=== PATIENT | female | born 1975 | race Caucasian/White ===

== ENCOUNTER → 2017-01-19 | Outpatient (CLI) | payer OTHER ==
--- NOTE | 2017-01-19 21:01 | MR ---
EXAMINATION TYPE: MR lumbar spine wo con DATE OF EXAM: 01/19/2017 COMPARISON: Prior lumbar MRI HISTORY: Low Back Pain x7 years TECHNIQUE: Multiplanar, multisequence images of the lumbar spine were acquired. L1-L2: Normal disc appearance without desiccation. No herniation, protrusion or disc bulging. No ca nal stenosis is present. Foramina are patent bilaterally. L2-L3: Normal disc appearance without desiccation. No herniation, protrusion or disc bulging. No ca nal stenosis is present. Foramina are patent bilaterally. L3-L4: Normal disc appearance without desiccation. No herniation, protrusion or disc bulging. No ca nal stenosis is present. Foramina are patent bilaterally. L4-L5: Broad-based posterior disc bulge causes mild anterior mass effect on the thecal sac as on prio r, there is facet arthropathy with hypertrophy ligamentum flavum encroaching on the lateral recesses. No significant central stenosis or foraminal encroachment. L5-S1: Normal disc appearance without desiccation. No herniation, protrusion or disc bulging. No ca nal stenosis is present. Foramina are patent bilaterally. Lumbar segments are intact. No paraspinal masses are identified. Conus medullaris has a normal appe arance. Lumbar vertebral bodies show preserved height and alignment. Endplate discogenic marrow signa l change again noted L4-5 with associated loss of disc height is normal. Mild spinal curvature again seen. IMPRESSION: Findings are essentially stable. Degenerative disc disease as on prior exam. There is spinal curvatur e
== END | disposition home or self-care (01) ==
LOC: RADMRIMAIN 19:34
PROVIDERS: ATTEND Physical Medicine & Rehabilitation
DX: M51.16 Intervertebral disc disorders with radiculopathy, lumbar region (principal); M43.8X6 Other specified deforming dorsopathies, lumbar region
CPT/HCPCS: 72148

== ENCOUNTER → 2018-03-29 | Outpatient (CLI) | payer OTHER ==
--- NOTE | 2018-03-29 12:45 | US ---
EXAMINATION TYPE: US liver DATE OF EXAM: 03/29/2018 COMPARISON: Prior ultrasound kidney dated 04/01/2011 CLINICAL HISTORY: R74.8 Elevated liver enzymes; gallbladder removed EXAM MEASUREMENTS: Liver Length: 17.4 cm Gallbladder Wall: surgically removed CBD: 0.5 cm Right Kidney: 10.8 x 5.6 x 4.2 cm Pancreas: hyperechoic Liver: hyperechoic to right renal cortex suggests fatty liver; focal fatty sparing ( hypoechoic area )noted at gallbladder fossa = 1.9 x 2.8 x 0.9cm Gallbladder: surgically absent Evidence for sonographic Mariee's sign: no CBD: wnl Right Kidney: wnl in the right kidney shows normal cortical medullary differentiation There is no ascites. IMPRESSION: Postop changes. Correlate for possible hepatic steatosis, liver MRI may be of benefit, ad ditional findings above.
== END | disposition home or self-care (01) ==
LOC: RADUSWWP 09:28
PROVIDERS: ATTEND Family Medicine
DX: R74.8 Abnormal levels of other serum enzymes (principal); Z90.49 Acquired absence of other specified parts of digestive tract
CPT/HCPCS: 76705

== ENCOUNTER 2018-04-16 00:03 | Observation (INO) | payer OTHER ==
--- NOTE | 2018-04-16 00:37 | ED ---
General Adult HPI - General Chief complaint: ENT Stated complaint: facial swelling Source: patient Mode of arrival: EMS Limitations: no limitations - History of Present Illness Initial comments: Dictation was produced using [employer] dictation software. please excuse any grammatical, word or spelling errors. Chief Complaint: 42-year-old female was transferred from outside facility for facial swelling History of Present Illness: Is a 42-year-old female with past medical history of depression, diabetes, hypertension pancreatitis presents with worsening facial swelling. She was transferred from an outside facility for further care. She was recently started on Zithromax. She's had sinusitis for several days now. She went to the emergency department because the swelling was getting worse. Patient denied any constitutional symptoms. Denies any visual changes. Patient does report having increased pain and discomfort to the left face. Patient denies any headache. She localizes all the pain to her anterior left face. Patient does have history of left-sided maxillary A sinus surgery. Patient was sent for further care and possible ENT evaluation. The ROS documented in this emergency department record has been reviewed and confirmed by me. Those systems with pertinent positive or negative responses have been documented in the HPI. All other systems are other negative and/or noncontributory. - Related Data Home Medications Medication Instructions Recorded Confirmed valACYclovir [Valtrex] 500 mg PO TID 02/08/15 04/16/18 ARIPiprazole [Abilify] 10 mg PO DAILY 04/16/18 04/16/18 Canagliflozin/Metformin HCl 1 each PO 04/16/18 [Invokamet 150-1,000 mg Tablet] FLUoxetine HCL [PROzac] 10 mg PO DAILY 04/16/18 04/16/18 Venlafaxine HCl [Effexor XR] 300 mg PO DAILY 04/16/18 04/16/18 Previous Rx's Medication Instructions Recorded Prochlorperazine Suppository 25 mg RECTAL TID #20 supp 02/08/15 [Compazine] Allergies Allergy/AdvReac Type Severity Reaction Status Date / Time carisoprodol [From Soma] Allergy Unknown Verified 02/08/15 12:18 latex Allergy Unknown Verified 02/08/15 12:18 Review of Systems ROS Statement: Those systems with pertinent positive or pertinent negative responses have been documented in the HPI. ROS Other: All systems not noted in ROS Statement are negative. Past Medical History Past Medical History: Diabetes Mellitus, Hypertension Additional Past Medical History / Comment(s): GENITAL HERPES History of Any Multi-Drug Resistant Organisms: None Reported Past Surgical History: Cholecystectomy Additional Past Surgical History / Comment(s): SINUS Past Psychological History: Anxiety, Depression Smoking Status: Current every day smoker Past Alcohol Use History: Rare Past Drug Use History: Prescription Drug Abuse General Exam - General Exam Comments Initial Comments: PHYSICAL EXAM: General Impression: Alert and oriented x3, not in acute distress HEENT: extra-ocular movements intact, pupils equal and reactive to light bilaterally, mucous membranes moist, poor dentition, left facial swelling to the periorbital and left maxillary region Cardiovascular: Heart regular rate and rhythm, S1&S2 audible, no murmurs, rubs or gallops Chest: Lungs clear to auscultation bilaterally, no rhonchi, no wheeze, no rales Abdomen: Bowel sounds present, abdomen soft, non-tender, non-distended, no organomegaly Musculoskeletal: Pulses present and equal in all extremities, no peripheral edema Motor: Power 5/5 bilaterally, no focal deficits noted Neurological: CN II-XII grossly intact, no focal motor or sensory deficits noted Skin: Intact with no visualized rashes Psych: Normal affect and mood Limitations: no limitations Course Vital Signs 04/16/18 00:10 Temperature 99.0 F Pulse Rate 104 H Respiratory 20 Rate Blood Pressure 205/117 O2 Sat by Pulse 95 Oximetry Medical Decision Making - Medical Decision Making ED course: 42-year-old female transferred from outside facility for worsening facial swelling possible phlegmon to the left maxillary soft tissues. Chart was reviewed from outside facility. Patient denies any leukocytosis P she is hemodynamically stable without any leukocytosis. Vital signs her facility is unremarkable. Patient was given a dose of Zosyn. Patient does have history of diabetes and is at risk for worsening infections. No clinical presentation to suggest mucormycosis. No clinical findings to suggest cavernous sinus thrombosis. Patient is given a dose of Zosyn. Will start patient on Unasyn and have patient admitted to the hospital for ENT consultation. Disposition Clinical Impression: Facial infection Disposition: ADMITTED IP TO THIS HOSP Referrals: Lee Enriquez MD [Primary Care Provider] - 1-2 days Decision Time: 00:46
[2018-04-16] MEDS ORDERED: NALOXONE 0.4 MG/ML 1 ML VIAL IV PRN (00:40)
[2018-04-16] MEDS: KETOROLAC 30 MG/ML 1 ML VIAL IVP SCH ×5 (00:56→23:22)
[2018-04-16] MEDS: AMPICILLIN-SULBACTAM 3 GM in SODIUM CHLORIDE 0.9% 100 ML IVPB SCH ×5 (00:57→23:22)
[2018-04-16] MEDS ORDERED: LISINOPRIL 10 MG TAB PO SCH ×2 (03:29→21:00)
[2018-04-16 05:32] VITALS: BMI 31.9
[2018-04-16 06:15] LABS: Glucose,Whole Blood 189 mg/dL (75-99)
[2018-04-16] MEDS: INSULIN ASPART 100 UNIT/ML 1 ML 10 ML VIAL SQ SCH ×4 (08:00→21:17)
[2018-04-16] MEDS: NICOTINE 21MG/24HR PATCH TRANSDERM SCH (08:01)
[2018-04-16 09:29] LABS: HCT 38.8 % (34.0-46.0); HGB 12.7 gm/dL (11.4-16.0); Hypochromasia Slight; MCH 27.1 pg (25.0-35.0); MCHC 32.8 g/dL (31.0-37.0); MCV 82.6 fL (80.0-100.0); Mean Platelet Volume 6.5; Microcytosis Slight; Platelet Count 261 k/uL (150-450); RDW 20.4 % (11.5-15.5); WBC 7.1 k/uL (3.8-10.6)
[2018-04-16 09:30] LABS: Anisocytosis Moderate; Basophils % (A) 0 %; Eosinophils # (A) 0.2 k/uL (0-0.7); Eosinophils % (A) 3 %; Lymphocytes # (A) 1.6 k/uL (1.0-4.8); Lymphocytes % (A) 22 %; Monocytes # (A) 0.4 k/uL (0-1.0); Monocytes % (A) 6 %; Neutrophils # (A) 4.8 k/uL (1.3-7.7); Neutrophils % (A) 68 %
[2018-04-16] MEDS: VENLAFAXINE HCL ER 150 MG CAP PO SCH (09:39)
[2018-04-16] MEDS: FLUTICASONE 50MCG/SPRAY NASAL 16GM INTRANASAL SCH (09:39)
[2018-04-16] MEDS: FLUoxetine HCL 10 MG CAP PO SCH (09:40)
[2018-04-16] MEDS: ARIPiprazole 10 MG TAB PO SCH (09:40)
[2018-04-16 09:44] LABS: Anion Gap 10 mmol/L; Blood Urea Nitrogen 10 mg/dL (7-17); Calcium 8.5 mg/dL (8.4-10.2); Carbon Dioxide 25 mmol/L (22-30); Chloride 105 mmol/L (98-107); Glucose 140 mg/dL (74-99); Potassium 3.8 mmol/L (3.5-5.1); Sodium 140 mmol/L (137-145)
[2018-04-16] MEDS: CANAGLIFLOZIN PO SCH (10:45)
[2018-04-16] MEDS: METFORMIN HCL PO SCH (10:45)
[2018-04-16] MEDS ORDERED: LISINOPRIL 5 MG TAB PO SCH ×2 (12:15→21:00)
[2018-04-16 12:31] LABS: Glucose,Whole Blood 208 mg/dL (75-99)
--- NOTE | 2018-04-16 13:33 | XR ---
EXAMINATION TYPE: XR panorex , DATE OF EXAM ORDERED: 04/16/2018 HISTORY: facial swelling left side, broken tooth. COMPARISON: None. FINDINGS: The patient is missing multiple teeth. There are several amalgams present. There have been multiple root canals. There is carious erosion of the left upper second molar. No definite root absc ess is seen. IMPRESSION: EVIDENCE OF POOR DENTITION.
[2018-04-16] MEDS ORDERED: MAGNESIUM HYDROXIDE 2,400 MG/10 ML CUP PO PRN (15:09)
[2018-04-16] MEDS ORDERED: LACTULOSE 20 GM/30 ML CUP PO PRN (15:09)
[2018-04-16] MEDS ORDERED: ONDANSETRON 4 MG/2 ML VIAL IVP PRN (15:09)
[2018-04-16] MEDS ORDERED: MELATONIN 3 MG TABLET PO PRN (15:09)
[2018-04-16] MEDS: ENOXAPARIN 40 MG/0.4 ML SYRINGE SQ SCH (16:32)
[2018-04-16] MEDS: methylPREDNISolone SOD SUCCI 40 MG/ML 1 ML VIAL IV SCH ×2 (16:33→23:22)
[2018-04-16] MEDS: ALPRAZolam 0.25 MG TAB PO PRN ×2 (16:45→23:22)
[2018-04-16 17:02] LABS: Glucose,Whole Blood 226 mg/dL (75-99)
--- NOTE | 2018-04-16 17:24 | P.CON ---
Consult Note - . Consult date: 04/16/18 Assessment/Plan:: Chief complaint facial pain and cellulitis History of present illness 42-year-old female presented [facility] after failing outpatient therapy on Zithromax. She reported having sinus trouble and was transferred in order to receive an ENT evaluation.. Also throat physician felt the problem was dental and asked oral surgery to evaluate. The patient reports improvements upon admission and the swelling is gone down even in the last 6 hours. Patient can see out of her eye without having to hold it open. Her numbness has improved on the cheek. Past medical history on chart Medications on chart. Limited physical exam the patient is afebrile vital signs stable with facial swelling of the left canine space. There is a half centimeter by half centimeter firm tender area in adjacent to the left nostril with some mobility of her #11 canine tooth. Upon tapping there is some tenderness in this area. The patient reports full feeling of the left cheek. There is some evidence of recent dental work on tooth numbers 12 and 14 with a grossly decayed tooth #15. Panoramic x-ray and some sinusitis on the left side is evident with no obvious abscess formation seen. Assessment plan the patient has a canine space infection of tooth #11 most likely related to periodontal disease or recurrent decay. Current antibiotic therapy is working well recommend continue. Discussed with the patient the options of extraction or root canal to save the tooth patient would prefer to save the tooth. The patient was instructed to follow up with me and outpatient setting calling on Wednesday for an appointment. Phone number given.
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
[2018-04-16 17:49] LABS: Hemoglobin A1C 7.2 % (4.0-6.0)
--- NOTE | 2018-04-16 18:09 | CONS ---
CONSULTATION REASON FOR CONSULTATION: Left facial swelling, sinusitis. HISTORY: This is a 42-year-old white female who states that about a week ago she developed some nasal congestion. She started having some clear mucus drainage from the nose 3 days ago and saw her primary care physician and was placed on Zithromax. She still had some nasal congestion and drainage, which was still clear mucus, but yesterday developed acute onset of left facial swelling in the maxillary and infraorbital area on the left. She went to the hospital, had a CT scan of the sinuses and facial bones, which was read as left-sided maxillary sinusitis. I reviewed these x-rays myself today. She has mild mucosal thickening in the floor of the left maxillary sinus. However, the previously left maxillary antrostomy is widely patent. This is actually more open than the right. There is no air-fluid level or coalescent opacification of the left maxillary sinus. The patient has had some intermittent left maxillary tooth pain over the last 2 weeks and has known dental disease. She has had no fever or chills. She is having no headache, fever, or chills. PAST MEDICAL HISTORY: Positive for diabetes and hypertension. PAST SURGICAL: Cholecystectomy, septoplasty and left maxillary antrostomy with endoscopic sinus surgery in 2010. Past medical history also includes anxiety and depression. SOCIAL HISTORY: The patient does smoke. Does not drink alcohol. MEDICATIONS: At home, Valtrex, Abilify, metformin, Prozac and Effexor. ALLERGIES: TO SOMA AND LATEX. REVIEW OF SYSTEMS: As above. The patient has not had difficulty with her sinuses otherwise since her surgery in 2009. FAMILY HISTORY: Noncontributory. PHYSICAL EXAM: Vital signs: The patient is afebrile. Vital signs overall otherwise stable. HEENT/HEAD: Normocephalic and atraumatic. Facial exam shows left maxillary and infraorbital edema. There is no erythema. The facial soft tissues are soft and mildly tender diffusely over the left cheek. EYES: Extraocular movements are intact. Pupils are equal, round, reactive to light and accommodation. The nose shows mild clear mucus bilaterally. There is no purulence. Septum is in the midline. Nasal endoscopy also performed and the left maxillary ostium is widely patent. There is no synechiae or purulence. Oral cavity shows dental caries with gingivitis left maxillary. There is a posterior-most left maxillary molar is severely decayed with only the tooth roots remaining. There is some tenderness in this area on palpation. No trismus. Oropharynx unremarkable. NECK: Supple without adenopathy or tenderness. ASSESSMENT: 1. Left facial cellulitis. 2. Odontogenic infection, left maxilla with secondary left facial cellulitis. 3. Mild left maxillary sinusitis, more likely chronic. PLAN: The patient is on Unasyn already, which is reasonable as there is anaerobic coverage with this. Would proceed with oral surgery consultation as it appears that she will need dental extraction in order to further improve this infection. It does not appear that she needs any sinus surgery at this point. Would consider steroids for the inflammation. However, this would adversely affect her diabetes and therefore would hold off on this as far as risks versus benefit. If there are questions or concerns, please free to contact me. Of note, I did review her CT scan with the patient's in detail. 45 minutes spent on consultation. Most of this in counseling. Thank you for the consultation. MMODL / IJN: [id number] /
--- NOTE | 2018-04-16 18:15 | PCN ---
PROCEDURE NOTE PREOP DIAGNOSIS: Left facial cellulitis with history of sinusitis. POSTOP DIAGNOSIS: Left facial cellulitis with history of sinusitis. PROCEDURE: Nasal endoscopy. ANESTHESIA: None. COMPLICATIONS: None. BLOOD LOSS: None. DESCRIPTION OF PROCEDURE: The patient was in her hospital bed. Informed consent was obtained. Nasal endoscopy was performed bilaterally. Beginning on the right, the inferior turbinates were mildly congested. There is minimal clear mucus drainage. Septum is in midline bilaterally. No abnormalities noted on the right, otherwise in the middle meatus. On the left, the maxillary antrostomy is widely patent with minimal clear mucus drainage in the left nasal cavity as it was on the right. There is no synechiae or purulence. No polyps. The patient tolerated the procedure well with no complications. MMODL / IJN: [id number] /
[2018-04-16 21:04] LABS: Glucose,Whole Blood 247 mg/dL (75-99)
[2018-04-16 23:32] VITALS: RESP 16
[2018-04-17] MEDS: KETOROLAC 30 MG/ML 1 ML VIAL IVP SCH ×2 (06:02→12:22)
[2018-04-17] MEDS: AMPICILLIN-SULBACTAM 3 GM in SODIUM CHLORIDE 0.9% 100 ML IVPB SCH ×2 (06:03→12:21)
[2018-04-17 07:33] LABS: Glucose,Whole Blood 208 mg/dL (75-99)
[2018-04-17] MEDS: INSULIN ASPART 100 UNIT/ML 1 ML 10 ML VIAL SQ SCH ×2 (08:00→13:14)
[2018-04-17] MEDS: METFORMIN HCL PO SCH (08:01)
[2018-04-17] MEDS: CANAGLIFLOZIN PO SCH (08:01)
[2018-04-17] MEDS: ENOXAPARIN 40 MG/0.4 ML SYRINGE SQ SCH (08:01)
[2018-04-17] MEDS: methylPREDNISolone SOD SUCCI 40 MG/ML 1 ML VIAL IV SCH ×2 (08:01→16:24)
[2018-04-17] MEDS: ARIPiprazole 10 MG TAB PO SCH (08:02)
[2018-04-17] MEDS: VENLAFAXINE HCL ER 150 MG CAP PO SCH (08:02)
[2018-04-17] MEDS: NICOTINE 21MG/24HR PATCH TRANSDERM SCH (08:02)
[2018-04-17] MEDS: FLUoxetine HCL 10 MG CAP PO SCH (08:02)
[2018-04-17] MEDS: FLUTICASONE 50MCG/SPRAY NASAL 16GM INTRANASAL SCH (08:03)
[2018-04-17] MEDS ORDERED: BISACODYL 10 MG SUPP RECTAL PRN (08:40)
[2018-04-17] MEDS ORDERED: FERROUS SULFATE 325 MG TAB PO SCH (09:00)
[2018-04-17 12:48] LABS: Glucose,Whole Blood 290 mg/dL (75-99)
[2018-04-17] MEDS: ALPRAZolam 0.25 MG TAB PO PRN (13:54)
[2018-04-17 15:48] VITALS: BP 133/72; PULSE 105; TEMP 97.9
--- NOTE | 2018-04-18 06:32 | DS ---
DISCHARGE SUMMARY DATE OF ADMISSION: 04/16/2018 DATE OF DISCHARGE: 04/17/2018 FINAL DIAGNOSES: 1. Acute upper facial cellulitis secondary to root canal infection/abscess on the left side of the face. 2. Diabetes mellitus Type 2. 3. Essential hypertension. 4. Anxiety/depression not otherwise specified. 5. Chronic nicotine dependence, patient is a cigarette smoker. 6. Mild persistent asthma with acute exacerbation. HOSPITAL COURSE: This patient has got infected tooth, presented with pain and swelling on the left side of the face. Since there was a concern about a sinus infection, nasal endoscopy was done by Dr. Ramos. The sinuses were found to be clear, especially the maxillary sinus. The patient did have a panoramic x-ray. Seen by Dr. Bennett. The patient was clinically also found to have infected tooth on the upper jaw on the left side. The patient is treated with IV Unasyn, steroid, burst of steroids, antibiotics to which she responded well. Pain and swelling greatly improved by the day of discharge, patient is very keen to go home. On examination, afebrile. Blood pressure 130/72. LUNGS improved air entry. CONSULTATION: Dr. Bennett from Oral maxillofacial surgery, Dr. Ramos from ENT. DISCHARGE MEDICATIONS: 1. Abilify 10 mg a day. 2. Invokana 150/1000 1 tablet p.o. daily. 3. Trulicity 1.5 mg subcu Wednesday. 4. Prozac 10 mg p.o. daily. 5. Iron 325 p.o. daily. 6. Flonase 50 mcg intranasal daily p.r.n. 7. Zestril 5 mg p.o. daily. 8. Effexor XR 300 mg p.o. daily. 9. Ventolin HFA 1-2 puffs q.6h p.r.n. 10.Augmentin 875 1 tablet p.o. q.12, 14 tablets. 11.Naproxen 250 mg p.o. t.i.d. 21 tablets. 12.Nicotine patch 21. 13.Prednisone taper. FOLLOWUP: Follow up with Dr. Bennett next week. Follow up with Dr. Enriquez in [address] Enriquez. MMODL / IJN: [id number] /
== END 2018-04-17 17:12 | disposition home or self-care (01) ==
LOC: EC 00:03 → 4MS4W 00:40
PROVIDERS: ADMIT Hospitalist; ATTEND Hospitalist
DX: L03.211 Cellulitis of face (principal); K04.7 Periapical abscess without sinus; M27.2 Inflammatory conditions of jaws; K02.9 Dental caries, unspecified; J32.0 Chronic maxillary sinusitis; E11.9 Type 2 diabetes mellitus without complications; I10 Essential (primary) hypertension; J45.31 Mild persistent asthma with (acute) exacerbation; F32.9 Major depressive disorder, single episode, unspecified; F41.9 Anxiety disorder, unspecified; A60.00 Herpesviral infection of urogenital system, unspecified; F17.210 Nicotine dependence, cigarettes, uncomplicated; Z79.899 Other long term (current) drug therapy; Z79.84 Long term (current) use of oral hypoglycemic drugs; Z88.8 Allergy status to other drugs, medicaments and biological substances; Z91.040 Latex allergy status; Z90.49 Acquired absence of other specified parts of digestive tract
CPT/HCPCS: 99284; 31231; 96365 ×2; 96375 ×3; 96376 ×2; 96366 ×2; 96372 ×2; 80048; 85025; 83036; 70355; G0378 ×2; S4990 ×2; J2920 ×2; J1650 ×2; J1885 ×2; J0295 ×2

== ENCOUNTER → 2018-05-25 | Outpatient (CLI) | payer OTHER ==
[2018-05-25 10:27] VITALS: BP 165/96; PULSE 106; TEMP 97.1; BMI 31.8
--- NOTE | 2018-05-25 11:12 | P.HPOB ---
History of Present Illness H&P Date: 05/25/18 Chief Complaint: The patient is here for her routine gynecologic exam and mammogram. This is a 42-year-old with an LMP of 05/06/2018. The patient is here to establish with this office. It is been about 2 years since her last pelvic exam. Menses are generally regular every month, but she had no menstrual period in March and had to in April. She believes this was related to increased stress. She has been using condoms for control. She states her is planning on getting a vasectomy. Review of Systems Weight has been stable. She denies respiratory or cardiac problems. G.I.: she states she occasionally wakes up with some nausea, but knows she is not . She believes it is related to her diabetes medication. Past Medical History Past Medical History: Asthma, Diabetes Mellitus (Type II diabetes), Hypertension Additional Past Medical History / Comment(s): pancreatitis in the past. 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 History of Any Multi-Drug Resistant Organisms: None Reported Past Surgical History: Breast Surgery (Left breast biopsy), Cholecystectomy Additional Past Surgical History / Comment(s): Left facial sinus surgery. Colonoscopy 2014. Past Psychological History: Anxiety, Depression Smoking Status: Current every day smoker (Half pack per day down from one pack per day.) Past Alcohol Use History: Occasional (1 to 2 per week) Past Drug Use History: None Reported, Prescription Drug Abuse Additional Drug Use History / Comment(s): Pt. reports on history of prescription drug abuse. Additional History: She has been since 1998. 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 - Past Family History Father Family Medical History: Cancer (Colon cancer), Seizure Disorder Additional Family Medical History / Comment(s): 2 paternal aunts and paternal grandmother had breast cancer. Mother Family Medical History: Hypertension, Liver Disease Additional Family Medical History / Comment(s): EtOH abuse. Maternal grandmother had leukemia. Medications and Allergies Home Medications Medication Instructions Recorded Confirmed Type ARIPiprazole [Abilify] 10 mg PO DAILY 04/16/18 05/25/18 History Canagliflozin/Metformin HCl 1 tab PO DAILY 04/16/18 05/25/18 History [Invokamet 150-1,000 mg Tablet] Dulaglutide [Trulicity] 1.5 mg SQ TU 04/16/18 05/25/18 History FLUoxetine HCL [PROzac] 10 mg PO DAILY 04/16/18 05/25/18 History Ferrous Sulfate [Iron] 325 mg PO DAILY 04/16/18 05/25/18 History Lisinopril [Zestril] 5 mg PO DAILY 04/16/18 04/16/18 History Venlafaxine HCl [Effexor XR] 300 mg PO DAILY 04/16/18 05/25/18 History Albuterol Inhaler [Ventolin Hfa 1 - 2 puff INHALATION RT-Q6H PRN 04/17/18 Rx Inhaler] #1 inhaler Nicotine 21Mg/24Hr Patch [Habitrol] 1 patch TRANSDERM DAILY #30 patch 04/17/18 Rx Allergies Allergy/AdvReac Type Severity Reaction Status Date / Time carisoprodol [From Achievers] Allergy Unknown Verified 05/25/18 10:19 latex Allergy Unknown Verified 05/25/18 10:19 Exam Vital Signs Temp Pulse BP 05/25/18 10:22 97.1 F L 106 H 165/96 Intake and Output 05/24/18 05/25/18 05/25/18 22:59 06:59 14:59 Other: Weight 78.925 kg Repeat blood pressure 156/96, height 5'2", weight 174 pounds, BMI 31.8. This is a well-developed well-nourished white female who is alert and oriented times 3 in no acute distress. HEENT: Within normal limits. NECK: Supple without mass or thyromegaly. CHEST AND LUNGS: Clear to auscultation. HEART: Regular rate and rhythm. BREASTS: Are without mass or discharge. AXILLARY EXAM: Negative for adenopathy. BACK: Negative for CVA tenderness. ABDOMEN: Soft, nontender, without palpable masses. PELVIC EXAM: Normal external genitalia. Cervix and vagina appear normal. There is no unusual discharge. There is no evidence of prolapse. The uterus is midposition, nongravid size and nontender. There are no palpable adnexal masses or tenderness. RECTAL EXAM: negative for mass or tenderness and is negative for occult blood. EXTREMITIES: Nontender. IMPRESSION: 1. 42-year-old female with normal gynecologic exam who uses condoms for control. Her is planning on getting a vasectomy. 2. Family history of breast cancer in 3- 2nd degree paternal relatives. PLAN: 1. Pap smear was performed. 2. Self breast awareness was discussed with the patient. 3. Screening mammogram will be done today. She will have this done yearly. 4. Osteoporosis prevention was discussed. 5. I have recommended that these condoms until her 's vasectomy has been done and found to be effective. 6. She will keep a menstrual calendar and call she's having greater menstrual irregularity or problems. 7. She will return in one year.
--- NOTE | 2018-05-26 11:57 | MM ---
Reason for exam: screening (asymptomatic). Last mammogram was performed 2 years and 1 month ago. History: Family history of breast cancer in paternal grandmother and breast cancer in maternal aunt. Benign US biopsy breast VAD LT of the left breast, April 26, 2014. Benign US biopsy breast add'l VAD LT of the left breast, April 26, 2014. Physical Findings: A clinical breast exam by your physician is recommended on an annual basis and results should be correlated with mammographic findings. MG Screening Mammo w CAD Bilateral CC and MLO view(s) were taken. Prior study comparison: May 06, 2016, bilateral MG diagnostic mammo w CAD SAM. April 26, 2014, left breast MG diagnostic mammo LT wo CAD. The breast tissue is heterogeneously dense. This may lower the sensitivity of mammography. No suspicious abnormality. Left biopsy marker noted. ASSESSMENT: Negative, BI-RAD 1 RECOMMENDATION: Routine screening mammogram of both breasts in 1 year.
== END ==
LOC: WWCWWP 10:11
PROVIDERS: ATTEND Obstetrics & Gynecology
DX: Z12.31 Encounter for screening mammogram for malignant neoplasm of breast (principal)
CPT/HCPCS: 77067

== ENCOUNTER 2018-06-27 15:22 | Observation (INO) | payer OTHER ==
[2018-06-27] MEDS ORDERED: SODIUM CHLORIDE 0.9% 1,000 ML IV STA (16:20)
[2018-06-27] MEDS ORDERED: ALBUTEROL NEBULIZED 2.5 MG/3 ML INHALATION STA (16:20)
[2018-06-27] MEDS ORDERED: methylPREDNISolone SOD SUCCI 125 MG/2 ML VIAL IV STA (16:20)
[2018-06-27] MEDS ORDERED: IPRATROPIUM 0.5 MG/2.5 ML NEBU INHALATION STA (16:20)
--- NOTE | 2018-06-27 16:23 | ED ---
General Adult HPI - General Chief complaint: Upper Respiratory Infection Stated complaint: Cough,DAMIR, asthma Time Seen by Provider: 06/27/18 16:17 Source: patient, RN notes reviewed, old records reviewed Mode of arrival: ambulatory Limitations: no limitations - History of Present Illness Initial comments: 42-year-old female history of asthma presenting with 24-hour history of productive cough and dyspnea. Patient is also had subjective fever and chills as well as myalgias. Denies vomiting or diarrhea. Denies abdominal pain. She does report some chest pain which is worse with cough. Patient has been taking Aleve over the past 24 hours. No central radiating chest pain. No lower extremity swelling or calf pain. - Related Data Home Medications Medication Instructions Recorded Confirmed ARIPiprazole [Abilify] 10 mg PO DAILY 04/16/18 06/27/18 Canagliflozin/Metformin HCl 1 tab PO DAILY 04/16/18 06/27/18 [Invokamet 150-1,000 mg Tablet] Dulaglutide [Trulicity] 1.5 mg SQ TU 04/16/18 06/27/18 FLUoxetine HCL [PROzac] 10 mg PO DAILY 04/16/18 06/27/18 Ferrous Sulfate [Iron] 325 mg PO DAILY 04/16/18 06/27/18 Lisinopril [Zestril] 5 mg PO DAILY 04/16/18 06/27/18 Venlafaxine HCl [Effexor XR] 300 mg PO DAILY 04/16/18 06/27/18 Prochlorperazine [Compazine] 10 mg PO Q8H PRN 06/27/18 06/27/18 traMADol HCL [Ultram] 50 mg PO Q6HR PRN 06/27/18 06/27/18 Previous Rx's Medication Instructions Recorded Albuterol Inhaler [Ventolin Hfa 1 - 2 puff INHALATION RT-Q6H PRN 04/17/18 Inhaler] #1 inhaler Allergies Allergy/AdvReac Type Severity Reaction Status Date / Time latex Allergy Rash/Hives Verified 06/27/18 16:10 carisoprodol [From Soma] AdvReac PASSES OUT Verified 06/27/18 16:10 Review of Systems ROS Statement: Those systems with pertinent positive or pertinent negative responses have been documented in the HPI. ROS Other: All systems not noted in ROS Statement are negative. Past Medical History Past Medical History: Asthma, Diabetes Mellitus, Hypertension Additional Past Medical History / Comment(s): pancreatitis in the past. 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 History of Any Multi-Drug Resistant Organisms: None Reported Past Surgical History: Breast Surgery, Cholecystectomy Additional Past Surgical History / Comment(s): Left facial sinus surgery. Colonoscopy 2014. Past Psychological History: Anxiety, Depression Smoking Status: Current every day smoker Past Alcohol Use History: Occasional Past Drug Use History: None Reported, Prescription Drug Abuse - Past Family History Father Family Medical History: Cancer (Colon cancer), Seizure Disorder Additional Family Medical History / Comment(s): 2 paternal aunts and paternal grandmother had breast cancer. Mother Family Medical History: Hypertension, Liver Disease Additional Family Medical History / Comment(s): EtOH abuse. Maternal grandmother had leukemia. General Exam Limitations: no limitations General appearance: alert, in no apparent distress Head exam: Present: atraumatic, normocephalic Eye exam: Present: normal appearance, PERRL ENT exam: Present: normal exam Neck exam: Present: normal inspection. Absent: tenderness, meningismus Respiratory exam: Present: respiratory distress, wheezes, rhonchi Cardiovascular Exam: Present: normal rhythm, tachycardia GI/Abdominal exam: Present: soft. Absent: distended, tenderness Extremities exam: Present: normal inspection, normal capillary refill. Absent: pedal edema, calf tenderness Neurological exam: Present: alert, oriented X3, CN II-XII intact. Absent: motor sensory deficit Psychiatric exam: Present: normal affect, normal mood Skin exam: Present: warm, dry, intact. Absent: cyanosis, diaphoretic Course Vital Signs 06/27/18 06/27/18 06/27/18 15:29 16:49 17:06 Temperature 98.8 F Pulse Rate 123 H 122 H 116 H Respiratory 18 24 18 Rate Blood Pressure 187/97 O2 Sat by Pulse 97 Oximetry EKG Findings - EKG Comments: EKG Findings:: EKG: Sinus tachycardia, possible left atrial enlargement, rate of 108, LA interval 132, QRS duration 78, QTC 493, no ST segment changes. Medical Decision Making - Medical Decision Making 42-year-old female with history of asthma presenting with productive cough, and subjective fever and chills, myalgias. Workup in the emergency department reveals normal CBC, normal CMP, d-dimer and troponin are negative. Chest x-ray shows some atelectasis, no focal consolidation. After initial treatment with the below, Atrovent, steroids, patient continues to have diffuse wheezing and decreased air entry. She will be placed in observation for continued treatment of asthma exacerbation. Case discussed with admitting physician. - Lab Data Result diagrams: 06/27/18 16:48 06/27/18 16:48 Lab Results 06/27/18 06/27/18 06/27/18 Range/Units 16:48 16:48 16:48 WBC 7.7 (3.8-10.6) k/uL RBC 5.16 (3.80-5.40) m/uL Hgb 15.0 (11.4-16.0) gm/dL Hct 46.1 H (34.0-46.0) % MCV 89.4 (80.0-100.0) fL MCH 29.0 (25.0-35.0) pg MCHC 32.5 (31.0-37.0) g/dL RDW 16.5 H (11.5-15.5) % Plt Count 322 (150-450) k/uL Neutrophils % 79 % Lymphocytes % 13 % Monocytes % 4 % Eosinophils % 2 % Basophils % 0 % Neutrophils # 6.1 (1.3-7.7) k/uL Lymphocytes # 1.0 (1.0-4.8) k/uL Monocytes # 0.3 (0-1.0) k/uL Eosinophils # 0.2 (0-0.7) k/uL Basophils # 0.0 (0-0.2) k/uL Anisocytosis Slight PT 9.4 (9.0-12.0) sec INR 0.8 (<1.2) APTT 22.4 (22.0-30.0) sec D-Dimer (<0.60) mg/L FEU Sodium 138 (137-145) mmol/L Potassium 3.9 (3.5-5.1) mmol/L Chloride 105 (98-107) mmol/L Carbon Dioxide 21 L (22-30) mmol/L Anion Gap 12 mmol/L BUN 12 (7-17) mg/dL Creatinine 0.54 (0.52-1.04) mg/dL Est GFR (CKD-EPI)AfAm >90 (>60 ml/min/1.73 sqM) Est GFR (CKD-EPI)NonAf >90 (>60 ml/min/1.73 sqM) Glucose 172 H (74-99) mg/dL Calcium 9.6 (8.4-10.2) mg/dL Magnesium 1.8 (1.6-2.3) mg/dL Total Bilirubin 0.4 (0.2-1.3) mg/dL AST 24 (14-36) U/L ALT 42 (9-52) U/L Alkaline Phosphatase 77 (38-126) U/L Troponin I (0.000-0.034) ng/mL Total Protein 7.5 (6.3-8.2) g/dL Albumin 4.5 (3.5-5.0) g/dL 06/27/18 06/27/18 Range/Units 16:48 16:48 WBC (3.8-10.6) k/uL RBC (3.80-5.40) m/uL Hgb (11.4-16.0) gm/dL Hct (34.0-46.0) % MCV (80.0-100.0) fL MCH (25.0-35.0) pg MCHC (31.0-37.0) g/dL RDW (11.5-15.5) % Plt Count (150-450) k/uL Neutrophils % % Lymphocytes % % Monocytes % % Eosinophils % % Basophils % % Neutrophils # (1.3-7.7) k/uL Lymphocytes # (1.0-4.8) k/uL Monocytes # (0-1.0) k/uL Eosinophils # (0-0.7) k/uL Basophils # (0-0.2) k/uL Anisocytosis PT (9.0-12.0) sec INR (<1.2) APTT (22.0-30.0) sec D-Dimer 0.49 (<0.60) mg/L FEU Sodium (137-145) mmol/L Potassium (3.5-5.1) mmol/L Chloride (98-107) mmol/L Carbon Dioxide (22-30) mmol/L Anion Gap mmol/L BUN (7-17) mg/dL Creatinine (0.52-1.04) mg/dL Est GFR (CKD-EPI)AfAm (>60 ml/min/1.73 sqM) Est GFR (CKD-EPI)NonAf (>60 ml/min/1.73 sqM) Glucose (74-99) mg/dL Calcium (8.4-10.2) mg/dL Magnesium (1.6-2.3) mg/dL Total Bilirubin (0.2-1.3) mg/dL AST (14-36) U/L ALT (9-52) U/L Alkaline Phosphatase (38-126) U/L Troponin I <0.012 (0.000-0.034) ng/mL Total Protein (6.3-8.2) g/dL Albumin (3.5-5.0) g/dL Disposition Clinical Impression: Asthma exacerbation Disposition: ADMITTED IP TO THIS HOSP Condition: Stable Is patient prescribed a controlled substance at d/c from ED?: No Referrals: Lee Enriquez MD [Primary Care Provider] - 1-2 days Decision to Admit Reason: Admit from EC Decision Date: 06/27/18 Decision Time: 19:28
[2018-06-27 17:01] LABS: Anisocytosis Slight; Basophils % (A) 0 %; Eosinophils # (A) 0.2 k/uL (0-0.7); Eosinophils % (A) 2 %; HCT 46.1 % (34.0-46.0); Lymphocytes % (A) 13 %; MCHC 32.5 g/dL (31.0-37.0); MCV 89.4 fL (80.0-100.0); Mean Platelet Volume 6.8; Monocytes # (A) 0.3 k/uL (0-1.0); Monocytes % (A) 4 %; Neutrophils # (A) 6.1 k/uL (1.3-7.7); Neutrophils % (A) 79 %; Platelet Count 322 k/uL (150-450); RBC 5.16 m/uL (3.80-5.40); RDW 16.5 % (11.5-15.5); WBC 7.7 k/uL (3.8-10.6)
[2018-06-27 17:14] LABS: ALT 42 U/L (9-52); AST 24 U/L (14-36); Albumin 4.5 g/dL (3.5-5.0); Alkaline Phosphatase 77 U/L (38-126); Anion Gap 12 mmol/L; Blood Urea Nitrogen 12 mg/dL (7-17); Calcium 9.6 mg/dL (8.4-10.2); Carbon Dioxide 21 mmol/L (22-30); Chloride 105 mmol/L (98-107); Glucose 172 mg/dL (74-99); Magnesium 1.8 mg/dL (1.6-2.3); Potassium 3.9 mmol/L (3.5-5.1); Sodium 138 mmol/L (137-145); Total Bilirubin 0.4 mg/dL (0.2-1.3); Total Protein 7.5 g/dL (6.3-8.2)
[2018-06-27 17:15] LABS: INR 0.8 (<1.2); Partial Thromboplastin Time 22.4 sec (22.0-30.0); Prothrombin Time 9.4 sec (9.0-12.0)
--- NOTE | 2018-06-27 18:00 | XR ---
EXAMINATION TYPE: XR chest 2V DATE OF EXAM: 06/27/2018 COMPARISON: 10/16/2013 HISTORY: Cough TECHNIQUE: Frontal and lateral views of the chest are obtained. FINDINGS: Heart and mediastinum are normal. There is a small area of linear density at the left lung base. The other lung brar are clear. IMPRESSION: Small area of scarring or atelectasis at the left lung base unchanged. Normal heart.
[2018-06-27] MEDS ORDERED: IPRATROPIUM-ALBUTEROL 3 ML NEB INHALATION PRN (19:22)
[2018-06-27] MEDS ORDERED: ALBUTEROL NEBULIZED 2.5 MG/3 ML INHALATION PRN ×2 (19:24→21:26)
[2018-06-27] MEDS: IPRATROPIUM-ALBUTEROL 3 ML NEB INHALATION SCH (19:53)
[2018-06-27] MEDS ORDERED: PROCHLORPERAZINE 10 MG TAB PO PRN (21:26)
[2018-06-28] MEDS: methylPREDNISolone SOD SUCCI 125 MG/2 ML VIAL IV SCH ×3 (00:24→12:20)
[2018-06-28 07:05] LABS: Glucose,Whole Blood 184 mg/dL (75-99)
[2018-06-28] MEDS: IPRATROPIUM-ALBUTEROL 3 ML NEB INHALATION SCH ×6 (08:17→23:44)
[2018-06-28] MEDS ORDERED: Dulaglutide [Trulicity] 1.5 MG SQ SCH (09:00)
[2018-06-28] MEDS: INSULIN ASPART 100 UNIT/ML 1 ML 10 ML VIAL SQ SCH ×5 (09:06→21:32)
[2018-06-28] MEDS: CANAGLIFLOZIN PO SCH (09:09)
[2018-06-28] MEDS: VENLAFAXINE HCL ER 150 MG CAP PO SCH (09:09)
[2018-06-28] MEDS: LEVOFLOXACIN 500 MG TAB PO SCH (09:09)
[2018-06-28] MEDS: ARIPiprazole 10 MG TAB PO SCH (09:09)
[2018-06-28] MEDS: LISINOPRIL 5 MG TAB PO SCH (09:09)
[2018-06-28] MEDS: FLUoxetine HCL 10 MG CAP PO SCH (09:09)
[2018-06-28] MEDS: METFORMIN HCL PO SCH (09:09)
[2018-06-28] MEDS: FERROUS SULFATE 325 MG TAB PO SCH (09:09)
[2018-06-28] MEDS: traMADol 50 MG TAB PO PRN ×2 (09:19→21:33)
[2018-06-28 11:32] LABS: Glucose,Whole Blood 222 mg/dL (75-99)
[2018-06-28 16:39] LABS: Glucose,Whole Blood 403 mg/dL (75-99)
[2018-06-28] MEDS ORDERED: NICOTINE POLACRILEX 2 MG GUM BUCCAL PRN (16:46)
[2018-06-28] MEDS ORDERED: INSULIN ASPART 100 UNIT/ML 1 ML 10 ML VIAL SQ SCH (17:30)
[2018-06-28] MEDS: NICOTINE 21MG/24HR PATCH TRANSDERM SCH (18:13)
[2018-06-28] MEDS: LACTATED RINGERS 1,000 ML IV SCH (18:15)
[2018-06-28 19:42] LABS: Glucose,Whole Blood 374 mg/dL (75-99)
[2018-06-28 19:59] LABS: Hemoglobin A1C 8.6 % (4.0-6.0)
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
[2018-06-28] MEDS: BUDESONIDE 1 MG/2 ML NEBU INHALATION SCH ×2 (20:16→20:17)
[2018-06-28] MEDS ORDERED: INSULIN DETEMIR 100 UNIT/ML 10 ML VIAL SQ SCH (21:00)
[2018-06-28] MEDS: MELATONIN 3 MG TABLET PO SCH (21:32)
[2018-06-28] MEDS: INSULIN DETEMIR 100 UNIT/ML 10 ML VIAL SQ SCH (21:32)
[2018-06-29 00:18] LABS: Glucose,Whole Blood 328 mg/dL (75-99)
[2018-06-29] MEDS: methylPREDNISolone SOD SUCCI 40 MG/ML 1 ML VIAL IV SCH ×3 (00:36→16:51)
[2018-06-29] MEDS: IPRATROPIUM-ALBUTEROL 3 ML NEB INHALATION SCH ×5 (03:27→20:45)
[2018-06-29] MEDS: LACTATED RINGERS 1,000 ML IV SCH ×3 (03:31→22:36)
[2018-06-29 07:13] LABS: Glucose,Whole Blood 260 mg/dL (75-99)
[2018-06-29] MEDS ORDERED: BENZOCAINE/MENTHOL LOZENG 1 EACH LOZENGE MUCOUS MEM PRN (07:17)
[2018-06-29] MEDS: INSULIN ASPART 100 UNIT/ML 1 ML 10 ML VIAL SQ SCH ×7 (08:24→22:30)
[2018-06-29] MEDS: LISINOPRIL 5 MG TAB PO SCH (08:25)
[2018-06-29] MEDS: NICOTINE 21MG/24HR PATCH TRANSDERM SCH (08:25)
[2018-06-29] MEDS: VENLAFAXINE HCL ER 150 MG CAP PO SCH (08:26)
[2018-06-29] MEDS: FERROUS SULFATE 325 MG TAB PO SCH (08:26)
[2018-06-29] MEDS: ARIPiprazole 10 MG TAB PO SCH (08:26)
[2018-06-29] MEDS: FLUoxetine HCL 10 MG CAP PO SCH (08:26)
[2018-06-29] MEDS: traMADol 50 MG TAB PO PRN ×2 (08:27→16:32)
[2018-06-29] MEDS: LEVOFLOXACIN 500 MG TAB PO SCH (08:27)
[2018-06-29] MEDS: BUDESONIDE 1 MG/2 ML NEBU INHALATION SCH ×2 (08:35→20:45)
[2018-06-29 12:14] LABS: Glucose,Whole Blood 355 mg/dL (75-99)
[2018-06-29] MEDS: METFORMIN HCL PO SCH (12:53)
[2018-06-29] MEDS: CANAGLIFLOZIN PO SCH (12:53)
[2018-06-29] MEDS: guaiFENesin 600 MG TABLET.ER PO SCH (16:36)
[2018-06-29 17:27] LABS: Glucose,Whole Blood 315 mg/dL (75-99)
[2018-06-29] MEDS ORDERED: guaiFENesin 600 MG TABLET.ER PO SCH (21:00)
[2018-06-29 21:01] LABS: Glucose,Whole Blood 433 mg/dL (75-99)
[2018-06-29] MEDS ORDERED: INSULIN ASPART 100 UNIT/ML 1 ML 10 ML VIAL SQ ONE (21:14)
[2018-06-29] MEDS ORDERED: INSULIN DETEMIR 100 UNIT/ML 10 ML VIAL SQ SCH (21:30)
[2018-06-29] MEDS: MELATONIN 3 MG TABLET PO SCH (22:29)
[2018-06-29] MEDS: ZOLPIDEM 5 MG TAB PO PRN (22:29)
[2018-06-29] MEDS: INSULIN DETEMIR 100 UNIT/ML 10 ML VIAL SQ SCH (22:30)
--- NOTE | 2018-06-29 23:57 | PN ---
PROGRESS NOTE DATE OF SERVICE: 06/29/2018. PRESENTING COMPLAINT: Short of breath. INTERVAL HISTORY: Patient admitted with COPD exacerbation, still got some wheezing, cough. Sugars have been running high. Did tolerate some diet. Rather anxious. Has been out of bed. REVIEW OF SYSTEMS: Done for constitutional, cardiovascular, GI, pulmonary; relevant findings as above. CURRENT MEDICATIONS: Reviewed that include DuoNeb. IV Solu-Medrol. PHYSICAL EXAMINATION: VITAL SIGNS: Temperature 98.1, pulse 99, blood pressure 140/71. GENERAL APPEARANCE: Sitting up, anxious-appearing. EYES: Pupils equal. Conjunctivae normal. NECK: JVD not raised. Mass not palpable. RESPIRATORY: Effort increased. LUNGS: Decreased breath sounds. Prolonged expiration. Some wheezing. CARDIOVASCULAR: First and second sounds. No edema. ABDOMEN: Soft, nontender. Liver and spleen not palpable. PSYCHIATRY: Alert and oriented x3. Mood and affect anxious-appearing. INVESTIGATIONS: Accu-Cheks are noted running high. ASSESSMENT: 1. Acute chronic obstructive pulmonary disease exacerbation in a current smoker with acute tracheobronchitis. 2. Obesity BMI 31.1. 3. Diabetes mellitus type 2 uncontrolled with hyperglycemia secondary to steroids. 4. Essential hypertension. 5. Chronic nicotine dependence. Patient is a cigarette smoker. 6. Anxiety, not otherwise specified. PLAN: Continue current medication and treatment plan. Again smoke cessation was reinforced. Continue with bronchodilators and steroids. Follow. MMODL / IJN: [id number] /
[2018-06-30] MEDS: guaiFENesin 600 MG TABLET.ER PO SCH ×3 (00:15→20:31)
[2018-06-30] MEDS: methylPREDNISolone SOD SUCCI 40 MG/ML 1 ML VIAL IV SCH ×4 (00:17→23:33)
[2018-06-30] MEDS: IPRATROPIUM-ALBUTEROL 3 ML NEB INHALATION SCH ×7 (00:25→23:48)
[2018-06-30 01:12] LABS: Glucose,Whole Blood 463 mg/dL (75-99)
[2018-06-30 07:51] LABS: Glucose,Whole Blood 244 mg/dL (75-99)
[2018-06-30] MEDS: NICOTINE 21MG/24HR PATCH TRANSDERM SCH (08:27)
[2018-06-30] MEDS: INSULIN ASPART 100 UNIT/ML 1 ML 10 ML VIAL SQ SCH ×7 (08:27→20:31)
[2018-06-30] MEDS: VENLAFAXINE HCL ER 150 MG CAP PO SCH (08:28)
[2018-06-30] MEDS: LISINOPRIL 5 MG TAB PO SCH (08:28)
[2018-06-30] MEDS: ARIPiprazole 10 MG TAB PO SCH (08:29)
[2018-06-30] MEDS: FERROUS SULFATE 325 MG TAB PO SCH (08:29)
[2018-06-30] MEDS: FLUoxetine HCL 10 MG CAP PO SCH (08:29)
[2018-06-30] MEDS: LEVOFLOXACIN 500 MG TAB PO SCH (08:29)
[2018-06-30] MEDS: METFORMIN HCL PO SCH (08:30)
[2018-06-30] MEDS: CANAGLIFLOZIN PO SCH (08:30)
[2018-06-30 08:45] LABS: Anisocytosis Slight; Basophils % (A) 0 %; Eosinophils % (A) 0 %; HCT 38.6 % (34.0-46.0); HGB 12.6 gm/dL (11.4-16.0); Lymphocytes # (A) 0.6 k/uL (1.0-4.8); Lymphocytes % (A) 8 %; MCH 29.7 pg (25.0-35.0); MCHC 32.6 g/dL (31.0-37.0); MCV 91.2 fL (80.0-100.0); Mean Platelet Volume 6.8; Monocytes # (A) 0.5 k/uL (0-1.0); Monocytes % (A) 6 %; Neutrophils # (A) 6.6 k/uL (1.3-7.7); Neutrophils % (A) 83 %; Platelet Count 312 k/uL (150-450); RBC 4.24 m/uL (3.80-5.40); RDW 16.4 % (11.5-15.5)
[2018-06-30 08:54] LABS: Anion Gap 6 mmol/L; Blood Urea Nitrogen 14 mg/dL (7-17); Calcium 8.9 mg/dL (8.4-10.2); Carbon Dioxide 27 mmol/L (22-30); Chloride 107 mmol/L (98-107); Glucose 256 mg/dL (74-99); Potassium 4.5 mmol/L (3.5-5.1); Sodium 140 mmol/L (137-145)
[2018-06-30] MEDS: BUDESONIDE 1 MG/2 ML NEBU INHALATION SCH ×2 (09:03→19:53)
[2018-06-30] MEDS ORDERED: CODEINE 30 MG TAB PO PRN (10:37)
[2018-06-30 11:56] LABS: Glucose,Whole Blood 280 mg/dL (75-99)
[2018-06-30] MEDS: traMADol 50 MG TAB PO PRN (16:10)
[2018-06-30 16:47] LABS: Glucose,Whole Blood 176 mg/dL (75-99)
[2018-06-30] MEDS: CODEINE 30 MG TAB PO PRN (17:55)
[2018-06-30] MEDS: LORATADINE-PSEUDOEPH 5-120 MG 1 EACH TAB.ER.12H PO SCH ×2 (17:56→20:37)
[2018-06-30] MEDS: LACTATED RINGERS 1,000 ML IV SCH (19:25)
[2018-06-30] MEDS: MELATONIN 3 MG TABLET PO SCH (20:31)
[2018-06-30] MEDS: ZOLPIDEM 5 MG TAB PO PRN (20:35)
[2018-06-30 20:36] LABS: Glucose,Whole Blood 312 mg/dL (75-99)
[2018-06-30] MEDS ORDERED: INSULIN DETEMIR 100 UNIT/ML 10 ML VIAL SQ SCH (21:00)
--- NOTE | 2018-07-01 00:31 | PN ---
PROGRESS NOTE DATE OF SERVICE: 06/30/2018. PRESENTING COMPLAINT: Short of breath. INTERVAL HISTORY: Patient admitted with COPD exacerbation. Has nasal congestion, postnasal drip and that is precipitating coughing. Otherwise, tolerating a diet. Patient does currently feel a bit anxious. Sugars are being followed. REVIEW OF SYSTEMS: Done for constitutional, cardiovascular, GI, pulmonary; relevant findings as above. CURRENT MEDICATIONS: Reviewed, that include bronchodilators, IV Solu-Medrol, Levaquin. EXAMINATION: Temperature 98.3, pulse 99, respirations 16, blood pressure 170/98, pulse ox 93% on room air. GENERAL: Sitting up, occasional coughing. EYES: Pupils equal. Conjunctivae normal. NECK: JVD not raised. Mass not palpable. Respiratory effort increased. LUNGS: Decreased breath sounds, prolonged expiration. CARDIOVASCULAR: 1st and 2nd sounds. No edema. ABDOMEN: Soft, nontender. Liver and spleen not palpable. PSYCHIATRY: Alert and oriented x3. Mood and affect anxious-appearing. INVESTIGATIONS: White count 8, hemoglobin 12.6, platelets 312,000. Potassium 4.5. Accu-Cheks noted, 244, 218, 176. ASSESSMENT: 1. Acute COPD exacerbation in a current smoker with acute tracheobronchitis, being also precipitated with acute sinusitis with postnasal drip. 2. Obesity BMI 31.1. 3. Diabetes mellitus type 2 uncontrolled with hyperglycemia secondary to steroids. 4. Essential hypertension. 5. Chronic nicotine dependence, patient is a cigarette smoker. 6. Anxiety, not otherwise specified. PLAN: We will add Claritin-D. We will cut back on Solu-Medrol, hoping the patient will respond in the next 24 hours. Will follow. MMODL / IJN: [id number] /
[2018-07-01] MEDS: methylPREDNISolone SOD SUCCI 40 MG/ML 1 ML VIAL IV SCH ×2 (00:45→08:36)
[2018-07-01] MEDS: IPRATROPIUM-ALBUTEROL 3 ML NEB INHALATION SCH ×4 (03:49→15:51)
[2018-07-01] MEDS: CODEINE 30 MG TAB PO PRN ×2 (06:51→11:07)
[2018-07-01 06:57] VITALS: RESP 18
[2018-07-01 07:22] LABS: Glucose,Whole Blood 260 mg/dL (75-99)
[2018-07-01 07:32] LABS: Anion Gap 9 mmol/L; Blood Urea Nitrogen 16 mg/dL (7-17); Calcium 9.4 mg/dL (8.4-10.2); Carbon Dioxide 25 mmol/L (22-30); Chloride 106 mmol/L (98-107); Glucose 277 mg/dL (74-99); Potassium 4.3 mmol/L (3.5-5.1); Sodium 140 mmol/L (137-145)
[2018-07-01] MEDS: INSULIN ASPART 100 UNIT/ML 1 ML 10 ML VIAL SQ SCH ×4 (08:32→13:17)
[2018-07-01] MEDS: NICOTINE 21MG/24HR PATCH TRANSDERM SCH (08:32)
[2018-07-01] MEDS: LEVOFLOXACIN 500 MG TAB PO SCH (08:34)
[2018-07-01] MEDS: VENLAFAXINE HCL ER 150 MG CAP PO SCH (08:34)
[2018-07-01] MEDS: guaiFENesin 600 MG TABLET.ER PO SCH (08:35)
[2018-07-01] MEDS: FERROUS SULFATE 325 MG TAB PO SCH (08:35)
[2018-07-01] MEDS: LISINOPRIL 5 MG TAB PO SCH (08:35)
[2018-07-01] MEDS: ARIPiprazole 10 MG TAB PO SCH (08:35)
[2018-07-01] MEDS: FLUoxetine HCL 10 MG CAP PO SCH (08:35)
[2018-07-01] MEDS: LORATADINE-PSEUDOEPH 5-120 MG 1 EACH TAB.ER.12H PO SCH (08:35)
[2018-07-01] MEDS: traMADol 50 MG TAB PO PRN (08:39)
[2018-07-01] MEDS: BUDESONIDE 1 MG/2 ML NEBU INHALATION SCH (09:00)
[2018-07-01] MEDS: CANAGLIFLOZIN PO SCH (09:12)
[2018-07-01] MEDS: METFORMIN HCL PO SCH (09:12)
[2018-07-01 12:24] LABS: Glucose,Whole Blood 358 mg/dL (75-99)
[2018-07-01] MEDS ORDERED: predniSONE 20 MG TAB PO STA (14:50)
[2018-07-01 16:09] VITALS: BP 126/75; PULSE 98; TEMP 98.8
--- NOTE | 2018-07-06 09:51 | DS ---
DISCHARGE SUMMARY DATE OF ADMISSION: 06/27/2018 DATE OF DISCHARGE: 07/01/2018 FINAL DIAGNOSES: 1. Acute chronic obstructive pulmonary disease exacerbation in a current smoker from acute tracheobronchitis. 2. Obesity; body mass index 31.1. 3. Diabetes mellitus type 2, uncontrolled with hyperglycemia secondary to steroids. 4. Essential hypertension. 5. Chronic nicotine dependence. Patient is a cigarette smoker. 6. Anxiety, not otherwise specified. 7. Acute sinusitis, probably viral with postnasal drip. HOSPITAL COURSE: This pleasant 42-year-old patient of Dr. Enriquez from [place] who is a long- standing smoker presents with one day of coughing, wheezing, shortness of breath, sputum production, also had fever and chills. Treated with antibiotic, steroids, bronchodilators. Responded well. Claritin D was added because of postnasal drip and congestion. Doing better at the time of discharge. Patient is counseled against smoking. Doing much better overall. PHYSICAL EXAMINATION: On examination, temperature 98.8, pulse 98, respiration 16, blood pressure 126/75. LUNGS: Improved air entry, minimal wheezing. LABS: BUN and creatinine normal. Accu-Cheks elevated. DISCHARGE MEDICATIONS: 1. Abilify 10 mg p.o. daily. 2. Invokamet 150/1000 one tablet p.o. daily. 3. Trulicity 1.5 mg subcutaneous Wednesday. 4. Prozac 10 mg p.o. daily. 5. Iron 325 mg p.o. daily. 6. Zestril 5 mg p.o. daily. 7. Effexor XR 300 mg p.o. daily. 8. Ventolin HFA 1 or 2 puffs q.6 p.r.n. 9. Compazine 10 mg q.8 p.r.n. 10.Ultram 50 mg q.6 p.r.n. 11.DuoNeb t.i.d. 12.Levaquin 500 mg a day for 3 days. 13.Claritin D 1 tab q.12, fourteen tablets. 14.Melatonin 3 mg q.h.s. 15.Nicotine 21 mg patch. 16.Nicotine 2 mg gum q.8 p.r.n. 17.Mucinex 1200 mg p.o. q.12. 18.Prednisone taper. Follow up with Dr. Enriquez in [place] on 07/22/2018. MMODL / IJN: [id number] /
== END 2018-07-01 16:12 | disposition home or self-care (01) ==
LOC: EC 15:22 → 4SSUR 19:28
PROVIDERS: ADMIT Hospitalist; ATTEND Hospitalist
DX: J44.1 Chronic obstructive pulmonary disease with (acute) exacerbation (principal); J20.9 Acute bronchitis, unspecified; J44.0 Chronic obstructive pulmonary disease with (acute) lower respiratory infection; F17.210 Nicotine dependence, cigarettes, uncomplicated; E66.9 Obesity, unspecified; Z68.31 Body mass index [BMI] 31.0-31.9, adult; E11.65 Type 2 diabetes mellitus with hyperglycemia; T38.0X5A Adverse effect of glucocorticoids and synthetic analogues, initial encounter; I10 Essential (primary) hypertension; F41.9 Anxiety disorder, unspecified; F32.9 Major depressive disorder, single episode, unspecified; Z90.49 Acquired absence of other specified parts of digestive tract; Z79.899 Other long term (current) drug therapy; Z79.84 Long term (current) use of oral hypoglycemic drugs; Z88.8 Allergy status to other drugs, medicaments and biological substances; Z91.040 Latex allergy status; Z86.19 Personal history of other infectious and parasitic diseases; Z80.0 Family history of malignant neoplasm of digestive organs; Z82.0 Family history of epilepsy and other diseases of the nervous system; Z82.49 Family history of ischemic heart disease and other diseases of the circulatory system; Z80.3 Family history of malignant neoplasm of breast; Z83.49 Family history of other endocrine, nutritional and metabolic diseases; Z80.6 Family history of leukemia; Z81.1 Family history of alcohol abuse and dependence
CPT/HCPCS: 96376 ×4; 96361; 96374; 99285; 36415; 94640 ×9; 94760 ×3; 93005; 85379; 80053; 80048 ×2; 83735; 84484; 85025 ×2; 85610; 85730; 87040; 87502; 83036; 71046; G0378 ×5; S4990 ×4; S0183; J2920 ×3; J2930 ×2; J7512

== ENCOUNTER 2018-08-04 07:59 | Inpatient (IN) | payer OTHER ==
[2018-08-04 08:11] LABS: Glucose,Whole Blood 422 mg/dL (75-99)
[2018-08-04] MEDS ORDERED: SODIUM CHLORIDE 0.9% 2,000 ML IV STA (08:16)
[2018-08-04] MEDS ORDERED: ONDANSETRON 4 MG/2 ML VIAL IVP STA (08:16)
[2018-08-04] MEDS ORDERED: INSULIN REGULAR 100 UNIT/ML VIAL IV ONE (08:16)
--- NOTE | 2018-08-04 08:21 | ED ---
General Adult HPI - General Source: patient, RN notes reviewed Mode of arrival: ambulatory Limitations: no limitations <Lisandro Green - Last Filed: 08/04/18 09:25> <Rod Triplett - Last Filed: 08/04/18 10:12> - General Chief complaint: Recheck/Abnormal Lab/Rx Stated complaint: HYPERGLYCEMIA Time Seen by Provider: 08/04/18 08:12 - History of Present Illness Initial comments: 42-year-old female presents emergency Department chief complaint hyperglycemia. Patient states that she has been on prednisone secondary to her asthma. Patient states that she did see her primary care physician last night and hadn' t glucose monitor system placed on her. Patient states her blood sugar was 400s morning. Patient states she's also been vomiting. Patient states she normally is not on insulin though she is unsure was in the currently. Patient denies abdominal pain, fever, chills, headache, dizziness, chest pain or shortness of breath. She has mild polydipsia polyuria (Lisandro Green) - Related Data Home Medications Medication Instructions Recorded Confirmed ARIPiprazole [Abilify] 10 mg PO DAILY 04/16/18 08/04/18 Dulaglutide [Trulicity] 1.5 mg SQ CAMPBELL 04/16/18 08/04/18 FLUoxetine HCL [PROzac] 10 mg PO DAILY 04/16/18 08/04/18 Ferrous Sulfate [Iron] 325 mg PO DAILY 04/16/18 08/04/18 Venlafaxine HCl [Effexor XR] 300 mg PO DAILY 04/16/18 08/04/18 Prochlorperazine [Compazine] 10 mg PO QAM PRN 06/27/18 08/04/18 Canagliflozin [Invokana] 300 mg PO DAILY 08/04/18 08/04/18 Lisinopril [Zestril] 10 mg PO DAILY 08/04/18 08/04/18 Melatonin 3 mg PO HS PRN 08/04/18 08/04/18 Mometasone/Formoterol [Dulera 200 2 puff INHALATION RT-BID 08/04/18 08/04/18 Mcg/5 Mcg Inhaler] metFORMIN HCL 1,000 mg PO DAILY 08/04/18 08/04/18 Previous Rx's Medication Instructions Recorded Albuterol Inhaler [Ventolin Hfa 1 - 2 puff INHALATION RT-Q6H PRN 04/17/18 Inhaler] #1 inhaler Ipratropium-Albuterol Nebulize 3 ml INHALATION TID #90 ampul.neb 07/01/18 [Duoneb 0.5 mg-3 mg/3 ml Soln] Allergies Allergy/AdvReac Type Severity Reaction Status Date / Time latex Allergy Rash/Hives Verified 08/04/18 08:41 carisoprodol [From Soma] AdvReac PASSES OUT Verified 08/04/18 08:41 Review of Systems ROS Other: All systems not noted in ROS Statement are negative. <Lisandro Green - Last Filed: 08/04/18 09:25> ROS Other: All systems not noted in ROS Statement are negative. <Rod Triplett - Last Filed: 08/04/18 10:12> ROS Statement: Those systems with pertinent positive or pertinent negative responses have been documented in the HPI. Past Medical History Past Medical History: Asthma, Diabetes Mellitus, Hypertension Additional Past Medical History / Comment(s): pancreatitis in the past. 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 facial cellulits 04-16-18. ptstateed has had a pne vaccine few years ago,not sure date. 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 History of Any Multi-Drug Resistant Organisms: None Reported Past Surgical History: Breast Surgery, Cholecystectomy Additional Past Surgical History / Comment(s): Left facial sinus surgery. Colonoscopy 2014.lt breast bx-neg Past Anesthesia/Blood Transfusion Reactions: Motion Sickness Additional Past Anesthesia/Blood Transfusion Reaction / Comment(s): motion sickness when on air planes Past Psychological History: Anxiety, Depression Smoking Status: Current every day smoker Past Alcohol Use History: None Reported Past Drug Use History: None Reported - Past Family History Father Family Medical History: Cancer, Seizure Disorder Additional Family Medical History / Comment(s): 2 paternal aunts and paternal grandmother had breast cancer. Mother Family Medical History: Asthma, Hypertension, Liver Disease Additional Family Medical History / Comment(s): EtOH abuse. Maternal grandmother had leukemia. <Lisandro Green - Last Filed: 08/04/18 09:25> General Exam Limitations: no limitations General appearance: alert, in no apparent distress Head exam: Present: atraumatic, normocephalic, normal inspection Eye exam: Present: normal appearance, PERRL, EOMI. Absent: scleral icterus, conjunctival injection, periorbital swelling ENT exam: Present: normal exam, normal oropharynx, mucous membranes moist Neck exam: Present: normal inspection, full ROM. Absent: tenderness, meningismus, lymphadenopathy Respiratory exam: Present: normal lung sounds bilaterally. Absent: respiratory distress, wheezes, rales, rhonchi, stridor Cardiovascular Exam: Present: normal rhythm, tachycardia, normal heart sounds. Absent: systolic murmur, diastolic murmur, rubs, gallop, clicks GI/Abdominal exam: Present: soft, normal bowel sounds. Absent: distended, tenderness, guarding, rebound, rigid Neurological exam: Present: alert, oriented X3, CN II-XII intact Skin exam: Present: warm, dry, intact, normal color. Absent: rash <Lisandro Green - Last Filed: 08/04/18 09:25> Course <Lisandro Green - Last Filed: 08/04/18 09:25> <Rod Triplett - Last Filed: 08/04/18 10:12> Vital Signs 08/04/18 08/04/18 08:04 09:51 Temperature 98.2 F Pulse Rate 125 H 101 H Respiratory 20 22 Rate Blood Pressure 178/132 126/82 O2 Sat by Pulse 99 95 Oximetry - Reevaluation(s) Reevaluation #1: 08/04/18 10:12 PA supervision: I proceeded [id number] evaluation patient did discuss the findings with her. She did present with elevated blood sugar and does have evidence of DKA. I did discuss the case with Dr. Savage as well as with Dr. Stark. I do agree with the assessment and plan. (Rod Triplett) Medical Decision Making - Lab Data Result diagrams: 08/04/18 08:26 08/04/18 08:26 <Lisandro Green - Last Filed: 08/04/18 09:25> - Lab Data Result diagrams: 08/04/18 08:26 08/04/18 08:26 <Rod Triplett - Last Filed: 08/04/18 10:12> - Medical Decision Making 42-year-old female presents emergency department for hyperglycemia. Patient's found to be in DKA and will be admitted IV insulin drip and fluids. (Lisandro Green) - Lab Data Lab Results 08/04/18 08/04/18 08/04/18 Range/Units 08:09 08:26 08:26 WBC (3.8-10.6) k/uL RBC (3.80-5.40) m/uL Hgb (11.4-16.0) gm/dL Hct (34.0-46.0) % MCV (80.0-100.0) fL MCH (25.0-35.0) pg MCHC (31.0-37.0) g/dL RDW (11.5-15.5) % Plt Count (150-450) k/uL Neutrophils % % Lymphocytes % % Monocytes % % Eosinophils % % Basophils % % Neutrophils # (1.3-7.7) k/uL Lymphocytes # (1.0-4.8) k/uL Monocytes # (0-1.0) k/uL Eosinophils # (0-0.7) k/uL Basophils # (0-0.2) k/uL Sodium 136 L (137-145) mmol/L Potassium 4.9 (3.5-5.1) mmol/L Chloride 103 (98-107) mmol/L Carbon Dioxide 17 L (22-30) mmol/L Anion Gap 16 mmol/L BUN 15 (7-17) mg/dL Creatinine 0.56 (0.52-1.04) mg/dL Est GFR (CKD-EPI)AfAm >90 (>60 ml/min/1.73 sqM) Est GFR (CKD-EPI)NonAf >90 (>60 ml/min/1.73 sqM) Glucose 480 H (74-99) mg/dL POC Glucose (mg/dL) 422 H (75-99) mg/dL POC Glu Puppet Maker ID Conrad Henrry Plasma Lactic Acid Romeo 1.1 (0.7-2.0) mmol/L Calcium 10.2 (8.4-10.2) mg/dL Total Bilirubin 0.7 (0.2-1.3) mg/dL AST 21 (14-36) U/L ALT 33 (9-52) U/L Alkaline Phosphatase 83 (38-126) U/L Total Protein 8.0 (6.3-8.2) g/dL Albumin 4.9 (3.5-5.0) g/dL Lipase 192 (23-300) U/L Acetone, Qual Positive (Negative) 08/04/18 08/04/18 Range/Units 08:26 09:20 WBC 11.2 H (3.8-10.6) k/uL RBC 4.72 (3.80-5.40) m/uL Hgb 14.5 (11.4-16.0) gm/dL Hct 44.1 (34.0-46.0) % MCV 93.6 (80.0-100.0) fL MCH 30.7 (25.0-35.0) pg MCHC 32.8 (31.0-37.0) g/dL RDW 14.2 (11.5-15.5) % Plt Count 437 (150-450) k/uL Neutrophils % 85 % Lymphocytes % 8 % Monocytes % 4 % Eosinophils % 1 % Basophils % 0 % Neutrophils # 9.5 H (1.3-7.7) k/uL Lymphocytes # 0.9 L (1.0-4.8) k/uL Monocytes # 0.5 (0-1.0) k/uL Eosinophils # 0.1 (0-0.7) k/uL Basophils # 0.0 (0-0.2) k/uL Sodium (137-145) mmol/L Potassium (3.5-5.1) mmol/L Chloride (98-107) mmol/L Carbon Dioxide (22-30) mmol/L Anion Gap mmol/L BUN (7-17) mg/dL Creatinine (0.52-1.04) mg/dL Est GFR (CKD-EPI)AfAm (>60 ml/min/1.73 sqM) Est GFR (CKD-EPI)NonAf (>60 ml/min/1.73 sqM) Glucose (74-99) mg/dL POC Glucose (mg/dL) 353 H (75-99) mg/dL POC Glu Puppet Maker ID Ileana Ryan Plasma Lactic Acid Romeo (0.7-2.0) mmol/L Calcium (8.4-10.2) mg/dL Total Bilirubin (0.2-1.3) mg/dL AST (14-36) U/L ALT (9-52) U/L Alkaline Phosphatase (38-126) U/L Total Protein (6.3-8.2) g/dL Albumin (3.5-5.0) g/dL Lipase (23-300) U/L Acetone, Qual (Negative) Critical Care Time Critical Care Time: Yes Total Critical Care Time: 35 <Lisandro Green - Last Filed: 08/04/18 09:25> <Rod Triplett - Last Filed: 08/04/18 10:12> Critical Care Time: Total 35 minutes of critical care time were use including evaluating the patient , ordering labs, interpreting labs, updating and reevaluating patient and discussing with the admitting provider. Patient is found to be hyperglycemic with blood sugar 480 initial insulin bolus of 5 units of Humulin were ordered. Initial 2 L bolus of IV fluids of normal saline. Patient's found to have bicarb 17, anion gap of 16, acetone positive. At this time insulin drip at 0.1 mg/kg were ordered along with IV fluids at 200 mL/h. Remained EKG order set was ordered. Patient nausea and vomiting has improved after IV Zofran. Patient will be kept nothing by mouth. Admitting orders were placed, consult to health educator and dietitian. (Lisandro Green) Disposition Time of Disposition: 09:27 <Lisandro Green - Last Filed: 08/04/18 09:25> <Rod Triplett - Last Filed: 08/04/18 10:12> Clinical Impression: DKA (diabetic ketoacidoses) Disposition: ADMITTED IP TO THIS HOSP Condition: Fair
[2018-08-04 08:38] LABS: Basophils % (A) 0 %; Eosinophils # (A) 0.1 k/uL (0-0.7); Eosinophils % (A) 1 %; HCT 44.1 % (34.0-46.0); HGB 14.5 gm/dL (11.4-16.0); Lymphocytes # (A) 0.9 k/uL (1.0-4.8); Lymphocytes % (A) 8 %; MCH 30.7 pg (25.0-35.0); MCHC 32.8 g/dL (31.0-37.0); MCV 93.6 fL (80.0-100.0); Mean Platelet Volume 6.7; Monocytes # (A) 0.5 k/uL (0-1.0); Monocytes % (A) 4 %; Neutrophils # (A) 9.5 k/uL (1.3-7.7); Neutrophils % (A) 85 %; Platelet Count 437 k/uL (150-450); RBC 4.72 m/uL (3.80-5.40); RDW 14.2 % (11.5-15.5); WBC 11.2 k/uL (3.8-10.6)
[2018-08-04 08:49] LABS: ALT 33 U/L (9-52); AST 21 U/L (14-36); Albumin 4.9 g/dL (3.5-5.0); Alkaline Phosphatase 83 U/L (38-126); Anion Gap 16 mmol/L; Blood Urea Nitrogen 15 mg/dL (7-17); Calcium 10.2 mg/dL (8.4-10.2); Carbon Dioxide 17 mmol/L (22-30); Chloride 103 mmol/L (98-107); Glucose 480 mg/dL (74-99); Lipase 192 U/L (23-300); Potassium 4.9 mmol/L (3.5-5.1); Sodium 136 mmol/L (137-145); Total Bilirubin 0.7 mg/dL (0.2-1.3)
[2018-08-04] MEDS ORDERED: INSULIN REGULAR 100 UNIT in SODIUM CHLORIDE 0.9% 100 ML IV SCH (09:15)
[2018-08-04 09:22] LABS: Glucose,Whole Blood 353 mg/dL (75-99)
[2018-08-04] MEDS: SODIUM CHLORIDE 0.9% 1,000 ML IV SCH ×3 (09:49→20:52)
[2018-08-04] MEDS ORDERED: IPRATROPIUM-ALBUTEROL 3 ML NEB INHALATION PRN (10:46)
--- NOTE | 2018-08-04 10:57 | P.HPIM ---
History of Present Illness H&P Date: 08/04/18 Chief Complaint: Elevated blood sugars The patient is a 42-year-old morbidly obese female with a past medical history of type 2 diabetes, asthma, essential hypertension, anxiety who presents to the ER with chief complaint of elevated blood sugars Over the last several days. The patient reports 3-4 episodes of nausea and vomiting this morning, she denies any abdominal pain or diarrhea she denies any subjective fevers chills or night sweats. She does report increasing thirst, polyuria, and nocturia. She denies any chest pain or shortness of breath. Apparently the patient was recently hospitalized in June of last year and has been having ongoing problems with her asthma, she reports being on 4 rounds of steroids and most recently started a prednisone taper yesterday. She reports ongoing chest congestion, productive cough and wheezes since Wednesday. She reports fatigue, but denies any lightheadedness or dizziness. In the ER she had a comprehensive workup CMP is remarkable for significantly elevated blood sugars, she reports her last a1c at 8.6 and reports compliance to her diabetic regimen which includes Invokomet and Trulicity. In the ER the patient was given IV fluids and started on insulin drip , urine was positive for acetone , serum bicarb was 17. Review of Systems Pertinent positives per HPI all other review of systems are otherwise negative Past Medical History Past Medical History: Asthma, Diabetes Mellitus, Hypertension Additional Past Medical History / Comment(s): NIDDM type II-uncontrolled with steroid use, past pancreatitis, bronchitis, facial cellulitis History of Any Multi-Drug Resistant Organisms: None Reported Past Surgical History: Breast Surgery, Cholecystectomy Additional Past Surgical History / Comment(s): Left facial/ sinus surgery, colonoscopy 2014, lt breast bx-neg Past Anesthesia/Blood Transfusion Reactions: Motion Sickness Additional Past Anesthesia/Blood Transfusion Reaction / Comment(s): motion 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 Mother Family Medical History: Asthma, Hypertension, Liver Disease Additional Family Medical History / Comment(s): EtOH abuse. Maternal grandmother had leukemia. Medications and Allergies Home Medications Medication Instructions Recorded Confirmed Type ARIPiprazole [Abilify] 10 mg PO DAILY 04/16/18 08/04/18 History Dulaglutide [Trulicity] 1.5 mg SQ CAMPBELL 04/16/18 08/04/18 History FLUoxetine HCL [PROzac] 10 mg PO DAILY 04/16/18 08/04/18 History Ferrous Sulfate [Iron] 325 mg PO DAILY 04/16/18 08/04/18 History Venlafaxine HCl [Effexor XR] 300 mg PO DAILY 04/16/18 08/04/18 History Albuterol Inhaler [Ventolin Hfa 1 - 2 puff INHALATION RT-Q6H PRN 04/17/18 Rx Inhaler] #1 inhaler Prochlorperazine [Compazine] 10 mg PO QAM PRN 06/27/18 08/04/18 History Ipratropium-Albuterol Nebulize 3 ml INHALATION TID #90 ampul.neb 07/01/18 Rx [Duoneb 0.5 mg-3 mg/3 ml Soln] Canagliflozin [Invokana] 300 mg PO DAILY 08/04/18 08/04/18 History Lisinopril [Zestril] 10 mg PO DAILY 08/04/18 08/04/18 History Melatonin 3 mg PO HS PRN 08/04/18 08/04/18 History Mometasone/Formoterol [Dulera 200 2 puff INHALATION RT-BID 08/04/18 08/04/18 History Mcg/5 Mcg Inhaler] metFORMIN HCL 1,000 mg PO DAILY 08/04/18 08/04/18 History Allergies Allergy/AdvReac Type Severity Reaction Status Date / Time latex Allergy Rash/Hives Verified 08/04/18 08:41 carisoprodol [From Soma] AdvReac PASSES OUT Verified 08/04/18 08:41 Physical Exam Vitals: Vital Signs Temp Pulse Resp BP Pulse Ox 08/04/18 09:51 101 H 22 126/82 95 08/04/18 08:04 98.2 F 125 H 20 178/132 99 Intake and Output 08/03/18 08/04/18 08/04/18 22:59 06:59 14:59 Other: Weight 72.121 kg Constitutional: No acute distress, conversant, pleasant Eyes: Anicteric sclerae, moist conjunctiva, no lid-lag, PERRLA ENMT: NC/AT,Oropharynx clear, no erythema, exudates Neck:Supple, FROM, no masses, or JVD, No carotid bruits; No thyromegaly Lungs: Coarse sounding congested with faint wheezes, Normal respiratory effort, no accessory muscle use Cardiovascular: Heart regular in rate and rhythm, No murmurs, gallops, or rubs no peripheral edema Abdominal: Soft Nontender, nom distended, no guarding, no rebound or rigidity, Normoactive bowel sounds No hepatomegaly, No splenomegaly, No palpable mass No abdominal wall hernia noted Skin: Normal temperature, tone, texture, turgor, No induration No subcutaneous nodules, No rash, lesions, No ulcers Extremities:No digital cyanosis No clubbing, Pedal pulses intact and symmetrical Radial pulses intact and symmetrical Normal gait and station, No calf tenderness Psychiatric: Alert and oriented to person, place and time, Appropriate affect Intact judgement Neuro: Muscles Strength 5/5 in all 4 extremities, Sensation to light touch grossly present throughout, Cranial nerves II-XII grossly intact. No focal sensory deficits Results CBC & Chem 7: 08/04/18 08:26 08/04/18 12:16 Labs: Abnormal Lab Results - Last 24 Hours (Table) 08/04/18 08/04/18 08/04/18 Range/Units 08:09 08:26 08:26 WBC 11.2 H (3.8-10.6) k/uL Neutrophils # 9.5 H (1.3-7.7) k/uL Lymphocytes # 0.9 L (1.0-4.8) k/uL Sodium 136 L (137-145) mmol/L Carbon Dioxide 17 L (22-30) mmol/L Glucose 480 H (74-99) mg/dL POC Glucose (mg/dL) 422 H (75-99) mg/dL 08/04/18 Range/Units 09:20 WBC (3.8-10.6) k/uL Neutrophils # (1.3-7.7) k/uL Lymphocytes # (1.0-4.8) k/uL Sodium (137-145) mmol/L Carbon Dioxide (22-30) mmol/L Glucose (74-99) mg/dL POC Glucose (mg/dL) 353 H (75-99) mg/dL Thrombosis Risk Factor Assmnt - Choose All That Apply Any of the Below Risk Factors Present?: Yes Each Factor Represents 1 point: Age 41-60 years, Obesity (BMI >25) Other Risk Factors: No Other congenital or acquired thrombophilia - If yes, enter type in comment: No Thrombosis Risk Factor Assessment Total Risk Factor Score: 2 Thrombosis Risk Factor Assessment Level: Low Risk Assessment and Plan (1) DKA (diabetic ketoacidoses) Current Visit: Yes Status: Acute Code(s): E13.10 - OTH DIABETES MELLITUS WITH KETOACIDOSIS WITHOUT COMA SNOMED Code(s): 157794385 (2) Asthma exacerbation Current Visit: No Status: Acute Code(s): J45.901 - UNSPECIFIED ASTHMA WITH ( ACUTE) EXACERBATION SNOMED Code(s): 643115256 (3) Tracheobronchitis Current Visit: Yes Status: Acute Code(s): J40 - BRONCHITIS, NOT SPECIFIED ACUTE OR CHRONIC SNOMED Code(s): 77616800 (4) Essential hypertension Current Visit: Yes Status: Acute Code(s): I10 - ESSENTIAL (PRIMARY) HYPERTENSION SNOMED Code(s): 99812847 Plan: 48 Patient is admitted to the ICU anticipated greater than 2 midnight stay with DKA possibly triggered by acute asthma exacerbation with ongoing steroid use after presenting with significantly elevated blood sugars at 480, positive urine acetone and serum bicarb of 17. She started on DKA protocol with insulin drip and IV fluids, continue sequential electrolyte checks to monitor resolution of anion gap. We'll consult pulmonary/icu for exacerbation of the patient's severe persistent asthma, she started on scheduled and when necessary bronchodilator DuoNeb breathing treatments along with prednisone, and Mucinex. We will obtain urinalysis chest x-ray, KUB and sputum culture. Patient's blood pressure was initially uncontrolled but then normalized .We'll continue to monitor patient's clinical course CODE STATUS: Full code Discussed plan of care with: Patient Anticipated discharge 2 to 3 days Prophylaxis DVT/GI : Heparin and SCDs/Protonix
[2018-08-04 10:59] LABS: Glucose,Whole Blood 214 mg/dL (75-99)
[2018-08-04] MEDS: D5-0.45% NACL WITH KCL 20MEQ/L 1,000 ML IV SCH ×2 (11:11→18:22)
[2018-08-04 11:35] LABS: Appearance,Urine Clear (Clear); Bilirubin,Urine Negative (Negative); Blood,Urine Negative (Negative); Color,Urine Light Yellow; Glucose,Urine (UA) 4+ (Negative); Leukocyte Esterase,Urine Negative (Negative); Nitrite,Urine Negative (Negative); Protein,Urine Negative (Negative); Specific Gravity,Urine 1.034 (1.001-1.035); Urobilinogen,Urine <2.0 mg/dL (<2.0)
[2018-08-04 12:15] LABS: Glucose,Whole Blood 202 mg/dL (75-99)
--- NOTE | 2018-08-04 12:24 | XR ---
EXAMINATION TYPE: XR KUB DATE OF EXAM: 08/04/2018 11:37 AM CLINICAL HISTORY: Hyperglycemia, nausea and vomiting TECHNIQUE: Single upright image of the abdomen is obtained. COMPARISON: 03/19/2014. FINDINGS: Scattered gas is seen in nondilated small bowel loops with a mildly prominent right lower q uadrant loop of small bowel. Gas and fecal material is seen in nondilated colon. There is no abnormal calcification appreciated. Cholecystectomy clips are present. No pneumoperitoneum. Surgical clip is also seen in the right lower quadrant. The lung bases are clear and the osseous structures are intact . IMPRESSION: Mildly prominent right lower quadrant small bowel loop favors ileus although short-term follow-up is recommended.
[2018-08-04 12:45] LABS: Ketones,Urine 3+ (Negative)
[2018-08-04 12:52] LABS: Anion Gap 7 mmol/L; Blood Urea Nitrogen 14 mg/dL (7-17); Carbon Dioxide 22 mmol/L (22-30); Chloride 110 mmol/L (98-107); Glucose 200 mg/dL (74-99); Phosphorus 3.2 mg/dL (2.5-4.5); Sodium 139 mmol/L (137-145)
[2018-08-04 13:34] LABS: Glucose,Whole Blood 414 mg/dL (75-99)
[2018-08-04 14:33] LABS: Glucose,Whole Blood 433 mg/dL (75-99)
[2018-08-04 15:28] LABS: Glucose,Whole Blood 344 mg/dL (75-99)
[2018-08-04] MEDS: IPRATROPIUM-ALBUTEROL 3 ML NEB INHALATION SCH ×2 (16:23→19:35)
[2018-08-04] MEDS: HEPARIN SODIUM,PORCINE 5,000 UNIT/ML 1 ML VIAL SQ SCH ×2 (16:43→23:04)
[2018-08-04 16:55] LABS: Glucose,Whole Blood 194 mg/dL (75-99)
[2018-08-04 18:19] LABS: Glucose,Whole Blood 160 mg/dL (75-99)
[2018-08-04] MEDS: traMADol 50 MG TAB PO PRN (18:22)
[2018-08-04 19:03] LABS: Glucose,Whole Blood 119 mg/dL (75-99)
[2018-08-04 19:12] LABS: Anion Gap 8 mmol/L; Blood Urea Nitrogen 14 mg/dL (7-17); Carbon Dioxide 23 mmol/L (22-30); Chloride 107 mmol/L (98-107); Glucose 111 mg/dL (74-99); Phosphorus 3.3 mg/dL (2.5-4.5); Potassium 4.2 mmol/L (3.5-5.1); Sodium 138 mmol/L (137-145)
[2018-08-04 20:09] LABS: Glucose,Whole Blood 131 mg/dL (75-99)
[2018-08-04] MEDS: guaiFENesin 600 MG TABLET.ER PO SCH (20:52)
[2018-08-04] MEDS ORDERED: HYDROcodone/APAP 5-325MG 1 EACH TAB PO PRN (21:08)
[2018-08-04] MEDS: SODIUM CHLORIDE 0.9% 500 ML 500 ML IV SCH (21:21)
[2018-08-04] MEDS: INSULIN ASPART 100 UNIT/ML 1 ML 10 ML VIAL SQ SCH (21:24)
[2018-08-04 21:31] LABS: Glucose,Whole Blood 271 mg/dL (75-99)
--- NOTE | 2018-08-04 22:16 | XR ---
EXAMINATION: XR chest 2V DATE AND TIME: 08/04/2018 5:21 PM CLINICAL INDICATION: PHH; cough/asthma TECHNIQUE: Departmental protocol COMPARISON: 06/27/2018 FINDINGS: The lungs are clear. The pleural spaces are negative. The cardiac silhouette is not enlarged. The remainder of the mediastinal silhouette is unremarkable. The skeletal structures and soft tissues are negative for acute findings. IMPRESSION: NO ACUTE PROCESS.
[2018-08-05] MEDS ORDERED: LORazepam 0.5 MG TAB PO STA (02:20)
[2018-08-05] MEDS: IPRATROPIUM-ALBUTEROL 3 ML NEB INHALATION SCH ×7 (03:51→23:32)
[2018-08-05 06:06] LABS: Glucose,Whole Blood 252 mg/dL (75-99)
[2018-08-05 06:19] LABS: Basophils % (A) 0 %; Eosinophils # (A) 0.1 k/uL (0-0.7); Eosinophils % (A) 1 %; HCT 40.3 % (34.0-46.0); HGB 12.9 gm/dL (11.4-16.0); Lymphocytes # (A) 2.2 k/uL (1.0-4.8); Lymphocytes % (A) 24 %; MCH 30.4 pg (25.0-35.0); Mean Platelet Volume 6.7; Monocytes # (A) 0.5 k/uL (0-1.0); Monocytes % (A) 6 %; Neutrophils # (A) 6.3 k/uL (1.3-7.7); Neutrophils % (A) 67 %; Platelet Count 299 k/uL (150-450); RBC 4.25 m/uL (3.80-5.40); RDW 14.2 % (11.5-15.5); WBC 9.3 k/uL (3.8-10.6)
[2018-08-05] MEDS ORDERED: ONDANSETRON 4 MG/2 ML VIAL IVP PRN (06:46)
[2018-08-05] MEDS: metFORMIN 500 MG TAB PO SCH (06:54)
[2018-08-05] MEDS: INSULIN ASPART 100 UNIT/ML 1 ML 10 ML VIAL SQ SCH ×6 (06:54→20:58)
--- NOTE | 2018-08-05 07:12 | XR ---
EXAMINATION TYPE: XR chest 2V DATE OF EXAM: 08/05/2018 COMPARISON: 08/04/2018 INDICATION: Asthma, cough TECHNIQUE: Frontal and lateral views of the chest are obtained. FINDINGS: The heart size is normal. The pulmonary vasculature is normal. The lungs are clear. IMPRESSION: 1. No acute pulmonary process.
[2018-08-05] MEDS: guaiFENesin 600 MG TABLET.ER PO SCH ×2 (09:23→20:58)
[2018-08-05] MEDS: predniSONE 20 MG TAB PO SCH (09:23)
[2018-08-05] MEDS: ARIPiprazole 10 MG TAB PO SCH (09:24)
[2018-08-05] MEDS: FLUoxetine HCL 10 MG CAP PO SCH (09:24)
[2018-08-05] MEDS: VENLAFAXINE HCL ER 150 MG CAP PO SCH (09:24)
[2018-08-05] MEDS: FERROUS SULFATE 325 MG TAB PO SCH (09:24)
[2018-08-05] MEDS: PANTOPRAZOLE 40 MG/10 ML VIAL IVP SCH (09:27)
[2018-08-05] MEDS: HEPARIN SODIUM,PORCINE 5,000 UNIT/ML 1 ML VIAL SQ SCH ×3 (09:27→23:15)
[2018-08-05 11:14] VITALS: BMI 30.2
--- NOTE | 2018-08-05 11:30 | P.PN ---
Subjective Progress Note Date: 08/05/18 Patient denies any abdominal pain still having episodes of nausea denies any vomiting Zoreynold is helping. In any gap had closed yesterday repeat acetone level negative. Patient apparently restarted on metformin and Invokana yesterday. No acute events overnight Objective - Vital Signs Vital signs: Vital Signs Temp 98.5 F 08/05/18 08:00 Pulse 80 08/05/18 11:07 Resp 16 08/05/18 08:00 BP 135/78 08/05/18 08:00 Pulse Ox 94 L 08/05/18 08:00 Intake & Output 08/04/18 08/05/18 08/05/18 18:59 06:59 18:59 Intake Total 53.425 1089.820 Output Total 800 Balance -015.800 8789.820 Weight 72.121 kg 75 kg 75 kg Intake: Intake, IV Titration 53.425 189.820 Amount Insulin Regular 100 unit 53.425 29.820 In Sodium Chloride 0.9% 100 ml @ 0.1 UNITS/KG/HR 7.28 mls/hr IV .[id number] [facility] Rx#:[id number] Sodium Chloride 0.9% 500 160 ml 500 ml @ 20 mls/hr IV .Q24H [facility] Rx#:[id number] Oral 900 Output: Urine 800 Other: Voiding Method Toilet # Voids 1 - Exam Constitutional: No acute distress, conversant, pleasant Eyes: Anicteric sclerae, moist conjunctiva, no lid-lag, PERRLA ENMT: NC/AT,Oropharynx clear, no erythema, exudates Neck:Supple, FROM, no masses, or JVD, No carotid bruits; No thyromegaly Lungs: Diminished in the bases and faint wheezes, Clear to percussion, Normal respiratory effort, no accessory muscle use Cardiovascular: Heart regular in rate and rhythm, No murmurs, gallops, or rubs no peripheral edema Abdominal: Soft Nontender, nom distended, no guarding, no rebound or rigidity, Normoactive bowel sounds No hepatomegaly, No splenomegaly, No palpable mass No abdominal wall hernia noted Skin: Normal temperature, tone, texture, turgor, No induration No subcutaneous nodules, No rash, lesions, No ulcers Extremities:No digital cyanosis No clubbing, Pedal pulses intact and symmetrical Radial pulses intact and symmetrical Normal gait and station, No calf tenderness Psychiatric: Alert and oriented to person, place and time, Appropriate affect Intact judgement Neuro: Muscles Strength 5/5 in all 4 extremities, Sensation to light touch grossly present throughout, Cranial nerves II-XII grossly intact. No focal sensory deficits - Labs CBC & Chem 7: 08/05/18 05:57 08/04/18 18:31 Labs: Abnormal Lab Results - Last 24 Hours (Table) 08/04/18 08/04/18 08/04/18 Range/Units 08:26 11:15 12:14 Chloride (98-107) mmol/L Creatinine (0.52-1.04) mg/dL Glucose (74-99) mg/dL POC Glucose (mg/dL) 202 H (75-99) mg/dL Hemoglobin A1c 12.0 H (4.0-6.0) % Urine Glucose (UA) 4+ H (Negative) Urine Ketones 3+ H (Negative) 08/04/18 08/04/18 08/04/18 Range/Units 12:16 13:32 14:31 Chloride 110 H (98-107) mmol/L Creatinine 0.50 L (0.52-1.04) mg/dL Glucose 200 H (74-99) mg/dL POC Glucose (mg/dL) 414 H 433 H (75-99) mg/dL Hemoglobin A1c (4.0-6.0) % Urine Glucose (UA) (Negative) Urine Ketones (Negative) 08/04/18 08/04/18 08/04/18 Range/Units 15:27 16:35 18:06 Chloride (98-107) mmol/L Creatinine (0.52-1.04) mg/dL Glucose (74-99) mg/dL POC Glucose (mg/dL) 344 H 194 H 160 H (75-99) mg/dL Hemoglobin A1c (4.0-6.0) % Urine Glucose (UA) (Negative) Urine Ketones (Negative) 08/04/18 08/04/18 08/04/18 Range/Units 18:31 19:01 20:07 Chloride (98-107) mmol/L Creatinine (0.52-1.04) mg/dL Glucose 111 H (74-99) mg/dL POC Glucose (mg/dL) 119 H 131 H (75-99) mg/dL Hemoglobin A1c (4.0-6.0) % Urine Glucose (UA) (Negative) Urine Ketones (Negative) 08/04/18 08/05/18 Range/Units 21:20 06:04 Chloride (98-107) mmol/L Creatinine (0.52-1.04) mg/dL Glucose (74-99) mg/dL POC Glucose (mg/dL) 271 H 252 H (75-99) mg/dL Hemoglobin A1c (4.0-6.0) % Urine Glucose (UA) (Negative) Urine Ketones (Negative) Assessment and Plan (1) DKA (diabetic ketoacidoses) Narrative/Plan: * Likely triggered by acute asthma exacerbation * Now resolved anion gap closed acidosis resolved, serum acetone negative * We'll initiate transition to subcu insulin Current Visit: Yes Status: Acute Code(s): E13.10 - OTH DIABETES MELLITUS WITH KETOACIDOSIS WITHOUT COMA SNOMED Code(s): 430077753 (2) Uncontrolled type 2 diabetes mellitus Narrative/Plan: * A1c 12 * hematology nurse educator consulted with plans for insulin teaching education * We'll continue metformin along with subcu insulin Levemir 10 units subcu daily at bedtime and NovoLog. 3 Units subcu before meals Current Visit: Yes Status: Acute Code(s): E11.65 - TYPE 2 DIABETES MELLITUS WITH HYPERGLYCEMIA SNOMED Code(s): 19560480 (3) Asthma exacerbation Narrative/Plan: * Continue with breathing treatments systemic steroids with prednisone and Mucinex * Pulmonary consultation requested Current Visit: No Status: Acute Code(s): J45.901 - UNSPECIFIED ASTHMA WITH ( ACUTE) EXACERBATION SNOMED Code(s): 375849355 (4) Tracheobronchitis Current Visit: Yes Status: Acute Code(s): J40 - BRONCHITIS, NOT SPECIFIED ACUTE OR CHRONIC SNOMED Code(s): 82096908 (5) Essential hypertension Narrative/Plan: * Blood pressure currently stable and at goal continue current management Current Visit: Yes Status: Acute Code(s): I10 - ESSENTIAL (PRIMARY) HYPERTENSION SNOMED Code(s): 19773542 Plan: Anticipated discharge * 1 day
[2018-08-05 12:28] LABS: Glucose,Whole Blood 255 mg/dL (75-99)
[2018-08-05] MEDS: LISINOPRIL 10 MG TAB PO SCH (12:47)
[2018-08-05] MEDS: METOCLOPRAMIDE 5 MG TAB PO SCH ×3 (12:47→20:57)
[2018-08-05] MEDS: traMADol 50 MG TAB PO PRN ×2 (12:52→21:11)
[2018-08-05] MEDS ORDERED: INSULIN DETEMIR 100 UNIT/ML 10 ML VIAL SQ ONE (14:00)
--- NOTE | 2018-08-05 16:17 | P.CNPUL ---
History of Present Illness Consult date: 08/05/18 Requesting physician: Frederick Amaro Reason for consult: cough, asthma, other Chief complaint: Severe persistent bronchial asthma, DKA History of present illness: This is a 41-year inhaler, DuoNeb nebulized treatments, and Ventolin-old white female patient of Dr. Enriquez, with history of chronic bronchial asthma, diabetes mellitus type 2, hypertension, chronic nicotine dependence, anxiety, presented to the hospital on 08/04/2018 for evaluation of hyperglycemia, patient 's blood sugar has been over 500 for 3 days prior to admission. She was feeling weak, she had been throwing up. In addition patient is having persistent cough, chest congestion, shortness of breath. She denied any chest pain, denied any fever or chills. She was hospitalized in June for 7 days for acute exacerbation of chronic bronchial asthma, complicated by purulent tracheobronchitis, was treated with steroids, antibiotics she was discharged home on the taper starting at 60 mg. She completed her medications, however her symptoms fail to significantly improved. Patient was treated again on an outpatient basis by her PCP and she was on her third day of prednisone 60 mg of the new taper ordered by Dr. Enriquez. She was started on Dulera 200/5mcg DuoNeb nebulized treatments, and albuterol rescue inhaler by her PCP after her last hospitalization. Prior to that she was never hospitalized for asthma or intubated. She would rarely uses her rescue inhaler, she is not sure of her exact triggers, she stated she was first diagnosed after she had her first child 18 years ago. She was diagnosed with diabetes 3 years ago, he was maintained on a combination of lucidity injections, info, and metformin, and prior to her hospitalization in June her baseline hemoglobin A1c was 7.8. In the emergency department on 08/04/2018 chest x-ray was completed which showed no acute process, asked x-ray of the abdomen showed mildly prominent right lower quadrant small bowel loops favoring ileus. Follow-up chest x-ray on 08/05/2018 showed no acute pulmonary process. Initial blood work showed a white count of 11.2, hemoglobin of 14.5,hemoglobin A1c was 12, serum acetone was positive, urinalysis showed 4+ glucose and 3+ ketones, plasma lactic acid was 1.1, sodium was 136, potassium is 4.9, chloride is 103, CO2 was 17, BUN is 15 and creatinine was 0.56, anion gap was 16. She was started on insulin infusion, received IV hydration, and subsequently her anion gap had closed, hyperglycemia improved, and metabolic acidosis resolved. Repeat serum acetone was negative. No fever or chills. Patient still has some mild nausea, but no vomiting, she is tolerating oral intake, she has been transitioned to subcutaneous insulin with a combination of Humalog, and Levemir. She is on oral steroids, 40 mg daily, nebulized bronchodilators. Review of Systems All systems: negative Constitutional: Denies chills, Denies fever Eyes: denies blurred vision, denies pain Ears, nose, mouth and throat: Denies headache, Denies sore throat Cardiovascular: Denies chest pain, Denies shortness of breath Respiratory: Reports congestion, Reports cough with sputum, Reports dyspnea, Reports wheezing, Denies cough Gastrointestinal: Denies abdominal pain, Denies diarrhea, Denies nausea, Denies vomiting Genitourinary: Denies dysuria, Denies hematuria Musculoskeletal: Denies myalgias Integumentary: Denies pruritus, Denies rash Neurological: Denies numbness, Denies weakness Psychiatric: Denies anxiety, Denies depression Endocrine: Reports excessive thirst, Reports high blood sugars, Reports polydipsia, Reports polyuria, Reports recent glucocorticoid use, Denies fatigue , Denies weight change Past Medical History Past Medical History: Asthma, Diabetes Mellitus, Hypertension Additional Past Medical History / Comment(s): NIDDM type II-uncontrolled with steroid use, past pancreatitis, bronchitis, facial cellulitis History of Any Multi-Drug Resistant Organisms: None Reported Past Surgical History: Breast Surgery, Cholecystectomy Additional Past Surgical History / Comment(s): Left facial/ sinus surgery, colonoscopy 2014, lt breast bx-neg Past Anesthesia/Blood Transfusion Reactions: Motion Sickness Additional Past Anesthesia/Blood Transfusion Reaction / Comment(s): motion 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 Mother Family Medical History: Asthma, Hypertension, Liver Disease Additional Family Medical History / Comment(s): EtOH abuse. Maternal grandmother had leukemia. Medications and Allergies Home Medications Medication Instructions Recorded Confirmed Type ARIPiprazole [Abilify] 10 mg PO DAILY 04/16/18 08/04/18 History Dulaglutide [Trulicity] 1.5 mg SQ CAMPBELL 04/16/18 08/04/18 History FLUoxetine HCL [PROzac] 10 mg PO DAILY 04/16/18 08/04/18 History Ferrous Sulfate [Iron] 325 mg PO DAILY 04/16/18 08/04/18 History Venlafaxine HCl [Effexor XR] 300 mg PO DAILY 04/16/18 08/04/18 History Albuterol Inhaler [Ventolin Hfa 1 - 2 puff INHALATION RT-Q6H PRN 04/17/18 Rx Inhaler] #1 inhaler Prochlorperazine [Compazine] 10 mg PO QAM PRN 06/27/18 08/04/18 History Ipratropium-Albuterol Nebulize 3 ml INHALATION TID #90 ampul.neb 07/01/18 Rx [Duoneb 0.5 mg-3 mg/3 ml Soln] Canagliflozin [Invokana] 300 mg PO DAILY 08/04/18 08/04/18 History Lisinopril [Zestril] 10 mg PO DAILY 08/04/18 08/04/18 History Melatonin 3 mg PO HS PRN 08/04/18 08/04/18 History Mometasone/Formoterol [Dulera 200 2 puff INHALATION RT-BID 08/04/18 08/04/18 History Mcg/5 Mcg Inhaler] metFORMIN HCL 1,000 mg PO DAILY 08/04/18 08/04/18 History Allergies Allergy/AdvReac Type Severity Reaction Status Date / Time latex Allergy Rash/Hives Verified 08/04/18 08:41 carisoprodol [From Soma] AdvReac PASSES OUT Verified 08/04/18 08:41 Physical Exam Vitals: Vital Signs Temp Pulse Pulse Resp BP BP Pulse Ox 08/05/18 12:00 98.4 F 86 20 131/83 97 08/05/18 11:16 74 08/05/18 11:07 80 08/05/18 08:00 98.5 F 105 H 20 135/78 94 L 08/05/18 07:46 78 08/05/18 07:36 76 08/05/18 04:00 98.4 F 99 18 149/84 96 08/05/18 02:30 98.0 F 99 18 180/95 96 08/05/18 00:07 80 08/05/18 00:00 98.2 F 92 91 16 142/84 97 08/04/18 20:00 98.5 F 95 18 126/77 96 08/04/18 19:47 78 08/04/18 19:37 78 08/04/18 16:36 77 08/04/18 16:25 76 08/04/18 16:10 90 18 108/78 97 08/04/18 16:00 97.7 F 88 16 139/81 97 08/04/18 14:21 99 16 111/69 96 Intake and Output 08/04/18 08/05/18 08/05/18 22:59 06:59 14:59 Intake Total 653.033 460 160 Balance 653.033 460 160 Intake: IV 160 Sodium Chloride 0.9% 500 160 ml 500 ml @ 20 mls/hr IV .Q24H [facility] Rx#:[id number] Intake, IV Titration 53.033 160 Amount Insulin Regular 100 unit 53.033 In Sodium Chloride 0.9% 100 ml @ 0.1 UNITS/KG/HR 7.28 mls/hr IV .[id number] [facility] Rx#:[id number] Sodium Chloride 0.9% 500 160 ml 500 ml @ 20 mls/hr IV .Q24H [facility] Rx#:[id number] Oral 600 300 Other: Voiding Method Toilet Toilet Toilet # Voids 1 Weight 75 kg 75 kg GENERAL EXAM: Alert, pleasant, 42-year-old white female comfortable in no apparent distress. HEAD: Normocephalic/atraumatic. EYES: Normal reaction of pupils, equal size. Conjunctiva pink, sclera white. NOSE: Clear with pink turbinates. THROAT: No erythema or exudates. NECK: No masses, no JVD, no thyroid enlargement, no adenopathy. CHEST: No chest wall deformity. Symmetrical expansion. LUNGS: Equal air entry with coarse breath sounds, diminished at the bases, patient is able to take deep breaths, starts coughing CVS: Regular rate and rhythm, normal S1 and S2, no gallops, no murmurs, no rubs ABDOMEN: Soft, nontender. No hepatosplenomegaly, normal bowel sounds, no guarding or rigidity. EXTREMITIES: No clubbing, no edema, no cyanosis, 2+ pulses and upper and lower extremities. MUSCULOSKELETAL: Muscle strength and tone normal. SPINE: No scoliosis or deformity SKIN: No rashes CENTRAL NERVOUS SYSTEM: Alert and oriented -3. No focal deficits, tone is normal in all 4 extremities. PSYCHIATRIC: Alert and oriented -3. Appropriate affect. Intact judgment and insight. Results - Laboratory Findings CBC and BMP: 08/05/18 05:57 08/04/18 18:31 Abnormal lab findings: Abnormal Labs 08/04/18 08/04/18 08/04/18 08:09 08:26 08:26 WBC 11.2 H Neutrophils # 9.5 H Lymphocytes # 0.9 L Sodium 136 L Chloride Carbon Dioxide 17 L Creatinine Glucose 480 H POC Glucose (mg/dL) 422 H Hemoglobin A1c Urine Glucose (UA) Urine Ketones 08/04/18 08/04/18 08/04/18 08:26 09:20 10:58 WBC Neutrophils # Lymphocytes # Sodium Chloride Carbon Dioxide Creatinine Glucose POC Glucose (mg/dL) 353 H 214 H Hemoglobin A1c 12.0 H Urine Glucose (UA) Urine Ketones 08/04/18 08/04/18 08/04/18 11:15 12:14 12:16 WBC Neutrophils # Lymphocytes # Sodium Chloride 110 H Carbon Dioxide Creatinine 0.50 L Glucose 200 H POC Glucose (mg/dL) 202 H Hemoglobin A1c Urine Glucose (UA) 4+ H Urine Ketones 3+ H 08/04/18 08/04/18 08/04/18 13:32 14:31 15:27 WBC Neutrophils # Lymphocytes # Sodium Chloride Carbon Dioxide Creatinine Glucose POC Glucose (mg/dL) 414 H 433 H 344 H Hemoglobin A1c Urine Glucose (UA) Urine Ketones 08/04/18 08/04/18 08/04/18 16:35 18:06 18:31 WBC Neutrophils # Lymphocytes # Sodium Chloride Carbon Dioxide Creatinine Glucose 111 H POC Glucose (mg/dL) 194 H 160 H Hemoglobin A1c Urine Glucose (UA) Urine Ketones 08/04/18 08/04/18 08/04/18 19:01 20:07 21:20 WBC Neutrophils # Lymphocytes # Sodium Chloride Carbon Dioxide Creatinine Glucose POC Glucose (mg/dL) 119 H 131 H 271 H Hemoglobin A1c Urine Glucose (UA) Urine Ketones 08/05/18 08/05/18 06:04 12:08 WBC Neutrophils # Lymphocytes # Sodium Chloride Carbon Dioxide Creatinine Glucose POC Glucose (mg/dL) 252 H 255 H Hemoglobin A1c Urine Glucose (UA) Urine Ketones - Diagnostic Findings Chest x-ray: report reviewed, image reviewed Additional studies: Flat plate of the abdomen Assessment and Plan Plan: Assessment: #1. Acute diabetic ketoacidosis, likely precipitated by extended steroid use #2. Anion gap metabolic acidosis related to acute DKA, resolved #3. Acute exacerbation of severe persistent bronchial asthma complicated by tracheobronchitis #4. Recent hospitalization in June for exacerbation of chronic bronchial asthma, and patient has never fully recovered from it requiring additional outpatient treatment #5. Chronic nicotine dependence, currently in remission #6. History of childhood eczema #7. Diabetes mellitus type 2 #8. Hypertention #9. History of pancreatitis #10. Anxiety/depression Plan: Continue oral steroids, nebulized bronchodilators, we will add Symbicort, Singulair. DKA has resolved, patient has been transitioned to the subcutaneous insulin, still has frequent coughing episodes, not bringing up any sputum. Chest x-ray has been reviewed, and showed no clear evidence of pneumonia, fever or chills. Patient had recently completed oral course of Levaquin, no need for antibiotics at this time. Continue current dose of oral steroids. Smoking cessation was strongly advised. From pulmonary perspective patient may be discharged home tomorrow. Follow-up with Dr. Zhang in the office next week I performed a history & physical examination of the patient and discussed their management with my nurse practitioner, Christal Lopez. I reviewed the nurse practitioner's note and agree with the documented findings and plan of care. Lung sounds are positive for coarse breath sounds. The findings and the impression was discussed with the patient. I attest to the documentation by the nurse practitioner. Time with Patient: Greater than 30
[2018-08-05 17:04] LABS: Glucose,Whole Blood 253 mg/dL (75-99)
[2018-08-05] MEDS: SYMBICORT 160-4.5 MCG INHALER INHALATION SCH (19:58)
[2018-08-05 20:48] LABS: Glucose,Whole Blood 419 mg/dL (75-99)
[2018-08-05] MEDS ORDERED: INSULIN DETEMIR 100 UNIT/ML 10 ML VIAL SQ SCH (21:00)
[2018-08-05] MEDS ORDERED: MONTELUKAST 10 MG TAB PO SCH (21:00)
[2018-08-05] MEDS: SODIUM CHLORIDE 0.9% 500 ML 500 ML IV SCH (21:08)
[2018-08-05 21:38] LABS: Glucose,Whole Blood 444 mg/dL (75-99)
[2018-08-06 00:15] LABS: Glucose,Whole Blood 391 mg/dL (75-99)
[2018-08-06] MEDS: INSULIN ASPART 100 UNIT/ML 1 ML 10 ML VIAL SQ SCH ×4 (01:43→07:10)
[2018-08-06 01:48] LABS: Glucose,Whole Blood 318 mg/dL (75-99)
[2018-08-06] MEDS: IPRATROPIUM-ALBUTEROL 3 ML NEB INHALATION SCH ×3 (03:43→11:31)
[2018-08-06 06:04] VITALS: TEMP 98.2
[2018-08-06 06:10] LABS: Glucose,Whole Blood 123 mg/dL (75-99)
[2018-08-06] MEDS: METOCLOPRAMIDE 5 MG TAB PO SCH (06:26)
[2018-08-06] MEDS: metFORMIN 500 MG TAB PO SCH (06:26)
[2018-08-06] MEDS: SYMBICORT 160-4.5 MCG INHALER INHALATION SCH (07:42)
[2018-08-06 08:38] VITALS: BP 124/76; RESP 16
[2018-08-06] MEDS: HEPARIN SODIUM,PORCINE 5,000 UNIT/ML 1 ML VIAL SQ SCH (08:39)
[2018-08-06] MEDS: ARIPiprazole 10 MG TAB PO SCH (08:39)
[2018-08-06] MEDS: PANTOPRAZOLE 40 MG/10 ML VIAL IVP SCH (08:39)
[2018-08-06] MEDS: FLUoxetine HCL 10 MG CAP PO SCH (08:39)
[2018-08-06] MEDS: LISINOPRIL 10 MG TAB PO SCH (08:39)
[2018-08-06] MEDS: guaiFENesin 600 MG TABLET.ER PO SCH (08:39)
[2018-08-06] MEDS: predniSONE 20 MG TAB PO SCH (08:39)
[2018-08-06] MEDS: FERROUS SULFATE 325 MG TAB PO SCH (08:39)
[2018-08-06] MEDS: VENLAFAXINE HCL ER 150 MG CAP PO SCH (08:39)
[2018-08-06 11:24] LABS: Glucose,Whole Blood 211 mg/dL (75-99)
[2018-08-06 11:42] VITALS: PULSE 88
--- NOTE | 2018-08-06 11:54 | P.DS ---
Providers Date of admission: 08/04/18 09:32 Expected date of discharge: 08/06/18 Attending physician: Desiree Navarro DO Consults: 08/04/18 10:08 Consult Physician Stat Consulting Provider: Herbert Stark Reason/Comments: ICU/severe persistent asthma Do you want consulting provider notified?: Yes Primary care physician: Lee Enriquez - Discharge Diagnosis(es) (1) DKA (diabetic ketoacidoses) Current Visit: Yes Status: Acute (2) Uncontrolled type 2 diabetes mellitus Current Visit: Yes Status: Acute (3) Asthma exacerbation Current Visit: No Status: Acute (4) Tracheobronchitis Current Visit: Yes Status: Acute (5) Essential hypertension Current Visit: Yes Status: Acute Hospital Course: The patient is a 43-year-old female that was admitted with DKA likely triggered by acute asthma exacerbation and was initiated on IV fluids insulin drip per in-house DKA protocol after presenting with elevated blood sugars positive urine acetone and serum bicarb of 17. She was transitioned to subcutaneous insulin after resolution of her anion gap and DKA and negative serum acetone. Hemoglobin A1c was 12. She was initiated on Levemir 12 units subcu at bedtime and NovoLog 4 units subcu before meals along with continuing her metformin. The patient was noted to be in acute asthma exacerbation of her severe persistent asthma with tracheobronchitis she was started on scheduled and when necessary bronchodilator DuoNeb breathing treatments, systemic steroids with oral prednisone, Mucinex, and was seen by pulmonary Dr. Stark and Symbicort and Singulair was added to her regimen. Patient's condition stabilized and she was subsequently discharged home and instructed to follow-up with her PCP Dr. Enriquez and Dr. Stark. This discharge process took approximately 35 minutes Discharge physical Constitutional: No acute distress, conversant, pleasant Eyes: Anicteric sclerae, moist conjunctiva, no lid-lag, PERRLA ENMT: NC/AT,Oropharynx clear, no erythema, exudates Neck:Supple, FROM, no masses, or JVD, No carotid bruits; No thyromegaly Lungs: Clear to auscultation, Clear to percussion, Normal respiratory effort, no accessory muscle use Cardiovascular: Heart regular in rate and rhythm, No murmurs, gallops, or rubs no peripheral edema Abdominal: Soft Nontender, nom distended, no guarding, no rebound or rigidity, Normoactive bowel sounds No hepatomegaly, No splenomegaly, No palpable mass No abdominal wall hernia noted Skin: Normal temperature, tone, texture, turgor, No induration No subcutaneous nodules, No rash, lesions, No ulcers Extremities:No digital cyanosis No clubbing, Pedal pulses intact and symmetrical Radial pulses intact and symmetrical Normal gait and station, No calf tenderness Psychiatric: Alert and oriented to person, place and time, Appropriate affect Intact judgement Neuro: Muscles Strength 5/5 in all 4 extremities, Sensation to light touch grossly present throughout, Cranial nerves II-XII grossly intact. No focal sensory deficits Patient Condition at Discharge: Good Plan - Discharge Summary Discharge Rx Participant: No New Discharge Prescriptions: New guaiFENesin [Mucinex] 1,200 mg PO Q12HR #60 tablet.er Metoclopramide [Reglan] 5 mg PO ACHS #30 tab Montelukast [Singulair] 10 mg PO HS #30 tab predniSONE 40 mg PO DAILY tab Insulin Glargine,Hum.rec.anlog [Lantus Solostar] 12 unit SQ HS 30 Days #1 ml Insulin Lispro [humaLOG Kwikpen] 4 unit SQ AC-TID 30 Days #1 insuln.pen Continue metFORMIN HCL 1,000 mg PO DAILY Mometasone/Formoterol [Dulera 200 Mcg/5 Mcg Inhaler] 2 puff INHALATION RT-BID Lisinopril [Zestril] 10 mg PO DAILY Melatonin 3 mg PO HS PRN PRN Reason: Insomnia Discontinued Dulaglutide [Trulicity] 1.5 mg SQ CAMPBELL Canagliflozin [Invokana] 300 mg PO DAILY No Action FLUoxetine HCL [PROzac] 10 mg PO DAILY ARIPiprazole [Abilify] 10 mg PO DAILY Venlafaxine HCl [Effexor XR] 300 mg PO DAILY Ferrous Sulfate [Iron] 325 mg PO DAILY Albuterol Inhaler [Ventolin Hfa Inhaler] 1 - 2 puff INHALATION RT-Q6H PRN #1 inhaler PRN Reason: Wheezing Prochlorperazine [Compazine] 10 mg PO QAM PRN PRN Reason: Nausea Ipratropium-Albuterol Nebulize [Duoneb 0.5 mg-3 mg/3 ml Soln] 3 ml INHALATION TID #90 ampul.neb Discharge Medication List ARIPiprazole [Abilify] 10 mg PO DAILY 04/16/18 [History] FLUoxetine HCL [PROzac] 10 mg PO DAILY 04/16/18 [History] Ferrous Sulfate [Iron] 325 mg PO DAILY 04/16/18 [History] Venlafaxine HCl [Effexor XR] 300 mg PO DAILY 04/16/18 [History] Albuterol Inhaler [Ventolin Hfa Inhaler] 1 - 2 puff INHALATION RT-Q6H PRN #1 inhaler 04/17/18 [Rx] Prochlorperazine [Compazine] 10 mg PO QAM PRN 06/27/18 [History] Ipratropium-Albuterol Nebulize [Duoneb 0.5 mg-3 mg/3 ml Soln] 3 ml INHALATION TID #90 ampul.neb 07/01/18 [Rx] Lisinopril [Zestril] 10 mg PO DAILY 08/04/18 [History] Melatonin 3 mg PO HS PRN 08/04/18 [History] Mometasone/Formoterol [Dulera 200 Mcg/5 Mcg Inhaler] 2 puff INHALATION RT-BID [History] metFORMIN HCL 1,000 mg PO DAILY 08/04/18 [History] Insulin Glargine,Hum.rec.anlog [Lantus Solostar] 12 unit SQ HS 30 Days #1 ml [Rx] Insulin Lispro [humaLOG Kwikpen] 4 unit SQ AC-TID 30 Days #1 insuln.pen [Rx] Metoclopramide [Reglan] 5 mg PO ACHS #30 tab 08/06/18 [Rx] Montelukast [Singulair] 10 mg PO HS #30 tab 08/06/18 [Rx] guaiFENesin [Mucinex] 1,200 mg PO Q12HR #60 tablet.er 08/06/18 [Rx] predniSONE 40 mg PO DAILY tab 08/06/18 [Rx] Follow up Appointment(s)/Referral(s): Herbert Stark MD [STAFF PHYSICIAN] - 1 Week Lee Enriquez MD [Primary Care Provider] - 02/01/19 11:45 am (Wednesday) Patient Instructions/Handouts: Diabetic Ketoacidosis (DC) Discharge Disposition: HOME SELF-CARE
--- NOTE | 2018-08-06 13:14 | PN ---
PROGRESS NOTE DATE OF SERVICE: August 06, 2018 This is a very pleasant 43-year-old female patient who was admitted for diabetic ketoacidosis and acute exacerbation of moderate persistent chronic bronchial asthma. She is seen today in followup on the selective care unit. She is awake and alert, in no acute distress. She is maintaining good O2 saturations in the 90s on room air. Her blood glucose is better controlled. She is anxious to go home. PHYSICAL EXAMINATION: On physical exam, she is alert and oriented, in no acute distress. Vital signs are stable. Head is normocephalic. Sclerae anicteric. Her neck is supple. Trachea midline. Her lungs are clear anterior and posteriorly. Her Heart is regular S1, S2. Her abdomen is soft, nontender. Bowel sounds are present. There is no significant peripheral edema. No clubbing. No cyanosis. Peripheral pulses are intact. Medications are reviewed. IMPRESSION: 1. Acute exacerbation of chronic moderate persistent bronchial asthma, recovered. 2. Diabetic ketoacidosis, recovered. PLAN: The patient was seen and evaluated by Dr. Stark. She is cleared for discharge from a pulmonary standpoint. She will continue a prednisone taper. Continue her home pulmonary medications. Follow up in our office in 1 week or call sooner with any recurrence of symptoms or other questions or concerns. She is educated regarding the importance of complete smoking cessation. She is educated regarding the importance of close follow up with her PCP in regards to her diabetes. I, the cosigning physician, performed a history and physical examination on the patient. Lungs are clear. Maintaining O2 saturations in the 90s on room air. I reviewed the assessment and plan of care with my nurse practitioner, Angelica Forrester. I attest to the above note as dictated by her. MMODL / IJN: [id number] /
== END 2018-08-06 13:30 | disposition home or self-care (01) | DRG 638 ==
LOC: EC 07:59 → 3SCARD 09:32 → 2SICU 09:44 → 3SCARD 13:13
PROVIDERS: ADMIT Internal Medicine; ATTEND Internal Medicine
DX: E11.10 Type 2 diabetes mellitus with ketoacidosis without coma (principal); J45.51 Severe persistent asthma with (acute) exacerbation; E66.01 Morbid (severe) obesity due to excess calories; F17.200 Nicotine dependence, unspecified, uncomplicated; F32.9 Major depressive disorder, single episode, unspecified; F41.9 Anxiety disorder, unspecified; I10 Essential (primary) hypertension; J20.9 Acute bronchitis, unspecified; T38.0X5A Adverse effect of glucocorticoids and synthetic analogues, initial encounter; Z79.51 Long term (current) use of inhaled steroids; Z79.899 Other long term (current) drug therapy; Z79.84 Long term (current) use of oral hypoglycemic drugs; Z88.8 Allergy status to other drugs, medicaments and biological substances; Z91.040 Latex allergy status; Z90.49 Acquired absence of other specified parts of digestive tract; Z80.3 Family history of malignant neoplasm of breast; Z80.6 Family history of leukemia; Z81.1 Family history of alcohol abuse and dependence; Z82.0 Family history of epilepsy and other diseases of the nervous system; Z82.5 Family history of asthma and other chronic lower respiratory diseases; Z82.49 Family history of ischemic heart disease and other diseases of the circulatory system; Y92.009 Unspecified place in unspecified non-institutional (private) residence as the place of occurrence of the external cause
CPT/HCPCS: 36415; 71046; 74018; 80051; 80053; 81003; 82009; 82565; 82947; 83036; 83605; 83690; 84100; 84520; 85025; 87070; 87205; 93005; 94640; 96361; 96374; 99291

== ENCOUNTER 2018-11-22 03:30 | Emergency (ER) | payer OTHER ==
[2018-11-22 03:39] VITALS: BP 152/92; PULSE 106; RESP 20; TEMP 97.8
--- NOTE | 2018-11-22 03:42 | ED ---
General Adult HPI - General Chief complaint: Dental/Oral Stated complaint: Facial swelling Time Seen by Provider: 11/22/18 03:41 Source: patient Mode of arrival: ambulatory Limitations: no limitations - History of Present Illness Initial comments: Has a 43-year-old female past medical history of diabetes who presents to the emergency department today for evaluation of right-sided facial swelling. Patient reports that she had an episode similar to this with previous dental infections. Patient reports that she saw her primary care physician for this yesterday who was concerned she may have a sinus infection and prescribed her Keflex. Patient poor she's been taking the Keflex which she is also concerned she may have a dental infection she is scheduled to see a dentist next week for evaluation of multiple broken teeth and a plan for dental extraction prior to getting dental implants. Patient reports that she just wanted to come in early before the swelling got really bad because in April 2018 swelling got so bad she had to be admitted for IV antibiotics - Related Data Home Medications Medication Instructions Recorded Confirmed ARIPiprazole [Abilify] 10 mg PO DAILY 04/16/18 08/04/18 FLUoxetine HCL [PROzac] 10 mg PO DAILY 04/16/18 08/04/18 Ferrous Sulfate [Iron] 325 mg PO DAILY 04/16/18 08/04/18 Venlafaxine HCl [Effexor XR] 300 mg PO DAILY 04/16/18 08/04/18 Prochlorperazine [Compazine] 10 mg PO QAM PRN 06/27/18 08/04/18 Lisinopril [Zestril] 10 mg PO DAILY 08/04/18 08/04/18 Melatonin 3 mg PO HS PRN 08/04/18 08/04/18 Mometasone/Formoterol [Dulera 200 2 puff INHALATION RT-BID 08/04/18 08/04/18 Mcg/5 Mcg Inhaler] metFORMIN HCL 1,000 mg PO DAILY 08/04/18 08/04/18 Previous Rx's Medication Instructions Recorded Albuterol Inhaler [Ventolin Hfa 1 - 2 puff INHALATION RT-Q6H PRN 04/17/18 Inhaler] #1 inhaler Ipratropium-Albuterol Nebulize 3 ml INHALATION TID #90 ampul.neb 07/01/18 [Duoneb 0.5 mg-3 mg/3 ml Soln] Insulin Glargine,Hum.rec.anlog 12 unit SQ HS 30 Days #1 ml 08/06/18 [Lantus Solostar] Insulin Lispro [humaLOG Kwikpen] 4 unit SQ AC-TID 30 Days #1 08/06/18 insuln.pen Metoclopramide [Reglan] 5 mg PO ACHS #30 tab 08/06/18 Montelukast [Singulair] 10 mg PO HS #30 tab 08/06/18 guaiFENesin [Mucinex] 1,200 mg PO Q12HR #60 tablet.er 08/06/18 predniSONE 40 mg PO DAILY tab 08/06/18 Clindamycin [Cleocin] 450 mg PO Q6H #28 capsule 11/22/18 Allergies Allergy/AdvReac Type Severity Reaction Status Date / Time latex Allergy Rash/Hives Verified 11/22/18 03:40 carisoprodol [From Soma] AdvReac PASSES OUT Verified 11/22/18 03:40 Review of Systems ROS Statement: Those systems with pertinent positive or pertinent negative responses have been documented in the HPI. ROS Other: All systems not noted in ROS Statement are negative. Past Medical History Past Medical History: Asthma, Diabetes Mellitus, Hypertension Additional Past Medical History / Comment(s): NIDDM type II-uncontrolled with steroid use, past pancreatitis, bronchitis, facial cellulitis History of Any Multi-Drug Resistant Organisms: None Reported Past Surgical History: Breast Surgery, Cholecystectomy Additional Past Surgical History / Comment(s): Left facial/ sinus surgery, colonoscopy 2014, lt breast bx-neg Past Anesthesia/Blood Transfusion Reactions: Motion Sickness Additional Past Anesthesia/Blood Transfusion Reaction / Comment(s): motion s ickness when on air planes Past Psychological History: Anxiety, Depression Smoking Status: Current every day smoker Past Alcohol Use History: None Reported Past Drug Use History: None Reported - Past Family History Father Family Medical History: Cancer, Seizure Disorder Additional Family Medical History / Comment(s): 2 paternal aunts and paternal grandmother had breast cancer. Mother Family Medical History: Asthma, Hypertension, Liver Disease Additional Family Medical History / Comment(s): EtOH abuse. Maternal grandmother had leukemia. General Exam - General Exam Comments Initial Comments: Physical Exam GENERAL: Patient is well-developed and well-nourished. Patient is nontoxic and well-hydrated and is in no distress. HENT: Normocephalic, Atraumatic Soft tissue swelling of the right cheek Poor dentition, multiple dental caries and missing teeth Erythema of the gums with no palpable abscess Nasal mucosa is edematous with no purulent drainage or signs of infection EYES: PERRL, EOMI PULMONARY: Unlabored respirations. No audible rales rhonchi or wheezing was noted. CARDIOVASCULAR: There is a regular rate and rhythm without any murmurs gallops or rubs. ABDOMEN: Soft and nontender with normal bowel sounds. SKIN: Skin is clear with no lesions or rashes and otherwise unremarkable. : Deferred NEUROLOGIC: Patient is alert and oriented x3. Moving all extremities spontaneously MUSCULOSKELETAL: Normal extremities with adequate strength and full range of motion. No lower extremity swelling or edema. No calf tenderness. PSYCHIATRIC: Normal psychiatric evaluation. Limitations: no limitations Course Vital Signs 11/22/18 03:34 Temperature 97.8 F Pulse Rate 106 H Respiratory 20 Rate Blood Pressure 152/92 O2 Sat by Pulse 98 Oximetry Medical Decision Making - Medical Decision Making The patient was seen and evaluated, history is obtained from the patient Physical 43-year-old female currently being treated for sinus infection who noticed swelling of her face, there is no signs of cellulitis or abscess There is erythema of the gums concerning for dental infection patient does have very poor dentition with multiple caries and missing teeth. I will add Keflex to her antibiotic regimen. Patient was advised to continue taking the Keflex follow-up with her primary care physician and return to the ER for any acute worsening in her condition Disposition Clinical Impression: Dental caries, Facial infection, Dental abscess Disposition: HOME SELF-CARE Condition: Stable Instructions (If sedation given, give patient instructions): Dental Abscess (ED), Dental Caries (ED) Prescriptions: Clindamycin [Cleocin] 450 mg PO Q6H #28 capsule Is patient prescribed a controlled substance at d/c from ED?: No Referrals: Lee Enriquez MD [Primary Care Provider] - 1-2 days
[2018-11-22] MEDS ORDERED: CLINDAMYCIN 150 MG CAP PO STA (03:55)
== END 2018-11-22 04:12 | disposition home or self-care (01) ==
LOC: EC 03:30
DX: K02.9 Dental caries, unspecified (principal); K04.7 Periapical abscess without sinus; L08.9 Local infection of the skin and subcutaneous tissue, unspecified; J45.909 Unspecified asthma, uncomplicated; E11.9 Type 2 diabetes mellitus without complications; I10 Essential (primary) hypertension; F32.9 Major depressive disorder, single episode, unspecified; F41.9 Anxiety disorder, unspecified; F17.200 Nicotine dependence, unspecified, uncomplicated; Z79.51 Long term (current) use of inhaled steroids; Z79.899 Other long term (current) drug therapy; Z79.84 Long term (current) use of oral hypoglycemic drugs; Z91.040 Latex allergy status; Z88.8 Allergy status to other drugs, medicaments and biological substances
CPT/HCPCS: 99282

== ENCOUNTER 2018-11-24 14:47 | Emergency (ER) | payer OTHER ==
[2018-11-24] MEDS ORDERED: SODIUM CHLORIDE 0.9% 1,000 ML IV STA ×2 (15:02→16:11)
[2018-11-24] MEDS ORDERED: FAMOTIDINE 20 MG/2 ML VIAL IV STA (15:25)
[2018-11-24] MEDS ORDERED: MAG HYDROX/AL HYDROX/SIMETH 30 ML, HYOSCYAMINE ELIXIR 10 ML, CIMETIDINE HCL 300 MG, LID... PO STA ×4 (15:26)
[2018-11-24] MEDS ORDERED: ONDANSETRON 4 MG/2 ML VIAL IVP STA (15:26)
--- NOTE | 2018-11-24 15:29 | ED ---
General Adult HPI - General Chief complaint: Abdominal Pain Stated complaint: fever Time Seen by Provider: 11/24/18 15:01 Source: patient, RN notes reviewed Mode of arrival: ambulatory Limitations: no limitations - History of Present Illness Initial comments: 43-year-old female with a PMH of Asthma, insulin-dependent diabetes mellitus type 2, hypertension presents to the emergency department for a chief complaint of upper abdominal discomfort times several days. Patient states it is a sharp pain that radiates from her epigastric area straight through to her back. Denies any chest pain or shortness of breath. Patient states that she has had pancreatitis before and this feels similar. States this was from taking Victoza. Patient states pain did worsen after eating today. States she felt nauseous earlier this morning but did not vomit. Patient has a history of cholecystectomy. States she saw her doctor today and he was concerned so had her come to the emergency department. Patient has no other complaints at this time including shortness of breath, chest pain, vomiting, headache, or visual changes. - Related Data Home Medications Medication Instructions Recorded Confirmed FLUoxetine HCL [PROzac] 10 mg PO DAILY 04/16/18 11/24/18 Ferrous Sulfate [Iron] 325 mg PO DAILY 04/16/18 11/24/18 Venlafaxine HCl [Effexor XR] 300 mg PO DAILY 04/16/18 11/24/18 Prochlorperazine [Compazine] 10 mg PO QAM PRN 06/27/18 11/24/18 Lisinopril [Zestril] 10 mg PO DAILY 08/04/18 11/24/18 metFORMIN HCL 1,000 mg PO DAILY 08/04/18 11/24/18 ARIPiprazole [Abilify] 15 mg PO DAILY 11/24/18 11/24/18 Cephalexin [Keflex] 500 mg PO QID 11/24/18 11/24/18 Famotidine [Pepcid] 20 mg PO DAILY 11/24/18 11/24/18 Insulin Glargine [Lantus] 20 units SQ HS 11/24/18 11/24/18 Loratadine [Alavert] 10 mg PO DAILY 11/24/18 11/24/18 Previous Rx's Medication Instructions Recorded Albuterol Inhaler [Ventolin Hfa 1 - 2 puff INHALATION RT-Q6H PRN 04/17/18 Inhaler] #1 inhaler Insulin Lispro [humaLOG Kwikpen] 4 unit SQ AC-TID 30 Days #1 08/06/18 insuln.pen Metoclopramide [Reglan] 5 mg PO ACHS #30 tab 08/06/18 Famotidine [Pepcid] 20 mg PO BID #30 tablet 11/24/18 Allergies Allergy/AdvReac Type Severity Reaction Status Date / Time latex Allergy Rash/Hives Verified 11/24/18 15:28 carisoprodol [From Soma] AdvReac PASSES OUT Verified 11/24/18 15:28 Review of Systems ROS Statement: Those systems with pertinent positive or pertinent negative responses have been documented in the HPI. ROS Other: All systems not noted in ROS Statement are negative. Past Medical History Past Medical History: Asthma, Diabetes Mellitus, Hypertension Additional Past Medical History / Comment(s): NIDDM type II-uncontrolled with steroid use, past pancreatitis, bronchitis, facial cellulitis History of Any Multi-Drug Resistant Organisms: None Reported Past Surgical History: Breast Surgery, Cholecystectomy Additional Past Surgical History / Comment(s): Left facial/ sinus surgery, colonoscopy 2014, lt breast bx-neg Past Anesthesia/Blood Transfusion Reactions: Motion Sickness Additional Past Anesthesia/Blood Transfusion Reaction / Comment(s): motion sickness when on air planes Past Psychological History: Anxiety, Depression Smoking Status: Current every day smoker Past Alcohol Use History: None Reported Past Drug Use History: None Reported - Past Family History Father Family Medical History: Cancer, Seizure Disorder Additional Family Medical History / Comment(s): 2 paternal aunts and paternal grandmother had breast cancer. Mother Family Medical History: Asthma, Hypertension, Liver Disease Additional Family Medical History / Comment(s): EtOH abuse. Maternal grandmother had leukemia. General Exam Limitations: no limitations General appearance: alert, in no apparent distress Head exam: Present: atraumatic, normocephalic, normal inspection Eye exam: Present: normal appearance, PERRL, EOMI. Absent: scleral icterus, conjunctival injection, periorbital swelling ENT exam: Present: normal exam, mucous membranes moist Neck exam: Present: normal inspection, full ROM. Absent: tenderness, meningismus, lymphadenopathy Respiratory exam: Present: normal lung sounds bilaterally. Absent: respiratory distress, wheezes, rales, rhonchi, stridor Cardiovascular Exam: Present: regular rate, normal rhythm, normal heart sounds. Absent: systolic murmur, diastolic murmur, rubs, gallop, clicks GI/Abdominal exam: Present: soft, tenderness (tenderness epigastric area), normal bowel sounds. Absent: distended, guarding, rebound, rigid Neurological exam: Present: alert, oriented X3, CN II-XII intact Psychiatric exam: Present: normal affect, normal mood Course Vital Signs 11/24/18 14:53 Temperature 98.6 F Pulse Rate 100 Respiratory 18 Rate Blood Pressure 161/78 O2 Sat by Pulse 98 Oximetry EKG Findings - EKG Comments: EKG Findings:: Normal sinus rhythm, ventricular rate 100, PT int 136, QTc 477, no evidence of ST elevation or depression Medical Decision Making - Medical Decision Making 43-year-old female presents for a chief: Of epigastric pain. Patient states this feels like pancreatitis. Denies any chest pain or shortness of breath. CBC and CMP are unremarkable the patient's glucose is 362, given 2 L of fluids which did decrease to 243. Patient also took her short and long-acting insulin prior to arrival. Urine does show 4+ glucose without any ketones. Anion gap is 9. Acetone is negative. X-ray KUB shows a moderate stool burning, no evidence of bowel obstruction or free intraperitoneal air. Patient was given Pepcid and GI cocktail, feeling much better at this time. States pain is almost completely gone. Patient does admit to taking Motrin daily for the past few months due to back pain. Patient likely has gastritis. Will be treated with Pepcid and given a GI primary care follow-up. Will return here if she has any worsening symptoms. - Lab Data Result diagrams: 11/24/18 15:25 11/24/18 15:25 Lab Results 11/24/18 11/24/18 11/24/18 Range/Units 15:25 15:25 15:25 WBC 7.7 (3.8-10.6) k/uL RBC 4.66 (3.80-5.40) m/uL Hgb 13.7 (11.4-16.0) gm/dL Hct 42.5 (34.0-46.0) % MCV 91.3 (80.0-100.0) fL MCH 29.3 (25.0-35.0) pg MCHC 32.1 (31.0-37.0) g/dL RDW 14.8 (11.5-15.5) % Plt Count 343 (150-450) k/uL Neutrophils % 68 % Lymphocytes % 22 % Monocytes % 6 % Eosinophils % 2 % Basophils % 1 % Neutrophils # 5.2 (1.3-7.7) k/uL Lymphocytes # 1.7 (1.0-4.8) k/uL Monocytes # 0.4 (0-1.0) k/uL Eosinophils # 0.2 (0-0.7) k/uL Basophils # 0.0 (0-0.2) k/uL Sodium 135 L (137-145) mmol/L Potassium 4.6 (3.5-5.1) mmol/L Chloride 101 (98-107) mmol/L Carbon Dioxide 25 (22-30) mmol/L Anion Gap 9 mmol/L BUN 12 (7-17) mg/dL Creatinine 0.55 (0.52-1.04) mg/dL Est GFR (CKD-EPI)AfAm >90 (>60 ml/min/1.73 sqM) Est GFR (CKD-EPI)NonAf >90 (>60 ml/min/1.73 sqM) Glucose 362 H (74-99) mg/dL POC Glucose (mg/dL) (75-99) mg/dL POC Glu Chief Nurse ID Calcium 9.9 (8.4-10.2) mg/dL Total Bilirubin 0.3 (0.2-1.3) mg/dL AST 21 (14-36) U/L ALT 35 (9-52) U/L Alkaline Phosphatase 78 (38-126) U/L Troponin I (0.000-0.034) ng/mL Total Protein 7.0 (6.3-8.2) g/dL Albumin 4.2 (3.5-5.0) g/dL Amylase 45 (30-110) U/L Lipase 213 (23-300) U/L Urine Color Urine Appearance (Clear) Urine pH (5.0-8.0) Ur Specific [place] (1.001-1.035) Urine Protein (Negative) Urine Glucose (UA) (Negative) Urine Ketones (Negative) Urine Blood (Negative) Urine Nitrite (Negative) Urine Bilirubin (Negative) Urine Urobilinogen (<2.0) mg/dL Ur Leukocyte Esterase (Negative) Urine RBC (0-5) /hpf Urine WBC (0-5) /hpf Ur Squamous Epith Cells (0-4) /hpf Urine Bacteria (None) /hpf Urine Mucus (None) /hpf Urine HCG, Qual Not Detected (Not Detectd) Acetone, Qual Negative (Negative) 11/24/18 11/24/18 11/24/18 Range/Units 15:25 15:25 17:06 WBC (3.8-10.6) k/uL RBC (3.80-5.40) m/uL Hgb (11.4-16.0) gm/dL Hct (34.0-46.0) % MCV (80.0-100.0) fL MCH (25.0-35.0) pg MCHC (31.0-37.0) g/dL RDW (11.5-15.5) % Plt Count (150-450) k/uL Neutrophils % % Lymphocytes % % Monocytes % % Eosinophils % % Basophils % % Neutrophils # (1.3-7.7) k/uL Lymphocytes # (1.0-4.8) k/uL Monocytes # (0-1.0) k/uL Eosinophils # (0-0.7) k/uL Basophils # (0-0.2) k/uL Sodium (137-145) mmol/L Potassium (3.5-5.1) mmol/L Chloride (98-107) mmol/L Carbon Dioxide (22-30) mmol/L Anion Gap mmol/L BUN (7-17) mg/dL Creatinine (0.52-1.04) mg/dL Est GFR (CKD-EPI)AfAm (>60 ml/min/1.73 sqM) Est GFR (CKD-EPI)NonAf (>60 ml/min/1.73 sqM) Glucose (74-99) mg/dL POC Glucose (mg/dL) 243 H (75-99) mg/dL POC Glu Chief Nurse RICKEY Nguyenministerio Janet Calcium (8.4-10.2) mg/dL Total Bilirubin (0.2-1.3) mg/dL AST (14-36) U/L ALT (9-52) U/L Alkaline Phosphatase (38-126) U/L Troponin I <0.012 (0.000-0.034) ng/mL Total Protein (6.3-8.2) g/dL Albumin (3.5-5.0) g/dL Amylase (30-110) U/L Lipase (23-300) U/L Urine Color Light Yellow Urine Appearance Cloudy H (Clear) Urine pH 6.0 (5.0-8.0) Ur Specific [place] 1.038 H (1.001-1.035) Urine Protein Negative (Negative) Urine Glucose (UA) 4+ H (Negative) Urine Ketones Negative (Negative) Urine Blood Negative (Negative) Urine Nitrite Negative (Negative) Urine Bilirubin Negative (Negative) Urine Urobilinogen <2.0 (<2.0) mg/dL Ur Leukocyte Esterase Negative (Negative) Urine RBC 1 (0-5) /hpf Urine WBC 2 (0-5) /hpf Ur Squamous Epith Cells 23 H (0-4) /hpf Urine Bacteria Occasional H (None) /hpf Urine Mucus Rare H (None) /hpf Urine HCG, Qual (Not Detectd) Acetone, Qual (Negative) Disposition Clinical Impression: Abdominal pain Disposition: HOME SELF-CARE Condition: Good Instructions (If sedation given, give patient instructions): Abdominal Pain (ED) Additional Instructions: Please take Pepcid as directed. Please follow-up with primary care in 1-2 days. Please return here to the emergency department if you develop any worsening symptoms. Prescriptions: Famotidine [Pepcid] 20 mg PO BID #30 tablet Is patient prescribed a controlled substance at d/c from ED?: No Referrals: Lee Enriquez MD [Primary Care Provider] - 1-2 days Yrn Schwab MD [STAFF PHYSICIAN] - 1-2 days Time of Disposition: 17:47
[2018-11-24 15:42] LABS: Basophils % (A) 1 %; Eosinophils # (A) 0.2 k/uL (0-0.7); Eosinophils % (A) 2 %; HCT 42.5 % (34.0-46.0); HGB 13.7 gm/dL (11.4-16.0); Lymphocytes # (A) 1.7 k/uL (1.0-4.8); Lymphocytes % (A) 22 %; MCH 29.3 pg (25.0-35.0); MCHC 32.1 g/dL (31.0-37.0); MCV 91.3 fL (80.0-100.0); Monocytes # (A) 0.4 k/uL (0-1.0); Monocytes % (A) 6 %; Neutrophils # (A) 5.2 k/uL (1.3-7.7); Neutrophils % (A) 68 %; Platelet Count 343 k/uL (150-450); RBC 4.66 m/uL (3.80-5.40); RDW 14.8 % (11.5-15.5); WBC 7.7 k/uL (3.8-10.6)
[2018-11-24 15:48] LABS: Appearance,Urine Cloudy (Clear); Bacteria,Urine Occasional /hpf; Bilirubin,Urine Negative (Negative); Blood,Urine Negative (Negative); Color,Urine Light Yellow; Glucose,Urine (UA) 4+ (Negative); Ketones,Urine Negative (Negative); Leukocyte Esterase,Urine Negative (Negative); Mucus,Urine Rare /hpf; Nitrite,Urine Negative (Negative); Protein,Urine Negative (Negative); RBC,Urine 1 /hpf (0-5); Specific Gravity,Urine 1.038 (1.001-1.035); Squamous Epithelial Cell,Urine 23 /hpf (0-4); Urobilinogen,Urine <2.0 mg/dL (<2.0); WBC,Urine 2 /hpf (0-5)
[2018-11-24 15:59] LABS: ALT 35 U/L (9-52); AST 21 U/L (14-36); Albumin 4.2 g/dL (3.5-5.0); Alkaline Phosphatase 78 U/L (38-126); Amylase 45 U/L (30-110); Anion Gap 9 mmol/L; Blood Urea Nitrogen 12 mg/dL (7-17); Calcium 9.9 mg/dL (8.4-10.2); Carbon Dioxide 25 mmol/L (22-30); Chloride 101 mmol/L (98-107); Glucose 362 mg/dL (74-99); Lipase 213 U/L (23-300); Potassium 4.6 mmol/L (3.5-5.1); Sodium 135 mmol/L (137-145); Total Bilirubin 0.3 mg/dL (0.2-1.3)
--- NOTE | 2018-11-24 16:36 | XR ---
EXAMINATION TYPE: XR KUB DATE OF EXAM: 11/24/2018 CLINICAL DATA: 43-year-old female complaining of abdominal pain, [facility] COMPARISON: 08/04/2018 FINDINGS: Lung bases are clear. No evidence for free intraperitoneal air. No dilated small bowel or air-fluid levels. Scattered air and stool seen throughout the colon. Mod[place] te overall stool burden. Small phlebolith in left side of the pelvis. Stable small fluid within the left side of the pelvis. IMPRESSION: Moderate stool burden. No evidence of bowel obstruction or free intraperitoneal air.
[2018-11-24 17:30] LABS: Glucose,Whole Blood 243 mg/dL (75-99)
[2018-11-24 18:03] VITALS: BP 122/71; PULSE 72; RESP 19; TEMP 97.8
== END 2018-11-24 18:03 | disposition home or self-care (01) ==
LOC: EC 14:47
DX: E11.65 Type 2 diabetes mellitus with hyperglycemia (principal); I10 Essential (primary) hypertension; F41.9 Anxiety disorder, unspecified; F32.9 Major depressive disorder, single episode, unspecified; F17.200 Nicotine dependence, unspecified, uncomplicated; Z87.19 Personal history of other diseases of the digestive system; Z90.49 Acquired absence of other specified parts of digestive tract; Z79.4 Long term (current) use of insulin; Z79.899 Other long term (current) drug therapy; Z91.040 Latex allergy status; Z88.8 Allergy status to other drugs, medicaments and biological substances
CPT/HCPCS: 99284; 96374; 96375; 96361 ×2; 36415; 93005; 80053; 82150; 82009; 83690; 84484; 85025; 81001; 81025; 74018; J2405

== ENCOUNTER 2019-03-30 07:36 | Emergency (ER) | payer OTHER ==
[2019-03-30 07:43] VITALS: RESP 16; TEMP 98
[2019-03-30] MEDS ORDERED: ORPHENADRINE 30 MG/ML 2 ML VIAL IM STA (08:20)
[2019-03-30] MEDS ORDERED: KETOROLAC 60 MG/2 ML VIAL IM STA (08:20)
[2019-03-30] MEDS ORDERED: LORazepam 1 MG TAB PO STA (08:42)
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
[2019-03-30 09:56] VITALS: BP 187/98; PULSE 89
== END 2019-03-30 09:28 | disposition home or self-care (01) ==
LOC: EC 07:36
DX: S13.4XXA Sprain of ligaments of cervical spine, initial encounter (principal); R51 Headache; I10 Essential (primary) hypertension; J45.909 Unspecified asthma, uncomplicated; E11.9 Type 2 diabetes mellitus without complications; F32.9 Major depressive disorder, single episode, unspecified; F41.9 Anxiety disorder, unspecified; F17.200 Nicotine dependence, unspecified, uncomplicated; Z79.899 Other long term (current) drug therapy; Z79.4 Long term (current) use of insulin; Z91.040 Latex allergy status; Z88.8 Allergy status to other drugs, medicaments and biological substances; V58.5XXA Driver of pick-up truck or van injured in noncollision transport accident in traffic accident, initial encounter; Y92.410 Unspecified street and highway as the place of occurrence of the external cause
CPT/HCPCS: 72125; 70450; 99284; 96372 ×2; J2360; J1885

== ENCOUNTER → 2019-04-28 | Outpatient (CLI) | payer OTHER ==
--- NOTE | 2019-04-28 16:31 | CT ---
EXAMINATION TYPE: CT sinus wo con DATE OF EXAM: 04/28/2019 COMPARISON: CT brain March 30, 2019 HISTORY: Polyp maxillary sinus. Hx sinus sx. Pt c/o discomfort and the feeling of water in her nose. CT DLP: 648 mGycm. Automated Exposure Control for Dose Reduction was Utilized. TECHNIQUE: CT scan of the sinuses is performed without contrast, axial images are obtained, coronal r eformatted images are also reviewed. FINDINGS: The paranasal sinuses including the frontal, ethmoid, sphenoid, and maxillary sinuses bila terally are well-aerated without abnormal opacification or suspicious air-fluid levels. The ostiomea carl complex is patent bilaterally on the coronal images. Surgical changes on the left is present. Visualized portion of mastoid air cells show no abnormal opacification. The globes are intact bilate rally. Visualized brain parenchyma is unremarkable. IMPRESSION: The sinuses are clear and the ostiomeatal complex is patent bilaterally.
== END | disposition home or self-care (01) ==
LOC: RADCTMAIN 16:02
PROVIDERS: ATTEND Family Medicine
DX: J33.8 Other polyp of sinus (principal)
CPT/HCPCS: 70486

== ENCOUNTER → 2019-08-08 | Outpatient (CLI) | payer BC, OTHER ==
[2019-08-08 11:27] VITALS: BP 147/95; PULSE 111; RESP 18; TEMP 98.1
--- NOTE | 2019-08-08 12:10 | P.HPOB ---
History of Present Illness H&P Date: 08/08/19 Chief Complaint: The patient is here for her routine gynecologic exam and ma mmogram. This is a 44-year-old with an LMP of 07/06/2019. Her is status post vasectomy in March 2019. They have been also using condoms since he has not gone back for his follow-up after his vasectomy. She is 2 days late for her menstrual period, but she does not feel and is declining a test at this time. She is without gynecologic complaints. Review of Systems The patient has gained 5 pounds over the last year. She denies respiratory, cardiac, or G.I. problems. Past Medical History Past Medical History: Asthma, Diabetes Mellitus, Hypertension Additional Past Medical History / Comment(s): NIDDM type II-uncontrolled with steroid use, past pancreatitis, bronchitis, facial cellulitis. 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 History of Any Multi-Drug Resistant Organisms: None Reported Past Surgical History: Breast Surgery, Cholecystectomy Additional Past Surgical History / Comment(s): Left facial/ sinus surgery, colonoscopy 2014, Lt breast bx-neg Past Anesthesia/Blood Transfusion Reactions: Motion Sickness Additional Past Anesthesia/Blood Transfusion Reaction / Comment(s): motion sickness when on air planes Past Psychological History: Anxiety, Depression Additional Psychological History / Comment(s): Pt lives with spouse and 2 daughters, drives. She has a glucometer and a nebulizer. She works for [employer] Smoking Status: Current every day smoker (Half to one pack per day.) Past Alcohol Use History: Occasional Additional Past Alcohol Use History / Comment(s): Pt started smoking in 2011 (age 36yrs) and was a ppd smoker but is in the process of quiting and is down to 1 cigarette a day. Past Drug Use History: None Reported Additional Drug Use History / Comment(s): Pt. 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 Additional History: She has been since 1998. - Past Family History Father Family Medical History: Cancer, Seizure Disorder Additional Family Medical History / Comment(s): Colon cancer. 2 paternal aunts and paternal grandmother had breast cancer. Mother Family Medical History: Asthma, Hypertension, Liver Disease Additional Family Medical History / Comment(s): EtOH abuse. Maternal grandm other had leukemia. Medications and Allergies Home Medications Medication Instructions Recorded Confirmed Type ARIPiprazole [Abilify] 10 mg PO HS 03/30/19 08/08/19 History Albuterol Inhaler [Ventolin Hfa 2 puff INHALATION RT-Q6H PRN 03/30/19 08/08/19 History Inhaler] Ibuprofen [Motrin] 600 mg PO Q8HR PRN #20 tab 03/30/19 08/08/19 Rx Metoclopramide [Reglan] 5 mg PO TID 03/30/19 08/08/19 History Pedi Multivit No.25/Folic Acid 300 mcg PO DAILY 03/30/19 08/08/19 History [Flintstones Multivit Chew Tab] Venlafaxine HCl [Effexor XR] 75 mg PO HS 03/30/19 08/08/19 History Vgo Insulin Pump 0.1 unit SQ CONTINUOUS 03/30/19 08/08/19 History Vortioxetine Hydrobromide 10 mg PO HS 03/30/19 08/08/19 History [Trintellix] Chlorthalidone 25 mg PO DAILY 08/08/19 08/08/19 History Allergies Allergy/AdvReac Type Severity Reaction Status Date / Time latex Allergy Rash/Hives Verified 08/08/19 11:22 carisoprodol [From Soma] AdvReac PASSES OUT Verified 08/08/19 11:22 Exam Vital Signs Temp Pulse Resp BP Pulse Ox 08/08/19 11:25 98.1 F 111 H 18 147/95 98 Intake and Output 08/07/19 08/08/19 08/08/19 22:59 06:59 14:59 Other: Weight 81.193 kg Height 5 feet 2 inches, weight 179 pounds, BMI 32.7. This is a well-developed well-nourished white female who is alert and oriented times 3 in no acute distress. HEENT: Within normal limits. NECK: Supple without mass or thyromegaly. CHEST AND LUNGS: Clear to auscultation. HEART: Mild tachycardia with otherwise normal rhythm. BREASTS: Are without mass or discharge. AXILLARY EXAM: Negative for adenopathy. BACK: Negative for CVA tenderness. ABDOMEN: Soft, nontender, without palpable masses. PELVIC EXAM: Normal external genitalia. Cervix and vagina appear william. There is no unusual discharge. There is no evidence of prolapse. The uterus is mi dposition, nongravid size and nontender. There are no palpable adnexal masses or tenderness. RECTAL EXAM: negative for mass or tenderness and is negative for occult blood. EXTREMITIES: Nontender. IMPRESSION: 1. 44-year-old female whose is status post recent vasectomy who has also been using condoms with normal gynecologic exam. 2. The patient is 2 days late for her menstrual period. or slight menstrual irregularity are both possible. A stye on her 's vasectomy and her use of condoms, I feel is not very likely. PLAN: 1. Pap smear was deferred since she had a normal one on 05/25/2018. 2. Self breast awareness was discussed with the patient. 3. Screening mammogram will be done today. 4. The patient will keep a menstrual calendar. She will call if she is having menstrual problems. She will also check a test on her own if she is having symptoms or if she continues to go without a menstrual period over the next few weeks. She will continue to use condoms until her 's vasectomy has been found to be effective. Urine test was offered today but when she heard she would not get results today, she has declined this. 5. She was advised to return in one year for her annual well woman exam.
--- NOTE | 2019-08-10 09:59 | MM ---
Reason for exam: screening (asymptomatic). Last mammogram was performed 1 year and 2 months ago. History: Family history of breast cancer in paternal grandmother and breast cancer in maternal aunt. Benign US biopsy breast VAD LT of the left breast, April 26, 2014. Benign US biopsy breast add'l VAD LT of the left breast, April 26, 2014. Physical Findings: A clinical breast exam by your physician is recommended on an annual basis and results should be correlated with mammographic findings. MG Screening Mammo w CAD Bilateral CC and MLO view(s) were taken. Prior study comparison: May 25, 2018, bilateral MG screening mammo w CAD. May 06, 2016, bilateral MG diagnostic mammo w CAD SAM. The breast tissue is heterogeneously dense. This may lower the sensitivity of mammography. Previous mammotome biopsy in the left breast x 2. There is chronic nodularity in the left breast. No significant changes when compared with prior studies. ASSESSMENT: Benign, BI-RAD 2 RECOMMENDATION: Routine screening mammogram of both breasts in 1 year.
== END | disposition home or self-care (01) ==
LOC: WWCWWP 11:02
PROVIDERS: ATTEND Obstetrics & Gynecology
DX: Z12.31 Encounter for screening mammogram for malignant neoplasm of breast (principal)
CPT/HCPCS: 77067

== ENCOUNTER 2019-08-28 16:00 | Emergency (ER) | payer BC, OTHER ==
[2019-08-28] MEDS ORDERED: SODIUM CHLORIDE 0.9% 1,000 ML IV STA (16:44)
[2019-08-28] MEDS ORDERED: SODIUM CHLORIDE 0.9% 1,000 ML IV ONE (16:44)
[2019-08-28 17:16] LABS: Basophils % (A) 0 %; Eosinophils # (A) 0.1 k/uL (0-0.7); Eosinophils % (A) 1 %; HCT 48.3 % (34.0-46.0); HGB 16.7 gm/dL (11.4-16.0); Lymphocytes # (A) 2.1 k/uL (1.0-4.8); Lymphocytes % (A) 23 %; MCHC 34.5 g/dL (31.0-37.0); MCV 89.9 fL (80.0-100.0); Mean Platelet Volume 7.8; Monocytes # (A) 0.5 k/uL (0-1.0); Monocytes % (A) 5 %; Neutrophils # (A) 6.2 k/uL (1.3-7.7); Neutrophils % (A) 68 %; Platelet Count 375 k/uL (150-450); RBC 5.38 m/uL (3.80-5.40); RDW 12.2 % (11.5-15.5); WBC 9.2 k/uL (3.8-10.6)
--- NOTE | 2019-08-28 17:19 | CT ---
EXAMINATION TYPE: CT brain wo con DATE OF EXAM: 08/28/2019 COMPARISON: 03/30/2019 HISTORY: dizziness CT DLP: 1099.4 mGycm Automated exposure control for dose reduction was used. Exam performed with no contrast. The ventricles and sulci appear normal. There is no mass effect nor midline shift. There is no sign o f intracranial hemorrhage. The calvarium is intact. IMPRESSION: Normal unenhanced head CT scan. No change.
[2019-08-28 17:26] LABS: ALT 131 U/L (4-34); AST 179 U/L (14-36); African American GFR (CKD) >90 (>60 ml/min/1.73 sqM); Alkaline Phosphatase 131 U/L (38-126); Anion Gap 14 mmol/L; Blood Urea Nitrogen 19 mg/dL (7-17); Calcium 9.8 mg/dL (8.4-10.2); Carbon Dioxide 29 mmol/L (22-30); Chloride 90 mmol/L (98-107); Glucose 326 mg/dL (74-99); Non-African American GFR(CKD) >90 (>60 ml/min/1.73 sqM); Sodium 133 mmol/L (137-145); Total Bilirubin 0.6 mg/dL (0.2-1.3); Total Protein 8.2 g/dL (6.3-8.2)
[2019-08-28] MEDS ORDERED: POTASSIUM CHLORIDE ER 20 MEQ TAB.ER PO STA (17:28)
[2019-08-28] MEDS ORDERED: MECLIZINE 12.5 MG TAB PO STA (17:28)
[2019-08-28] MEDS ORDERED: INSULIN ASPART (NovoLOG) 100 UNIT/ML VIAL SQ ONE (17:28)
[2019-08-28 17:38] LABS: Appearance,Urine Slightly Cloudy (Clear); Bilirubin,Urine Negative (Negative); Blood,Urine Negative (Negative); Color,Urine Amber; Glucose,Urine (UA) 3+ (Negative); Ketones,Urine Negative (Negative); Nitrite,Urine Negative (Negative); Protein,Urine 1+ (Negative); Specific Gravity,Urine 1.015 (1.001-1.035); Urobilinogen,Urine <2.0 mg/dL (<2.0)
[2019-08-28 17:39] LABS: Leukocyte Esterase,Urine Moderate (Negative)
[2019-08-28 17:48] LABS: RBC,Urine 2 /hpf (0-5); Squamous Epithelial Cell,Urine 20 /hpf (0-4); WBC,Urine 50 /hpf (0-5)
[2019-08-28 17:49] LABS: Bacteria,Urine Rare /hpf; Mucus,Urine Few /hpf
[2019-08-28 18:36] VITALS: RESP 18
[2019-08-28] MEDS ORDERED: LORazepam 1 MG TAB PO STA (18:54)
[2019-08-28 18:59] LABS: Glucose,Whole Blood 77 mg/dL (75-99)
[2019-08-28 19:16] VITALS: TEMP 97.1
--- NOTE | 2019-08-28 19:41 | ED ---
General Adult HPI - General Chief complaint: Dizziness Stated complaint: High blood sugar/Dizzy Time Seen by Provider: 08/28/19 16:26 Source: patient, RN notes reviewed, old records reviewed Mode of arrival: ambulatory Limitations: no limitations - History of Present Illness Initial comments: 44-year-old female patient presents to ED for chief complaint of lightheadedness. Patient reports that she woke up today with the sensation has felt that since. Patient reports that she is a type II diabetic and checked her blood sugar noted to be elevated at 400. Denies any pain. Denies any other complaints at this time. Systemic: Pt denies fatigue, fever/chills, rash. Pt denies weakness, night sweats, weight loss. Neuro: Pt denies headache, visual disturbances, syncope or pre-syncope. HEENT: Pt denies ocular discharge or irritation, otalgia, rhinorrhea, pharyngitis or notable lymphadenopathy. Cardiopulmonary: Pt denies chest pain, SOB, heart palpitations, dyspnea on exertion. Abdominal/GI: Pt denies abdominal pain, n/v/d. : Pt denies dysuria, burning w/ urination, frequency/urgency. Denies new onset urinary or bowel incontinence. MSK: Pt denies myalgia, loss of strength or function in extremities. Neuro: Pt denies new onset weakness, paresthesias. - Related Data Home Medications Medication Instructions Recorded Confirmed ARIPiprazole [Abilify] 10 mg PO HS 03/30/19 08/08/19 Albuterol Inhaler [Ventolin Hfa 2 puff INHALATION RT-Q6H PRN 03/30/19 08/08/19 Inhaler] Metoclopramide [Reglan] 5 mg PO TID 03/30/19 08/08/19 Pedi Multivit No.25/Folic Acid 300 mcg PO DAILY 03/30/19 08/08/19 [Flintstones Multivit Chew Tab] Venlafaxine HCl [Effexor XR] 75 mg PO HS 03/30/19 08/08/19 Vgo Insulin Pump 0.1 unit SQ CONTINUOUS 03/30/19 08/08/19 Vortioxetine Hydrobromide 10 mg PO HS 03/30/19 08/08/19 [Trintellix] Chlorthalidone 25 mg PO DAILY 08/08/19 08/08/19 Previous Rx's Medication Instructions Recorded Ibuprofen [Motrin] 600 mg PO Q8HR PRN #20 tab 03/30/19 Cephalexin [Keflex] 500 mg PO Q12HR 7 Days #14 cap 08/28/19 Magnesium Oxide [Mag-Ox] 400 mg PO DAILY 4 Days #4 tablet 08/28/19 Meclizine [Antivert] 25 mg PO Q8HR PRN #20 tab 08/28/19 Potassium Chloride ER [K-Dur 20] 20 meq PO BID 4 Days #8 tab 08/28/19 Allergies Allergy/AdvReac Type Severity Reaction Status Date / Time latex Allergy Rash/Hives Verified 08/28/19 16:02 carisoprodol [From Soma] AdvReac PASSES OUT Verified 08/28/19 16:02 Review of Systems ROS Statement: Those systems with pertinent positive or pertinent negative responses have been documented in the HPI. ROS Other: All systems not noted in ROS Statement are negative. Past Medical History Past Medical History: Asthma, Diabetes Mellitus, Hypertension Additional Past Medical History / Comment(s): NIDDM type II-uncontrolled with steroid use, past pancreatitis, bronchitis, facial cellulitis. 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 History of Any Multi-Drug Resistant Organisms: None Reported Past Surgical History: Breast Surgery, Cholecystectomy Additional Past Surgical History / Comment(s): Left facial/ sinus surgery, colonoscopy 2014, Lt breast bx-neg Past Anesthesia/Blood Transfusion Reactions: Motion Sickness Additional Past Anesthesia/Blood Transfusion Reaction / Comment(s): motion sickness when on air planes Past Psychological History: Anxiety, Depression Smoking Status: Current every day smoker Past Alcohol Use History: Rare Past Drug Use History: None Reported - Past Family History Father Family Medical History: Cancer, Seizure Disorder Additional Family Medical History / Comment(s): Colon cancer. 2 paternal aunts and paternal grandmother had breast cancer. Mother Family Medical History: Asthma, Hypertension, Liver Disease Additional Family Medical History / Comment(s): EtOH abuse. Maternal grandmother had leukemia. General Exam - General Exam Comments Initial Comments: Constitutional: NAD, AOX3, Pt has pleasant affect. HEENT: NC/AT, trachea midline, neck supple, no lymphadenopathy. Posterior pharynx non erythematous, without exudates. External ears appear normal, without discharge. Mucous membranes moist. Eyes PERRLA, EOM intact. There is no scleral icterus. No pallor noted. Cardiopulmonary: RRR, no murmurs, rubs or gallops, no JVD noted. Lungs CTAB in anterior and posterior brar. No peripheral edema. Abdominal exam: Abdomen soft and non-distended. Abdomen non-tender to palpation in all 4 quadrants. Bowel sounds active in LLQ. No hepatosplenomegaly. No ecchymosis Neuro: CN II-XII intact. No nuchal rigidity. No raccon eyes, no dickinson sign, no hemotympanum. No cervical spinal tenderness. NIH 0. MSK: No posterior calf tenderness bilaterally, homans sign negative bilaterally. Posterior tibialis and radial pulse +2 bilaterally. Sensation intact in upper and lower extremities. Full active ROM in upper and lower extremities, 5/5 stregnth. Limitations: no limitations Course Vital Signs 08/28/19 08/28/19 08/28/19 16:01 18:35 19:14 Temperature 98.1 F 97.1 F L Pulse Rate 126 H 106 H 103 H Respiratory 20 18 18 Rate Blood Pressure 172/90 182/109 141/83 O2 Sat by Pulse 100 97 98 Oximetry 08/28/19 20:15 Temperature Pulse Rate 99 Respiratory 18 Rate Blood Pressure 131/80 O2 Sat by Pulse 99 Oximetry Medical Decision Making - Medical Decision Making 44-year-old female patient presents to ED for chief complaint of lightheadedness. Patient reports that she woke up today with the sensation has felt that since. Patient reports that she is a type II diabetic and checked her blood sugar noted to be elevated at 400. Denies any pain. Denies any other complaints at this time. Patient also displayed mild hypertension, tachycardia. Distal exam demonstrates acute pathology. Neurologic exam is within normal limits. Laboratory investigations were obtained, these did display a potassium at 3.0, glucose of 326, transaminitis, elevated alk phos, +1 protein +3 glucose. 50 white blood cells, moderate leukocyte esterase, [address] brain without emesis for acute process. EKG is nonischemic. Troponin is negative. Patient lightheadedness sensation resolved with Antivert. Fluids. Potassium supplemented. During reevaluation patient began complaining of some mild suprapubic discomfort. Patient will be treated for urinary tract infection. Patient will be additionally prescribed Antivert to use as needed, supplementation for potassium magnesium. Patient close patient follow-up with primary care provider and will return to ER physician worsens in any way. Case discussed and patient seen by Dr. Triplett who reviewed laboratory investigations, and is in agreement with all medications and dosing. - Lab Data Result diagrams: 08/28/19 16:50 08/28/19 16:50 Lab Results 08/28/19 08/28/19 08/28/19 Range/Units 16:50 16:50 16:50 WBC 9.2 (3.8-10.6) k/uL RBC 5.38 (3.80-5.40) m/uL Hgb 16.7 H (11.4-16.0) gm/dL Hct 48.3 H (34.0-46.0) % MCV 89.9 (80.0-100.0) fL MCH 31.0 (25.0-35.0) pg MCHC 34.5 (31.0-37.0) g/dL RDW 12.2 (11.5-15.5) % Plt Count 375 (150-450) k/uL Neutrophils % 68 % Lymphocytes % 23 % Monocytes % 5 % Eosinophils % 1 % Basophils % 0 % Neutrophils # 6.2 (1.3-7.7) k/uL Lymphocytes # 2.1 (1.0-4.8) k/uL Monocytes # 0.5 (0-1.0) k/uL Eosinophils # 0.1 (0-0.7) k/uL Basophils # 0.0 (0-0.2) k/uL Sodium 133 L (137-145) mmol/L Potassium 3.0 L (3.5-5.1) mmol/L Chloride 90 L (98-107) mmol/L Carbon Dioxide 29 (22-30) mmol/L Anion Gap 14 mmol/L BUN 19 H (7-17) mg/dL Creatinine 0.58 (0.52-1.04) mg/dL Est GFR (CKD-EPI)AfAm >90 (>60 ml/min/1.73 sqM) Est GFR (CKD-EPI)NonAf >90 (>60 ml/min/1.73 sqM) Glucose 326 H (74-99) mg/dL POC Glucose (mg/dL) (75-99) mg/dL POC Glu Pharmacy Salesperson ID Plasma Lactic Acid Romeo 1.6 (0.7-2.0) mmol/L Calcium 9.8 (8.4-10.2) mg/dL Magnesium (1.6-2.3) mg/dL Total Bilirubin 0.6 (0.2-1.3) mg/dL AST 179 H (14-36) U/L ALT 131 H (4-34) U/L Alkaline Phosphatase 131 H (38-126) U/L Troponin I (0.000-0.034) ng/mL Total Protein 8.2 (6.3-8.2) g/dL Albumin 5.0 (3.5-5.0) g/dL Urine Color Urine Appearance (Clear) Urine pH (5.0-8.0) Ur Specific Ethel (1.001-1.035) Urine Protein (Negative) Urine Glucose (UA) (Negative) Urine Ketones (Negative) Urine Blood (Negative) Urine Nitrite (Negative) Urine Bilirubin (Negative) Urine Urobilinogen (<2.0) mg/dL Ur Leukocyte Esterase (Negative) Urine RBC (0-5) /hpf Urine WBC (0-5) /hpf Ur Squamous Epith Cells (0-4) /hpf Urine Bacteria (None) /hpf Urine Mucus (None) /hpf Heterophile Antibody (Negative) 08/28/19 08/28/19 08/28/19 Range/Units 16:50 16:50 16:50 WBC (3.8-10.6) k/uL RBC (3.80-5.40) m/uL Hgb (11.4-16.0) gm/dL Hct (34.0-46.0) % MCV (80.0-100.0) fL MCH (25.0-35.0) pg MCHC (31.0-37.0) g/dL RDW (11.5-15.5) % Plt Count (150-450) k/uL Neutrophils % % Lymphocytes % % Monocytes % % Eosinophils % % Basophils % % Neutrophils # (1.3-7.7) k/uL Lymphocytes # (1.0-4.8) k/uL Monocytes # (0-1.0) k/uL Eosinophils # (0-0.7) k/uL Basophils # (0-0.2) k/uL Sodium (137-145) mmol/L Potassium (3.5-5.1) mmol/L Chloride (98-107) mmol/L Carbon Dioxide (22-30) mmol/L Anion Gap mmol/L BUN (7-17) mg/dL Creatinine (0.52-1.04) mg/dL Est GFR (CKD-EPI)AfAm (>60 ml/min/1.73 sqM) Est GFR (CKD-EPI)NonAf (>60 ml/min/1.73 sqM) Glucose (74-99) mg/dL POC Glucose (mg/dL) (75-99) mg/dL POC Glu Pharmacy Salesperson ID Plasma Lactic Acid Romeo (0.7-2.0) mmol/L Calcium (8.4-10.2) mg/dL Magnesium 1.7 (1.6-2.3) mg/dL Total Bilirubin (0.2-1.3) mg/dL AST (14-36) U/L ALT (4-34) U/L Alkaline Phosphatase (38-126) U/L Troponin I <0.012 (0.000-0.034) ng/mL Total Protein (6.3-8.2) g/dL Albumin (3.5-5.0) g/dL Urine Color Grisel Urine Appearance Slightly Cloudy H (Clear) Urine pH 6.0 (5.0-8.0) Ur Specific Ethel 1.015 (1.001-1.035) Urine Protein 1+ H (Negative) Urine Glucose (UA) 3+ H (Negative) Urine Ketones Negative (Negative) Urine Blood Negative (Negative) Urine Nitrite Negative (Negative) Urine Bilirubin Negative (Negative) Urine Urobilinogen <2.0 (<2.0) mg/dL Ur Leukocyte Esterase Moderate (Negative) Urine RBC 2 (0-5) /hpf Urine WBC 50 H (0-5) /hpf Ur Squamous Epith Cells 20 H (0-4) /hpf Urine Bacteria Rare H (None) /hpf Urine Mucus Few H (None) /hpf Heterophile Antibody (Negative) 08/28/19 08/28/19 08/28/19 Range/Units 16:50 18:57 19:41 WBC (3.8-10.6) k/uL RBC (3.80-5.40) m/uL Hgb (11.4-16.0) gm/dL Hct (34.0-46.0) % MCV (80.0-100.0) fL MCH (25.0-35.0) pg MCHC (31.0-37.0) g/dL RDW (11.5-15.5) % Plt Count (150-450) k/uL Neutrophils % % Lymphocytes % % Monocytes % % Eosinophils % % Basophils % % Neutrophils # (1.3-7.7) k/uL Lymphocytes # (1.0-4.8) k/uL Monocytes # (0-1.0) k/uL Eosinophils # (0-0.7) k/uL Basophils # (0-0.2) k/uL Sodium (137-145) mmol/L Potassium (3.5-5.1) mmol/L Chloride (98-107) mmol/L Carbon Dioxide (22-30) mmol/L Anion Gap mmol/L BUN (7-17) mg/dL Creatinine (0.52-1.04) mg/dL Est GFR (CKD-EPI)AfAm (>60 ml/min/1.73 sqM) Est GFR (CKD-EPI)NonAf (>60 ml/min/1.73 sqM) Glucose (74-99) mg/dL POC Glucose (mg/dL) 77 65 L (75-99) mg/dL POC Glu Pharmacy Salesperson ID Apolinar Wright Jessica Plasma Lactic Acid Romeo (0.7-2.0) mmol/L Calcium (8.4-10.2) mg/dL Magnesium (1.6-2.3) mg/dL Total Bilirubin (0.2-1.3) mg/dL AST (14-36) U/L ALT (4-34) U/L Alkaline Phosphatase (38-126) U/L Troponin I (0.000-0.034) ng/mL Total Protein (6.3-8.2) g/dL Albumin (3.5-5.0) g/dL Urine Color Urine Appearance (Clear) Urine pH (5.0-8.0) Ur Specific Ethel (1.001-1.035) Urine Protein (Negative) Urine Glucose (UA) (Negative) Urine Ketones (Negative) Urine Blood (Negative) Urine Nitrite (Negative) Urine Bilirubin (Negative) Urine Urobilinogen (<2.0) mg/dL Ur Leukocyte Esterase (Negative) Urine RBC (0-5) /hpf Urine WBC (0-5) /hpf Ur Squamous Epith Cells (0-4) /hpf Urine Bacteria (None) /hpf Urine Mucus (None) /hpf Heterophile Antibody Negative (Negative) 08/28/19 Range/Units 20:12 WBC (3.8-10.6) k/uL RBC (3.80-5.40) m/uL Hgb (11.4-16.0) gm/dL Hct (34.0-46.0) % MCV (80.0-100.0) fL MCH (25.0-35.0) pg MCHC (31.0-37.0) g/dL RDW (11.5-15.5) % Plt Count (150-450) k/uL Neutrophils % % Lymphocytes % % Monocytes % % Eosinophils % % Basophils % % Neutrophils # (1.3-7.7) k/uL Lymphocytes # (1.0-4.8) k/uL Monocytes # (0-1.0) k/uL Eosinophils # (0-0.7) k/uL Basophils # (0-0.2) k/uL Sodium (137-145) mmol/L Potassium (3.5-5.1) mmol/L Chloride (98-107) mmol/L Carbon Dioxide (22-30) mmol/L Anion Gap mmol/L BUN (7-17) mg/dL Creatinine (0.52-1.04) mg/dL Est GFR (CKD-EPI)AfAm (>60 ml/min/1.73 sqM) Est GFR (CKD-EPI)NonAf (>60 ml/min/1.73 sqM) Glucose (74-99) mg/dL POC Glucose (mg/dL) 105 H (75-99) mg/dL POC Glu Pharmacy Salesperson ID Jyoti Garcia Plasma Lactic Acid Romeo (0.7-2.0) mmol/L Calcium (8.4-10.2) mg/dL Magnesium (1.6-2.3) mg/dL Total Bilirubin (0.2-1.3) mg/dL AST (14-36) U/L ALT (4-34) U/L Alkaline Phosphatase (38-126) U/L Troponin I (0.000-0.034) ng/mL Total Protein (6.3-8.2) g/dL Albumin (3.5-5.0) g/dL Urine Color Urine Appearance (Clear) Urine pH (5.0-8.0) Ur Specific Ethel (1.001-1.035) Urine Protein (Negative) Urine Glucose (UA) (Negative) Urine Ketones (Negative) Urine Blood (Negative) Urine Nitrite (Negative) Urine Bilirubin (Negative) Urine Urobilinogen (<2.0) mg/dL Ur Leukocyte Esterase (Negative) Urine RBC (0-5) /hpf Urine WBC (0-5) /hpf Ur Squamous Epith Cells (0-4) /hpf Urine Bacteria (None) /hpf Urine Mucus (None) /hpf Heterophile Antibody (Negative) - EKG Data -: EKG Interpreted by Me (and Dr. Triplett ) EKG Comments: Ventricular rate 108, AK interval 156, QRS 90, QT/QTC 374/501. Sinus tachycardia, possible right atrial enlargement, nonspecific t wave abnormality. No concern for acute ischemia at this time. Disposition Clinical Impression: Hyperglycemia, Elevated liver enzymes, Dizziness, UTI (urinary tract infection) Disposition: HOME SELF-CARE Condition: Stable Instructions (If sedation given, give patient instructions): Dizziness (ED) Additional Instructions: Follow-up with primary care provider tomorrow, recommended increasing oral intake of fluids. Use Antivert as needed for dizziness/lightheadedness. Take antibiotics as directed for urinary tract infection. Have liver enzymes re checked by primary care provider. Return to ER if condition worsens in any way. Prescriptions: Meclizine [Antivert] 25 mg PO Q8HR PRN #20 tab PRN Reason: Dizziness Potassium Chloride ER [K-Dur 20] 20 meq PO BID 4 Days #8 tab Cephalexin [Keflex] 500 mg PO Q12HR 7 Days #14 cap Magnesium Oxide [Mag-Ox] 400 mg PO DAILY 4 Days #4 tablet Is patient prescribed a controlled substance at d/c from ED?: No Referrals: Lee Enriquez MD [Primary Care Provider] - 1-2 days
[2019-08-28 19:43] LABS: Glucose,Whole Blood 65 mg/dL (75-99)
[2019-08-28] MEDS ORDERED: CEPHALEXIN 500 MG CAP PO STA (19:44)
[2019-08-28] MEDS ORDERED: CEPHALEXIN 500MG STARTER PACK 4 CAP BTL PO STA (19:44)
[2019-08-28 20:15] LABS: Glucose,Whole Blood 105 mg/dL (75-99)
[2019-08-28 20:16] VITALS: BP 131/80; PULSE 99
[2019-08-30 12:19] LABS: Glucose,Whole Blood 374 mg/dL (75-99)
== END 2019-08-28 20:20 | disposition home or self-care (01) ==
LOC: EC 16:00
DX: E11.65 Type 2 diabetes mellitus with hyperglycemia (principal); N39.0 Urinary tract infection, site not specified; R74.8 Abnormal levels of other serum enzymes; I10 Essential (primary) hypertension; R00.0 Tachycardia, unspecified; J45.909 Unspecified asthma, uncomplicated; F32.9 Major depressive disorder, single episode, unspecified; F41.9 Anxiety disorder, unspecified; F17.200 Nicotine dependence, unspecified, uncomplicated; Z88.8 Allergy status to other drugs, medicaments and biological substances; Z91.040 Latex allergy status; Z79.4 Long term (current) use of insulin; Z79.899 Other long term (current) drug therapy; Z96.41 Presence of insulin pump (external) (internal); Z82.49 Family history of ischemic heart disease and other diseases of the circulatory system; Z53.9 Procedure and treatment not carried out, unspecified reason
CPT/HCPCS: 36415; 70450; 80053; 81001; 83605; 83735; 84484; 85025; 86308; 87086; 93005; 96360; 99285

== ENCOUNTER → 2019-10-11 | Outpatient (CLI) | payer BC, OTHER ==
--- NOTE | 2019-10-11 09:31 | USB ---
Reason for exam: clinical finding. History: Family history of breast cancer in paternal grandmother and breast cancer in maternal aunt. Benign US biopsy breast VAD LT of the left breast, April 26, 2014. Benign US biopsy breast add'l VAD LT of the left breast, April 26, 2014. Indicated problem(s): pain in the left breast. Physical Findings: Nurse Summary: Patient complains of left breast intermittent pain and burning x 2 weeks. Nurse did not find any significant physical abnormalities on exam (nurse ish). US Breast LT Left complete breast ultrasound includes all four quadrants, the retroareolar region and axilla. Finding demonstrates a 6 x 4 x 6mm mixed lesion at 3 o'clock and a 3 x 3 x 3mm cystic lesion at 6 o'clock. These results were verbally communicated with the patient and result sheet given to the patient on 10/11/19. ASSESSMENT: Probably benign, BI-RAD 3 RECOMMENDATION: Ultrasound of the left breast in 3 months.
== END | disposition home or self-care (01) ==
LOC: RADUSWWP 08:31
PROVIDERS: ATTEND Family Medicine
DX: N64.9 Disorder of breast, unspecified (principal)

== ENCOUNTER 2020-01-30 16:09 | Emergency (ER) | payer BC, OTHER ==
[2020-01-30 16:14] VITALS: RESP 16
[2020-01-30] MEDS ORDERED: IPRATROPIUM-ALBUTEROL 3 ML NEB INHALATION STA (16:23)
--- NOTE | 2020-01-30 16:39 | ED ---
URI HPI - General Chief Complaint: Upper Respiratory Infection Stated Complaint: cough,sob,body aches Time Seen by Provider: 01/30/20 16:18 Source: patient, RN notes reviewed Mode of arrival: ambulatory Limitations: no limitations - History of Present Illness Initial Comments: This a 44-year-old female presents emergency Department chief complaint of cou gh, congestion shortness of breath. Patient states she has known asthma as a daily smoker. Patient states started a cough last couple days. Patient states that she had a TeleMed with her primary care physician who gave her azithromycin she took one dose. Patient states that she has been using her albuterol inhaler. Denies any nausea vomiting diarrhea constipation no fevers chills no sick contacts. - Related Data Home Medications Medication Instructions Recorded Confirmed ARIPiprazole [Abilify] 10 mg PO HS 03/30/19 08/08/19 Albuterol Inhaler (Mhu) [Ventolin 2 puff INHALATION RT-Q6H PRN 03/30/19 08/08/19 Hfa Inhaler (Mhu)] Metoclopramide [Reglan] 5 mg PO TID 03/30/19 08/08/19 Pedi Multivit No.25/Folic Acid 300 mcg PO DAILY 03/30/19 08/08/19 [Flintstones Multivit Chew Tab] Venlafaxine HCl [Effexor XR] 75 mg PO HS 03/30/19 08/08/19 Vgo Insulin Pump 0.1 unit SQ CONTINUOUS 03/30/19 08/08/19 Vortioxetine Hydrobromide 10 mg PO HS 03/30/19 08/08/19 [Trintellix] Chlorthalidone 25 mg PO DAILY 08/08/19 08/08/19 Previous Rx's Medication Instructions Recorded Ibuprofen [Motrin] 600 mg PO Q8HR PRN #20 tab 03/30/19 Cephalexin [Keflex] 500 mg PO Q12HR 7 Days #14 cap 08/28/19 Magnesium Oxide [Mag-Ox] 400 mg PO DAILY 4 Days #4 tablet 08/28/19 Meclizine [Antivert] 25 mg PO Q8HR PRN #20 tab 08/28/19 Potassium Chloride ER [K-Dur 20] 20 meq PO BID 4 Days #8 tab 08/28/19 Ipratropium-Albuterol Nebulize 3 ml INHALATION QID #2 box 01/30/20 [Duoneb 0.5 mg-3 mg/3 ml Soln] Allergies Allergy/AdvReac Type Severity Reaction Status Date / Time latex Allergy Rash/Hives Verified 01/30/20 16:14 carisoprodol [From Soma] AdvReac PASSES OUT Verified 01/30/20 16:14 Review of Systems ROS Statement: Those systems with pertinent positive or pertinent negative responses have been documented in the HPI. ROS Other: All systems not noted in ROS Statement are negative. Past Medical History Past Medical History: Asthma, Diabetes Mellitus, Hypertension Additional Past Medical History / Comment(s): NIDDM type II-uncontrolled with steroid use, past pancreatitis, bronchitis, facial cellulitis. 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 History of Any Multi-Drug Resistant Organisms: None Reported Past Surgical History: Breast Surgery, Cholecystectomy Additional Past Surgical History / Comment(s): Left facial/ sinus surgery, colonoscopy 2014, Lt breast bx-neg Past Anesthesia/Blood Transfusion Reactions: Motion Sickness Additional Past Anesthesia/Blood Transfusion Reaction / Comment(s): motion sickness when on air planes Past Psychological History: Anxiety, Depression Past Alcohol Use History: Rare Past Drug Use History: None Reported - Past Family History Father Family Medical History: Cancer, Seizure Disorder Additional Family Medical History / Comment(s): Colon cancer. 2 paternal aunts and paternal grandmother had breast cancer. Mother Family Medical History: Asthma, Hypertension, Liver Disease Additional Family Medical History / Comment(s): EtOH abuse. Maternal grandmother had leukemia. General Exam Limitations: no limitations General appearance: alert, in no apparent distress Head exam: Present: atraumatic, normocephalic, normal inspection Eye exam: Present: normal appearance, PERRL, EOMI. Absent: scleral icterus, conjunctival injection, periorbital swelling ENT exam: Present: normal exam, normal oropharynx, mucous membranes moist, TM's normal bilaterally, normal external ear exam Neck exam: Present: normal inspection, full ROM. Absent: tenderness, meningismus, lymphadenopathy Respiratory exam: Present: wheezes. Absent: normal lung sounds bilaterally, respiratory distress, rales, rhonchi, stridor Cardiovascular Exam: Present: regular rate, normal rhythm, normal heart sounds. Absent: systolic murmur, diastolic murmur, rubs, gallop, clicks Neurological exam: Present: alert, oriented X3 Skin exam: Present: warm, dry, intact, normal color. Absent: rash Course Vital Signs 01/30/20 01/30/20 01/30/20 16:11 16:44 16:55 Temperature 98.0 F Pulse Rate 99 88 86 Respiratory 16 16 16 Rate Blood Pressure 160/91 O2 Sat by Pulse 100 Oximetry Medical Decision Making - Medical Decision Making 44-year-old presented for cough and shortness of breath body aches. Coronavirus testing was performed pending one to days. His x-rays unremarkable patient did have some moderate wheezing DuoNeb treatment was administered in [facility].I counseled the patient for smoking cessation for greater than 3 minutes. Patient we discharged on DuoNeb treatments continuation of antibiotics and follow-up tomorrow for recheck. Disposition Clinical Impression: Asthmatic bronchitis Disposition: HOME SELF-CARE Condition: Stable Instructions (If sedation given, give patient instructions): Upper Respiratory Infection (ED) Additional Instructions: Please return to the Emergency Department if symptoms worsen or any other concerns. Prescriptions: Ipratropium-Albuterol Nebulize [Duoneb 0.5 mg-3 mg/3 ml Soln] 3 ml INHALATION QID #2 box Is patient prescribed a controlled substance at d/c from ED?: No Referrals: Lee Enriquez MD [Primary Care Provider] - 1-2 days Time of Disposition: 17:39
--- NOTE | 2020-01-30 16:45 | XR ---
EXAMINATION TYPE: XR chest 2V DATE OF EXAM: 01/30/2020 COMPARISON: 08/05/2018 HISTORY: Cough TECHNIQUE: FINDINGS: Heart and mediastinum are normal. Lungs are clear. Diaphragm is normal. Bony thorax appears normal. IMPRESSION: Normal chest. There is improved inspiration compared to old exam.
[2020-01-30 17:51] VITALS: BP 138/70; PULSE 79; TEMP 97.8
== END 2020-01-30 17:50 | disposition home or self-care (01) ==
LOC: EC 16:09
DX: J45.909 Unspecified asthma, uncomplicated (principal); Z20.828 Contact with and (suspected) exposure to other viral communicable diseases; Z71.6 Tobacco abuse counseling; E11.9 Type 2 diabetes mellitus without complications; I10 Essential (primary) hypertension; F41.9 Anxiety disorder, unspecified; F32.9 Major depressive disorder, single episode, unspecified; Z79.899 Other long term (current) drug therapy; Z79.4 Long term (current) use of insulin; Z88.8 Allergy status to other drugs, medicaments and biological substances; Z91.040 Latex allergy status
CPT/HCPCS: 94640; 71046; 99285; 99406; U0003

== ENCOUNTER → 2020-03-06 | Outpatient (CLI) | payer BC, OTHER | END | disposition home or self-care (01) | LOC: RADUSWWP 06:59 | PROVIDERS: ATTEND Family Medicine | DX: Z53.9 Procedure and treatment not carried out, unspecified reason (principal) ==

== ENCOUNTER → 2020-03-11 | Outpatient (CLI) | payer BC, OTHER ==
--- NOTE | 2020-03-11 07:45 | US ---
EXAMINATION TYPE: US abdomen complete DATE OF EXAM: 03/11/2020 COMPARISON: US 2010 CLINICAL HISTORY: Abdominal pain R74.8. Abnormal LFTs EXAM MEASUREMENTS: Liver Length: 18.3 cm Gallbladder Wall: Surgically absent cm CBD: 0.5 cm Spleen: 9.7 cm Right Kidney: 10.8 x 5.7 x 4.4 cm Left Kidney: 11.5 x 5.7 x 5.5 cm Pancreas: No masses seen Liver: Increased attenuation, ? large in size Gallbladder: Surgically absent Evidence for sonographic Mariee's sign: No CBD: wnl Spleen: wnl Right Kidney: No hydronephrosis or masses seen Left Kidney: No hydronephrosis or masses seen Upper IVC: wnl Abd Aorta: wnl IMPRESSION: 1. Hepatomegaly
== END | disposition home or self-care (01) ==
LOC: RADUSWWP 06:54
PROVIDERS: ATTEND Nurse Practitioner Family
DX: R16.0 Hepatomegaly, not elsewhere classified (principal)
CPT/HCPCS: 76700

== ENCOUNTER → 2020-03-13 | Outpatient (CLI) | payer BC, OTHER ==
--- NOTE | 2020-03-13 09:16 | USB ---
Reason for exam: clinical finding. History: Family history of breast cancer in paternal grandmother and breast cancer in maternal aunt. Benign US biopsy breast VAD LT of the left breast, April 26, 2014. Benign US biopsy breast add'l VAD LT of the left breast, April 26, 2014. Physical Findings: Nurse did not find any significant physical abnormalities on exam. US Breast LT Left complete breast ultrasound includes all four quadrants, the retroareolar region and axilla. Finding demonstrates a 6 x 4 x 5mm oval, hypoechoic lymph node at 3 o'clock and a 3 x 2 x 3mm cystic lesion too small to characterize at 6 o'clock. These results were verbally communicated with the patient and result sheet given to the patient on 03/13/20. ASSESSMENT: Probably benign, BI-RAD 3 RECOMMENDATION: Follow-up diagnostic mammogram of both breasts in 4 months. Ultrasound of the left breast in 4 months. Back on schedule for July 2020.
== END | disposition home or self-care (01) ==
LOC: RADUSWWP 07:31
PROVIDERS: ATTEND Family Medicine
DX: N63.20 Unspecified lump in the left breast, unspecified quadrant (principal)

== ENCOUNTER 2020-03-27 08:00 | Emergency (ER) | payer BC, OTHER ==
[2020-03-27] MEDS ORDERED: ONDANSETRON 4 MG/2 ML VIAL IVP STA (08:24)
[2020-03-27] MEDS ORDERED: SODIUM CHLORIDE 0.9% 1,000 ML IV STA ×2 (08:24)
[2020-03-27] MEDS ORDERED: HYDROmorphone 0.5 MG/0.5 ML SYRINGE IVP STA (08:24)
[2020-03-27] MEDS ORDERED: PANTOPRAZOLE 40 MG/10 ML VIAL IVP STA (08:26)
[2020-03-27 08:52] LABS: Basophils % (A) 0 %; Eosinophils # (A) 0.1 k/uL (0-0.7); Eosinophils % (A) 2 %; HCT 41.4 % (34.0-46.0); Lymphocytes # (A) 1.7 k/uL (1.0-4.8); Lymphocytes % (A) 21 %; MCH 29.9 pg (25.0-35.0); MCHC 33.9 g/dL (31.0-37.0); MCV 88.3 fL (80.0-100.0); Mean Platelet Volume 7.7; Monocytes # (A) 0.4 k/uL (0-1.0); Monocytes % (A) 5 %; Neutrophils # (A) 5.8 k/uL (1.3-7.7); Neutrophils % (A) 70 %; Platelet Count 372 k/uL (150-450); RBC 4.69 m/uL (3.80-5.40); RDW 13.4 % (11.5-15.5); WBC 8.2 k/uL (3.8-10.6)
[2020-03-27 09:01] LABS: ALT 50 U/L (4-34); AST 31 U/L (14-36); African American GFR (CKD) >90 (>60 ml/min/1.73 sqM); Albumin 4.5 g/dL (3.5-5.0); Alkaline Phosphatase 103 U/L (38-126); Amylase 55 U/L (30-110); Anion Gap 12 mmol/L; Blood Urea Nitrogen 15 mg/dL (7-17); Calcium 9.1 mg/dL (8.4-10.2); Carbon Dioxide 27 mmol/L (22-30); Chloride 93 mmol/L (98-107); Glucose 402 mg/dL (74-99); Non-African American GFR(CKD) >90 (>60 ml/min/1.73 sqM); Potassium 3.7 mmol/L (3.5-5.1); Sodium 132 mmol/L (137-145); Total Bilirubin 0.7 mg/dL (0.2-1.3); Total Protein 7.2 g/dL (6.3-8.2)
--- NOTE | 2020-03-27 09:15 | ED ---
Abdominal Pain HPI - General Chief Complaint: Abdominal Pain Stated Complaint: abd & back pain Time Seen by Provider: 03/27/20 08:09 Source: patient Mode of arrival: ambulatory Limitations: no limitations - History of Present Illness Initial Comments: 44-year-old female with history of pancreatitis, previous cholecystectomy [facility] today for chief complaint of epigastric pain patient states his epigastric pain that radiates to her back she states it feels similar to when she's had a pancreatitis in the past she states the symptoms began this morning. Patient states she does have some nausea she denies diarrhea vomiting fevers. Denies lower abdominal pain, chest pain or SOB. patient denies headaches, dizziness, urinary symptoms. Patient appears well nontoxic in no acute distress on arrival. - Related Data Home Medications Medication Instructions Recorded Confirmed ARIPiprazole [Abilify] 10 mg PO DAILY 03/30/19 03/27/20 Metoclopramide [Reglan] 5 mg PO QID PRN 03/30/19 03/27/20 Chlorthalidone 25 mg PO DAILY 08/08/19 03/27/20 Albuterol Inhaler [Ventolin Hfa 2 puff INHALATION RT-QID PRN 01/30/20 03/27/20 Inhaler] INSULIN LISPRO (HumaLOG) [humaLOG] See Protocol SQ AC-TID 01/30/20 03/27/20 Ibuprofen [Motrin Ib] 200 mg PO Q6H PRN 01/30/20 03/27/20 Insulin Glargine,Hum.rec.anlog 15 unit SQ BID 01/30/20 03/27/20 [Lantus Solostar] Ondansetron HCl [Zofran] 8 mg PO TID PRN 01/30/20 03/27/20 Phentermine HCl [Adipex-P] 37.5 mg PO DAILY 01/30/20 03/27/20 Venlafaxine HCl [Effexor XR] 75 mg PO DAILY 01/30/20 03/27/20 cloNIDine HCL [Catapres] 0.1 mg PO BID PRN 01/30/20 03/27/20 traMADol HCL 50 mg PO TID PRN 01/30/20 03/27/20 Previous Rx's Medication Instructions Recorded Pantoprazole Sodium [Protonix] 20 mg PO DAILY 7 Days #7 tablet. 03/27/20 Allergies Allergy/AdvReac Type Severity Reaction Status Date / Time latex Allergy Rash/Hives Verified 03/27/20 08:46 carisoprodol [From Soma] AdvReac PASSES OUT Verified 03/27/20 08:46 Review of Systems ROS Statement: Those systems with pertinent positive or pertinent negative responses have been documented in the HPI. ROS Other: All systems not noted in ROS Statement are negative. Past Medical History Past Medical History: Asthma, Diabetes Mellitus, Hypertension Additional Past Medical History / Comment(s): NIDDM type II-uncontrolled with steroid use, past pancreatitis, bronchitis, facial cellulitis. 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 History of Any Multi-Drug Resistant Organisms: None Reported Past Surgical History: Breast Surgery, Cholecystectomy Additional Past Surgical History / Comment(s): Left facial/ sinus surgery, colonoscopy 2015, Lt breast bx-neg Past Anesthesia/Blood Transfusion Reactions: Motion Sickness Additional Past Anesthesia/Blood Transfusion Reaction / Comment(s): motion sickness when on air planes Past Psychological History: Anxiety, Depression Smoking Status: Current every day smoker Past Alcohol Use History: Rare Past Drug Use History: None Reported - Past Family History Father Family Medical History: Cancer, Seizure Disorder Additional Family Medical History / Comment(s): Colon cancer. 2 paternal aunts and paternal grandmother had breast cancer. Mother Family Medical History: Asthma, Hypertension, Liver Disease Additional Family Medical History / Comment(s): EtOH abuse. Maternal grandmother had leukemia. General Exam - General Exam Comments Initial Comments: General: The patient is awake and alert, in no distress Eye: Pupils are equal, round and reactive to light, extra-ocular movements are intact. No nystagmus. There is normal conjunctiva bilaterally. No signs of icterus. Ears, nose, mouth and throat: There are moist mucous membranes and no oral lesions. Neck: The neck is supple, there is no tenderness or JVD. Cardiovascular: There is a regular rate and rhythm. No murmur, rub or gallop is appreciated. Respiratory: Lungs are clear to auscultation, respirations are non-labored, breath sounds are equal. No wheezes, stridor, rales, or rhonchi. Gastrointestinal: Soft, non-distended, reproducible epigastric pain to palpation of the abdomen ,abdomen without masses or organomegaly noted. There is no rebound or guarding present. Musculoskeletal: Normal ROM, no tenderness. Strength 5/5. Sensation intact. Pulses equal bilaterally 2+. Neurological: A&O x 3. CN II-XII intact grossly, There are no obvious motor or sensory deficits. Coordination appears grossly intact. Speech is normal. Skin: Skin is warm and dry and no rashes or lesions are noted. No LE swelling edema or calf pain Psychiatric: Cooperative, appropriate mood & affect, normal judgment. Limitations: no limitations Course Vital Signs 03/27/20 03/27/20 03/27/20 08:02 09:54 10:00 Temperature 98.0 F Pulse Rate 76 99 101 H Respiratory 16 16 16 Rate Blood Pressure 128/98 159/100 147/96 O2 Sat by Pulse 99 98 96 Oximetry 03/27/20 10:28 Temperature Pulse Rate 102 H Respiratory 18 Rate Blood Pressure 163/97 O2 Sat by Pulse 98 Oximetry Medical Decision Making - Medical Decision Making Lipase WNL. USno acute findings. Enzymes within acceptable limits. EKG no acute findings aside from QT prolongation-reviewed by attending. No CP/No SOB. Patient glucose elevated, acetone (-). Small gap, not acidotic. Patient case discussed with Dr. Quiles who is agreeable to care plan and discharge. Recommend repeat lipase tomorrow or return for worsening pain. ddx includes peptic ulcer given area of pain. prescribed protonix. Ventricular rate 98bp, SD interval 144 ms, QRS patient 78 ms, QT/QTC 390/408ms, Normal sinus, prolonged QT some artifact is noted on the EKG. No ST elevation or depression - Lab Data Result diagrams: 03/27/20 08:30 03/27/20 08:30 Lab Results 03/27/20 03/27/20 03/27/20 Range/Units 08:30 08:30 08:30 WBC 8.2 (3.8-10.6) k/uL RBC 4.69 (3.80-5.40) m/uL Hgb 14.0 (11.4-16.0) gm/dL Hct 41.4 (34.0-46.0) % MCV 88.3 (80.0-100.0) fL MCH 29.9 (25.0-35.0) pg MCHC 33.9 (31.0-37.0) g/dL RDW 13.4 (11.5-15.5) % Plt Count 372 (150-450) k/uL Neutrophils % 70 % Lymphocytes % 21 % Monocytes % 5 % Eosinophils % 2 % Basophils % 0 % Neutrophils # 5.8 (1.3-7.7) k/uL Lymphocytes # 1.7 (1.0-4.8) k/uL Monocytes # 0.4 (0-1.0) k/uL Eosinophils # 0.1 (0-0.7) k/uL Basophils # 0.0 (0-0.2) k/uL Sodium 132 L (137-145) mmol/L Potassium 3.7 (3.5-5.1) mmol/L Chloride 93 L (98-107) mmol/L Carbon Dioxide 27 (22-30) mmol/L Anion Gap 12 mmol/L BUN 15 (7-17) mg/dL Creatinine 0.58 (0.52-1.04) mg/dL Est GFR (CKD-EPI)AfAm >90 (>60 ml/min/1.73 sqM) Est GFR (CKD-EPI)NonAf >90 (>60 ml/min/1.73 sqM) Glucose 402 H (74-99) mg/dL POC Glucose (mg/dL) (75-99) mg/dL POC Glu Site Director ID Calcium 9.1 (8.4-10.2) mg/dL Total Bilirubin 0.7 (0.2-1.3) mg/dL AST 31 (14-36) U/L ALT 50 H (4-34) U/L Alkaline Phosphatase 103 (38-126) U/L Troponin I <0.012 (0.000-0.034) ng/mL Total Protein 7.2 (6.3-8.2) g/dL Albumin 4.5 (3.5-5.0) g/dL Amylase 55 (30-110) U/L Lipase 215 (23-300) U/L Urine Color Urine Appearance (Clear) Urine pH (5.0-8.0) Ur Specific [place] (1.001-1.035) Urine Protein (Negative) Urine Glucose (UA) (Negative) Urine Ketones (Negative) Urine Blood (Negative) Urine Nitrite (Negative) Urine Bilirubin (Negative) Urine Urobilinogen (<2.0) mg/dL Ur Leukocyte Esterase (Negative) Acetone, Qual (Negative) 03/27/20 03/27/20 03/27/20 Range/Units 08:30 09:35 10:27 WBC (3.8-10.6) k/uL RBC (3.80-5.40) m/uL Hgb (11.4-16.0) gm/dL Hct (34.0-46.0) % MCV (80.0-100.0) fL MCH (25.0-35.0) pg MCHC (31.0-37.0) g/dL RDW (11.5-15.5) % Plt Count (150-450) k/uL Neutrophils % % Lymphocytes % % Monocytes % % Eosinophils % % Basophils % % Neutrophils # (1.3-7.7) k/uL Lymphocytes # (1.0-4.8) k/uL Monocytes # (0-1.0) k/uL Eosinophils # (0-0.7) k/uL Basophils # (0-0.2) k/uL Sodium (137-145) mmol/L Potassium (3.5-5.1) mmol/L Chloride (98-107) mmol/L Carbon Dioxide (22-30) mmol/L Anion Gap mmol/L BUN (7-17) mg/dL Creatinine (0.52-1.04) mg/dL Est GFR (CKD-EPI)AfAm (>60 ml/min/1.73 sqM) Est GFR (CKD-EPI)NonAf (>60 ml/min/1.73 sqM) Glucose (74-99) mg/dL POC Glucose (mg/dL) 320 H (75-99) mg/dL POC Glu Site Director ID Shara Gonzalez Calcium (8.4-10.2) mg/dL Total Bilirubin (0.2-1.3) mg/dL AST (14-36) U/L ALT (4-34) U/L Alkaline Phosphatase (38-126) U/L Troponin I (0.000-0.034) ng/mL Total Protein (6.3-8.2) g/dL Albumin (3.5-5.0) g/dL Amylase (30-110) U/L Lipase (23-300) U/L Urine Color Light Yellow Urine Appearance Clear (Clear) Urine pH 6.5 (5.0-8.0) Ur Specific [place] 1.035 (1.001-1.035) Urine Protein Negative (Negative) Urine Glucose (UA) 4+ H (Negative) Urine Ketones 3+ H (Negative) Urine Blood Negative (Negative) Urine Nitrite Negative (Negative) Urine Bilirubin Negative (Negative) Urine Urobilinogen <2.0 (<2.0) mg/dL Ur Leukocyte Esterase Negative (Negative) Acetone, Qual Negative (Negative) Disposition Clinical Impression: Epigastric pain, Abdominal pain Disposition: HOME SELF-CARE Condition: Good Instructions (If sedation given, give patient instructions): Epigastric Pain (ED) Additional Instructions: Please use medication as discussed. Please follow-up with family doctor in the next 2 days. Repeat lipase. recommend upper endoscopy to rule out ulceration. Please return to emergency room if the symptoms increase or worsen or for any other concerns. Prescriptions: Pantoprazole Sodium [Protonix] 20 mg PO DAILY 7 Days #7 tablet.dr Is patient prescribed a controlled substance at d/c from ED?: No Referrals: Lee Enriquez MD [Primary Care Provider] - 1-2 days Meg Nugent MD [STAFF PHYSICIAN] - 1-2 days Time of Disposition: 10:38
--- NOTE | 2020-03-27 09:38 | US ---
EXAMINATION TYPE: US abdomen limited DATE OF EXAM: 03/27/2020 COMPARISON: Abdominal ultrasound March 11, 2020 CLINICAL HISTORY: epigastric pain. h/o pancreatitis before, patient states it feel the same EXAM MEASUREMENTS: Liver Length: 20.5 cm Gallbladder Wall: Surgically absent CBD: 0.7 cm Right Kidney: 11.2 x 4.1 x 4.9 cm Pancreas: wnl Liver: difficult to penetrate, enlarged Gallbladder: Surgically absent Evidence for sonographic Mariee's sign: no CBD: wnl Right Kidney: wnl Visualized pancreas is slightly heterogeneous without worrisome mass or ductal dilatation. No new yasmin picious surrounding focal fluid. Visualized liver remains heterogeneously hyperechoic. No new ductal dilatation. Evaluation for focal masses suboptimal due to the heterogeneity. Gallbladder noted surgic ally absent. No right-sided hydronephrosis. IMPRESSION: No ultrasound evidence for complication related to acute pancreatitis. Persistent hepatom egaly and suspected fatty infiltration of liver.
[2020-03-27] MEDS ORDERED: INSULIN REGULAR 100 UNIT/ML VIAL SQ ONE (09:42)
[2020-03-27 09:49] LABS: Appearance,Urine Clear (Clear); Bilirubin,Urine Negative (Negative); Blood,Urine Negative (Negative); Color,Urine Light Yellow; Glucose,Urine (UA) 4+ (Negative); Leukocyte Esterase,Urine Negative (Negative); Nitrite,Urine Negative (Negative); PH, Urine 6.5 (5.0-8.0); Protein,Urine Negative (Negative); Specific Gravity,Urine 1.035 (1.001-1.035); Urobilinogen,Urine <2.0 mg/dL (<2.0)
[2020-03-27 09:58] LABS: Ketones,Urine 3+ (Negative)
[2020-03-27 10:31] LABS: Glucose,Whole Blood 320 mg/dL (75-99)
[2020-03-27] MEDS ORDERED: INSULIN REGULAR 100 UNIT/ML VIAL IV ONE (10:33)
[2020-03-27 11:08] VITALS: BP 138/103; PULSE 98; RESP 16; TEMP 98.1
== END 2020-03-27 11:08 | disposition home or self-care (01) ==
LOC: EC 08:00
DX: R10.13 Epigastric pain (principal); R94.31 Abnormal electrocardiogram [ECG] [EKG]; F32.9 Major depressive disorder, single episode, unspecified; I10 Essential (primary) hypertension; E11.9 Type 2 diabetes mellitus without complications; J45.909 Unspecified asthma, uncomplicated; F41.9 Anxiety disorder, unspecified; F17.200 Nicotine dependence, unspecified, uncomplicated; Z79.899 Other long term (current) drug therapy; Z79.4 Long term (current) use of insulin; Z91.040 Latex allergy status; Z88.8 Allergy status to other drugs, medicaments and biological substances; Z90.49 Acquired absence of other specified parts of digestive tract
CPT/HCPCS: 36415; 93005; 80053; 82150; 82009; 83690; 84484; 85025; 81003; 76705; 99284; 96374; 96375 ×2; 96361 ×2; C9113; J1170

== ENCOUNTER 2020-05-22 08:20 | Emergency (ER) | payer BC, OTHER ==
[2020-05-22 08:30] VITALS: RESP 18
[2020-05-22] MEDS ORDERED: SODIUM CHLORIDE 0.9% 1,000 ML IV ONE (08:35)
[2020-05-22] MEDS ORDERED: SODIUM CHLORIDE 0.9% 1,000 ML IV SCH (08:45)
[2020-05-22 09:22] LABS: Basophils # (A) 0.1 k/uL (0-0.2); Basophils % (A) 1 %; Eosinophils # (A) 0.2 k/uL (0-0.7); Eosinophils % (A) 3 %; HCT 44.7 % (34.0-46.0); HGB 15.1 gm/dL (11.4-16.0); Lymphocytes # (A) 1.7 k/uL (1.0-4.8); Lymphocytes % (A) 26 %; MCHC 33.9 g/dL (31.0-37.0); MCV 88.5 fL (80.0-100.0); Mean Platelet Volume 7.5; Monocytes # (A) 0.4 k/uL (0-1.0); Monocytes % (A) 5 %; Neutrophils # (A) 4.1 k/uL (1.3-7.7); Neutrophils % (A) 63 %; Platelet Count 372 k/uL (150-450); RBC 5.05 m/uL (3.80-5.40); RDW 13.3 % (11.5-15.5); WBC 6.4 k/uL (3.8-10.6)
[2020-05-22 09:27] LABS: Appearance,Urine Clear (Clear); Bilirubin,Urine Negative (Negative); Blood,Urine Negative (Negative); Color,Urine Yellow; Glucose,Urine (UA) 4+ (Negative); Leukocyte Esterase,Urine Negative (Negative); Nitrite,Urine Negative (Negative); Protein,Urine Negative (Negative); Specific Gravity,Urine 1.042 (1.001-1.035); Urobilinogen,Urine <2.0 mg/dL (<2.0)
[2020-05-22 09:30] LABS: Ketones,Urine 2+ (Negative)
[2020-05-22] MEDS ORDERED: ONDANSETRON 4 MG/2 ML VIAL IVP STA (09:30)
[2020-05-22] MEDS ORDERED: HYDROmorphone 0.5 MG/0.5 ML SYRINGE IVP STA (09:30)
[2020-05-22 09:37] LABS: ALT 22 U/L (4-34); AST 32 U/L (14-36); African American GFR (CKD) >90 (>60 ml/min/1.73 sqM); Albumin 4.8 g/dL (3.5-5.0); Alkaline Phosphatase 81 U/L (38-126); Anion Gap 12 mmol/L; Blood Urea Nitrogen 15 mg/dL (7-17); Calcium 11.3 mg/dL (8.4-10.2); Carbon Dioxide 27 mmol/L (22-30); Chloride 95 mmol/L (98-107); Glucose 377 mg/dL (74-99); Lipase 130 U/L (23-300); Magnesium 1.3 mg/dL (1.6-2.3); Non-African American GFR(CKD) >90 (>60 ml/min/1.73 sqM); Phosphorus 4.1 mg/dL (2.5-4.5); Sodium 134 mmol/L (137-145); Total Bilirubin 0.8 mg/dL (0.2-1.3); Total Protein 7.9 g/dL (6.3-8.2)
[2020-05-22 09:38] LABS: Potassium 3.7 mmol/L (3.5-5.1)
[2020-05-22 09:39] LABS: Glucose,Whole Blood 361 mg/dL (75-99)
--- NOTE | 2020-05-22 09:55 | ED ---
General Adult HPI - General Chief complaint: Nausea/Vomiting/Diarrhea Stated complaint: diabetic issue Time Seen by Provider: 05/22/20 08:33 Source: patient Mode of arrival: ambulatory Limitations: no limitations - History of Present Illness Initial comments: 44-year-old feel presenting for general malaise, nausea, vomiting elevated blood glucose patient states that her diabetes has been uncontrolled with sugars in the 400s. Patient states that she has just felt unwell for the past few days with nausea and vomiting when she attempts to eat. Patient states she does have some mild epigastric pain. Denies chest pain, pressure or SOB. Patient denies hematemesis or diarrhea. Patient denies concern for covid, denies URI symptoms, fever. Patient denies additional complaints. She appears nontoxic in good spirits on arrival-- no active vomiting on history of exam. - Related Data Home Medications Medication Instructions Recorded Confirmed ARIPiprazole [Abilify] 10 mg PO DAILY 03/30/19 05/22/20 Metoclopramide [Reglan] 5 mg PO QID PRN 03/30/19 05/22/20 Chlorthalidone 25 mg PO DAILY 08/08/19 05/22/20 Albuterol Inhaler [Ventolin Hfa 2 puff INHALATION RT-QID PRN 01/30/20 05/22/20 Inhaler] INSULIN LISPRO (HumaLOG) [humaLOG] See Protocol SQ AC-TID 01/30/20 05/22/20 Insulin Glargine,Hum.rec.anlog 15 unit SQ BID 01/30/20 05/22/20 [Lantus Solostar] Ondansetron HCl [Zofran] 8 mg PO TID PRN 01/30/20 05/22/20 Phentermine HCl [Adipex-P] 37.5 mg PO DAILY 01/30/20 05/22/20 Venlafaxine HCl [Effexor XR] 75 mg PO DAILY 01/30/20 05/22/20 cloNIDine HCL [Catapres] 0.1 mg PO BID PRN 01/30/20 05/22/20 traMADol HCL 50 mg PO TID PRN 01/30/20 05/22/20 Acetaminophen Tab [Tylenol Tab] 1,000 mg PO Q6HR PRN 05/22/20 05/22/20 Famotidine [Pepcid AC] 10 mg PO DAILY 05/22/20 05/22/20 Naproxen Sodium [Aleve] 440 mg PO Q12HR PRN 05/22/20 05/22/20 Allergies Allergy/AdvReac Type Severity Reaction Status Date / Time latex Allergy Rash/Hives Verified 05/22/20 10:50 carisoprodol [From Soma] AdvReac PASSES OUT Verified 05/22/20 10:50 Review of Systems ROS Statement: Those systems with pertinent positive or pertinent negative responses have been documented in the HPI. ROS Other: All systems not noted in ROS Statement are negative. Past Medical History Past Medical History: Asthma, Diabetes Mellitus, Hypertension Additional Past Medical History / Comment(s): NIDDM type II-uncontrolled with steroid use, past pancreatitis, bronchitis, facial cellulitis. 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 History of Any Multi-Drug Resistant Organisms: None Reported Past Surgical History: Breast Surgery, Cholecystectomy Additional Past Surgical History / Comment(s): Left facial/ sinus surgery, colonoscopy 2014, Lt breast bx-neg Past Anesthesia/Blood Transfusion Reactions: Motion Sickness Additional Past Anesthesia/Blood Transfusion Reaction / Comment(s): motion sick ness when on air planes Past Psychological History: Anxiety, Depression Smoking Status: Current every day smoker Past Alcohol Use History: Rare Past Drug Use History: None Reported - Past Family History Father Family Medical History: Cancer, Seizure Disorder Additional Family Medical History / Comment(s): Colon cancer. 2 paternal aunts and paternal grandmother had breast cancer. Mother Family Medical History: Asthma, Hypertension, Liver Disease Additional Family Medical History / Comment(s): EtOH abuse. Maternal grandmother had leukemia. General Exam - General Exam Comments Initial Comments: General: The patient is awake and alert, in no distress Eye: +3 mm pupils are equal, round and reactive to light, extra-ocular movements are intact. No nystagmus. There is normal conjunctiva bilaterally. No signs of icterus. Ears, nose, mouth and throat: There are moist mucous membranes and no oral lesions. Neck: The neck is supple, there is no tenderness or JVD. Cardiovascular: There is a regular rate and rhythm. No murmur, rub or gallop is appreciated. Respiratory: Lungs are clear to auscultation, respirations are non-labored, breath sounds are equal. No wheezes, stridor, rales, or rhonchi. Gastrointestinal: Soft, non-distended, mild epigastric tenderness to palpation of the abdomen, abdomen without masses or organomegaly noted. There is no rebound or guarding present. Musculoskeletal: Normal ROM, no tenderness. Strength 5/5. Sensation intact. Radial pulses equal bilaterally 2+. Neurological: A&O x 3. CN II-XII intact grossly, There are no obvious motor or sensory deficits. Coordination appears grossly intact. Speech is normal. Skin: Skin is warm and dry and no rashes or lesions are noted. Psychiatric: Cooperative, appropriate mood & affect, normal judgment. Limitations: no limitations Course Vital Signs 05/22/20 05/22/20 05/22/20 08:26 10:36 12:25 Temperature 98.6 F 97.9 F Pulse Rate 110 H 96 79 Respiratory 18 18 18 Rate Blood Pressure 156/90 154/98 148/96 O2 Sat by Pulse 99 98 99 Oximetry Medical Decision Making - Medical Decision Making Labs stable. Glucose elevated. KUB no acute findings. no significant pain on exam, appears mild. Patient wants endocrine and GI f/u. Patient denies additional complaints, feeling better and agreeable to going home with close glucose monitoring. Trini David agreeable to care plan. - Lab Data Result diagrams: 05/22/20 09:03 05/22/20 09:03 Lab Results 05/22/20 05/22/20 05/22/20 Range/Units 09:03 09:03 09:03 WBC 6.4 (3.8-10.6) k/uL RBC 5.05 (3.80-5.40) m/uL Hgb 15.1 (11.4-16.0) gm/dL Hct 44.7 (34.0-46.0) % MCV 88.5 (80.0-100.0) fL MCH 30.0 (25.0-35.0) pg MCHC 33.9 (31.0-37.0) g/dL RDW 13.3 (11.5-15.5) % Plt Count 372 (150-450) k/uL MPV 7.5 Neutrophils % 63 % Lymphocytes % 26 % Monocytes % 5 % Eosinophils % 3 % Basophils % 1 % Neutrophils # 4.1 (1.3-7.7) k/uL Lymphocytes # 1.7 (1.0-4.8) k/uL Monocytes # 0.4 (0-1.0) k/uL Eosinophils # 0.2 (0-0.7) k/uL Basophils # 0.1 (0-0.2) k/uL Sodium 134 L (137-145) mmol/L Potassium 3.7 (3.5-5.1) mmol/L Chloride 95 L (98-107) mmol/L Carbon Dioxide 27 (22-30) mmol/L Anion Gap 12 mmol/L BUN 15 (7-17) mg/dL Creatinine 0.58 (0.52-1.04) mg/dL Est GFR (CKD-EPI)AfAm >90 (>60 ml/min/1.73 sqM) Est GFR (CKD-EPI)NonAf >90 (>60 ml/min/1.73 sqM) Glucose 377 H (74-99) mg/dL POC Glucose (mg/dL) (75-99) mg/dL POC Glu Trauma Manager ID Calcium 11.3 H (8.4-10.2) mg/dL Phosphorus 4.1 (2.5-4.5) mg/dL Magnesium 1.3 L (1.6-2.3) mg/dL Total Bilirubin 0.8 (0.2-1.3) mg/dL AST 32 (14-36) U/L ALT 22 (4-34) U/L Alkaline Phosphatase 81 (38-126) U/L Total Protein 7.9 (6.3-8.2) g/dL Albumin 4.8 (3.5-5.0) g/dL Lipase 130 (23-300) U/L Urine Color Yellow Urine Appearance Clear (Clear) Urine pH 6.0 (5.0-8.0) Ur Specific [place] 1.042 H (1.001-1.035) Urine Protein Negative (Negative) Urine Glucose (UA) 4+ H (Negative) Urine Ketones 2+ H (Negative) Urine Blood Negative (Negative) Urine Nitrite Negative (Negative) Urine Bilirubin Negative (Negative) Urine Urobilinogen <2.0 (<2.0) mg/dL Ur Leukocyte Esterase Negative (Negative) Acetone, Qual Negative (Negative) Coronavirus (PCR) (Not Detectd) 05/22/20 05/22/20 05/22/20 Range/Units 09:33 10:30 11:45 WBC (3.8-10.6) k/uL RBC (3.80-5.40) m/uL Hgb (11.4-16.0) gm/dL Hct (34.0-46.0) % MCV (80.0-100.0) fL MCH (25.0-35.0) pg MCHC (31.0-37.0) g/dL RDW (11.5-15.5) % Plt Count (150-450) k/uL MPV Neutrophils % % Lymphocytes % % Monocytes % % Eosinophils % % Basophils % % Neutrophils # (1.3-7.7) k/uL Lymphocytes # (1.0-4.8) k/uL Monocytes # (0-1.0) k/uL Eosinophils # (0-0.7) k/uL Basophils # (0-0.2) k/uL Sodium (137-145) mmol/L Potassium (3.5-5.1) mmol/L Chloride (98-107) mmol/L Carbon Dioxide (22-30) mmol/L Anion Gap mmol/L BUN (7-17) mg/dL Creatinine (0.52-1.04) mg/dL Est GFR (CKD-EPI)AfAm (>60 ml/min/1.73 sqM) Est GFR (CKD-EPI)NonAf (>60 ml/min/1.73 sqM) Glucose (74-99) mg/dL POC Glucose (mg/dL) 361 H 281 H (75-99) mg/dL POC Glu Trauma Manager ID Gonzalez, Shara Gonzalez, Shara Calcium (8.4-10.2) mg/dL Phosphorus (2.5-4.5) mg/dL Magnesium (1.6-2.3) mg/dL Total Bilirubin (0.2-1.3) mg/dL AST (14-36) U/L ALT (4-34) U/L Alkaline Phosphatase (38-126) U/L Total Protein (6.3-8.2) g/dL Albumin (3.5-5.0) g/dL Lipase (23-300) U/L Urine Color Urine Appearance (Clear) Urine pH (5.0-8.0) Ur Specific [place] (1.001-1.035) Urine Protein (Negative) Urine Glucose (UA) (Negative) Urine Ketones (Negative) Urine Blood (Negative) Urine Nitrite (Negative) Urine Bilirubin (Negative) Urine Urobilinogen (<2.0) mg/dL Ur Leukocyte Esterase (Negative) Acetone, Qual (Negative) Coronavirus (PCR) Not Detected (Not Detectd) Disposition Clinical Impression: Nausea & vomiting Disposition: HOME SELF-CARE Condition: Good Instructions (If sedation given, give patient instructions): Acute Nausea and Vomiting (ED) Additional Instructions: Please use medication as discussed. Please follow-up with family doctor in the next 2 days. Please return to emergency room if the symptoms increase or worsen or for any other concerns. Is patient prescribed a controlled substance at d/c from ED?: No Referrals: Lee Enriquez MD [Primary Care Provider] - 1-2 days Valery Godinez MD [STAFF PHYSICIAN] - 1-2 days Meg Nugent MD [STAFF PHYSICIAN] - 1-2 days Time of Disposition: 11:48
[2020-05-22] MEDS ORDERED: INSULIN REGULAR 100 UNIT/ML VIAL SQ ONE (10:01)
--- NOTE | 2020-05-22 10:13 | XR ---
EXAMINATION TYPE: XR KUB DATE OF EXAM: 05/22/2020 COMPARISON: NONE HISTORY: Pain TECHNIQUE: Single supine KUB image of the abdomen is obtained FINDINGS: Small bowel demonstrates no evidence for dilatation or air fluid levels. Gas and fecal material is seen in non-distended colon. No convincing evidence for pneumoperitoneum. No unusual calcifications. The lung bases are clear. The osseous structures are intact. IMPRESSION: 1. Overall nonobstructive bowel gas pattern.
[2020-05-22] MEDS ORDERED: MAGNESIUM OXIDE 400 MG TAB PO STA (10:59)
[2020-05-22 11:47] LABS: Glucose,Whole Blood 281 mg/dL (75-99)
[2020-05-22] MEDS ORDERED: PANTOPRAZOLE 40 MG/10 ML VIAL IVP STA (11:53)
[2020-05-22 12:29] VITALS: BP 148/96; PULSE 79; TEMP 97.9
== END 2020-05-22 12:25 | disposition home or self-care (01) ==
LOC: EC 08:20
DX: E11.65 Type 2 diabetes mellitus with hyperglycemia (principal); F41.9 Anxiety disorder, unspecified; F32.9 Major depressive disorder, single episode, unspecified; F17.200 Nicotine dependence, unspecified, uncomplicated; I10 Essential (primary) hypertension; Z79.4 Long term (current) use of insulin; Z79.899 Other long term (current) drug therapy; Z88.8 Allergy status to other drugs, medicaments and biological substances; Z91.040 Latex allergy status; Z90.89 Acquired absence of other organs; Z20.828 Contact with and (suspected) exposure to other viral communicable diseases
CPT/HCPCS: 36415; 93005; 80053; 82009; 83690; 83735; 84100; 85025; 81003; 87635; 74018; 99284; 96374; 96375 ×2; 96361 ×3; J2405; C9113; J1170

== ENCOUNTER 2020-09-03 22:57 | Emergency (ER) | payer BC, OTHER ==
[2020-09-03 23:12] VITALS: TEMP 98.8
[2020-09-03] MEDS ORDERED: SODIUM CHLORIDE 0.9% 1,000 ML IV STA (23:19)
--- NOTE | 2020-09-03 23:30 | ED ---
SOB HPI - General Chief Complaint: Shortness of Breath Stated Complaint: Dizziness, SOB Time Seen by Provider: 09/03/20 23:03 Source: patient Mode of arrival: wheelchair - History of Present Illness Initial Comments: Patient is a 45-year-old female, history of asthma, diabetes, hypertension, presenting to the emergency Department with complaints of shortness of breath for the past week. Patient states she also woke up today feeling dizzy. Patient went to her PCPs office a few days ago, was given some medications but states it is not helping. She states she feels dizzy when she gets up from a seated position. Patient does have a history of mild asthma, uses albuterol i nhaler as needed but states it usually is not this bad. Patient states it feels worse when she is laying down at night. She denies any cough with this, no fever or chills, no chest pain. No nausea or vomiting or abdominal pain. She denies history of blood clots. She states she recently started a new medication for her diabetes and also helps improve weight, she does not know the name of it. She also takes phentermine. She has no further complaints at this time. Upon arrival to the ER, her pulse is 120, rest of vitals are normal. - Related Data Home Medications Medication Instructions Recorded Confirmed ARIPiprazole [Abilify] 10 mg PO DAILY 03/30/19 05/22/20 Metoclopramide [Reglan] 5 mg PO QID PRN 03/30/19 05/22/20 Chlorthalidone 25 mg PO DAILY 08/08/19 05/22/20 Albuterol Inhaler [Ventolin Hfa 2 puff INHALATION RT-QID PRN 01/30/20 05/22/20 Inhaler] INSULIN LISPRO (HumaLOG) [humaLOG] See Protocol SQ AC-TID 01/30/20 05/22/20 Insulin Glargine,Hum.rec.anlog 15 unit SQ BID 01/30/20 05/22/20 [Lantus Solostar] Phentermine HCl [Adipex-P] 37.5 mg PO DAILY 01/30/20 05/22/20 Venlafaxine HCl [Effexor XR] 75 mg PO DAILY 01/30/20 05/22/20 cloNIDine HCL [Catapres] 0.1 mg PO BID PRN 01/30/20 05/22/20 ondansetron HCL [Zofran] 8 mg PO TID PRN 01/30/20 05/22/20 traMADol HCL 50 mg PO TID PRN 01/30/20 05/22/20 Acetaminophen Tab [Tylenol Tab] 1,000 mg PO Q6HR PRN 05/22/20 05/22/20 Famotidine [Pepcid AC] 10 mg PO DAILY 05/22/20 05/22/20 Naproxen Sodium [Aleve] 440 mg PO Q12HR PRN 05/22/20 05/22/20 Allergies Allergy/AdvReac Type Severity Reaction Status Date / Time latex Allergy Rash/Hives Verified 09/03/20 23:12 carisoprodol [From Soma] AdvReac PASSES OUT Verified 09/03/20 23:12 Review of Systems ROS Statement: Those systems with pertinent positive or pertinent negative responses have been documented in the HPI. ROS Other: All systems not noted in ROS Statement are negative. Past Medical History Past Medical History: Asthma, Diabetes Mellitus, Hypertension Additional Past Medical History / Comment(s): NIDDM type II-uncontrolled with steroid use, past pancreatitis, bronchitis, facial cellulitis. 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 History of Any Multi-Drug Resistant Organisms: None Reported Past Surgical History: Breast Surgery, Cholecystectomy Additional Past Surgical History / Comment(s): Left facial/ sinus surgery, colonoscopy 2014, Lt breast bx-neg Past Anesthesia/Blood Transfusion Reactions: Motion Sickness Additional Past Anesthesia/Blood Transfusion Reaction / Comment(s): motion sickness when on air planes Past Psychological History: Anxiety, Depression Smoking Status: Current every day smoker Past Alcohol Use History: Rare Past Drug Use History: None Reported - Past Family History Father Family Medical History: Cancer, Seizure Disorder Additional Family Medical History / Comment(s): Colon cancer. 2 paternal aunts and paternal grandmother had breast cancer. Mother Family Medical History: Asthma, Hypertension, Liver Disease Additional Family Medical History / Comment(s): EtOH abuse. Maternal grandmother had leukemia. General Exam - General Exam Comments Initial Comments: GENERAL: Patient is well-developed and well-nourished. Patient is nontoxic and in no acute distress, but does appear mildly anxious. HEAD: Atraumatic, normocephalic. EYES: Pupils equal round and reactive to light, extraocular movements intact, sclera anicteric, conjunctiva are normal. Eyelids were unremarkable. ENT: TMs normal, nares patent, oropharynx clear without exudates. Moist mucous membranes. NECK: Normal range of motion, supple without lymphadenopathy or JVD. LUNGS: Unlabored respirations. Breath sounds clear to auscultation bilaterally and equal. No wheezes rales or rhonchi. HEART: Tachycardia rate and rhythm without murmurs, rubs or gallops. ABDOMEN: Soft, nontender, normoactive bowel sounds. No guarding, no rebound. No masses appreciated. : Deferred MUSCULOSKELETAL: Normal extremities with adequate strength and normal range of motion, no pitting or edema. No clubbing or cyanosis. NEUROLOGICAL: Patient is alert and oriented x 3. Motor and sensory are also intact. Cranial nerves II through XII grossly intact. Symmetrical smile. Normal speech, normal gait. PSYCH: Normal mood, normal affect. SKIN: Warm, Dry, normal turgor, no rashes or lesions noted. Course Vital Signs 09/03/20 09/04/20 23:06 00:13 Temperature 98.8 F Pulse Rate 120 H 87 Respiratory 18 18 Rate Blood Pressure 156/96 139/84 O2 Sat by Pulse 98 98 Oximetry Medical Decision Making - Medical Decision Making Patient is a 45-year-old female with history of diabetes, hypertension, presenting with dizziness this morning as well as some mild shortness of breath throughout the week. She states she has been having troubles with her sugars lately. No chest pain, no nausea or vomiting. EKG shows tachycardia, no signs of ischemia. Chest x-ray shows no acute findings. White count is normal, d- dimer is normal, troponin is also normal. Lactic acid is elevated at 3.0, glucose is 337. Urinalysis showed 4+ glucose and trace ketones, no signs of infection acetone is negative. Patient received 2 L of bolus. She reports improvement in her symptoms, her vitals are stable, she is in no acute distress. I discussed the patient she needs to follow-up with her PCP regarding her elevated glucose levels. She states she just had her blood work done and her A1c is 12. She is very uncontrolled. Patient is stable for discharge. Patient is in agreement with this plan of care. Return parameters were discussed with the patient and they verbalized understanding. Case discussed with Dr. Chamorro. - Lab Data Result diagrams: 09/03/20 23:34 09/03/20 23:34 Lab Results 09/03/20 09/03/20 09/03/20 Range/Units 23:34 23:34 23:34 WBC 8.7 (3.8-10.6) k/uL RBC 4.71 (3.80-5.40) m/uL Hgb 13.5 (11.4-16.0) gm/dL Hct 40.7 (34.0-46.0) % MCV 86.4 (80.0-100.0) fL MCH 28.6 (25.0-35.0) pg MCHC 33.1 (31.0-37.0) g/dL RDW 14.0 (11.5-15.5) % Plt Count 401 (150-450) k/uL MPV 7.9 Neutrophils % 60 % Lymphocytes % 31 % Monocytes % 5 % Eosinophils % 2 % Basophils % 1 % Neutrophils # 5.2 (1.3-7.7) k/uL Lymphocytes # 2.7 (1.0-4.8) k/uL Monocytes # 0.5 (0-1.0) k/uL Eosinophils # 0.2 (0-0.7) k/uL Basophils # 0.0 (0-0.2) k/uL PT 9.5 (9.0-12.0) sec INR 0.9 (<1.2) APTT 20.0 L (22.0-30.0) sec D-Dimer 0.19 (<0.60) mg/L FEU Sodium (137-145) mmol/L Potassium (3.5-5.1) mmol/L Chloride (98-107) mmol/L Carbon Dioxide (22-30) mmol/L Anion Gap mmol/L BUN (7-17) mg/dL Creatinine (0.52-1.04) mg/dL Est GFR (CKD-EPI)AfAm (>60 ml/min/1.73 sqM) Est GFR (CKD-EPI)NonAf (>60 ml/min/1.73 sqM) Glucose (74-99) mg/dL POC Glucose (mg/dL) (75-99) mg/dL POC Glu Nanny/Household Manager ID Lactic Ac Sepsis Rflx Plasma Lactic Acid Romeo (0.7-2.0) mmol/L Calcium (8.4-10.2) mg/dL Total Bilirubin (0.2-1.3) mg/dL AST (14-36) U/L ALT (4-34) U/L Alkaline Phosphatase (38-126) U/L Troponin I (0.000-0.034) ng/mL Total Protein (6.3-8.2) g/dL Albumin (3.5-5.0) g/dL Urine Color Yellow Urine Appearance Clear (Clear) Urine pH 6.0 (5.0-8.0) Ur Specific [place] 1.041 H (1.001-1.035) Urine Protein Trace H (Negative) Urine Glucose (UA) 4+ H (Negative) Urine Ketones Trace H (Negative) Urine Blood Negative (Negative) Urine Nitrite Negative (Negative) Urine Bilirubin Negative (Negative) Urine Urobilinogen <2.0 (<2.0) mg/dL Ur Leukocyte Esterase Trace H (Negative) Urine RBC 1 (0-5) /hpf Urine WBC 1 (0-5) /hpf Ur Squamous Epith Cells 12 H (0-4) /hpf Urine Bacteria Rare H (None) /hpf Hyaline Casts 1 (0-2) /lpf Urine Mucus Occasional H (None) /hpf Urine HCG, Qual (Not Detectd) Acetone, Qual (Negative) 09/03/20 09/03/20 09/03/20 Range/Units 23:34 23:34 23:34 WBC (3.8-10.6) k/uL RBC (3.80-5.40) m/uL Hgb (11.4-16.0) gm/dL Hct (34.0-46.0) % MCV (80.0-100.0) fL MCH (25.0-35.0) pg MCHC (31.0-37.0) g/dL RDW (11.5-15.5) % Plt Count (150-450) k/uL MPV Neutrophils % % Lymphocytes % % Monocytes % % Eosinophils % % Basophils % % Neutrophils # (1.3-7.7) k/uL Lymphocytes # (1.0-4.8) k/uL Monocytes # (0-1.0) k/uL Eosinophils # (0-0.7) k/uL Basophils # (0-0.2) k/uL PT (9.0-12.0) sec INR (<1.2) APTT (22.0-30.0) sec D-Dimer (<0.60) mg/L FEU Sodium 135 L (137-145) mmol/L Potassium 3.1 L (3.5-5.1) mmol/L Chloride 94 L (98-107) mmol/L Carbon Dioxide 27 (22-30) mmol/L Anion Gap 14 mmol/L BUN 17 (7-17) mg/dL Creatinine 0.79 (0.52-1.04) mg/dL Est GFR (CKD-EPI)AfAm >90 (>60 ml/min/1.73 sqM) Est GFR (CKD-EPI)NonAf >90 (>60 ml/min/1.73 sqM) Glucose 337 H (74-99) mg/dL POC Glucose (mg/dL) (75-99) mg/dL POC Glu Nanny/Household Manager ID Lactic Ac Sepsis Rflx Plasma Lactic Acid Romeo 3.0 H* (0.7-2.0) mmol/L Calcium 10.5 H (8.4-10.2) mg/dL Total Bilirubin 0.3 (0.2-1.3) mg/dL AST 21 (14-36) U/L ALT 36 H (4-34) U/L Alkaline Phosphatase 89 (38-126) U/L Troponin I (0.000-0.034) ng/mL Total Protein 7.1 (6.3-8.2) g/dL Albumin 4.4 (3.5-5.0) g/dL Urine Color Urine Appearance (Clear) Urine pH (5.0-8.0) Ur Specific [place] (1.001-1.035) Urine Protein (Negative) Urine Glucose (UA) (Negative) Urine Ketones (Negative) Urine Blood (Negative) Urine Nitrite (Negative) Urine Bilirubin (Negative) Urine Urobilinogen (<2.0) mg/dL Ur Leukocyte Esterase (Negative) Urine RBC (0-5) /hpf Urine WBC (0-5) /hpf Ur Squamous Epith Cells (0-4) /hpf Urine Bacteria (None) /hpf Hyaline Casts (0-2) /lpf Urine Mucus (None) /hpf Urine HCG, Qual Not Detected (Not Detectd) Acetone, Qual Negative (Negative) 09/03/20 09/04/20 09/04/20 Range/Units 23:34 00:11 01:25 WBC (3.8-10.6) k/uL RBC (3.80-5.40) m/uL Hgb (11.4-16.0) gm/dL Hct (34.0-46.0) % MCV (80.0-100.0) fL MCH (25.0-35.0) pg MCHC (31.0-37.0) g/dL RDW (11.5-15.5) % Plt Count (150-450) k/uL MPV Neutrophils % % Lymphocytes % % Monocytes % % Eosinophils % % Basophils % % Neutrophils # (1.3-7.7) k/uL Lymphocytes # (1.0-4.8) k/uL Monocytes # (0-1.0) k/uL Eosinophils # (0-0.7) k/uL Basophils # (0-0.2) k/uL PT (9.0-12.0) sec INR (<1.2) APTT (22.0-30.0) sec D-Dimer (<0.60) mg/L FEU Sodium (137-145) mmol/L Potassium (3.5-5.1) mmol/L Chloride (98-107) mmol/L Carbon Dioxide (22-30) mmol/L Anion Gap mmol/L BUN (7-17) mg/dL Creatinine (0.52-1.04) mg/dL Est GFR (CKD-EPI)AfAm (>60 ml/min/1.73 sqM) Est GFR (CKD-EPI)NonAf (>60 ml/min/1.73 sqM) Glucose (74-99) mg/dL POC Glucose (mg/dL) 315 H (75-99) mg/dL POC Glu Nanny/Household Manager ID Romelia Farfan Lactic Ac Sepsis Rflx Y Plasma Lactic Acid Romeo (0.7-2.0) mmol/L Calcium (8.4-10.2) mg/dL Total Bilirubin (0.2-1.3) mg/dL AST (14-36) U/L ALT (4-34) U/L Alkaline Phosphatase (38-126) U/L Troponin I <0.012 (0.000-0.034) ng/mL Total Protein (6.3-8.2) g/dL Albumin (3.5-5.0) g/dL Urine Color Urine Appearance (Clear) Urine pH (5.0-8.0) Ur Specific [place] (1.001-1.035) Urine Protein (Negative) Urine Glucose (UA) (Negative) Urine Ketones (Negative) Urine Blood (Negative) Urine Nitrite (Negative) Urine Bilirubin (Negative) Urine Urobilinogen (<2.0) mg/dL Ur Leukocyte Esterase (Negative) Urine RBC (0-5) /hpf Urine WBC (0-5) /hpf Ur Squamous Epith Cells (0-4) /hpf Urine Bacteria (None) /hpf Hyaline Casts (0-2) /lpf Urine Mucus (None) /hpf Urine HCG, Qual (Not Detectd) Acetone, Qual (Negative) - EKG Data EKG Comments: Sinus tachycardia, possible left atrial enlargement, similar to previous EKG on 05/22/2020. Ventricular rate 114, MS interval 148, QT 344. Disposition Clinical Impression: Uncontrolled type 2 diabetes mellitus, Anxiety, Lactic acidosis, Dehydration Disposition: HOME SELF-CARE Condition: Stable Instructions (If sedation given, give patient instructions): Type 2 Diabetes Management for Adults (ED) Additional Instructions: Please return to the Emergency Department if symptoms worsen or any other concerns. Please monitor urine glucose levels closely. Patient to drink plenty of fluids and regular diet. Follow-up with your PCP in 1-3 days. Is patient prescribed a controlled substance at d/c from ED?: No Referrals: Lee Enriquez MD [Primary Care Provider] - 1-2 days
[2020-09-03 23:55] LABS: Appearance,Urine Clear (Clear); Bacteria,Urine Rare /hpf; Basophils % (A) 1 %; Bilirubin,Urine Negative (Negative); Blood,Urine Negative (Negative); Color,Urine Yellow; Eosinophils # (A) 0.2 k/uL (0-0.7); Eosinophils % (A) 2 %; Glucose,Urine (UA) 4+ (Negative); HCT 40.7 % (34.0-46.0); HGB 13.5 gm/dL (11.4-16.0); Hyaline Casts,Urine 1 /lpf (0-2); Ketones,Urine Trace (Negative); Leukocyte Esterase,Urine Trace (Negative); Lymphocytes # (A) 2.7 k/uL (1.0-4.8); Lymphocytes % (A) 31 %; MCH 28.6 pg (25.0-35.0); MCHC 33.1 g/dL (31.0-37.0); MCV 86.4 fL (80.0-100.0); Mean Platelet Volume 7.9; Monocytes # (A) 0.5 k/uL (0-1.0); Monocytes % (A) 5 %; Mucus,Urine Occasional /hpf; Neutrophils # (A) 5.2 k/uL (1.3-7.7); Neutrophils % (A) 60 %; Nitrite,Urine Negative (Negative); Platelet Count 401 k/uL (150-450); Protein,Urine Trace (Negative); RBC 4.71 m/uL (3.80-5.40); RBC,Urine 1 /hpf (0-5); Specific Gravity,Urine 1.041 (1.001-1.035); Squamous Epithelial Cell,Urine 12 /hpf (0-4); Urobilinogen,Urine <2.0 mg/dL (<2.0); WBC 8.7 k/uL (3.8-10.6); WBC,Urine 1 /hpf (0-5)
--- NOTE | 2020-09-03 23:57 | XR ---
EXAMINATION TYPE: XR chest 2V DATE OF EXAM: 09/03/2020 COMPARISON: 01/30/2020 HISTORY: Cough TECHNIQUE: 2 views FINDINGS: Heart and mediastinum are normal. Lungs are clear. Diaphragm is normal. Bony thorax appears normal. IMPRESSION: Normal chest.
[2020-09-04 00:05] LABS: ALT 36 U/L (4-34); AST 21 U/L (14-36); African American GFR (CKD) >90 (>60 ml/min/1.73 sqM); Albumin 4.4 g/dL (3.5-5.0); Alkaline Phosphatase 89 U/L (38-126); Anion Gap 14 mmol/L; Blood Urea Nitrogen 17 mg/dL (7-17); Calcium 10.5 mg/dL (8.4-10.2); Carbon Dioxide 27 mmol/L (22-30); Chloride 94 mmol/L (98-107); Glucose 337 mg/dL (74-99); Non-African American GFR(CKD) >90 (>60 ml/min/1.73 sqM); Potassium 3.1 mmol/L (3.5-5.1); Sodium 135 mmol/L (137-145); Total Bilirubin 0.3 mg/dL (0.2-1.3); Total Protein 7.1 g/dL (6.3-8.2)
[2020-09-04 00:14] LABS: D-Dimer 0.19 mg/L FEU (<0.60); INR 0.9 (<1.2); Prothrombin Time 9.5 sec (9.0-12.0)
[2020-09-04] MEDS ORDERED: SODIUM CHLORIDE 0.9% 1,000 ML IV STA (00:23)
[2020-09-04 01:27] LABS: Glucose,Whole Blood 315 mg/dL (75-99)
[2020-09-04 02:37] VITALS: BP 126/69; PULSE 77; RESP 16
== END 2020-09-04 02:38 | disposition home or self-care (01) ==
LOC: EC 22:57
DX: E11.65 Type 2 diabetes mellitus with hyperglycemia (principal); F41.9 Anxiety disorder, unspecified; E87.2 Acidosis; E86.0 Dehydration; R00.0 Tachycardia, unspecified; I10 Essential (primary) hypertension; J45.909 Unspecified asthma, uncomplicated; F32.9 Major depressive disorder, single episode, unspecified; F17.200 Nicotine dependence, unspecified, uncomplicated; Z79.4 Long term (current) use of insulin; Z79.899 Other long term (current) drug therapy; Z91.040 Latex allergy status; Z88.8 Allergy status to other drugs, medicaments and biological substances
CPT/HCPCS: 36415; 71046; 80053; 81001; 81025; 82009; 83605; 84484; 85025; 85379; 85610; 85730; 93005; 96360; 96361; 99285

== ENCOUNTER 2020-09-05 12:33 | Emergency (ER) | payer OTHER ==
[2020-09-05 12:40] VITALS: RESP 18
[2020-09-05] MEDS ORDERED: SODIUM CHLORIDE 0.9% 1,000 ML IV STA (12:58)
--- NOTE | 2020-09-05 13:11 | ED ---
General Adult HPI - General Chief complaint: Dizziness Stated complaint: Dizziness, SOB Time Seen by Provider: 09/05/20 12:42 Source: patient, RN notes reviewed Mode of arrival: ambulatory Limitations: no limitations - History of Present Illness Initial comments: 45-year-old white female patient returns to the emergency room after being seen here on Wednesday for the same. Patient states her dizziness has returned also accompanied with lower abdominal pain 4 out of 10. Patient states called PMD and was told to come to the emergency room for reevaluation her lactic acid because it could "cause brain damage ". Patient anxious. States has dizziness upon position change and standing which resolves after approximately 30 seconds. When she was here on Wednesday and was told she was dehydrated and her electrolytes were off and had an elevated lactic acid. Patient states he is on 2 new medications within the last month one being victoza for her diabetes and the other being viibryd for depression. -: days(s) (2) - Related Data Home Medications Medication Instructions Recorded Confirmed ARIPiprazole [Abilify] 10 mg PO DAILY 03/30/19 05/22/20 Metoclopramide [Reglan] 5 mg PO QID PRN 03/30/19 05/22/20 Chlorthalidone 25 mg PO DAILY 08/08/19 05/22/20 Albuterol Inhaler [Ventolin Hfa 2 puff INHALATION RT-QID PRN 01/30/20 05/22/20 Inhaler] INSULIN LISPRO (HumaLOG) [humaLOG] See Protocol SQ AC-TID 01/30/20 05/22/20 Insulin Glargine,Hum.rec.anlog 15 unit SQ BID 01/30/20 05/22/20 [Lantus Solostar] Phentermine HCl [Adipex-P] 37.5 mg PO DAILY 01/30/20 05/22/20 Venlafaxine HCl [Effexor XR] 75 mg PO DAILY 01/30/20 05/22/20 cloNIDine HCL [Catapres] 0.1 mg PO BID PRN 01/30/20 05/22/20 ondansetron HCL [Zofran] 8 mg PO TID PRN 01/30/20 05/22/20 traMADol HCL 50 mg PO TID PRN 01/30/20 05/22/20 Acetaminophen Tab [Tylenol Tab] 1,000 mg PO Q6HR PRN 05/22/20 05/22/20 Famotidine [Pepcid AC] 10 mg PO DAILY 05/22/20 05/22/20 Naproxen Sodium [Aleve] 440 mg PO Q12HR PRN 05/22/20 05/22/20 Allergies Allergy/AdvReac Type Severity Reaction Status Date / Time latex Allergy Rash/Hives Verified 09/05/20 12:40 carisoprodol [From Soma] AdvReac PASSES OUT Verified 09/05/20 12:40 Review of Systems ROS Statement: Those systems with pertinent positive or pertinent negative responses have been documented in the HPI. ROS Other: All systems not noted in ROS Statement are negative. Past Medical History Past Medical History: Asthma, Diabetes Mellitus, Hypertension Additional Past Medical History / Comment(s): NIDDM type II-uncontrolled with steroid use, past pancreatitis, bronchitis, facial cellulitis. 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 History of Any Multi-Drug Resistant Organisms: None Reported Past Surgical History: Breast Surgery, Cholecystectomy Additional Past Surgical History / Comment(s): Left facial/ sinus surgery, colonoscopy 2014, Lt breast bx-neg Past Anesthesia/Blood Transfusion Reactions: Motion Sickness Additional Past Anesthesia/Blood Transfusion Reaction / Comment(s): motion sickness when on air planes Past Psychological History: Anxiety, Depression Smoking Status: Current every day smoker Past Alcohol Use History: Rare Past Drug Use History: None Reported - Past Family History Father Family Medical History: Cancer, Seizure Disorder Additional Family Medical History / Comment(s): Colon cancer. 2 paternal aunts and paternal grandmother had breast cancer. Mother Family Medical History: Asthma, Hypertension, Liver Disease Additional Family Medical History / Comment(s): EtOH abuse. Maternal grandmother had leukemia. General Exam - General Exam Comments Initial Comments: Nontoxic appearing white female patient in no acute distress sitting on cart states feels anxious about having to come back to the emergency room after being here on Wednesday for same. Patient alert and oriented, tachycardic, lungs sounds clear to auscultation, heart sounds normal without murmur, no dependent edema. Patient with sticky mucous membranes, abdomen soft and with no masses. Tenderness to left and right lower quadrants with palpation. patient's states last bowel movement was today and normal, diarrhea x7 on Wednesday. Limitations: no limitations General appearance: alert, in no apparent distress Head exam: Present: atraumatic, normocephalic, normal inspection Eye exam: Present: normal appearance, PERRL, EOMI. Absent: scleral icterus, conjunctival injection, periorbital swelling ENT exam: Present: other (sticky mucous membranes) Neck exam: Present: normal inspection Respiratory exam: Present: normal lung sounds bilaterally Cardiovascular Exam: Present: tachycardia, normal heart sounds GI/Abdominal exam: Present: soft, tenderness (tenderness with palpation b/l lower quadrants), normal bowel sounds Extremities exam: Present: normal inspection, normal capillary refill Back exam: Present: normal inspection Neurological exam: Present: alert, oriented X3, CN II-XII intact Psychiatric exam: Present: anxious Skin exam: Present: warm, dry, normal color Course Vital Signs 09/05/20 09/05/20 09/05/20 12:34 13:22 14:07 Temperature 97.7 F Pulse Rate 111 H 81 Pulse Rate [ 100 Sitting Pulse Oximetery] Pulse Rate [ 113 H Standing Pulse Oximetery] Pulse Rate [ 80 Supine Pulse Oximetery] Respiratory 18 18 Rate Blood Pressure 155/102 164/102 Blood Pressure 147/106 [Right Arm Sitting] Blood Pressure 142/104 [Right Arm Standing] Blood Pressure 170/103 [Right Arm Supine] O2 Sat by Pulse 98 100 Oximetry Medical Decision Making - Medical Decision Making Patient feeling better after fluid bolus, states will follow-up with her primary care doctor. Potassium is within normal limits lactic acid is within normal limits glucose within acceptable range. Patient directed to decrease use of Motrin and try Tylenol for pain. Patient also directed to increase fluid intake of water not Gatorade. Patient encouraged internal for her anxiety to determine her triggers. - Lab Data Result diagrams: 09/05/20 13:08 09/05/20 13:08 Lab Results 09/05/20 09/05/20 09/05/20 Range/Units 13:08 13:08 13:08 WBC 7.4 (3.8-10.6) k/uL RBC 4.90 (3.80-5.40) m/uL Hgb 14.4 (11.4-16.0) gm/dL Hct 42.3 (34.0-46.0) % MCV 86.4 (80.0-100.0) fL MCH 29.4 (25.0-35.0) pg MCHC 34.1 (31.0-37.0) g/dL RDW 13.6 (11.5-15.5) % Plt Count 396 (150-450) k/uL MPV 7.3 Sodium 139 (137-145) mmol/L Potassium 3.4 L (3.5-5.1) mmol/L Chloride 98 (98-107) mmol/L Carbon Dioxide 31 H (22-30) mmol/L Anion Gap 10 mmol/L BUN 15 (7-17) mg/dL Creatinine 0.65 (0.52-1.04) mg/dL Est GFR (CKD-EPI)AfAm >90 (>60 ml/min/1.73 sqM) Est GFR (CKD-EPI)NonAf >90 (>60 ml/min/1.73 sqM) Glucose 148 H (74-99) mg/dL POC Glucose (mg/dL) (75-99) mg/dL POC Glu Sliver Lap Tender ID Plasma Lactic Acid Romeo 1.2 (0.7-2.0) mmol/L Calcium 10.6 H (8.4-10.2) mg/dL Total Bilirubin 0.3 (0.2-1.3) mg/dL AST 23 (14-36) U/L ALT 32 (4-34) U/L Alkaline Phosphatase 87 (38-126) U/L Total Protein 8.0 (6.3-8.2) g/dL Albumin 4.8 (3.5-5.0) g/dL Urine Color Urine Appearance (Clear) Urine pH (5.0-8.0) Ur Specific [place] (1.001-1.035) Urine Protein (Negative) Urine Glucose (UA) (Negative) Urine Ketones (Negative) Urine Blood (Negative) Urine Nitrite (Negative) Urine Bilirubin (Negative) Urine Urobilinogen (<2.0) mg/dL Ur Leukocyte Esterase (Negative) Urine RBC (0-5) /hpf Urine WBC (0-5) /hpf Ur Squamous Epith Cells (0-4) /hpf Urine Bacteria (None) /hpf Urine Mucus (None) /hpf Acetone, Qual Negative (Negative) 09/05/20 09/05/20 Range/Units 13:13 13:21 WBC (3.8-10.6) k/uL RBC (3.80-5.40) m/uL Hgb (11.4-16.0) gm/dL Hct (34.0-46.0) % MCV (80.0-100.0) fL MCH (25.0-35.0) pg MCHC (31.0-37.0) g/dL RDW (11.5-15.5) % Plt Count (150-450) k/uL MPV Sodium (137-145) mmol/L Potassium (3.5-5.1) mmol/L Chloride (98-107) mmol/L Carbon Dioxide (22-30) mmol/L Anion Gap mmol/L BUN (7-17) mg/dL Creatinine (0.52-1.04) mg/dL Est GFR (CKD-EPI)AfAm (>60 ml/min/1.73 sqM) Est GFR (CKD-EPI)NonAf (>60 ml/min/1.73 sqM) Glucose (74-99) mg/dL POC Glucose (mg/dL) 153 H (75-99) mg/dL POC Glu Sliver Lap Tender [place] Darci Dozier Plasma Lactic Acid Romeo (0.7-2.0) mmol/L Calcium (8.4-10.2) mg/dL Total Bilirubin (0.2-1.3) mg/dL AST (14-36) U/L ALT (4-34) U/L Alkaline Phosphatase (38-126) U/L Total Protein (6.3-8.2) g/dL Albumin (3.5-5.0) g/dL Urine Color Yellow Urine Appearance Cloudy H (Clear) Urine pH 7.5 (5.0-8.0) Ur Specific [place] 1.038 H (1.001-1.035) Urine Protein 1+ H (Negative) Urine Glucose (UA) 3+ H (Negative) Urine Ketones Negative (Negative) Urine Blood Negative (Negative) Urine Nitrite Negative (Negative) Urine Bilirubin Negative (Negative) Urine Urobilinogen 2.0 (<2.0) mg/dL Ur Leukocyte Esterase Trace H (Negative) Urine RBC 1 (0-5) /hpf Urine WBC 3 (0-5) /hpf Ur Squamous Epith Cells 6 H (0-4) /hpf Urine Bacteria Rare H (None) /hpf Urine Mucus Many H (None) /hpf Acetone, Qual (Negative) Disposition Clinical Impression: Dizziness on standing, Orthostatic hypotension, Abdominal pain Disposition: HOME SELF-CARE Condition: Good Additional Instructions: Follow-up with your doctor within a week. Stopped taking Motrin and try Tylenol [id number] for pain. Start taking Pepcid as previously prescribed. Increase fluid intake to 6-8 glasses of water a day. Is patient prescribed a controlled substance at d/c from ED?: No Referrals: Lee Enriquez MD [Primary Care Provider] - 1-2 days Time of Disposition: 14:58
[2020-09-05 13:18] LABS: HCT 42.3 % (34.0-46.0); HGB 14.4 gm/dL (11.4-16.0); MCH 29.4 pg (25.0-35.0); MCHC 34.1 g/dL (31.0-37.0); MCV 86.4 fL (80.0-100.0); Mean Platelet Volume 7.3; Platelet Count 396 k/uL (150-450); RDW 13.6 % (11.5-15.5); WBC 7.4 k/uL (3.8-10.6)
[2020-09-05 13:22] LABS: Glucose,Whole Blood 153 mg/dL (75-99)
[2020-09-05 13:32] LABS: ALT 32 U/L (4-34); AST 23 U/L (14-36); African American GFR (CKD) >90 (>60 ml/min/1.73 sqM); Albumin 4.8 g/dL (3.5-5.0); Alkaline Phosphatase 87 U/L (38-126); Anion Gap 10 mmol/L; Blood Urea Nitrogen 15 mg/dL (7-17); Calcium 10.6 mg/dL (8.4-10.2); Carbon Dioxide 31 mmol/L (22-30); Chloride 98 mmol/L (98-107); Glucose 148 mg/dL (74-99); Non-African American GFR(CKD) >90 (>60 ml/min/1.73 sqM); Potassium 3.4 mmol/L (3.5-5.1); Sodium 139 mmol/L (137-145); Total Bilirubin 0.3 mg/dL (0.2-1.3)
[2020-09-05 13:35] LABS: Appearance,Urine Cloudy (Clear); Bacteria,Urine Rare /hpf; Bilirubin,Urine Negative (Negative); Blood,Urine Negative (Negative); Color,Urine Yellow; Glucose,Urine (UA) 3+ (Negative); Ketones,Urine Negative (Negative); Leukocyte Esterase,Urine Trace (Negative); Mucus,Urine Many /hpf; Nitrite,Urine Negative (Negative); PH, Urine 7.5 (5.0-8.0); Protein,Urine 1+ (Negative); RBC,Urine 1 /hpf (0-5); Specific Gravity,Urine 1.038 (1.001-1.035); Squamous Epithelial Cell,Urine 6 /hpf (0-4); WBC,Urine 3 /hpf (0-5)
[2020-09-05 15:09] VITALS: BP 151/94; PULSE 94; TEMP 97.9
== END 2020-09-05 15:09 | disposition home or self-care (01) ==
LOC: EC 12:33
DX: I95.1 Orthostatic hypotension (principal); R10.30 Lower abdominal pain, unspecified; I10 Essential (primary) hypertension; E11.9 Type 2 diabetes mellitus without complications; J45.909 Unspecified asthma, uncomplicated; F41.9 Anxiety disorder, unspecified; F32.9 Major depressive disorder, single episode, unspecified; F17.200 Nicotine dependence, unspecified, uncomplicated; Z79.899 Other long term (current) drug therapy; Z79.4 Long term (current) use of insulin; Z91.040 Latex allergy status; Z88.8 Allergy status to other drugs, medicaments and biological substances; Z90.49 Acquired absence of other specified parts of digestive tract
CPT/HCPCS: 36415; 80053; 81001; 82009; 83605; 85027; 96360; 96361; 99284

== ENCOUNTER 2020-11-25 15:44 | Emergency (ER) | payer OTHER ==
[2020-11-25 16:06] VITALS: RESP 18; TEMP 97.5
[2020-11-25] MEDS ORDERED: SODIUM CHLORIDE 0.9% 1,000 ML IV STA (16:09)
[2020-11-25] MEDS ORDERED: ONDANSETRON 4 MG/2 ML VIAL IVP STA (16:17)
[2020-11-25 16:38] LABS: Basophils # (A) 0.1 k/uL (0-0.2); Basophils % (A) 1 %; Eosinophils # (A) 0.1 k/uL (0-0.7); Eosinophils % (A) 1 %; HCT 42.4 % (34.0-46.0); HGB 14.1 gm/dL (11.4-16.0); Lymphocytes # (A) 2.4 k/uL (1.0-4.8); Lymphocytes % (A) 25 %; MCH 27.9 pg (25.0-35.0); MCHC 33.2 g/dL (31.0-37.0); Mean Platelet Volume 7.5; Monocytes # (A) 0.5 k/uL (0-1.0); Monocytes % (A) 5 %; Neutrophils # (A) 6.2 k/uL (1.3-7.7); Neutrophils % (A) 66 %; Platelet Count 415 k/uL (150-450); RBC 5.05 m/uL (3.80-5.40); RDW 13.4 % (11.5-15.5); WBC 9.4 k/uL (3.8-10.6)
[2020-11-25 16:46] LABS: Appearance,Urine Clear (Clear); Bilirubin,Urine Negative (Negative); Blood,Urine Negative (Negative); Color,Urine Light Yellow; Glucose,Urine (UA) 4+ (Negative); Ketones,Urine Trace (Negative); Leukocyte Esterase,Urine Negative (Negative); Nitrite,Urine Negative (Negative); Protein,Urine Negative (Negative); Specific Gravity,Urine 1.039 (1.001-1.035); Urobilinogen,Urine <2.0 mg/dL (<2.0)
[2020-11-25 16:48] LABS: ALT 19 U/L (4-34); AST 21 U/L (14-36); African American GFR (CKD) >90 (>60 ml/min/1.73 sqM); Albumin 4.6 g/dL (3.5-5.0); Alkaline Phosphatase 93 U/L (38-126); Amylase 76 U/L (30-110); Anion Gap 10 mmol/L; Blood Urea Nitrogen 13 mg/dL (7-17); Calcium 10.7 mg/dL (8.4-10.2); Carbon Dioxide 27 mmol/L (22-30); Chloride 98 mmol/L (98-107); Glucose 365 mg/dL (74-99); Lipase 103 U/L (23-300); Magnesium 1.6 mg/dL (1.6-2.3); Non-African American GFR(CKD) >90 (>60 ml/min/1.73 sqM); Potassium 3.4 mmol/L (3.5-5.1); Sodium 135 mmol/L (137-145); Total Bilirubin 0.3 mg/dL (0.2-1.3); Total Protein 7.6 g/dL (6.3-8.2)
--- NOTE | 2020-11-25 16:49 | XR ---
EXAMINATION TYPE: XR KUB DATE OF EXAM: 11/25/2020 4:42 PM CLINICAL HISTORY: Nausea for 5 days. TECHNIQUE: Two Upright KUB images of the abdomen are obtained. COMPARISON: Abdominal x-ray May 22, 2020. FINDINGS: Scattered gas is seen in non-distended stomach and small bowel loops. Gas and fecal materia l is seen in non-distended colon. Some prominence of fecal material in the right colon on current ward dy. Cholecystectomy clips redemonstrated including displaced clip within the right lower quadrant lat erally. No free air. Lung bases are clear. [id number] disc space narrowing and spurring right L 4-L5 level redemonstrated. IMPRESSION: Overall nonobstructive bowel gas pattern. Possible [id number] proximal colonic fecal stasis on current study, correlate clinically.
--- NOTE | 2020-11-25 16:59 | ED ---
Nausea/Vomiting/Diarrhea HPI - General Chief complaint: Nausea/Vomiting/Diarrhea Stated complaint: diabetic/nausea Time Seen by Provider: 11/25/20 16:09 Source: patient, RN notes reviewed Mode of arrival: ambulatory Limitations: no limitations - History of Present Illness Initial comments: Patient is a 45-year-old female that presents to emergency room with nausea 4 days. She notes that she has not vomited but just feeling under the weather. She notes that she recently started seeing dramatic teacher and try to get her sugars under control. She notes that sometimes the nausea is worsen with positional changes such as standing up moving around. She notes that she has a job interview tomorrow so she wanted to come in to find out what was wrong. She denied any recent trauma or injuries. She was well-appearing and well-hydrated while sitting up in bed during exam and interview. She noted that she took her insulin before arriving to the ER. A she does note that she had a history of pancreatitis due to a diabetic injectable medication approximately 3-4 years ago but has since not had any episodes. She denied any chest pain shortness of breath headache vomiting diarrhea fever fatigue chills. - Related Data Home Medications Medication Instructions Recorded Confirmed ARIPiprazole [Abilify] 10 mg PO DAILY 03/30/19 11/21/20 Metoclopramide [Reglan] 5 mg PO QID PRN 03/30/19 11/21/20 Chlorthalidone 25 mg PO DAILY 08/08/19 11/21/20 Albuterol Inhaler [Ventolin Hfa 2 puff INHALATION RT-QID PRN 01/30/20 11/21/20 Inhaler] INSULIN LISPRO (HumaLOG) [humaLOG] See Protocol SQ AC-TID 01/30/20 11/21/20 Insulin Glargine,Hum.rec.anlog 25 unit SQ BID 01/30/20 11/21/20 [Lantus Solostar] Phentermine HCl [Adipex-P] 37.5 mg PO DAILY 01/30/20 11/21/20 cloNIDine HCL [Catapres] 0.1 mg PO BID PRN 01/30/20 11/21/20 ondansetron HCL [Zofran] 8 mg PO TID PRN 01/30/20 11/21/20 traMADol HCL 50 mg PO TID PRN 01/30/20 11/21/20 Acetaminophen Tab [Tylenol Tab] 1,000 mg PO Q6HR PRN 05/22/20 11/21/20 Famotidine [Pepcid AC] 10 mg PO DAILY 05/22/20 11/21/20 ARIPiprazole [Abilify] 10 mg PO DAILY 11/21/20 11/21/20 Vilazodone HCl [Viibryd] 20 mg PO DAILY 11/21/20 11/21/20 Allergies Allergy/AdvReac Type Severity Reaction Status Date / Time latex Allergy Rash/Hives Verified 11/25/20 16:03 carisoprodol [From Soma] AdvReac PASSES OUT Verified 11/25/20 16:03 Review of Systems ROS Statement: Those systems with pertinent positive or pertinent negative responses have been documented in the HPI. ROS Other: All systems not noted in ROS Statement are negative. Past Medical History Past Medical History: Asthma, Diabetes Mellitus, Hypertension Additional Past Medical History / Comment(s): states had a seizure at age 5, was in coma, ?meningitis, was on seizure meds until age 12, none since then. DDD, History of Any Multi-Drug Resistant Organisms: None Reported Past Surgical History: Breast Surgery, Cholecystectomy Additional Past Surgical History / Comment(s): Left facial/ sinus surgery, colonoscopy 2014, Lt breast bx-neg, EGD, has had epidurals in past Past Anesthesia/Blood Transfusion Reactions: Motion Sickness, Postoperative Nausea & Vomiting (PONV) Additional Past Anesthesia/Blood Transfusion Reaction / Comment(s): motion sickness when on air planes Past Psychological History: Anxiety, Depression Smoking Status: Current every day smoker - Past Family History Father Family Medical History: Cancer, Seizure Disorder Additional Family Medical History / Comment(s): Colon cancer. 2 paternal aunts and paternal grandmother had breast cancer. Mother Family Medical History: Asthma, Hypertension, Liver Disease Additional Family Medical History / Comment(s): EtOH abuse. Maternal grandmother had leukemia. General Exam Limitations: no limitations General appearance: alert, in no apparent distress Head exam: Present: atraumatic, normocephalic, normal inspection Eye exam: Present: normal appearance, PERRL, EOMI. Absent: scleral icterus, conjunctival injection, periorbital swelling Neck exam: Present: normal inspection Respiratory exam: Present: normal lung sounds bilaterally. Absent: respiratory distress, wheezes, rales, rhonchi, stridor Cardiovascular Exam: Present: regular rate, normal rhythm, normal heart sounds. Absent: systolic murmur, diastolic murmur, rubs, gallop, clicks GI/Abdominal exam: Present: soft, normal bowel sounds, other (Discomfort in the upper left quadrant). Absent: distended, tenderness, guarding, rebound, rigid Extremities exam: Present: normal inspection, full ROM, normal capillary refill. Absent: tenderness, pedal edema, joint swelling, calf tenderness Neurological exam: Present: alert, oriented X3, CN II-XII intact Psychiatric exam: Present: normal affect, normal mood Skin exam: Present: warm, dry, intact, normal color. Absent: rash Course Vital Signs 11/25/20 16:03 Temperature 97.5 F L Pulse Rate 68 Respiratory 18 Rate Blood Pressure 128/76 O2 Sat by Pulse 97 Oximetry Medical Decision Making - Medical Decision Making 45-year-old female complaining of nausea for 4 days. Labs, 1 L normal saline, KUB, 4 mg of Zofran ordered. Labs: Sodium 135, potassium 3.4 glucose 365, urine glucose 4+ with trace ketones, negative acetone. Case discussed with Dr. Garcia, patient can discharge home with follow-up to her dramatic teacher. - Lab Data Result diagrams: 11/25/20 16:24 11/25/20 16:24 Lab Results 11/25/20 11/25/20 11/25/20 Range/Units 16:24 16:24 16:24 WBC 9.4 (3.8-10.6) k/uL RBC 5.05 (3.80-5.40) m/uL Hgb 14.1 (11.4-16.0) gm/dL Hct 42.4 (34.0-46.0) % MCV 84.0 (80.0-100.0) fL MCH 27.9 (25.0-35.0) pg MCHC 33.2 (31.0-37.0) g/dL RDW 13.4 (11.5-15.5) % Plt Count 415 (150-450) k/uL MPV 7.5 Neutrophils % 66 % Lymphocytes % 25 % Monocytes % 5 % Eosinophils % 1 % Basophils % 1 % Neutrophils # 6.2 (1.3-7.7) k/uL Lymphocytes # 2.4 (1.0-4.8) k/uL Monocytes # 0.5 (0-1.0) k/uL Eosinophils # 0.1 (0-0.7) k/uL Basophils # 0.1 (0-0.2) k/uL Sodium 135 L (137-145) mmol/L Potassium 3.4 L (3.5-5.1) mmol/L Chloride 98 (98-107) mmol/L Carbon Dioxide 27 (22-30) mmol/L Anion Gap 10 mmol/L BUN 13 (7-17) mg/dL Creatinine 0.67 (0.52-1.04) mg/dL Est GFR (CKD-EPI)AfAm >90 (>60 ml/min/1.73 sqM) Est GFR (CKD-EPI)NonAf >90 (>60 ml/min/1.73 sqM) Glucose 365 H (74-99) mg/dL Calcium 10.7 H (8.4-10.2) mg/dL Magnesium 1.6 (1.6-2.3) mg/dL Total Bilirubin 0.3 (0.2-1.3) mg/dL AST 21 (14-36) U/L ALT 19 (4-34) U/L Alkaline Phosphatase 93 (38-126) U/L Total Protein 7.6 (6.3-8.2) g/dL Albumin 4.6 (3.5-5.0) g/dL Amylase 76 (30-110) U/L Lipase 103 (23-300) U/L Urine Color Light Yellow Urine Appearance Clear (Clear) Urine pH 6.0 (5.0-8.0) Ur Specific [place] 1.039 H (1.001-1.035) Urine Protein Negative (Negative) Urine Glucose (UA) 4+ H (Negative) Urine Ketones Trace H (Negative) Urine Blood Negative (Negative) Urine Nitrite Negative (Negative) Urine Bilirubin Negative (Negative) Urine Urobilinogen <2.0 (<2.0) mg/dL Ur Leukocyte Esterase Negative (Negative) Acetone, Qual Negative (Negative) - Radiology Data Radiology results: report reviewed, image reviewed KUB: Overall nonobstructive bowel gas pattern. Possible mild to moderate proximal colonic fecal stasis on current studies correlate clinically. Disposition Clinical Impression: Nausea, Diabetes Disposition: HOME SELF-CARE Condition: Stable Instructions (If sedation given, give patient instructions): Acute Nausea and Vomiting (ED) Additional Instructions: Please return to the Emergency Department if symptoms worsen or any other concerns. Continue to follow-up with dramatic teacher for diabetes management. Continue take at home medications as prescribed. Increase oral fluid intake and eat food as tolerated. Is patient prescribed a controlled substance at d/c from ED?: No Referrals: Lee Enriquez MD [Primary Care Provider] - 1-2 days Time of Disposition: 17:16
[2020-11-25 17:41] VITALS: BP 119/74; PULSE 70
== END 2020-11-25 17:40 | disposition home or self-care (01) ==
LOC: EC 15:44
DX: R11.0 Nausea (principal); E11.9 Type 2 diabetes mellitus without complications; J45.909 Unspecified asthma, uncomplicated; I10 Essential (primary) hypertension; G43.909 Migraine, unspecified, not intractable, without status migrainosus; F41.9 Anxiety disorder, unspecified; F32.9 Major depressive disorder, single episode, unspecified; F17.200 Nicotine dependence, unspecified, uncomplicated; Z79.4 Long term (current) use of insulin; Z79.51 Long term (current) use of inhaled steroids
CPT/HCPCS: 36415; 80053; 82150; 82009; 83690; 83735; 85025; 81003; 74018; 99283; 96374; J2405

== ENCOUNTER → 2020-12-13 | Outpatient (CLI) | payer OTHER ==
--- NOTE | 2020-12-17 09:09 | MM ---
Reason for exam: additional evaluation requested from prior study. Last mammogram was performed 1 year and 4 months ago. History: Family history of breast cancer in paternal grandmother at age 70, breast cancer in maternal aunt at age 52, and breast cancer in paternal aunt at age 52. Benign US biopsy breast VAD LT of the left breast, April 26, 2014. Benign US biopsy breast add'l VAD LT of the left breast, April 26, 2014. Took hormonal contraceptives for 2 years beginning at age 18. Physical Findings: Nurse did not find any significant physical abnormalities on exam. MG Diagnostic Mammo w CAD SAM Bilateral CC, MLO, and XCCL view(s) were taken. ML, spot compression CC, and spot compression MLO view(s) were taken of the right breast. LM view(s) were taken of the left breast. Prior study comparison: August 08, 2019, bilateral MG screening mammo w CAD. May 25, 2018, bilateral MG screening mammo w CAD. The breast tissue is heterogeneously dense. This may lower the sensitivity of mammography. These results were verbally communicated with the patient and result sheet given to the patient on 12/13/20. ASSESSMENT: Incomplete: need additional imaging evaluation, BI-RAD 0 RECOMMENDATION: Ultrasound of the left breast. (whole breast per last order)
--- NOTE | 2020-12-17 09:11 | USB ---
Reason for exam: additional evaluation requested from abnormal screening. History: Family history of breast cancer in paternal grandmother at age 70, breast cancer in maternal aunt at age 52, and breast cancer in paternal aunt at age 52. Benign US biopsy breast VAD LT of the left breast, April 26, 2014. Benign US biopsy breast add'l VAD LT of the left breast, April 26, 2014. Took hormonal contraceptives for 2 years beginning at age 18. US Breast LT Left complete breast ultrasound includes all four quadrants, the retroareolar region and axilla. Finding demonstrates a 8 x 3 x 5mm oval, hypoechoic lymph node at 2 o'clock, a 5 x 3 x 4mm oval, hypoechoic lymph node at 3 o'clock, a 2 x 2 x 3mm cystic lesion too small to characterize at 6 o'clock and a 3 x 2 x 3mm cystic lesion too small to characterize at 7 o'clock. These results were verbally communicated with the patient and result sheet given to the patient on 12/13/20. ASSESSMENT: Probably benign, BI-RAD 3 RECOMMENDATION: Ultrasound of the left breast in 6 months.
== END | disposition home or self-care (01) ==
LOC: RADMAMWWP 12:58
PROVIDERS: ATTEND Family Medicine
DX: N60.02 Solitary cyst of left breast (principal); Z80.3 Family history of malignant neoplasm of breast
CPT/HCPCS: 77066

== ENCOUNTER 2021-02-12 09:42 | Emergency (ER) | payer OTHER ==
[2021-02-12 09:50] VITALS: RESP 18; TEMP 98
[2021-02-12] MEDS ORDERED: KETOROLAC 15 MG/ML 1 ML VIAL IVP STA (10:11)
--- NOTE | 2021-02-12 10:54 | ED ---
General Adult HPI - General Chief complaint: Abdominal Pain Stated complaint: Abdominal Pain/Vaginal Bleeding Time Seen by Provider: 02/12/21 09:53 Source: patient Mode of arrival: ambulatory Limitations: no limitations - History of Present Illness Initial comments: Patient is a 45-year-old female with history of diabetes, hypertension, anxiety, presenting to the emergency Department with complaints of heavy vaginal bleeding over the past month as well as increase in her cramping. Patient states she normally has regular menstrual cycles every month however this months she has had 3 separate cycles. She started bleeding again yesterday, and continues to have abdominal cramping. She states she's been taking Aleve for the cramping which does help but she is getting concerned that she has been taking this on month for the cramping. She tried to get in to her GENERATION TECHNOLOGIST's office but forgot about the appointment and missed it. She denies any fevers or chills, no vaginal discharge other than the bleeding, no dysuria. He denies any chest pain or shortness of breath, no upper abdominal pain. She admits to history of cholecystectomy, no other abdominal surgeries. She denies being secondary to her having a vasectomy. She has no further complaints at this time. - Related Data Home Medications Medication Instructions Recorded Confirmed Metoclopramide [Reglan] 5 mg PO QID PRN 03/30/19 02/12/21 Chlorthalidone 25 mg PO DAILY 08/08/19 02/12/21 INSULIN LISPRO (HumaLOG) [humaLOG] See Protocol SQ AC-TID 01/30/20 02/12/21 Insulin Glargine,Hum.rec.anlog 50 unit SQ BID 01/30/20 02/12/21 [Lantus Solostar] Phentermine HCl [Adipex-P] 37.5 mg PO DAILY 01/30/20 02/12/21 ondansetron HCL [Zofran] 8 mg PO TID PRN 01/30/20 02/12/21 traMADol HCL 50 mg PO TID PRN 01/30/20 02/12/21 ARIPiprazole [Abilify] 10 mg PO DAILY 11/21/20 02/12/21 Vilazodone HCl [Viibryd] 20 mg PO DAILY 11/21/20 02/12/21 Buta/APAP/Caf/Cod 87-806-48-30 1 cap PO DAILY PRN 02/12/21 02/12/21 [Fioricet w/Cod [id number]] Cephalexin [Keflex] 500 mg PO Q6HR 02/12/21 02/12/21 LORazepam [Ativan] 0.5 mg PO BID PRN 02/12/21 02/12/21 Allergies Allergy/AdvReac Type Severity Reaction Status Date / Time latex Allergy Rash/Hives Verified 02/12/21 11:41 carisoprodol [From Soma] AdvReac PASSES OUT Verified 02/12/21 11:41 Review of Systems ROS Statement: Those systems with pertinent positive or pertinent negative responses have been documented in the HPI. ROS Other: All systems not noted in ROS Statement are negative. Past Medical History Past Medical History: Asthma, Diabetes Mellitus, Hypertension Additional Past Medical History / Comment(s): states had a seizure at age 5, was in coma, ?meningitis, was on seizure meds until age 12, none since then. DDD, History of Any Multi-Drug Resistant Organisms: None Reported Past Surgical History: Breast Surgery, Cholecystectomy Additional Past Surgical History / Comment(s): Left facial/ sinus surgery, colonoscopy 2014, Lt breast bx-neg, EGD, has had epidurals in past Past Anesthesia/Blood Transfusion Reactions: Motion Sickness, Postoperative Nausea & Vomiting (PONV) Additional Past Anesthesia/Blood Transfusion Reaction / Comment(s): motion sickn ess when on air planes Past Psychological History: Anxiety, Depression Smoking Status: Current every day smoker Past Alcohol Use History: Occasional Past Drug Use History: None Reported - Past Family History Father Family Medical History: Cancer, Seizure Disorder Additional Family Medical History / Comment(s): Colon cancer. 2 paternal aunts and paternal grandmother had breast cancer. Mother Family Medical History: Asthma, Hypertension, Liver Disease Additional Family Medical History / Comment(s): EtOH abuse. Maternal grandmother had leukemia. General Exam - General Exam Comments Initial Comments: GENERAL: Patient is well-developed and well-nourished. Patient is nontoxic and in no acute distress. HEAD: Atraumatic, normocephalic. EYES: Pupils equal round and reactive to light, extraocular movements intact, sclera anicteric, conjunctiva are normal. Eyelids were unremarkable. ENT: Nares patent, oropharynx clear without exudates. Moist mucous membranes. NECK: Normal range of motion, supple without lymphadenopathy or JVD. LUNGS: Unlabored respirations. Breath sounds clear to auscultation bilaterally and equal. No wheezes rales or rhonchi. HEART: Regular rate and rhythm without murmurs, rubs or gallops. ABDOMEN: Soft, mild lower abdominal tenderness, lower pelvis region, normoactive bowel sounds. No guarding, no rebound. No masses appreciated. : Deferred MUSCULOSKELETAL: Normal extremities with adequate strength and normal range of motion, no pitting or edema. No clubbing or cyanosis. NEUROLOGICAL: Patient is alert and oriented x 3. SKIN: Warm, Dry, normal turgor, no rashes or lesions noted. Limitations: no limitations Course Vital Signs 02/12/21 09:48 Temperature 98 F Pulse Rate 110 H Respiratory 18 Rate Blood Pressure 159/101 O2 Sat by Pulse 99 Oximetry Medical Decision Making - Medical Decision Making Patient is a 45-year-old female here with complaints of having 3 menstrual cycles this month as well as increase in her cramping. She missed her appointment with her GENERATION TECHNOLOGIST. She denies any fevers, no further complaints. Labs are within normal limits except elevated glucose at 210. She is a d iabetic, takes insulin. Urine shows no evidence of infection, large amount of blood, hCG is not detected. Ultrasound shows no evidence for ovarian torsion, small right ovarian cyst present. Patient was given some Toradol and some fluids today. She's been resting comfortably, fell asleep. I discussed these findings with her. Recommended following up with her GENERATION TECHNOLOGIST. She is agreeable to this plan of care and is stable for discharge. Case discussed with Dr. David. - Lab Data Result diagrams: 02/12/21 10:26 02/12/21 10:26 Lab Results 02/12/21 02/12/21 02/12/21 Range/Units 10:26 10:26 10:26 WBC 7.3 (3.8-10.6) k/uL RBC 4.47 (3.80-5.40) m/uL Hgb 12.3 (11.4-16.0) gm/dL Hct 38.0 (34.0-46.0) % MCV 85.0 (80.0-100.0) fL MCH 27.5 (25.0-35.0) pg MCHC 32.3 (31.0-37.0) g/dL RDW 14.6 (11.5-15.5) % Plt Count 344 (150-450) k/uL MPV 7.8 Neutrophils % 65 % Lymphocytes % 27 % Monocytes % 6 % Eosinophils % 1 % Basophils % 0 % Neutrophils # 4.7 (1.3-7.7) k/uL Lymphocytes # 2.0 (1.0-4.8) k/uL Monocytes # 0.4 (0-1.0) k/uL Eosinophils # 0.1 (0-0.7) k/uL Basophils # 0.0 (0-0.2) k/uL Sodium (137-145) mmol/L Potassium (3.5-5.1) mmol/L Chloride (98-107) mmol/L Carbon Dioxide (22-30) mmol/L Anion Gap mmol/L BUN (7-17) mg/dL Creatinine (0.52-1.04) mg/dL Est GFR (CKD-EPI)AfAm (>60 ml/min/1.73 sqM) Est GFR (CKD-EPI)NonAf (>60 ml/min/1.73 sqM) Glucose (74-99) mg/dL Calcium (8.4-10.2) mg/dL Total Bilirubin (0.2-1.3) mg/dL AST (14-36) U/L ALT (4-34) U/L Alkaline Phosphatase (38-126) U/L Total Protein (6.3-8.2) g/dL Albumin (3.5-5.0) g/dL Urine Color Red Urine Appearance Cloudy H (Clear) Urine pH 7.5 (5.0-8.0) Ur Specific [place] 1.023 (1.001-1.035) Urine Protein 1+ H (Negative) Urine Glucose (UA) 3+ H (Negative) Urine Ketones Negative (Negative) Urine Blood Large H (Negative) Urine Nitrite Negative (Negative) Urine Bilirubin Negative (Negative) Urine Urobilinogen <2.0 (<2.0) mg/dL Ur Leukocyte Esterase Small H (Negative) Urine RBC >182 H (0-5) /hpf Urine WBC 12 H (0-5) /hpf Ur Squamous Epith Cells 2 (0-4) /hpf Urine Mucus Few H (None) /hpf Urine HCG, Qual Not Detected (Not Detectd) 02/12/21 Range/Units 10:26 WBC (3.8-10.6) k/uL RBC (3.80-5.40) m/uL Hgb (11.4-16.0) gm/dL Hct (34.0-46.0) % MCV (80.0-100.0) fL MCH (25.0-35.0) pg MCHC (31.0-37.0) g/dL RDW (11.5-15.5) % Plt Count (150-450) k/uL MPV Neutrophils % % Lymphocytes % % Monocytes % % Eosinophils % % Basophils % % Neutrophils # (1.3-7.7) k/uL Lymphocytes # (1.0-4.8) k/uL Monocytes # (0-1.0) k/uL Eosinophils # (0-0.7) k/uL Basophils # (0-0.2) k/uL Sodium 135 L (137-145) mmol/L Potassium 3.6 (3.5-5.1) mmol/L Chloride 101 (98-107) mmol/L Carbon Dioxide 25 (22-30) mmol/L Anion Gap 9 mmol/L BUN 19 H (7-17) mg/dL Creatinine 0.58 (0.52-1.04) mg/dL Est GFR (CKD-EPI)AfAm >90 (>60 ml/min/1.73 sqM) Est GFR (CKD-EPI)NonAf >90 (>60 ml/min/1.73 sqM) Glucose 210 H (74-99) mg/dL Calcium 9.2 (8.4-10.2) mg/dL Total Bilirubin 0.3 (0.2-1.3) mg/dL AST 28 (14-36) U/L ALT 41 H (4-34) U/L Alkaline Phosphatase 91 (38-126) U/L Total Protein 6.5 (6.3-8.2) g/dL Albumin 3.8 (3.5-5.0) g/dL Urine Color Urine Appearance (Clear) Urine pH (5.0-8.0) Ur Specific [place] (1.001-1.035) Urine Protein (Negative) Urine Glucose (UA) (Negative) Urine Ketones (Negative) Urine Blood (Negative) Urine Nitrite (Negative) Urine Bilirubin (Negative) Urine Urobilinogen (<2.0) mg/dL Ur Leukocyte Esterase (Negative) Urine RBC (0-5) /hpf Urine WBC (0-5) /hpf Ur Squamous Epith Cells (0-4) /hpf Urine Mucus (None) /hpf Urine HCG, Qual (Not Detectd) Disposition Clinical Impression: Dysfunctional uterine bleeding Disposition: HOME SELF-CARE Condition: Stable Instructions (If sedation given, give patient instructions): Dysfunctional Uterine Bleeding (ED) Additional Instructions: Please return to the Emergency Department if symptoms worsen or any other concerns. Recommend following up with GENERATION TECHNOLOGIST. May take Tylenol and/or Motrin for discomfort. Is patient prescribed a controlled substance at d/c from ED?: No Referrals: Lee Enriquez MD [Primary Care Provider] - 1-2 days Time of Disposition: 12:03
[2021-02-12 11:07] LABS: Basophils % (A) 0 %; Eosinophils # (A) 0.1 k/uL (0-0.7); Eosinophils % (A) 1 %; HGB 12.3 gm/dL (11.4-16.0); Lymphocytes % (A) 27 %; MCH 27.5 pg (25.0-35.0); MCHC 32.3 g/dL (31.0-37.0); Mean Platelet Volume 7.8; Monocytes # (A) 0.4 k/uL (0-1.0); Monocytes % (A) 6 %; Neutrophils # (A) 4.7 k/uL (1.3-7.7); Neutrophils % (A) 65 %; Platelet Count 344 k/uL (150-450); RBC 4.47 m/uL (3.80-5.40); RDW 14.6 % (11.5-15.5); WBC 7.3 k/uL (3.8-10.6)
[2021-02-12 11:24] LABS: ALT 41 U/L (4-34); AST 28 U/L (14-36); African American GFR (CKD) >90 (>60 ml/min/1.73 sqM); Albumin 3.8 g/dL (3.5-5.0); Alkaline Phosphatase 91 U/L (38-126); Anion Gap 9 mmol/L; Blood Urea Nitrogen 19 mg/dL (7-17); Calcium 9.2 mg/dL (8.4-10.2); Carbon Dioxide 25 mmol/L (22-30); Chloride 101 mmol/L (98-107); Glucose 210 mg/dL (74-99); Non-African American GFR(CKD) >90 (>60 ml/min/1.73 sqM); Potassium 3.6 mmol/L (3.5-5.1); Sodium 135 mmol/L (137-145); Total Bilirubin 0.3 mg/dL (0.2-1.3); Total Protein 6.5 g/dL (6.3-8.2)
[2021-02-12 11:30] LABS: Appearance,Urine Cloudy (Clear); Bilirubin,Urine Negative (Negative); Blood,Urine Large (Negative); Color,Urine Red; Glucose,Urine (UA) 3+ (Negative); Ketones,Urine Negative (Negative); Leukocyte Esterase,Urine Small (Negative); Mucus,Urine Few /hpf; Nitrite,Urine Negative (Negative); PH, Urine 7.5 (5.0-8.0); Protein,Urine 1+ (Negative); RBC,Urine >182 /hpf (0-5); Specific Gravity,Urine 1.023 (1.001-1.035); Squamous Epithelial Cell,Urine 2 /hpf (0-4); Urobilinogen,Urine <2.0 mg/dL (<2.0); WBC,Urine 12 /hpf (0-5)
--- NOTE | 2021-02-12 11:32 | US ---
EXAMINATION TYPE: US transvaginal plus Dopplers DATE OF EXAM: 02/12/2021 COMPARISON: NONE CLINICAL HISTORY: 45-year-old female 3 periods this month/pain. 3 cycles in January, right pelvic pain, TECHNIQUE: Transvaginal sonographic images . Color Doppler and spectral waveform analysis of the ovar jossue arteries and veins. Date of LMP: multiple since January FINDINGS: EXAM MEASUREMENTS: Uterus: 7.9 x 5.4 x 4.5 cm Endometrial Stripe: 0.6 cm Right Ovary: 3.3 x 2.2 x 1.7 cm for a volume of 6.8 mL. Left Ovary: 3.3 x 1.7 x 1.8 cm for a volume of 5.5 mL. 1. Uterus: Anteverted and otherwise wnl. Small 5 mm posterior cervical nabothian cyst. 2. Endometrium: wnl 3. Right Ovary: dominate follicle versus 1.6cm 4. Left Ovary: wnl, situated posterior to the uterus limiting spectral Doppler assessment. The ovary itself is normal in size. Spectral, color and waveform doppler imaging shows good arterial and venous flow within the right o vary; there is no evidence for ovarian torsion. 5. Bilateral Adnexa: wnl 6. Posterior cul-de-sac: wnl IMPRESSION: 1. Endometrial stripe measuring 6 mm, within normal limits. 2. No evidence for ovarian torsion on the right. Unable to assess the left ovary with spectral Dopple r due to positioning behind the uterus. However, the normal size and morphology argues against ovaria n torsion. 3. A 1.6 cm dominant follicle or functional cyst of the right ovary.
[2021-02-12 12:28] VITALS: BP 122/78; PULSE 80
== END 2021-02-12 12:25 | disposition home or self-care (01) ==
LOC: EC 09:42
DX: N93.8 Other specified abnormal uterine and vaginal bleeding (principal); N83.201 Unspecified ovarian cyst, right side; E11.9 Type 2 diabetes mellitus without complications; I10 Essential (primary) hypertension; J45.909 Unspecified asthma, uncomplicated; F32.9 Major depressive disorder, single episode, unspecified; F41.9 Anxiety disorder, unspecified; F17.200 Nicotine dependence, unspecified, uncomplicated; Z91.040 Latex allergy status; Z79.4 Long term (current) use of insulin; Z90.49 Acquired absence of other specified parts of digestive tract
CPT/HCPCS: 99284; 96374; 36415; 80053; 85025; 81001; 81025; 87086; 93976; 76830; J1885

== ENCOUNTER 2021-02-23 20:35 | Emergency (ER) | payer OTHER ==
[2021-02-23 20:40] VITALS: TEMP 98.6
[2021-02-23 20:42] LABS: Glucose,Whole Blood 416 mg/dL (75-99)
[2021-02-23] MEDS ORDERED: KETOROLAC 15 MG/ML 1 ML VIAL IVP STA (20:45)
[2021-02-23] MEDS ORDERED: SODIUM CHLORIDE 0.9% 1,000 ML IV STA (20:45)
[2021-02-23] MEDS ORDERED: TRIMETHOBENZAMIDE 100 MG/ML 2 ML VIAL IM STA (20:52)
--- NOTE | 2021-02-23 20:56 | ED ---
General Adult HPI - General Chief complaint: Nausea/Vomiting/Diarrhea Stated complaint: Nausea; vomiting; achy Source: patient, RN notes reviewed, old records reviewed Mode of arrival: ambulatory Limitations: no limitations - History of Present Illness Initial comments: 45-year-old well-appearing white female, alert and oriented 4, presents to the emergency room with complaints of 10 days of not feeling well. She states for the past 2 days she's had some nausea and body aches with elevated blood glucose levels. She denies any fevers but states she has been taking Tylenol and Motrin around the clock. Denies any sick contacts and did get the Covid vaccine. She states that bodyaches are 7 out of 10 pain. She has been using her Reglan and Zofran at home with no relief from the nausea. She denies any cough or chest pain. She does have a history of asthma and uses albuterol only as needed. She does use insulin for her diabetes and also has history of hypertension. She is a smoker. Denies alcohol or drug use. -: days(s) (10) Radiation: non-radiation Severity scale (1-10): 7 Quality: aching Consistency: constant Improves with: none Worsens with: none Associated Symptoms: fever/chills, malaise ( body aches), nausea/vomiting, other Treatments Prior to Arrival: none - Related Data Home Medications Medication Instructions Recorded Confirmed Metoclopramide [Reglan] 5 mg PO QID PRN 03/30/19 02/23/21 Chlorthalidone 25 mg PO DAILY 08/08/19 02/23/21 INSULIN LISPRO (HumaLOG) [humaLOG] See Protocol SQ AC-TID 01/30/20 02/23/21 Insulin Glargine,Hum.rec.anlog 50 unit SQ BID 01/30/20 02/23/21 [Lantus Solostar] Phentermine HCl [Adipex-P] 37.5 mg PO DAILY 01/30/20 02/23/21 ondansetron HCL [Zofran] 8 mg PO TID PRN 01/30/20 02/23/21 traMADol HCL 50 mg PO TID PRN 01/30/20 02/23/21 ARIPiprazole [Abilify] 10 mg PO DAILY 11/21/20 02/23/21 Buta/APAP/Caf/Cod 35-213-23-30 1 cap PO DAILY PRN 02/12/21 02/23/21 [Fioricet w/Cod 98-149-97-30MG] LORazepam [Ativan] 0.5 mg PO DAILY 02/12/21 02/23/21 Vilazodone HCl [Viibryd] 40 mg PO DAILY 02/23/21 02/23/21 cloNIDine HCL 0.1 mg PO BID PRN 02/23/21 02/23/21 Allergies Allergy/AdvReac Type Severity Reaction Status Date / Time latex Allergy Rash/Hives Verified 02/23/21 20:40 carisoprodol [From Soma] AdvReac PASSES OUT Verified 02/23/21 20:40 Review of Systems ROS Statement: Those systems with pertinent positive or pertinent negative responses have been documented in the HPI. ROS Other: All systems not noted in ROS Statement are negative. Past Medical History Past Medical History: Asthma, Diabetes Mellitus, Hypertension Additional Past Medical History / Comment(s): states had a seizure at age 5, was in coma, ?meningitis, was on seizure meds until age 12, none since then. DDD, History of Any Multi-Drug Resistant Organisms: None Reported Past Surgical History: Breast Surgery, Cholecystectomy Additional Past Surgical History / Comment(s): Left facial/ sinus surgery, colonoscopy 2014, Lt breast bx-neg, EGD, has had epidurals in past Past Anesthesia/Blood Transfusion Reactions: Motion Sickness, Postoperative Nausea & Vomiting (PONV) Additional Past Anesthesia/Blood Transfusion Reaction / Comment(s): motion sickness when on air planes Past Psychological History: Anxiety, Depression Smoking Status: Current every day smoker Past Alcohol Use History: Occasional Past Drug Use History: None Reported - Past Family History Father Family Medical History: Cancer, Seizure Disorder Additional Family Medical History / Comment(s): Colon cancer. 2 paternal aunts and paternal grandmother had breast cancer. Mother Family Medical History: Asthma, Hypertension, Liver Disease Additional Family Medical History / Comment(s): EtOH abuse. Maternal grandmother had leukemia. General Exam Limitations: no limitations General appearance: alert, in no apparent distress Head exam: Present: atraumatic, normocephalic, normal inspection Eye exam: Present: normal appearance, PERRL, EOMI. Absent: scleral icterus, conjunctival injection, periorbital swelling Pupils: Present: normal accommodation ENT exam: Present: normal exam, normal oropharynx, mucous membranes moist Neck exam: Present: normal inspection, full ROM. Absent: tenderness, meningismus, lymphadenopathy Respiratory exam: Present: normal lung sounds bilaterally. Absent: respiratory distress, wheezes, rales, rhonchi, stridor, chest wall tenderness, accessory muscle use, decreased breath sounds, prolonged expiratory Cardiovascular Exam: Present: normal rhythm, tachycardia, normal heart sounds. Absent: systolic murmur, diastolic murmur, rubs, gallop, clicks, JVD GI/Abdominal exam: Present: soft, normal bowel sounds. Absent: distended, tenderness, guarding, rebound, rigid, mass Extremities exam: Present: normal inspection, full ROM, normal capillary refill. Absent: tenderness, pedal edema, joint swelling, calf tenderness Back exam: Present: normal inspection, full ROM. Absent: tenderness, CVA tenderness (R), CVA tenderness (L), muscle spasm, paraspinal tenderness, vertebral tenderness Neurological exam: Present: alert, oriented X3, CN II-XII intact, normal gait. Absent: motor sensory deficit Psychiatric exam: Present: normal affect, normal mood Skin exam: Present: warm, dry, intact, normal color. Absent: rash, cyanosis, diaphoretic, erythema, petechiae, pallor, mottled Course Vital Signs 02/23/21 02/23/21 02/23/21 20:37 23:00 23:56 Temperature 98.6 F Pulse Rate 110 H 72 85 Respiratory 20 16 Rate Blood Pressure 136/82 133/79 132/84 O2 Sat by Pulse 98 97 97 Oximetry EKG Findings - EKG Results: EKG: sinus rhythm (Ventricular rate 89, OK interval 0.132, QRS of 0.84, QTC of 0.472) Medical Decision Making - Medical Decision Making Chest x-ray shows normal heart and mediastinum, normal chest. Lungs clear with no sign of infiltrate. EKG shows sinus rhythm with no ectopy or ST elevation, troponin is negative at 0.012. Her glucose level is 387 and was given 1 L normal saline. WBC count is 8.8. Covid test was negative. Her abdomen is soft. She states that her nausea has resolved. Blood glucose down to 249, Cephid 4 panel negative. With complaints of 10 days of generalized body aches, this is likely a viral illness and she will be directed to follow up with Dr. Enriquez this week. Return to the emergency room with worsening symptoms including nausea vomiting or fevers. Patient is agreeable to discharge. Case discussed with Dr. Milligan. - Lab Data Result diagrams: 02/23/21 20:52 02/23/21 20:51 Lab Results 02/23/21 02/23/21 02/23/21 Range/Units 20:40 20:51 20:51 WBC (3.8-10.6) k/uL RBC (3.80-5.40) m/uL Hgb (11.4-16.0) gm/dL Hct (34.0-46.0) % MCV (80.0-100.0) fL MCH (25.0-35.0) pg MCHC (31.0-37.0) g/dL RDW (11.5-15.5) % Plt Count (150-450) k/uL MPV Neutrophils % % Lymphocytes % % Monocytes % % Eosinophils % % Basophils % % Neutrophils # (1.3-7.7) k/uL Lymphocytes # (1.0-4.8) k/uL Monocytes # (0-1.0) k/uL Eosinophils # (0-0.7) k/uL Basophils # (0-0.2) k/uL Sodium 135 L (137-145) mmol/L Potassium 3.7 (3.5-5.1) mmol/L Chloride 101 (98-107) mmol/L Carbon Dioxide 26 (22-30) mmol/L Anion Gap 8 mmol/L BUN 13 (7-17) mg/dL Creatinine 0.63 (0.52-1.04) mg/dL Est GFR (CKD-EPI)AfAm >90 (>60 ml/min/1.73 sqM) Est GFR (CKD-EPI)NonAf >90 (>60 ml/min/1.73 sqM) Glucose 387 H (74-99) mg/dL POC Glucose (mg/dL) 416 H (75-99) mg/dL POC Glu [employer] Rocco Sainz Plasma Lactic Acid Romeo 1.4 (0.7-2.0) mmol/L Calcium 9.2 (8.4-10.2) mg/dL Total Bilirubin 0.1 L (0.2-1.3) mg/dL AST 19 (14-36) U/L ALT 14 (4-34) U/L Alkaline Phosphatase 78 (38-126) U/L Troponin I (0.000-0.034) ng/mL Total Protein 6.6 (6.3-8.2) g/dL Albumin 4.0 (3.5-5.0) g/dL Amylase 89 (30-110) U/L Lipase 166 (23-300) U/L Urine Color Urine Appearance (Clear) Urine pH (5.0-8.0) Ur Specific [place] (1.001-1.035) Urine Protein (Negative) Urine Glucose (UA) (Negative) Urine Ketones (Negative) Urine Blood (Negative) Urine Nitrite (Negative) Urine Bilirubin (Negative) Urine Urobilinogen (<2.0) mg/dL Ur Leukocyte Esterase (Negative) Urine RBC (0-5) /hpf Urine WBC (0-5) /hpf Ur Squamous Epith Cells (0-4) /hpf Hyaline Casts (0-2) /lpf Urine Mucus (None) /hpf Urine HCG, Qual (Not Detectd) Coronavirus (PCR) (Not Detectd) Influenza Type A (PCR) (Not Detectd) Influenza Type B (PCR) (Not Detectd) RSV (PCR) (Not Detectd) SARS-CoV-2 (PCR) (Not Detectd) 02/23/21 02/23/21 02/23/21 Range/Units 20:52 20:52 20:52 WBC 8.8 (3.8-10.6) k/uL RBC 4.70 (3.80-5.40) m/uL Hgb 13.5 (11.4-16.0) gm/dL Hct 40.9 (34.0-46.0) % MCV 87.1 (80.0-100.0) fL MCH 28.8 (25.0-35.0) pg MCHC 33.1 (31.0-37.0) g/dL RDW 15.6 H (11.5-15.5) % Plt Count 399 (150-450) k/uL MPV 7.5 Neutrophils % 70 % Lymphocytes % 21 % Monocytes % 5 % Eosinophils % 2 % Basophils % 1 % Neutrophils # 6.1 (1.3-7.7) k/uL Lymphocytes # 1.8 (1.0-4.8) k/uL Monocytes # 0.5 (0-1.0) k/uL Eosinophils # 0.2 (0-0.7) k/uL Basophils # 0.1 (0-0.2) k/uL Sodium (137-145) mmol/L Potassium (3.5-5.1) mmol/L Chloride (98-107) mmol/L Carbon Dioxide (22-30) mmol/L Anion Gap mmol/L BUN (7-17) mg/dL Creatinine (0.52-1.04) mg/dL Est GFR (CKD-EPI)AfAm (>60 ml/min/1.73 sqM) Est GFR (CKD-EPI)NonAf (>60 ml/min/1.73 sqM) Glucose (74-99) mg/dL POC Glucose (mg/dL) (75-99) mg/dL POC Glu [employer] ID Plasma Lactic Acid Romeo (0.7-2.0) mmol/L Calcium (8.4-10.2) mg/dL Total Bilirubin (0.2-1.3) mg/dL AST (14-36) U/L ALT (4-34) U/L Alkaline Phosphatase (38-126) U/L Troponin I (0.000-0.034) ng/mL Total Protein (6.3-8.2) g/dL Albumin (3.5-5.0) g/dL Amylase (30-110) U/L Lipase (23-300) U/L Urine Color Yellow Urine Appearance Clear (Clear) Urine pH 5.5 (5.0-8.0) Ur Specific [place] 1.043 H (1.001-1.035) Urine Protein Negative (Negative) Urine Glucose (UA) 4+ H (Negative) Urine Ketones Negative (Negative) Urine Blood Negative (Negative) Urine Nitrite Negative (Negative) Urine Bilirubin Negative (Negative) Urine Urobilinogen <2.0 (<2.0) mg/dL Ur Leukocyte Esterase Small H (Negative) Urine RBC 2 (0-5) /hpf Urine WBC 7 H (0-5) /hpf Ur Squamous Epith Cells 9 H (0-4) /hpf Hyaline Casts 1 (0-2) /lpf Urine Mucus Rare H (None) /hpf Urine HCG, Qual Not Detected (Not Detectd) Coronavirus (PCR) (Not Detectd) Influenza Type A (PCR) (Not Detectd) Influenza Type B (PCR) (Not Detectd) RSV (PCR) (Not Detectd) SARS-CoV-2 (PCR) (Not Detectd) 02/23/21 02/23/21 02/23/21 Range/Units 20:52 20:52 21:37 WBC (3.8-10.6) k/uL RBC (3.80-5.40) m/uL Hgb (11.4-16.0) gm/dL Hct (34.0-46.0) % MCV (80.0-100.0) fL MCH (25.0-35.0) pg MCHC (31.0-37.0) g/dL RDW (11.5-15.5) % Plt Count (150-450) k/uL MPV Neutrophils % % Lymphocytes % % Monocytes % % Eosinophils % % Basophils % % Neutrophils # (1.3-7.7) k/uL Lymphocytes # (1.0-4.8) k/uL Monocytes # (0-1.0) k/uL Eosinophils # (0-0.7) k/uL Basophils # (0-0.2) k/uL Sodium (137-145) mmol/L Potassium (3.5-5.1) mmol/L Chloride (98-107) mmol/L Carbon Dioxide (22-30) mmol/L Anion Gap mmol/L BUN (7-17) mg/dL Creatinine (0.52-1.04) mg/dL Est GFR (CKD-EPI)AfAm (>60 ml/min/1.73 sqM) Est GFR (CKD-EPI)NonAf (>60 ml/min/1.73 sqM) Glucose (74-99) mg/dL POC Glucose (mg/dL) (75-99) mg/dL POC Glu [employer] ID Plasma Lactic Acid Romeo (0.7-2.0) mmol/L Calcium (8.4-10.2) mg/dL Total Bilirubin (0.2-1.3) mg/dL AST (14-36) U/L ALT (4-34) U/L Alkaline Phosphatase (38-126) U/L Troponin I <0.012 (0.000-0.034) ng/mL Total Protein (6.3-8.2) g/dL Albumin (3.5-5.0) g/dL Amylase (30-110) U/L Lipase (23-300) U/L Urine Color Urine Appearance (Clear) Urine pH (5.0-8.0) Ur Specific [place] (1.001-1.035) Urine Protein (Negative) Urine Glucose (UA) (Negative) Urine Ketones (Negative) Urine Blood (Negative) Urine Nitrite (Negative) Urine Bilirubin (Negative) Urine Urobilinogen (<2.0) mg/dL Ur Leukocyte Esterase (Negative) Urine RBC (0-5) /hpf Urine WBC (0-5) /hpf Ur Squamous Epith Cells (0-4) /hpf Hyaline Casts (0-2) /lpf Urine Mucus (None) /hpf Urine HCG, Qual (Not Detectd) Coronavirus (PCR) Not Detected (Not Detectd) Influenza Type A (PCR) Not Detected (Not Detectd) Influenza Type B (PCR) Not Detected (Not Detectd) RSV (PCR) Not Detected (Not Detectd) SARS-CoV-2 (PCR) Not Detected (Not Detectd) 02/23/21 Range/Units 23:15 WBC (3.8-10.6) k/uL RBC (3.80-5.40) m/uL Hgb (11.4-16.0) gm/dL Hct (34.0-46.0) % MCV (80.0-100.0) fL MCH (25.0-35.0) pg MCHC (31.0-37.0) g/dL RDW (11.5-15.5) % Plt Count (150-450) k/uL MPV Neutrophils % % Lymphocytes % % Monocytes % % Eosinophils % % Basophils % % Neutrophils # (1.3-7.7) k/uL Lymphocytes # (1.0-4.8) k/uL Monocytes # (0-1.0) k/uL Eosinophils # (0-0.7) k/uL Basophils # (0-0.2) k/uL Sodium (137-145) mmol/L Potassium (3.5-5.1) mmol/L Chloride (98-107) mmol/L Carbon Dioxide (22-30) mmol/L Anion Gap mmol/L BUN (7-17) mg/dL Creatinine (0.52-1.04) mg/dL Est GFR (CKD-EPI)AfAm (>60 ml/min/1.73 sqM) Est GFR (CKD-EPI)NonAf (>60 ml/min/1.73 sqM) Glucose (74-99) mg/dL POC Glucose (mg/dL) 249 H (75-99) mg/dL POC Glu [employer] [place] Plasma Lactic Acid Romeo (0.7-2.0) mmol/L Calcium (8.4-10.2) mg/dL Total Bilirubin (0.2-1.3) mg/dL AST (14-36) U/L ALT (4-34) U/L Alkaline Phosphatase (38-126) U/L Troponin I (0.000-0.034) ng/mL Total Protein (6.3-8.2) g/dL Albumin (3.5-5.0) g/dL Amylase (30-110) U/L Lipase (23-300) U/L Urine Color Urine Appearance (Clear) Urine pH (5.0-8.0) Ur Specific [place] (1.001-1.035) Urine Protein (Negative) Urine Glucose (UA) (Negative) Urine Ketones (Negative) Urine Blood (Negative) Urine Nitrite (Negative) Urine Bilirubin (Negative) Urine Urobilinogen (<2.0) mg/dL Ur Leukocyte Esterase (Negative) Urine RBC (0-5) /hpf Urine WBC (0-5) /hpf Ur Squamous Epith Cells (0-4) /hpf Hyaline Casts (0-2) /lpf Urine Mucus (None) /hpf Urine HCG, Qual (Not Detectd) Coronavirus (PCR) (Not Detectd) Influenza Type A (PCR) (Not Detectd) Influenza Type B (PCR) (Not Detectd) RSV (PCR) (Not Detectd) SARS-CoV-2 (PCR) (Not Detectd) Disposition Clinical Impression: Nausea, Hyperglycemia due to diabetes mellitus Disposition: HOME SELF-CARE Condition: Good Instructions (If sedation given, give patient instructions): Acute Nausea and Vomiting (ED), Diabetic Hyperglycemia (ED) Additional Instructions: Follow-up with Dr. Enriquez this week, return to the emergency room with worsening symptoms including fever, pain or persistent nausea and vomiting Is patient prescribed a controlled substance at d/c from ED?: No Referrals: Lee Enriquez MD [Primary Care Provider] - 1-2 days Time of Disposition: 23:10
[2021-02-23 21:18] LABS: Basophils # (A) 0.1 k/uL (0-0.2); Basophils % (A) 1 %; Eosinophils # (A) 0.2 k/uL (0-0.7); Eosinophils % (A) 2 %; HCT 40.9 % (34.0-46.0); HGB 13.5 gm/dL (11.4-16.0); Lymphocytes # (A) 1.8 k/uL (1.0-4.8); Lymphocytes % (A) 21 %; MCH 28.8 pg (25.0-35.0); MCHC 33.1 g/dL (31.0-37.0); MCV 87.1 fL (80.0-100.0); Mean Platelet Volume 7.5; Monocytes # (A) 0.5 k/uL (0-1.0); Monocytes % (A) 5 %; Neutrophils # (A) 6.1 k/uL (1.3-7.7); Neutrophils % (A) 70 %; Platelet Count 399 k/uL (150-450); RDW 15.6 % (11.5-15.5); WBC 8.8 k/uL (3.8-10.6)
[2021-02-23 21:21] LABS: Appearance,Urine Clear (Clear); Bilirubin,Urine Negative (Negative); Blood,Urine Negative (Negative); Color,Urine Yellow; Glucose,Urine (UA) 4+ (Negative); Hyaline Casts,Urine 1 /lpf (0-2); Ketones,Urine Negative (Negative); Leukocyte Esterase,Urine Small (Negative); Mucus,Urine Rare /hpf; Nitrite,Urine Negative (Negative); PH, Urine 5.5 (5.0-8.0); Protein,Urine Negative (Negative); RBC,Urine 2 /hpf (0-5); Specific Gravity,Urine 1.043 (1.001-1.035); Squamous Epithelial Cell,Urine 9 /hpf (0-4); Urobilinogen,Urine <2.0 mg/dL (<2.0); WBC,Urine 7 /hpf (0-5)
[2021-02-23 21:35] LABS: ALT 14 U/L (4-34); AST 19 U/L (14-36); African American GFR (CKD) >90 (>60 ml/min/1.73 sqM); Alkaline Phosphatase 78 U/L (38-126); Amylase 89 U/L (30-110); Anion Gap 8 mmol/L; Blood Urea Nitrogen 13 mg/dL (7-17); Calcium 9.2 mg/dL (8.4-10.2); Carbon Dioxide 26 mmol/L (22-30); Chloride 101 mmol/L (98-107); Glucose 387 mg/dL (74-99); Lipase 166 U/L (23-300); Non-African American GFR(CKD) >90 (>60 ml/min/1.73 sqM); Potassium 3.7 mmol/L (3.5-5.1); Sodium 135 mmol/L (137-145); Total Bilirubin 0.1 mg/dL (0.2-1.3); Total Protein 6.6 g/dL (6.3-8.2)
--- NOTE | 2021-02-23 21:41 | XR ---
EXAMINATION TYPE: XR chest 2V DATE OF EXAM: 02/23/2021 COMPARISON: 09/03/2020 HISTORY: Short of breath TECHNIQUE: 2 views FINDINGS: Heart and mediastinum are normal. Lungs are clear. Diaphragm is normal. Bony thorax is inta ct. IMPRESSION: Normal chest. No change.
[2021-02-23 23:16] LABS: Glucose,Whole Blood 249 mg/dL (75-99)
[2021-02-23 23:57] VITALS: BP 132/84; PULSE 85; RESP 16
== END 2021-02-23 23:57 | disposition home or self-care (01) ==
LOC: EC 20:35
DX: E11.65 Type 2 diabetes mellitus with hyperglycemia (principal); R11.0 Nausea; I10 Essential (primary) hypertension; J44.9 Chronic obstructive pulmonary disease, unspecified; F41.9 Anxiety disorder, unspecified; F32.9 Major depressive disorder, single episode, unspecified; F17.200 Nicotine dependence, unspecified, uncomplicated; Z20.822 Contact with and (suspected) exposure to COVID-19; Z79.4 Long term (current) use of insulin
CPT/HCPCS: 36415; 93005; 80053; 82150; 83605; 83690; 84484; 85025; 81001; 81025; 87635; 87636; 71046; 99284; 96374; 96361; 96372; J3250; J1885

== ENCOUNTER → 2021-04-16 | Outpatient (CLI) | payer OTHER ==
[2021-04-16 15:22] LABS: Basophils # (A) 0.1 k/uL (0-0.2); Basophils % (A) 1 %; Eosinophils # (A) 0.2 k/uL (0-0.7); Eosinophils % (A) 2 %; HCT 43.2 % (34.0-46.0); HGB 14.3 gm/dL (11.4-16.0); Lymphocytes # (A) 2.7 k/uL (1.0-4.8); Lymphocytes % (A) 32 %; MCH 28.2 pg (25.0-35.0); MCHC 33.2 g/dL (31.0-37.0); MCV 85.2 fL (80.0-100.0); Monocytes # (A) 0.4 k/uL (0-1.0); Monocytes % (A) 5 %; Neutrophils # (A) 4.9 k/uL (1.3-7.7); Neutrophils % (A) 59 %; Platelet Count 389 k/uL (150-450); RBC 5.07 m/uL (3.80-5.40); RDW 14.5 % (11.5-15.5); WBC 8.3 k/uL (3.8-10.6)
== END | disposition home or self-care (01) ==
LOC: LABPAT 14:35
PROVIDERS: ATTEND Obstetrics & Gynecology
DX: Z01.818 Encounter for other preprocedural examination (principal); I10 Essential (primary) hypertension
CPT/HCPCS: 85025; 93005

== ENCOUNTER 2021-04-21 10:39 | Day surgery (SDC) | payer BC, OTHER ==
[2021-04-17 15:51] VITALS: BMI 29.2
[~2021-04-21 10:39] MED LIST: DEXAMETHASONE SOD PHOSPHATE 4 MG/ML 1 ML VIAL IV ONE; LACTATED RINGERS 1,000 ML IV SCH; ONDANSETRON 4 MG/2 ML VIAL IVP ONE; Pre Op ABX Message 1 EACH MISC MISCELLANE ONE
[2021-04-21] MEDS ORDERED: SCOPOLAMINE 1.5MG/72HR PATCH TRANSDERM ONE (11:50)
[2021-04-21] MEDS ORDERED: SUCCINYLCHOLINE CHLORIDE 100 MG/5 ML SYR IV ONE (12:28)
[2021-04-21] MEDS ORDERED: LIDOCAINE 1% INJ 10MG/ML (20 ML MDV) ONE (12:28)
[2021-04-21] MEDS ORDERED: fentaNYL (PF) 50 MCG/ML 2 ML AMP ONE (12:28)
[2021-04-21] MEDS ORDERED: MIDAZOLAM 2 MG/2 ML VIAL ONE (12:28)
[2021-04-21] MEDS ORDERED: PROPOFOL 10 MG/ML 20 ML VIAL IV ONE (12:28)
[2021-04-21 12:29] LABS: Glucose,Whole Blood 292 mg/dL (75-99)
[2021-04-21] MEDS ORDERED: METOCLOPRAMIDE 5 MG/ML 2 ML VIAL IVP PRN (12:55)
[2021-04-21] MEDS ORDERED: KETOROLAC 15 MG/ML 1 ML VIAL IVP PRN (12:55)
[2021-04-21] MEDS ORDERED: SIMETHICONE 80 MG CHEWABLE PO PRN (12:55)
[2021-04-21] MEDS ORDERED: diphenhydrAMINE 50 MG/ML 1 ML VIAL IVP PRN (12:55)
[2021-04-21] MEDS ORDERED: Acetaminophen-Codeine 300-30mg TAB PO PRN ×2 (12:55)
[2021-04-21] MEDS ORDERED: IBUPROFEN 600 MG TAB PO PRN (12:55)
[2021-04-21] MEDS ORDERED: ONDANSETRON 4 MG/2 ML VIAL IVP PRN (12:55)
[2021-04-21] MEDS ORDERED: LACTATED RINGERS 1,000 ML IV SCH (13:00)
--- NOTE | 2021-04-21 13:02 | P.OP ---
Date of Procedure: 04/21/21 Preoperative Diagnosis: #1. Menorrhagia Postoperative Diagnosis: Same Procedure(s) Performed: #1. Diagnostic hysteroscopy #2. NovaSure endometrial ablation Anesthesia: BIRGIT Surgeon: Gilberto Angeles Estimated Blood Loss (ml): 5 IV fluids (ml): 500 Urine output (ml): 20 Pathology: none sent Condition: stable Disposition: PACU Operative Findings: Preoperative pelvic examination demonstrated a roughly 5 week midplane mobile normal shaped uterus with normal adnexa bilaterally. Intraoperatively, the uterus sounded to approximately 8.5 cm with a cervical length of approximately 3.5 cm. Using the hysteroscope, the bilateral tubal ostia were seen though there was some moderate shaggy tissue, particularly as the patient is on her menses currently. There was no obvious pathology noted throughout the cavity. The settings for the NovaSure tool for a length of 5.0 cm, a width of 4.1 cm for a total power 113 W. After a total run time of 61 seconds, the base unit read "procedure complete." The postprocedural hysteroscopic evaluation demonstrated an excellent result. The patient is a candidate for vaginal hysterectomy should become necessary in the near future. Description of Procedure: The patient was prepped and draped in usual fashion after general endotracheal anesthesia was administered by the anesthesiologist. We did speculum was placed and the bladder drained of approximately 20 mL of clear [place] urine. The anterior lip of the cervix was grasped with a single-tooth tenaculum and the uterus sounded to 8.57 m with a cervical length of approximately 3.5 cm. Serial dilation was carried out to admit the diagnostic hysteroscope which was utilized with the findings as noted above. As noted above, there was no significant pathology though there was some moderate shaggy endometrium present. The scope was then set aside and the NovaSure tool placed into the endometrial cavity, opened, and seated well. The settings for the tool for a length of 5.0 cm, a width of 4.17 m for a total power 113 W as noted above. The cavity check was attempted and passed without difficulty. The tool was enabled and the run was started. After a run time of 61 seconds, the base unit read "procedure complete." The NovaSure tool was removed and discarded. The diagnostic scope was replaced and the result appeared to be excellent as noted above. All instrumentation was removed. There is no significant ongoing leading from either the tenaculum sites or the cervix. Estimated blood loss for the entire case was 5 mL or less. There was no complication. The patient tolerated the procedure well and proceeded to the recovery room in stable condition. All sponge, instrument, and needle counts were correct. The patient is a potential candidate for vaginal hysterectomy should become necessary in the future. There additionally was a grade 2 cystocele present.
[2021-04-21 13:08] VITALS: TEMP 96.9
[2021-04-21 13:08] LABS: Glucose,Whole Blood 280 mg/dL (75-99)
[2021-04-21] MEDS ORDERED: INSULIN ASPART (NovoLOG) 100 UNIT/ML VIAL SQ ONE (13:19)
[2021-04-21] MEDS: HYDROmorphone 0.5 MG/0.5 ML SYRINGE IVP PRN ×2 (13:26→13:39)
[2021-04-21 14:13] VITALS: RESP 20
[2021-04-21 15:13] VITALS: PULSE 88
[2021-04-21 15:14] VITALS: BP 128/88
== END 2021-04-21 15:00 | disposition home or self-care (01) ==
LOC: OR 10:39
PROVIDERS: ATTEND Obstetrics & Gynecology
DX: N92.0 Excessive and frequent menstruation with regular cycle (principal); N94.6 Dysmenorrhea, unspecified; N93.8 Other specified abnormal uterine and vaginal bleeding; J45.909 Unspecified asthma, uncomplicated; F32.9 Major depressive disorder, single episode, unspecified; E11.9 Type 2 diabetes mellitus without complications; K21.9 Gastro-esophageal reflux disease without esophagitis; L30.9 Dermatitis, unspecified; I10 Essential (primary) hypertension; F11.20 Opioid dependence, uncomplicated; B00.9 Herpesviral infection, unspecified; Z90.49 Acquired absence of other specified parts of digestive tract; Z98.890 Other specified postprocedural states; Z97.2 Presence of dental prosthetic device (complete) (partial); F17.210 Nicotine dependence, cigarettes, uncomplicated; Z83.79 Family history of other diseases of the digestive system; Z82.49 Family history of ischemic heart disease and other diseases of the circulatory system; Z80.42 Family history of malignant neoplasm of prostate; Z80.1 Family history of malignant neoplasm of trachea, bronchus and lung; Z80.0 Family history of malignant neoplasm of digestive organs; Z81.1 Family history of alcohol abuse and dependence; Z81.3 Family history of other psychoactive substance abuse and dependence; Z79.4 Long term (current) use of insulin; Z79.899 Other long term (current) drug therapy; Z88.8 Allergy status to other drugs, medicaments and biological substances; Z91.040 Latex allergy status
CPT/HCPCS: 81025; 58563; J2250; J1100; J2405; J2001; J3010; J1885; J0330; J2704; J1170

== ENCOUNTER 2021-05-16 13:09 | Emergency (ER) | payer BC ==
[2021-05-16 14:12] VITALS: BP 127/80; PULSE 60; RESP 18; TEMP 98
[2021-05-16 15:06] LABS: Appearance,Urine Clear (Clear); Bacteria,Urine Rare /hpf; Bilirubin,Urine Negative (Negative); Blood,Urine Negative (Negative); Color,Urine Yellow; Glucose,Urine (UA) 4+ (Negative); Hyaline Casts,Urine 1 /lpf (0-2); Ketones,Urine Negative (Negative); Leukocyte Esterase,Urine Moderate (Negative); Mucus,Urine Rare /hpf; Nitrite,Urine Negative (Negative); Protein,Urine Negative (Negative); RBC,Urine 3 /hpf (0-5); Squamous Epithelial Cell,Urine 10 /hpf (0-4); Urobilinogen,Urine <2.0 mg/dL (<2.0); WBC,Urine 4 /hpf (0-5)
[2021-05-16 15:19] LABS: Specific Gravity,Urine 1.047 (1.001-1.035)
[2021-05-16] MEDS ORDERED: ONDANSETRON 4 MG/2 ML VIAL IVP STA (15:45)
[2021-05-16] MEDS ORDERED: SODIUM CHLORIDE 0.9% 1,000 ML IV STA (15:45)
--- NOTE | 2021-05-16 15:49 | ED ---
Nausea/Vomiting/Diarrhea HPI - General Chief complaint: Nausea/Vomiting/Diarrhea Stated complaint: Nausea,Vomiting Time Seen by Provider: 05/16/21 15:45 Source: patient, RN notes reviewed, old records reviewed Mode of arrival: ambulatory Limitations: no limitations - History of Present Illness Initial comments: Well-appearing 45-year-old female, alert and oriented 4, presents to emergency room with nausea and dry heaves for one week. Patient was seen in the ER for similar symptoms in the past. She states has been prescribed Zofran and Reglan and has been taking it with no relief. She denies any abdominal pain. She states that her doctor has also started her on Rybelsus for her diabetes about 6 weeks ago. She does have a history of asthma, diabetes, hypertension. She has a surgical history of a cholecystectomy. She is a smoker. She did get the Covid vaccine. She also had a uterine ablation 3 weeks ago. She denies any fevers. MD complaint: nausea -: week(s) (1) Description of Vomiting: food contents Associated Abdominal Pain: No Severity scale (1-10): 0 Associated Symptoms: loss of appetite, nausea/vomiting (no vomiting) - Related Data Home Medications Medication Instructions Recorded Confirmed Metoclopramide [Reglan] 5 mg PO QID PRN 03/30/19 04/17/21 Chlorthalidone 25 mg PO DAILY 08/08/19 04/17/21 INSULIN LISPRO (HumaLOG) [humaLOG] See Protocol SQ AC-TID 01/30/20 04/17/21 Insulin Glargine,Hum.rec.anlog 50 unit SQ BID 01/30/20 04/17/21 [Lantus Solostar] Phentermine HCl [Adipex-P] 37.5 mg PO DAILY 01/30/20 04/17/21 ondansetron HCL [Zofran] 8 mg PO TID PRN 01/30/20 04/17/21 traMADol HCL 50 mg PO TID PRN 01/30/20 04/17/21 ARIPiprazole [Abilify] 10 mg PO DAILY 11/21/20 04/17/21 LORazepam [Ativan] 0.5 mg PO DAILY PRN 02/12/21 04/17/21 Vilazodone HCl [Viibryd] 40 mg PO DAILY 02/23/21 04/17/21 cloNIDine HCL 0.1 mg PO BID PRN 02/23/21 04/17/21 Albuterol Inhaler [Ventolin Hfa 1 puff INHALATION DAILY PRN 04/17/21 04/17/21 Inhaler] Semaglutide [Rybelsus] 3 mg PO DAILY 04/17/21 04/17/21 Previous Rx's Medication Instructions Recorded Famotidine [Pepcid] 20 mg PO BID #28 tablet 05/16/21 Metoclopramide [Reglan] 10 mg PO TID PRN #15 tab 05/16/21 Allergies Allergy/AdvReac Type Severity Reaction Status Date / Time latex Allergy Rash/Hives Verified 05/16/21 14:12 carisoprodol [From Soma] AdvReac PASSES OUT Verified 05/16/21 14:12 Review of Systems ROS Statement: Those systems with pertinent positive or pertinent negative responses have been documented in the HPI. ROS Other: All systems not noted in ROS Statement are negative. Past Medical History Past Medical History: Asthma, Diabetes Mellitus, Hypertension Additional Past Medical History / Comment(s): states had a seizure at age 5, was in coma, ?meningitis, was on seizure meds until age 12, none since then. DDD, History of Any Multi-Drug Resistant Organisms: None Reported Past Surgical History: Breast Surgery, Cholecystectomy, Uterine Ablation Additional Past Surgical History / Comment(s): Left facial/ sinus surgery, colonoscopy 2014, Lt breast bx-neg, EGD, has had epidurals in past Past Anesthesia/Blood Transfusion Reactions: Motion Sickness, Postoperative Nausea & Vomiting (PONV) Additional Past Anesthesia/Blood Transfusion Reaction / Comment(s): motion sickness when on air planes Past Psychological History: Anxiety, Depression Smoking Status: Current every day smoker - Past Family History Father Family Medical History: Cancer, Seizure Disorder Additional Family Medical History / Comment(s): Colon cancer. 2 paternal aunts and paternal grandmother had breast cancer. Mother Family Medical History: Asthma, Hypertension, Liver Disease Additional Family Medical History / Comment(s): EtOH abuse. Maternal grandmother had leukemia. General Exam Limitations: no limitations General appearance: alert, in no apparent distress Head exam: Present: atraumatic, normocephalic, normal inspection Eye exam: Present: normal appearance, EOMI ENT exam: Present: normal exam, normal oropharynx, mucous membranes moist Neck exam: Present: normal inspection, full ROM. Absent: tenderness, meningismus, lymphadenopathy Respiratory exam: Present: normal lung sounds bilaterally. Absent: respiratory distress, wheezes, rales, rhonchi, stridor Cardiovascular Exam: Present: regular rate, normal rhythm, normal heart sounds. Absent: systolic murmur, diastolic murmur, rubs, gallop, clicks GI/Abdominal exam: Present: soft, normal bowel sounds. Absent: distended, tenderness, guarding, rebound, rigid Extremities exam: Present: normal inspection, full ROM, normal capillary refill. Absent: tenderness, pedal edema, joint swelling, calf tenderness Back exam: Present: normal inspection, full ROM. Absent: tenderness, CVA tenderness (R), CVA tenderness (L), rash noted Neurological exam: Present: alert, oriented X3 Psychiatric exam: Present: normal affect, normal mood Skin exam: Present: warm, dry, intact, normal color. Absent: rash, cyanosis, diaphoretic Course Vital Signs 05/16/21 14:08 Temperature 98 F Pulse Rate 60 Respiratory 18 Rate Blood Pressure 127/80 O2 Sat by Pulse 99 Oximetry Medical Decision Making - Medical Decision Making There is no evidence of leukocytosis. Her abdomen is soft and nontender. She denies any fevers. She is not actively vomiting in the emergency room. Her electrolytes are unremarkable. Glucose is 281 and she was given a liter of normal saline. Case was discussed with Dr. Rousseau, I will increase her Reglan to help with her nausea and also prescribed Pepcid. She will be discharged to [facility]up with her primary care doctor this week and return if any new or worsening symptoms. Patient is agreeable to this plan of care. - Lab Data Result diagrams: 05/16/21 15:55 05/16/21 15:55 Lab Results 05/16/21 05/16/21 05/16/21 Range/Units 14:30 15:55 15:55 WBC 9.2 (3.8-10.6) k/uL RBC 5.21 (3.80-5.40) m/uL Hgb 15.0 (11.4-16.0) gm/dL Hct 44.7 (34.0-46.0) % MCV 85.7 (80.0-100.0) fL MCH 28.9 (25.0-35.0) pg MCHC 33.7 (31.0-37.0) g/dL RDW 13.7 (11.5-15.5) % Plt Count 417 (150-450) k/uL MPV 7.6 Neutrophils % 61 % Lymphocytes % 30 % Monocytes % 5 % Eosinophils % 2 % Basophils % 0 % Neutrophils # 5.6 (1.3-7.7) k/uL Lymphocytes # 2.8 (1.0-4.8) k/uL Monocytes # 0.4 (0-1.0) k/uL Eosinophils # 0.2 (0-0.7) k/uL Basophils # 0.0 (0-0.2) k/uL Sodium 134 L (137-145) mmol/L Potassium 3.4 L (3.5-5.1) mmol/L Chloride 95 L (98-107) mmol/L Carbon Dioxide 28 (22-30) mmol/L Anion Gap 11 mmol/L BUN 15 (7-17) mg/dL Creatinine 0.55 (0.52-1.04) mg/dL Est GFR (CKD-EPI)AfAm >90 (>60 ml/min/1.73 sqM) Est GFR (CKD-EPI)NonAf >90 (>60 ml/min/1.73 sqM) Glucose 281 H (74-99) mg/dL Calcium 10.4 H (8.4-10.2) mg/dL Total Bilirubin 0.4 (0.2-1.3) mg/dL AST 19 (14-36) U/L ALT 18 (4-34) U/L Alkaline Phosphatase 82 (38-126) U/L Total Protein 7.4 (6.3-8.2) g/dL Albumin 4.3 (3.5-5.0) g/dL Amylase 62 (30-110) U/L Lipase 79 (23-300) U/L Urine Color Yellow Urine Appearance Clear (Clear) Urine pH 7.0 (5.0-8.0) Ur Specific [place] 1.047 H (1.001-1.035) Urine Protein Negative (Negative) Urine Glucose (UA) 4+ H (Negative) Urine Ketones Negative (Negative) Urine Blood Negative (Negative) Urine Nitrite Negative (Negative) Urine Bilirubin Negative (Negative) Urine Urobilinogen <2.0 (<2.0) mg/dL Ur Leukocyte Esterase Moderate H (Negative) Urine RBC 3 (0-5) /hpf Urine WBC 4 (0-5) /hpf Ur Squamous Epith Cells 10 H (0-4) /hpf Urine Bacteria Rare H (None) /hpf Hyaline Casts 1 (0-2) /lpf Urine Mucus Rare H (None) /hpf Disposition Clinical Impression: Nausea Disposition: HOME SELF-CARE Condition: Good Instructions (If sedation given, give patient instructions): Acute Nausea and Vomiting (ED) Additional Instructions: Take Pepcid and Reglan as prescribed. Follow-up with the primary care doctor next week. Return to the emergency room with any new or worsening symptoms including pain or fevers. Prescriptions: Famotidine [Pepcid] 20 mg PO BID #28 tablet Metoclopramide [Reglan] 10 mg PO TID PRN #15 tab PRN Reason: GERD Is patient prescribed a controlled substance at d/c from ED?: No Referrals: Lee Enriquez MD [Primary Care Provider] - 1-2 days Time of Disposition: 17:24
[2021-05-16 16:09] LABS: Basophils % (A) 0 %; Eosinophils # (A) 0.2 k/uL (0-0.7); Eosinophils % (A) 2 %; HCT 44.7 % (34.0-46.0); Lymphocytes # (A) 2.8 k/uL (1.0-4.8); Lymphocytes % (A) 30 %; MCH 28.9 pg (25.0-35.0); MCHC 33.7 g/dL (31.0-37.0); MCV 85.7 fL (80.0-100.0); Mean Platelet Volume 7.6; Monocytes # (A) 0.4 k/uL (0-1.0); Monocytes % (A) 5 %; Neutrophils # (A) 5.6 k/uL (1.3-7.7); Neutrophils % (A) 61 %; Platelet Count 417 k/uL (150-450); RBC 5.21 m/uL (3.80-5.40); RDW 13.7 % (11.5-15.5); WBC 9.2 k/uL (3.8-10.6)
[2021-05-16 16:26] LABS: ALT 18 U/L (4-34); AST 19 U/L (14-36); African American GFR (CKD) >90 (>60 ml/min/1.73 sqM); Albumin 4.3 g/dL (3.5-5.0); Alkaline Phosphatase 82 U/L (38-126); Amylase 62 U/L (30-110); Anion Gap 11 mmol/L; Blood Urea Nitrogen 15 mg/dL (7-17); Calcium 10.4 mg/dL (8.4-10.2); Carbon Dioxide 28 mmol/L (22-30); Chloride 95 mmol/L (98-107); Glucose 281 mg/dL (74-99); Lipase 79 U/L (23-300); Non-African American GFR(CKD) >90 (>60 ml/min/1.73 sqM); Potassium 3.4 mmol/L (3.5-5.1); Sodium 134 mmol/L (137-145); Total Bilirubin 0.4 mg/dL (0.2-1.3); Total Protein 7.4 g/dL (6.3-8.2)
== END 2021-05-16 17:50 | disposition home or self-care (01) ==
LOC: EC 13:09
DX: R11.0 Nausea (principal); E11.9 Type 2 diabetes mellitus without complications; I10 Essential (primary) hypertension; J45.909 Unspecified asthma, uncomplicated; F41.9 Anxiety disorder, unspecified; F32.9 Major depressive disorder, single episode, unspecified; F17.200 Nicotine dependence, unspecified, uncomplicated; Z79.4 Long term (current) use of insulin; Z91.040 Latex allergy status; Z90.49 Acquired absence of other specified parts of digestive tract
CPT/HCPCS: 99283; 96374; 96361; 36415; 80053; 82150; 83690; 85025; 81001; J2405

== ENCOUNTER 2021-11-04 09:17 | Emergency (ER) | payer BC ==
[2021-11-04 09:22] LABS: Glucose,Whole Blood 421 mg/dL (75-99)
[2021-11-04] MEDS ORDERED: SODIUM CHLORIDE 0.9% 2,000 ML IV STA (11:35)
--- NOTE | 2021-11-04 11:41 | ED ---
General Adult HPI - General Chief complaint: Recheck/Abnormal Lab/Rx Stated complaint: high blood sugar Time Seen by Provider: 11/04/21 11:06 Source: patient Mode of arrival: ambulatory Limitations: no limitations - History of Present Illness Initial comments: This 46-year-old female with a past medical history of type 2 diabetes, hypertension and asthma presents emergency department complaining of high glucose. Patient states she was at work and began to feel nauseous and lightheaded and took her sugar and it was 542. Patient states she herself 80 units of Lantus and has been starting to feel better but wanted to present to the emergency department to be checked out. Patient states she does take Lantus and Humalog and states her A1c is 11.9. She states she has follow-up with Dr. Ennis for her iabetes. Patient states she is in the process of getting an insulin pump at this time. Patient denies any lightheadedness, nausea, vomiting, dizziness at this time. She denies any chest pain, shortness of breath, change in bowel or bladder, change in appetite, change in vision, headache, fever, rash. - Related Data Home Medications Medication Instructions Recorded Confirmed Metoclopramide [Reglan] 5 mg PO QID PRN 03/30/19 04/17/21 Chlorthalidone 25 mg PO DAILY 08/08/19 04/17/21 INSULIN LISPRO (HumaLOG) [humaLOG] See Protocol SQ AC-TID 01/30/20 04/17/21 Insulin Glargine,Hum.rec.anlog 50 unit SQ BID 01/30/20 04/17/21 [Lantus Solostar] Phentermine HCl [Adipex-P] 37.5 mg PO DAILY 01/30/20 04/17/21 ondansetron HCL [Zofran] 8 mg PO TID PRN 01/30/20 04/17/21 traMADol HCL 50 mg PO TID PRN 01/30/20 04/17/21 ARIPiprazole [Abilify] 10 mg PO DAILY 11/21/20 04/17/21 LORazepam [Ativan] 0.5 mg PO DAILY PRN 02/12/21 04/17/21 Vilazodone HCl [Viibryd] 40 mg PO DAILY 02/23/21 04/17/21 cloNIDine HCL 0.1 mg PO BID PRN 02/23/21 04/17/21 Albuterol Inhaler [Ventolin Hfa 1 puff INHALATION DAILY PRN 04/17/21 04/17/21 Inhaler] Semaglutide [Rybelsus] 3 mg PO DAILY 04/17/21 04/17/21 Previous Rx's Medication Instructions Recorded Famotidine [Pepcid] 20 mg PO BID #28 tablet 05/16/21 Metoclopramide [Reglan] 10 mg PO TID PRN #15 tab 05/16/21 Allergies Allergy/AdvReac Type Severity Reaction Status Date / Time latex Allergy Rash/Hives Verified 11/04/21 09:21 carisoprodol [From Soma] AdvReac PASSES OUT Verified 11/04/21 09:21 Review of Systems ROS Statement: Those systems with pertinent positive or pertinent negative responses have been documented in the HPI. ROS Other: All systems not noted in ROS Statement are negative. Past Medical History Past Medical History: Asthma, Diabetes Mellitus, Hypertension Additional Past Medical History / Comment(s): states had a seizure at age 5, was in coma, ?meningitis, was on seizure meds until age 12, none since then. DDD, History of Any Multi-Drug Resistant Organisms: None Reported Past Surgical History: Breast Surgery, Cholecystectomy, Uterine Ablation Additional Past Surgical History / Comment(s): Left facial/ sinus surgery, colonoscopy 2014, Lt breast bx-neg, EGD, has had epidurals in past Past Anesthesia/Blood Transfusion Reactions: Motion Sickness, Postoperative Nausea & Vomiting (PONV) Additional Past Anesthesia/Blood Transfusion Reaction / Comment(s): motion sickness when on air planes Past Psychological History: Anxiety, Depression Smoking Status: Current every day smoker Past Alcohol Use History: Rare Past Drug Use History: None Reported - Past Family History Father Family Medical History: Cancer, Seizure Disorder Additional Family Medical History / Comment(s): Colon cancer. 2 paternal aunts and paternal grandmother had breast cancer. Mother Family Medical History: Asthma, Hypertension, Liver Disease Additional Family Medical History / Comment(s): EtOH abuse. Maternal grandmother had leukemia. General Exam Limitations: no limitations General appearance: alert, in no apparent distress Head exam: Present: atraumatic, normocephalic, normal inspection Eye exam: Present: normal appearance, PERRL, EOMI. Absent: scleral icterus, conjunctival injection, periorbital swelling ENT exam: Present: normal exam, mucous membranes moist Neck exam: Present: normal inspection, full ROM. Absent: tenderness, meningismus, lymphadenopathy Respiratory exam: Present: normal lung sounds bilaterally. Absent: respiratory distress, wheezes, rales, rhonchi, stridor, chest wall tenderness Cardiovascular Exam: Present: regular rate, normal rhythm, normal heart sounds. Absent: systolic murmur, diastolic murmur, rubs, gallop, clicks GI/Abdominal exam: Present: soft, normal bowel sounds. Absent: distended, tenderness, guarding, rebound, rigid Extremities exam: Present: normal inspection, full ROM, normal capillary refill. Absent: tenderness, pedal edema, joint swelling, calf tenderness Back exam: Present: normal inspection, full ROM. Absent: CVA tenderness (R), CVA tenderness (L), paraspinal tenderness, vertebral tenderness Neurological exam: Present: alert, oriented X3, CN II-XII intact, normal gait Psychiatric exam: Present: normal affect, normal mood Skin exam: Present: warm, dry, intact, normal color. Absent: rash Course Vital Signs 11/04/21 09:19 Temperature 97.7 F Pulse Rate 116 H Respiratory 20 Rate Blood Pressure 161/85 O2 Sat by Pulse 99 Oximetry Medical Decision Making - Medical Decision Making This 46-year-old female [facility] emergency department with concern for her hyperglycemia as it was 542 this morning at work and caused her to be nauseous and lightheaded for a short period of time until she gave herself 80 units of Lantus. Patient with glucose on arrival 421 and after 500 normal saline was 298 and after 1 L of normal saline fluids was 186. Patient with 4+ glucose in her urine and was acetone negative. Prior to discharge patient without any symptoms and stated she felt much better. Patient instructed to log her glucose levels and follow-up with her primary care provider in the next 1-2 days. Strict return precautions were discussed. Patient verbally agreed to plan. Patient sent home in stable condition. Case discussed in detail with my attending, . - Lab Data Result diagrams: 11/04/21 11:48 11/04/21 11:48 Lab Results 11/04/21 11/04/21 11/04/21 Range/Units 09:21 11:48 11:48 WBC 6.8 (3.8-10.6) k/uL RBC 4.76 (3.80-5.40) m/uL Hgb 15.3 (11.4-16.0) gm/dL Hct 43.5 (34.0-46.0) % MCV 91.3 (80.0-100.0) fL MCH 32.1 (25.0-35.0) pg MCHC 35.2 (31.0-37.0) g/dL RDW 13.4 (11.5-15.5) % Plt Count 364 (150-450) k/uL MPV 7.3 Neutrophils % 63 % Lymphocytes % 29 % Monocytes % 5 % Eosinophils % 1 % Basophils % 0 % Neutrophils # 4.2 (1.3-7.7) k/uL Lymphocytes # 2.0 (1.0-4.8) k/uL Monocytes # 0.4 (0-1.0) k/uL Eosinophils # 0.1 (0-0.7) k/uL Basophils # 0.0 (0-0.2) k/uL Sodium 136 L (137-145) mmol/L Potassium 3.7 (3.5-5.1) mmol/L Chloride 99 (98-107) mmol/L Carbon Dioxide 27 (22-30) mmol/L Anion Gap 10 mmol/L BUN 17 (7-17) mg/dL Creatinine 0.64 (0.52-1.04) mg/dL Est GFR (CKD-EPI)AfAm >90 (>60 ml/min/1.73 sqM) Est GFR (CKD-EPI)NonAf >90 (>60 ml/min/1.73 sqM) Glucose 296 H (74-99) mg/dL POC Glucose (mg/dL) 421 H (75-99) mg/dL POC Glu [employer] Tender Helper ID Anibal Murillo Calcium 9.5 (8.4-10.2) mg/dL Total Bilirubin 0.6 (0.2-1.3) mg/dL AST 24 (14-36) U/L ALT 38 H (4-34) U/L Alkaline Phosphatase 69 (38-126) U/L Total Protein 7.5 (6.3-8.2) g/dL Albumin 4.3 (3.5-5.0) g/dL Amylase 71 (30-110) U/L Lipase 109 (23-300) U/L Urine Color Urine Appearance (Clear) Urine pH (5.0-8.0) Ur Specific [place] (1.001-1.035) Urine Protein (Negative) Urine Glucose (UA) (Negative) Urine Ketones (Negative) Urine Blood (Negative) Urine Nitrite (Negative) Urine Bilirubin (Negative) Urine Urobilinogen (<2.0) mg/dL Ur Leukocyte Esterase (Negative) Acetone, Qual Negative (Negative) 11/04/21 11/04/21 Range/Units 11:58 13:17 WBC (3.8-10.6) k/uL RBC (3.80-5.40) m/uL Hgb (11.4-16.0) gm/dL Hct (34.0-46.0) % MCV (80.0-100.0) fL MCH (25.0-35.0) pg MCHC (31.0-37.0) g/dL RDW (11.5-15.5) % Plt Count (150-450) k/uL MPV Neutrophils % % Lymphocytes % % Monocytes % % Eosinophils % % Basophils % % Neutrophils # (1.3-7.7) k/uL Lymphocytes # (1.0-4.8) k/uL Monocytes # (0-1.0) k/uL Eosinophils # (0-0.7) k/uL Basophils # (0-0.2) k/uL Sodium (137-145) mmol/L Potassium (3.5-5.1) mmol/L Chloride (98-107) mmol/L Carbon Dioxide (22-30) mmol/L Anion Gap mmol/L BUN (7-17) mg/dL Creatinine (0.52-1.04) mg/dL Est GFR (CKD-EPI)AfAm (>60 ml/min/1.73 sqM) Est GFR (CKD-EPI)NonAf (>60 ml/min/1.73 sqM) Glucose (74-99) mg/dL POC Glucose (mg/dL) 186 H (75-99) mg/dL POC Glu [employer]ting [employer] Tender Helper ID Zach, Emmy Calcium (8.4-10.2) mg/dL Total Bilirubin (0.2-1.3) mg/dL AST (14-36) U/L ALT (4-34) U/L Alkaline Phosphatase (38-126) U/L Total Protein (6.3-8.2) g/dL Albumin (3.5-5.0) g/dL Amylase (30-110) U/L Lipase (23-300) U/L Urine Color Light Yellow Urine Appearance Clear (Clear) Urine pH 7.0 (5.0-8.0) Ur Specific [place] 1.016 (1.001-1.035) Urine Protein Negative (Negative) Urine Glucose (UA) 4+ H (Negative) Urine Ketones Negative (Negative) Urine Blood Negative (Negative) Urine Nitrite Negative (Negative) Urine Bilirubin Negative (Negative) Urine Urobilinogen <2.0 (<2.0) mg/dL Ur Leukocyte Esterase Negative (Negative) Acetone, Qual (Negative) Disposition Clinical Impression: Hyperglycemia due to type 2 diabetes mellitus Disposition: HOME SELF-CARE Condition: Stable Instructions (If sedation given, give patient instructions): Diabetic Hyperglycemia (ED) Additional Instructions: Please follow-up with your primary care provider in next 1-2 days. Return to the emergency department with any new, worsening, or concerning symptoms. Continue checking your glucose 3-4 times a day and log them on a sheet of paper and bring to your primary care provider appointment Is patient prescribed a controlled substance at d/c from ED?: No Referrals: Lee Enriquez MD [Primary Care Provider] - 1-2 days Time of Disposition: 13:24
[2021-11-04 12:14] LABS: Appearance,Urine Clear (Clear); Bilirubin,Urine Negative (Negative); Blood,Urine Negative (Negative); Color,Urine Light Yellow; Glucose,Urine (UA) 4+ (Negative); Ketones,Urine Negative (Negative); Leukocyte Esterase,Urine Negative (Negative); Nitrite,Urine Negative (Negative); Protein,Urine Negative (Negative); Specific Gravity,Urine 1.016 (1.001-1.035); Urobilinogen,Urine <2.0 mg/dL (<2.0)
[2021-11-04 12:14] LABS: Basophils % (A) 0 %; Eosinophils # (A) 0.1 k/uL (0-0.7); Eosinophils % (A) 1 %; HCT 43.5 % (34.0-46.0); HGB 15.3 gm/dL (11.4-16.0); Lymphocytes % (A) 29 %; MCH 32.1 pg (25.0-35.0); MCHC 35.2 g/dL (31.0-37.0); MCV 91.3 fL (80.0-100.0); Mean Platelet Volume 7.3; Monocytes # (A) 0.4 k/uL (0-1.0); Monocytes % (A) 5 %; Neutrophils # (A) 4.2 k/uL (1.3-7.7); Neutrophils % (A) 63 %; Platelet Count 364 k/uL (150-450); RBC 4.76 m/uL (3.80-5.40); RDW 13.4 % (11.5-15.5); WBC 6.8 k/uL (3.8-10.6)
[2021-11-04 12:35] LABS: ALT 38 U/L (4-34); AST 24 U/L (14-36); African American GFR (CKD) >90 (>60 ml/min/1.73 sqM); Albumin 4.3 g/dL (3.5-5.0); Alkaline Phosphatase 69 U/L (38-126); Amylase 71 U/L (30-110); Anion Gap 10 mmol/L; Blood Urea Nitrogen 17 mg/dL (7-17); Calcium 9.5 mg/dL (8.4-10.2); Carbon Dioxide 27 mmol/L (22-30); Chloride 99 mmol/L (98-107); Glucose 296 mg/dL (74-99); Lipase 109 U/L (23-300); Non-African American GFR(CKD) >90 (>60 ml/min/1.73 sqM); Potassium 3.7 mmol/L (3.5-5.1); Sodium 136 mmol/L (137-145); Total Bilirubin 0.6 mg/dL (0.2-1.3); Total Protein 7.5 g/dL (6.3-8.2)
[2021-11-04 13:18] LABS: Glucose,Whole Blood 186 mg/dL (75-99)
[2021-11-04 13:45] VITALS: BP 183/84; PULSE 86; RESP 18; TEMP 98.1
== END 2021-11-04 13:46 | disposition home or self-care (01) ==
LOC: EC 09:17
DX: E11.65 Type 2 diabetes mellitus with hyperglycemia (principal); J45.909 Unspecified asthma, uncomplicated; I10 Essential (primary) hypertension; F17.200 Nicotine dependence, unspecified, uncomplicated; Z91.040 Latex allergy status
CPT/HCPCS: 36415; 80053; 81003; 82009; 82150; 83690; 85025

== ENCOUNTER 2021-11-13 10:49 | Emergency (ER) | payer BC ==
[2021-11-13 10:52] VITALS: RESP 16; TEMP 98.5
[2021-11-13] MEDS ORDERED: METOCLOPRAMIDE 5 MG/ML 2 ML VIAL IVP STA (11:49)
[2021-11-13] MEDS ORDERED: SODIUM CHLORIDE 0.9% 1,000 ML IV STA (11:49)
--- NOTE | 2021-11-13 11:54 | ED ---
General Adult HPI - General Chief complaint: Nausea/Vomiting/Diarrhea Stated complaint: Nausea/Headache Time Seen by Provider: 11/13/21 11:40 Source: patient, RN notes reviewed, old records reviewed Mode of arrival: ambulatory Limitations: no limitations - History of Present Illness Initial comments: This is a 46-year-old female presents to the emergency room with parietal headache and nausea and vomiting since Wednesday. Patient denies any fevers. S he states that she gets her primary care doctor yesterday for similar symptoms. She states that her blood glucose levels have been elevated. She does have a history of asthma, diabetes, hypertension and she is a daily smoker. -: days(s) (5) Location: head Severity scale (1-10): 8 Quality: aching, other (throbbing) Improves with: none Associated Symptoms: headaches, nausea/vomiting - Related Data Home Medications Medication Instructions Recorded Confirmed Chlorthalidone 25 mg PO HS 08/08/19 11/13/21 Phentermine HCl [Adipex-P] 37.5 mg PO DAILY 01/30/20 11/13/21 traMADol HCL 50 mg PO TID PRN 01/30/20 11/13/21 ARIPiprazole [Abilify] 10 mg PO HS 11/21/20 11/13/21 LORazepam [Ativan] 0.5 mg PO AC-BID 02/12/21 11/13/21 Vilazodone HCl [Viibryd] 40 mg PO HS 02/23/21 11/13/21 Albuterol Inhaler [Ventolin Hfa 1 - 2 puff INHALATION RT-QID PRN 04/17/21 11/13/21 Inhaler] Insulin Glargine,Hum.rec.anlog 80 unit SQ BID 11/13/21 11/13/21 [Lantus Solostar Pen] Insulin Lispro [humaLOG Kwikpen] See Protocol SQ AC-TID 11/13/21 11/13/21 Metoclopramide [Reglan] 10 mg PO BID PRN 11/13/21 11/13/21 Ondansetron Odt [Zofran Odt] 8 mg PO Q8HR PRN 11/13/21 11/13/21 Allergies Allergy/AdvReac Type Severity Reaction Status Date / Time latex Allergy Rash/Hives Verified 11/13/21 10:50 carisoprodol [From Soma] AdvReac "Trouble Verified 11/13/21 12:59 remembering things" Review of Systems ROS Statement: Those systems with pertinent positive or pertinent negative responses have been documented in the HPI. ROS Other: All systems not noted in ROS Statement are negative. Past Medical History Past Medical History: Asthma, Diabetes Mellitus, Hypertension Additional Past Medical History / Comment(s): states had a seizure at age 5, was in coma, ?meningitis, was on seizure meds until age 12, none since then. DDD, History of Any Multi-Drug Resistant Organisms: None Reported Past Surgical History: Breast Surgery, Cholecystectomy, Uterine Ablation Additional Past Surgical History / Comment(s): Left facial/ sinus surgery, colonoscopy 2014, Lt breast bx-neg, EGD, has had epidurals in past Past Anesthesia/Blood Transfusion Reactions: Motion Sickness, Postoperative Nausea & Vomiting (PONV) Additional Past Anesthesia/Blood Transfusion Reaction / Comment(s): motion sickness when on air planes Past Psychological History: Anxiety, Depression Smoking Status: Current every day smoker Past Alcohol Use History: Rare Past Drug Use History: None Reported - Past Family History Father Family Medical History: Cancer, Seizure Disorder Additional Family Medical History / Comment(s): Colon cancer. 2 paternal aunts and paternal grandmother had breast cancer. Mother Family Medical History: Asthma, Hypertension, Liver Disease Additional Family Medical History / Comment(s): EtOH abuse. Maternal grandmother had leukemia. General Exam Limitations: no limitations General appearance: alert, in no apparent distress Head exam: Present: atraumatic Eye exam: Present: normal appearance. Absent: scleral icterus, conjunctival injection, periorbital swelling ENT exam: Present: normal oropharynx, mucous membranes moist Neck exam: Present: normal inspection. Absent: tenderness, meningismus, lymphad enopathy, thyromegaly Respiratory exam: Present: normal lung sounds bilaterally. Absent: respiratory distress, accessory muscle use Cardiovascular Exam: Present: tachycardia GI/Abdominal exam: Present: soft. Absent: distended, tenderness, guarding, rebound, rigid Extremities exam: Present: normal capillary refill. Absent: pedal edema Back exam: Present: normal inspection, full ROM. Absent: tenderness, CVA tenderness (R), CVA tenderness (L), rash noted Neurological exam: Present: alert, oriented X3 Psychiatric exam: Present: normal affect, normal mood Skin exam: Present: warm, dry, normal color. Absent: rash, cyanosis, diaphoretic, pallor Course Vital Signs 11/13/21 11/13/21 10:50 13:30 Temperature 98.5 F Pulse Rate 110 H 74 Respiratory 16 16 Rate Blood Pressure 119/84 146/91 O2 Sat by Pulse 98 98 Oximetry Medical Decision Making - Medical Decision Making Patient's blood glucose level as 562 with no evidence of diabetic ketoacidosis no anion gap. Acetone negative. Patient was given Reglan for nausea and IV fluids which brought her blood glucose down to 292. Nausea and vomiting has resolved and she is feeling much better. She states that her primary care doctor is ordering her an insulin pump. She was given 5 units of subcu insulin prior to discharge for blood glucose of 292. Directed to return to the emergency room with any new or concerning sy mptoms. - Lab Data Result diagrams: 11/13/21 12:07 11/13/21 12:07 Lab Results 11/13/21 11/13/21 11/13/21 Range/Units 10:50 11:44 11:57 WBC (3.8-10.6) k/uL RBC (3.80-5.40) m/uL Hgb (11.4-16.0) gm/dL Hct (34.0-46.0) % MCV (80.0-100.0) fL MCH (25.0-35.0) pg MCHC (31.0-37.0) g/dL RDW (11.5-15.5) % Plt Count (150-450) k/uL MPV Neutrophils % % Lymphocytes % % Monocytes % % Eosinophils % % Basophils % % Neutrophils # (1.3-7.7) k/uL Lymphocytes # (1.0-4.8) k/uL Monocytes # (0-1.0) k/uL Eosinophils # (0-0.7) k/uL Basophils # (0-0.2) k/uL Sodium (137-145) mmol/L Potassium (3.5-5.1) mmol/L Chloride (98-107) mmol/L Carbon Dioxide (22-30) mmol/L Anion Gap mmol/L BUN (7-17) mg/dL Creatinine (0.52-1.04) mg/dL Est GFR (CKD-EPI)AfAm (>60 ml/min/1.73 sqM) Est GFR (CKD-EPI)NonAf (>60 ml/min/1.73 sqM) Glucose (74-99) mg/dL POC Glucose (mg/dL) 562 H (75-99) mg/dL POC Glu Conservator Artifacts ID Jessica Phoenix Calcium (8.4-10.2) mg/dL Total Bilirubin (0.2-1.3) mg/dL AST (14-36) U/L ALT (4-34) U/L Alkaline Phosphatase (38-126) U/L Total Protein (6.3-8.2) g/dL Albumin (3.5-5.0) g/dL Amylase (30-110) U/L Lipase (23-300) U/L Urine Color Yellow Urine Appearance Clear (Clear) Urine pH 6.0 (5.0-8.0) Ur Specific [place] 1.045 H (1.001-1.035) Urine Protein Negative (Negative) Urine Glucose (UA) 4+ H (Negative) Urine Ketones Negative (Negative) Urine Blood Negative (Negative) Urine Nitrite Negative (Negative) Urine Bilirubin Negative (Negative) Urine Urobilinogen <2.0 (<2.0) mg/dL Ur Leukocyte Esterase Small H (Negative) Urine RBC 1 (0-5) /hpf Urine WBC 11 H (0-5) /hpf Ur Squamous Epith Cells 11 H (0-4) /hpf Urine Bacteria Rare H (None) /hpf Acetone, Qual (Negative) Coronavirus (PCR) Not Detected (Not Detectd) Influenza Type A RNA (Not Detectd) Influenza Type B (PCR) (Not Detectd) 11/13/21 11/13/21 11/13/21 Range/Units 12:07 12:07 12:07 WBC 7.7 (3.8-10.6) k/uL RBC 5.04 (3.80-5.40) m/uL Hgb 15.7 (11.4-16.0) gm/dL Hct 47.2 H (34.0-46.0) % MCV 93.8 (80.0-100.0) fL MCH 31.1 (25.0-35.0) pg MCHC 33.2 (31.0-37.0) g/dL RDW 12.8 (11.5-15.5) % Plt Count 333 (150-450) k/uL MPV 7.7 Neutrophils % 64 % Lymphocytes % 28 % Monocytes % 5 % Eosinophils % 1 % Basophils % 0 % Neutrophils # 4.9 (1.3-7.7) k/uL Lymphocytes # 2.1 (1.0-4.8) k/uL Monocytes # 0.4 (0-1.0) k/uL Eosinophils # 0.1 (0-0.7) k/uL Basophils # 0.0 (0-0.2) k/uL Sodium 134 L (137-145) mmol/L Potassium 3.9 (3.5-5.1) mmol/L Chloride 95 L (98-107) mmol/L Carbon Dioxide 28 (22-30) mmol/L Anion Gap 11 mmol/L BUN 16 (7-17) mg/dL Creatinine 0.74 (0.52-1.04) mg/dL Est GFR (CKD-EPI)AfAm >90 (>60 ml/min/1.73 sqM) Est GFR (CKD-EPI)NonAf >90 (>60 ml/min/1.73 sqM) Glucose 503 H* (74-99) mg/dL POC Glucose (mg/dL) (75-99) mg/dL POC Glu Conservator Artifacts ID Calcium 9.8 (8.4-10.2) mg/dL Total Bilirubin 1.1 (0.2-1.3) mg/dL AST 17 (14-36) U/L ALT 19 (4-34) U/L Alkaline Phosphatase 74 (38-126) U/L Total Protein 7.9 (6.3-8.2) g/dL Albumin 4.6 (3.5-5.0) g/dL Amylase 75 (30-110) U/L Lipase 293 (23-300) U/L Urine Color Urine Appearance (Clear) Urine pH (5.0-8.0) Ur Specific [place] (1.001-1.035) Urine Protein (Negative) Urine Glucose (UA) (Negative) Urine Ketones (Negative) Urine Blood (Negative) Urine Nitrite (Negative) Urine Bilirubin (Negative) Urine Urobilinogen (<2.0) mg/dL Ur Leukocyte Esterase (Negative) Urine RBC (0-5) /hpf Urine WBC (0-5) /hpf Ur Squamous Epith Cells (0-4) /hpf Urine Bacteria (None) /hpf Acetone, Qual (Negative) Coronavirus (PCR) (Not Detectd) Influenza Type A RNA Not Detected (Not Detectd) Influenza Type B (PCR) Not Detected (Not Detectd) 11/13/21 11/13/21 Range/Units 12:07 14:22 WBC (3.8-10.6) k/uL RBC (3.80-5.40) m/uL Hgb (11.4-16.0) gm/dL Hct (34.0-46.0) % MCV (80.0-100.0) fL MCH (25.0-35.0) pg MCHC (31.0-37.0) g/dL RDW (11.5-15.5) % Plt Count (150-450) k/uL MPV Neutrophils % % Lymphocytes % % Monocytes % % Eosinophils % % Basophils % % Neutrophils # (1.3-7.7) k/uL Lymphocytes # (1.0-4.8) k/uL Monocytes # (0-1.0) k/uL Eosinophils # (0-0.7) k/uL Basophils # (0-0.2) k/uL Sodium (137-145) mmol/L Potassium (3.5-5.1) mmol/L Chloride (98-107) mmol/L Carbon Dioxide (22-30) mmol/L Anion Gap mmol/L BUN (7-17) mg/dL Creatinine (0.52-1.04) mg/dL Est GFR (CKD-EPI)AfAm (>60 ml/min/1.73 sqM) Est GFR (CKD-EPI)NonAf (>60 ml/min/1.73 sqM) Glucose (74-99) mg/dL POC Glucose (mg/dL) 292 H (75-99) mg/dL POC Glu Conservator Artifacts ID Lizett, Asmara Calcium (8.4-10.2) mg/dL Total Bilirubin (0.2-1.3) mg/dL AST (14-36) U/L ALT (4-34) U/L Alkaline Phosphatase (38-126) U/L Total Protein (6.3-8.2) g/dL Albumin (3.5-5.0) g/dL Amylase (30-110) U/L Lipase (23-300) U/L Urine Color Urine Appearance (Clear) Urine pH (5.0-8.0) Ur Specific [place] (1.001-1.035) Urine Protein (Negative) Urine Glucose (UA) (Negative) Urine Ketones (Negative) Urine Blood (Negative) Urine Nitrite (Negative) Urine Bilirubin (Negative) Urine Urobilinogen (<2.0) mg/dL Ur Leukocyte Esterase (Negative) Urine RBC (0-5) /hpf Urine WBC (0-5) /hpf Ur Squamous Epith Cells (0-4) /hpf Urine Bacteria (None) /hpf Acetone, Qual Negative (Negative) Coronavirus (PCR) (Not Detectd) Influenza Type A RNA (Not Detectd) Influenza Type B (PCR) (Not Detectd) Disposition Clinical Impression: Nausea & vomiting, Hyperglycemia Disposition: HOME SELF-CARE Condition: Good Instructions (If sedation given, give patient instructions): Acute Nausea and Vomiting (ED), Diabetic Hyperglycemia (ED) Additional Instructions: Follow-up with the primary care doctor regarding elevated blood glucose levels. Return to the emergency room with any new or concerning symptoms. Increase your fluid intake. Is patient prescribed a controlled substance at d/c from ED?: No Referrals: Lee Enriquez MD [Primary Care Provider] - 1-2 days Time of Disposition: 14:38
[2021-11-13 12:07] LABS: Glucose,Whole Blood 562 mg/dL (75-99)
[2021-11-13 12:47] LABS: Appearance,Urine Clear (Clear); Bacteria,Urine Rare /hpf; Bilirubin,Urine Negative (Negative); Blood,Urine Negative (Negative); Color,Urine Yellow; Glucose,Urine (UA) 4+ (Negative); Ketones,Urine Negative (Negative); Leukocyte Esterase,Urine Small (Negative); Nitrite,Urine Negative (Negative); Protein,Urine Negative (Negative); RBC,Urine 1 /hpf (0-5); Specific Gravity,Urine 1.045 (1.001-1.035); Squamous Epithelial Cell,Urine 11 /hpf (0-4); Urobilinogen,Urine <2.0 mg/dL (<2.0); WBC,Urine 11 /hpf (0-5)
[2021-11-13 12:49] LABS: ALT 19 U/L (4-34); AST 17 U/L (14-36); African American GFR (CKD) >90 (>60 ml/min/1.73 sqM); Albumin 4.6 g/dL (3.5-5.0); Alkaline Phosphatase 74 U/L (38-126); Amylase 75 U/L (30-110); Anion Gap 11 mmol/L; Blood Urea Nitrogen 16 mg/dL (7-17); Calcium 9.8 mg/dL (8.4-10.2); Carbon Dioxide 28 mmol/L (22-30); Chloride 95 mmol/L (98-107); Lipase 293 U/L (23-300); Non-African American GFR(CKD) >90 (>60 ml/min/1.73 sqM); Potassium 3.9 mmol/L (3.5-5.1); Sodium 134 mmol/L (137-145); Total Bilirubin 1.1 mg/dL (0.2-1.3); Total Protein 7.9 g/dL (6.3-8.2)
[2021-11-13 12:57] LABS: Basophils % (A) 0 %; Eosinophils # (A) 0.1 k/uL (0-0.7); Eosinophils % (A) 1 %; HCT 47.2 % (34.0-46.0); HGB 15.7 gm/dL (11.4-16.0); Lymphocytes # (A) 2.1 k/uL (1.0-4.8); Lymphocytes % (A) 28 %; MCH 31.1 pg (25.0-35.0); MCHC 33.2 g/dL (31.0-37.0); MCV 93.8 fL (80.0-100.0); Mean Platelet Volume 7.7; Monocytes # (A) 0.4 k/uL (0-1.0); Monocytes % (A) 5 %; Neutrophils # (A) 4.9 k/uL (1.3-7.7); Neutrophils % (A) 64 %; Platelet Count 333 k/uL (150-450); RBC 5.04 m/uL (3.80-5.40); RDW 12.8 % (11.5-15.5); WBC 7.7 k/uL (3.8-10.6)
[2021-11-13 13:02] LABS: Glucose 503 mg/dL (74-99)
[2021-11-13] MEDS ORDERED: SODIUM CHLORIDE 0.9% 1,000 ML IV ONE (13:05)
[2021-11-13] MEDS ORDERED: INSULIN REGULAR 100 UNIT/ML VIAL (IV) IV ONE (13:31)
[2021-11-13 13:32] VITALS: BP 146/91; PULSE 74
[2021-11-13 14:24] LABS: Glucose,Whole Blood 292 mg/dL (75-99)
[2021-11-13] MEDS ORDERED: INSULIN REGULAR 100 UNIT/ML VIAL (IM/SQ) SQ STA (14:36)
== END 2021-11-13 15:35 | disposition home or self-care (01) ==
LOC: EC 10:49
DX: R11.2 Nausea with vomiting, unspecified (principal); R73.9 Hyperglycemia, unspecified; J45.909 Unspecified asthma, uncomplicated; I10 Essential (primary) hypertension; F17.200 Nicotine dependence, unspecified, uncomplicated; Z20.822 Contact with and (suspected) exposure to COVID-19; Z91.040 Latex allergy status; Z88.6 Allergy status to analgesic agent
CPT/HCPCS: 36415; 80053; 82150; 82009; 83690; 85025; 81001; 87086; 87502; 87635; 99284; 96374; J2765

== ENCOUNTER 2022-01-26 10:11 | Emergency (ER) | payer BC ==
[2022-01-26 10:55] VITALS: TEMP 98.4
--- NOTE | 2022-01-26 11:28 | ED ---
Abdominal Pain HPI - General Chief Complaint: Abdominal Pain Stated Complaint: ABD Pain,Diabetic Time Seen by Provider: 01/26/22 11:16 Source: patient, RN notes reviewed Mode of arrival: ambulatory Limitations: no limitations - History of Present Illness Initial Comments: Patient is a 46-year-old female presents the emergency room with complaints of right flank pain. She reports that she has a history of pancreatitis and her symptoms of her last pancreatitis flare started similarly to the way she is feeling now. She denies any diarrhea, nausea or vomiting. She denies any fevers or chills. She reports that her blood sugars have been uncont rolled. She notes that she was on Victoza and was awaiting an insulin pump but recently has followed up with Dr. Godinez who stopped her Victoza and placed her on basal bolus insulin of Lantus and lispro. She reports that her blood sugars are better now. She reports that her flank pain is worse with food intake. She has a history of a cholecystectomy. In addition to her diabetic history she has a hist ory of hypertension degenerative disc disease and asthma. She denies any other complaints or concerns at this time. - Related Data Home Medications Medication Instructions Recorded Confirmed Chlorthalidone 25 mg PO HS 08/08/19 11/13/21 Phentermine HCl [Adipex-P] 37.5 mg PO DAILY 01/30/20 11/13/21 traMADol HCL 50 mg PO TID PRN 01/30/20 11/13/21 ARIPiprazole [Abilify] 10 mg PO HS 11/21/20 11/13/21 LORazepam [Ativan] 0.5 mg PO AC-BID 02/12/21 11/13/21 Vilazodone HCl [Viibryd] 40 mg PO HS 02/23/21 11/13/21 Albuterol Inhaler [Ventolin Hfa 1 - 2 puff INHALATION RT-QID PRN 04/17/21 11/13/21 Inhaler] Insulin Glargine,Hum.rec.anlog 80 unit SQ BID 11/13/21 11/13/21 [Lantus Solostar Pen] Insulin Lispro [humaLOG Kwikpen] See Protocol SQ AC-TID 11/13/21 11/13/21 Metoclopramide [Reglan] 10 mg PO BID PRN 11/13/21 11/13/21 Ondansetron Odt [Zofran Odt] 8 mg PO Q8HR PRN 11/13/21 11/13/21 Allergies Allergy/AdvReac Type Severity Reaction Status Date / Time latex Allergy Rash/Hives Verified 01/26/22 10:55 carisoprodol [From Soma] AdvReac "Trouble Verified 01/26/22 10:55 remembering things" Review of Systems ROS Statement: Those systems with pertinent positive or pertinent negative responses have been documented in the HPI. ROS Other: All systems not noted in ROS Statement are negative. Past Medical History Past Medical History: Asthma, Diabetes Mellitus, Hypertension Additional Past Medical History / Comment(s): states had a seizure at age 5, was in coma, ?meningitis, was on seizure meds until age 12, none since then. DDD,. pancreatitis History of Any Multi-Drug Resistant Organisms: None Reported Past Surgical History: Breast Surgery, Cholecystectomy, Uterine Ablation Additional Past Surgical History / Comment(s): Left facial/ sinus surgery, colonoscopy 2014, Lt breast bx-neg, EGD, has had epidurals in past Past Anesthesia/Blood Transfusion Reactions: Motion Sickness, Postoperative Nausea & Vomiting (PONV) Additional Past Anesthesia/Blood Transfusion Reaction / Comment(s): motion sickness when on air planes Past Psychological History: Anxiety, Depression Smoking Status: Current every day smoker Past Alcohol Use History: Rare Past Drug Use History: None Reported - Past Family History Father Family Medical History: Cancer, Seizure Disorder Additional Family Medical History / Comment(s): Colon cancer. 2 paternal aunts and paternal grandmother had breast cancer. Mother Family Medical History: Asthma, Hypertension, Liver Disease Additional Family Medical History / Comment(s): EtOH abuse. Maternal grandmother had leukemia. General Exam Limitations: no limitations General appearance: alert, in no apparent distress Head exam: Present: atraumatic, normocephalic, normal inspection Eye exam: Present: normal appearance, PERRL, EOMI. Absent: scleral icterus, conjunctival injection, periorbital swelling ENT exam: Present: normal exam, mucous membranes moist Neck exam: Present: normal inspection. Absent: tenderness, meningismus, lymphadenopathy Respiratory exam: Present: normal lung sounds bilaterally. Absent: respiratory distress, wheezes, rales, rhonchi, stridor Cardiovascular Exam: Present: regular rate, normal rhythm, normal heart sounds. Absent: systolic murmur, diastolic murmur, rubs, gallop, clicks GI/Abdominal exam: Present: soft, normal bowel sounds. Absent: distended, tenderness, guarding, rebound, rigid Extremities exam: Present: normal inspection Back exam: Present: normal inspection Neurological exam: Present: alert, oriented X3, CN II-XII intact Psychiatric exam: Present: normal affect, normal mood Skin exam: Present: warm, dry, intact, normal color. Absent: rash Course Vital Signs 01/26/22 01/26/22 01/26/22 10:51 12:06 15:12 Temperature 98.4 F Pulse Rate 108 H 98 93 Respiratory 20 18 18 Rate Blood Pressure 133/87 140/98 114/72 O2 Sat by Pulse 99 100 98 Oximetry Medical Decision Making - Medical Decision Making Given lack of associated symptoms and right-sided abdominal pain low probability for pancreatitis. With improved glycemic control recently low probability for DKA as well. Will defer diagnostic imaging at this time. Will check CMP CBC amylase and lipase. Suspect side effects from no medication of Victoza given the lack of associated symptoms with her right upper quadrant pain. Pain stable at this time no need for analgesic. Will monitor. Laboratory studies show hypokalemia at level of 2.7. Magnesium level added to blood work awaiting results. Will replace lab potassium will orally and intravenously. And recheck levels. Pain still remained stable and and right upper quadrant. Lab reveal no evidence of DKA or pancreatitis. Will check CT of the abdomen without contrast due to persistent right upper quadrant pain which is mild. CT of the abdomen shows no evidence of acute injured abdominal processes. Large stool burden throughout the colon without signs of obstruction. Liver is has steatosis which is known to patient without evidence of increased liver function. Abdominal pain remains stable at this time and no increase in pain level with dietary intake. Will repeat potassium level. No acute abdominal process is noted. Potassium level responded well to supplementation with repeat potassium at 4.2. No obvious source of last. We will not place on oral potassium supplements outpatient. She is already scheduled with her civil engineering design draftsperson on with follow-up blood work at that time. Advised to keep appointment. Encouraged addition of stool softener along with good oral hydration and fiber intake to avoid constipation. No need for laxatives at this time. Will discharge home. Case discussed with Dr. Yuan - Lab Data Result diagrams: 01/26/22 11:38 01/26/22 15:12 Lab Results 01/26/22 01/26/22 01/26/22 Range/Units 11:38 11:38 11:38 WBC 7.2 (3.8-10.6) k/uL RBC 4.66 (3.80-5.40) m/uL Hgb 14.9 (11.4-16.0) gm/dL Hct 42.8 (34.0-46.0) % MCV 91.9 (80.0-100.0) fL MCH 31.9 (25.0-35.0) pg MCHC 34.7 (31.0-37.0) g/dL RDW 12.8 (11.5-15.5) % Plt Count 379 (150-450) k/uL MPV 7.6 Neutrophils % 58 % Lymphocytes % 33 % Monocytes % 5 % Eosinophils % 2 % Basophils % 1 % Neutrophils # 4.2 (1.3-7.7) k/uL Lymphocytes # 2.4 (1.0-4.8) k/uL Monocytes # 0.4 (0-1.0) k/uL Eosinophils # 0.2 (0-0.7) k/uL Basophils # 0.0 (0-0.2) k/uL Sodium 136 L (137-145) mmol/L Potassium 2.7 L* (3.5-5.1) mmol/L Chloride 98 (98-107) mmol/L Carbon Dioxide 31 H (22-30) mmol/L Anion Gap 7 mmol/L BUN 18 H (7-17) mg/dL Creatinine 0.58 (0.52-1.04) mg/dL Est GFR (CKD-EPI)AfAm >90 (>60 ml/min/1.73 sqM) Est GFR (CKD-EPI)NonAf >90 (>60 ml/min/1.73 sqM) Glucose 196 H (74-99) mg/dL Calcium 9.2 (8.4-10.2) mg/dL Magnesium (1.6-2.3) mg/dL Total Bilirubin 0.2 (0.2-1.3) mg/dL AST 26 (14-36) U/L ALT 24 (4-34) U/L Alkaline Phosphatase 63 (38-126) U/L Total Protein 7.0 (6.3-8.2) g/dL Albumin 4.3 (3.5-5.0) g/dL Amylase 79 (30-110) U/L Lipase 125 (23-300) U/L Urine Color Yellow Urine Appearance Clear (Clear) Urine pH 6.5 (5.0-8.0) Ur Specific [place] 1.042 H (1.001-1.035) Urine Protein Negative (Negative) Urine Glucose (UA) 4+ H (Negative) Urine Ketones Negative (Negative) Urine Blood Negative (Negative) Urine Nitrite Negative (Negative) Urine Bilirubin Negative (Negative) Urine Urobilinogen <2.0 (<2.0) mg/dL Ur Leukocyte Esterase Negative (Negative) 01/26/22 01/26/22 Range/Units 11:38 15:12 WBC (3.8-10.6) k/uL RBC (3.80-5.40) m/uL Hgb (11.4-16.0) gm/dL Hct (34.0-46.0) % MCV (80.0-100.0) fL MCH (25.0-35.0) pg MCHC (31.0-37.0) g/dL RDW (11.5-15.5) % Plt Count (150-450) k/uL MPV Neutrophils % % Lymphocytes % % Monocytes % % Eosinophils % % Basophils % % Neutrophils # (1.3-7.7) k/uL Lymphocytes # (1.0-4.8) k/uL Monocytes # (0-1.0) k/uL Eosinophils # (0-0.7) k/uL Basophils # (0-0.2) k/uL Sodium (137-145) mmol/L Potassium 4.2 (3.5-5.1) mmol/L Chloride (98-107) mmol/L Carbon Dioxide (22-30) mmol/L Anion Gap mmol/L BUN (7-17) mg/dL Creatinine (0.52-1.04) mg/dL Est GFR (CKD-EPI)AfAm (>60 ml/min/1.73 sqM) Est GFR (CKD-EPI)NonAf (>60 ml/min/1.73 sqM) Glucose (74-99) mg/dL Calcium (8.4-10.2) mg/dL Magnesium 1.8 (1.6-2.3) mg/dL Total Bilirubin (0.2-1.3) mg/dL AST (14-36) U/L ALT (4-34) U/L Alkaline Phosphatase (38-126) U/L Total Protein (6.3-8.2) g/dL Albumin (3.5-5.0) g/dL Amylase (30-110) U/L Lipase (23-300) U/L Urine Color Urine Appearance (Clear) Urine pH (5.0-8.0) Ur Specific [place] (1.001-1.035) Urine Protein (Negative) Urine Glucose (UA) (Negative) Urine Ketones (Negative) Urine Blood (Negative) Urine Nitrite (Negative) Urine Bilirubin (Negative) Urine Urobilinogen (<2.0) mg/dL Ur Leukocyte Esterase (Negative) - EKG Data EKG Comments: Sinus rhythm. Ventricular rate 90 bpm, MS interval 159 ms, QRS duration 81 ms, QT/QTC 358/409 ms, PRT axes 50, 6, 40 - Radiology Data Radiology results: report reviewed, image reviewed Disposition Clinical Impression: Abdominal pain, Hypokalemia, Constipation Disposition: HOME SELF-CARE Instructions (If sedation given, give patient instructions): Abdominal Pain (ED), Constipation (ED) Additional Instructions: Please add [id number] stool softener to your daily regimen and drink plenty of fluids. Avoid caffeinated products. High fiber diet encouraged to help with constipation. Avoid overuse of laxatives. Please follow-up with your primary care provider along with your already scheduled appointment with endocrinology on 01/29/2022. Your potassium level was low during the hospital stay and her potassium was replaced. Please complete follow-up blood work with your primary care provider and civil engineering design draftsperson as scheduled. Current blood work planned for 01/29/2022. Please return to the Emergency Department if symptoms worsen or any other concerns. Is patient prescribed a controlled substance at d/c from ED?: No Referrals: Lee Enriquez MD [Primary Care Provider] - 1-2 days Time of Disposition: 16:11
[2022-01-26 11:50] LABS: Basophils % (A) 1 %; Eosinophils # (A) 0.2 k/uL (0-0.7); Eosinophils % (A) 2 %; HCT 42.8 % (34.0-46.0); HGB 14.9 gm/dL (11.4-16.0); Lymphocytes # (A) 2.4 k/uL (1.0-4.8); Lymphocytes % (A) 33 %; MCH 31.9 pg (25.0-35.0); MCHC 34.7 g/dL (31.0-37.0); MCV 91.9 fL (80.0-100.0); Mean Platelet Volume 7.6; Monocytes # (A) 0.4 k/uL (0-1.0); Monocytes % (A) 5 %; Neutrophils # (A) 4.2 k/uL (1.3-7.7); Neutrophils % (A) 58 %; Platelet Count 379 k/uL (150-450); RBC 4.66 m/uL (3.80-5.40); RDW 12.8 % (11.5-15.5); WBC 7.2 k/uL (3.8-10.6)
[2022-01-26 11:56] LABS: ALT 24 U/L (4-34); AST 26 U/L (14-36); African American GFR (CKD) >90 (>60 ml/min/1.73 sqM); Albumin 4.3 g/dL (3.5-5.0); Alkaline Phosphatase 63 U/L (38-126); Amylase 79 U/L (30-110); Anion Gap 7 mmol/L; Blood Urea Nitrogen 18 mg/dL (7-17); Calcium 9.2 mg/dL (8.4-10.2); Carbon Dioxide 31 mmol/L (22-30); Chloride 98 mmol/L (98-107); Glucose 196 mg/dL (74-99); Lipase 125 U/L (23-300); Non-African American GFR(CKD) >90 (>60 ml/min/1.73 sqM); Sodium 136 mmol/L (137-145); Total Bilirubin 0.2 mg/dL (0.2-1.3)
[2022-01-26 12:02] LABS: Potassium 2.7 mmol/L (3.5-5.1)
[2022-01-26] MEDS ORDERED: POTASSIUM CHLORIDE ER 20 MEQ TAB.ER PO STA (12:03)
[2022-01-26] MEDS ORDERED: POTASSIUM CHLORIDE 10 MEQ in WATER FOR INJECTION 1 100ML.BAG IVPB STA (12:03)
[2022-01-26 12:07] VITALS: RESP 18
[2022-01-26 12:07] LABS: Appearance,Urine Clear (Clear); Bilirubin,Urine Negative (Negative); Blood,Urine Negative (Negative); Color,Urine Yellow; Glucose,Urine (UA) 4+ (Negative); Ketones,Urine Negative (Negative); Leukocyte Esterase,Urine Negative (Negative); Nitrite,Urine Negative (Negative); PH, Urine 6.5 (5.0-8.0); Protein,Urine Negative (Negative); Specific Gravity,Urine 1.042 (1.001-1.035); Urobilinogen,Urine <2.0 mg/dL (<2.0)
[2022-01-26] MEDS ORDERED: SODIUM CHLORIDE 0.9% 1,000 ML IV STA (12:45)
--- NOTE | 2022-01-26 14:02 | CT ---
EXAMINATION TYPE: CT abdomen pelvis wo con CT DLP: 536.5 mGycm, Automated exposure control for dose reduction was used. DATE OF EXAM: 01/26/2022 1:44 PM COMPARISON: CLINICAL INDICATION:Female, 46 years old with history of ruq pain; Right upper quadrant pain TECHNIQUE: Axial CT of the abdomen and pelvis . Sagittal and coronal reformats were created on a [employer] workstation. Contrast used: None Oral contrast used: without Oral Contrast FINDINGS: LOWER CHEST: Unremarkable ABDOMEN LIVER: Diffusely hypoattenuating parenchyma. GALLBLADDER AND BILE DUCTS: The gallbladder is surgically absent. PANCREAS: Unremarkable. SPLEEN: Unremarkable. ADRENAL GLANDS: Unremarkable. KIDNEYS AND URETERS: No evidence of hydronephrosis or renal calculus. The ureters are unremarkable. The renal calyces and pelvises are symmetrical. No evidence of obstructing calculus evaluation of the distal ureters is slightly limited given the adjacent structures. PELVIS BLADDER: Unremarkable REPRODUCTIVE: Unremarkable. ABDOMEN & PELVIS STOMACH AND BOWEL: There is a large stool burden throughout the colon. No evidence of bowel obstructi on. Appendix is normal. PERITONEUM: No evidence of pneumoperitoneum or free fluid. VASCULATURE: No evidence of aortic aneurysm. MUSCULOSKELETAL: No acute osseous abnormalities LYMPH NODES: No gross evidence for lymphadenopathy. SOFT TISSUE/ABDOMINAL WALL: Unremarkable IMPRESSION: 1. No evidence of acute intraluminal process. 2. Hepatic steatosis. Correlate with serum markers. 3. Large stool burden throughout the colon.
[2022-01-26 15:13] VITALS: BP 114/72; PULSE 93
== END 2022-01-26 16:29 | disposition home or self-care (01) ==
LOC: EC 10:11
DX: K59.00 Constipation, unspecified (principal); E87.6 Hypokalemia; J45.909 Unspecified asthma, uncomplicated; E11.9 Type 2 diabetes mellitus without complications; I10 Essential (primary) hypertension; F17.200 Nicotine dependence, unspecified, uncomplicated; Z91.040 Latex allergy status; Z88.6 Allergy status to analgesic agent
CPT/HCPCS: 36415; 93005; 80053; 82150; 83690; 83735; 84132; 85025; 81003; 74176; 99284; 96365; J3480

== ENCOUNTER 2022-05-27 18:06 | Emergency (ER) | payer BC ==
[2022-05-27 19:42] VITALS: RESP 16
[2022-05-27 20:36] LABS: Glucose,Whole Blood 291 mg/dL (70-110)
[2022-05-27] MEDS ORDERED: ONDANSETRON 4 MG/2 ML VIAL IVP STA (20:38)
[2022-05-27] MEDS ORDERED: SODIUM CHLORIDE 0.9% 1,000 ML IV ONE (20:38)
[2022-05-27] MEDS ORDERED: KETOROLAC 15 MG/ML 1 ML VIAL IVP STA (20:38)
[2022-05-27 20:49] LABS: Basophils # (A) 0.1 k/uL (0-0.2); Basophils % (A) 1 %; Eosinophils # (A) 0.2 k/uL (0-0.7); Eosinophils % (A) 2 %; HCT 42.6 % (34.0-46.0); HGB 15.2 gm/dL (11.4-16.0); Lymphocytes # (A) 3.5 k/uL (1.0-4.8); Lymphocytes % (A) 35 %; MCH 31.8 pg (25.0-35.0); MCHC 35.7 g/dL (31.0-37.0); Monocytes # (A) 0.6 k/uL (0-1.0); Monocytes % (A) 6 %; Neutrophils # (A) 5.6 k/uL (1.3-7.7); Neutrophils % (A) 55 %; Platelet Count 376 k/uL (150-450); RBC 4.78 m/uL (3.80-5.40); RDW 11.9 % (11.5-15.5); WBC 10.1 k/uL (3.8-10.6)
[2022-05-27 20:51] LABS: Appearance,Urine Clear (Clear); Bilirubin,Urine Negative (Negative); Blood,Urine Negative (Negative); Color,Urine Light Yellow; Glucose,Urine (UA) 4+ (Negative); Ketones,Urine 1+ (Negative); Leukocyte Esterase,Urine Negative (Negative); Nitrite,Urine Negative (Negative); PH, Urine 6.5 (5.0-8.0); Protein,Urine Negative (Negative); Urobilinogen,Urine <2.0 mg/dL (<2.0)
[2022-05-27 21:06] LABS: ALT 25 U/L (4-34); AST 19 U/L (14-36); African American GFR (CKD) >90 (>60 ml/min/1.73 sqM); Albumin 4.7 g/dL (3.5-5.0); Alkaline Phosphatase 93 U/L (38-126); Anion Gap 8 mmol/L; Blood Urea Nitrogen 16 mg/dL (7-17); Calcium 9.4 mg/dL (8.4-10.2); Carbon Dioxide 26 mmol/L (22-30); Chloride 99 mmol/L (98-107); Glucose 294 mg/dL (74-99); Non-African American GFR(CKD) >90 (>60 ml/min/1.73 sqM); Potassium 4.1 mmol/L (3.5-5.1); Sodium 133 mmol/L (137-145); Total Bilirubin 0.3 mg/dL (0.2-1.3); Total Protein 7.3 g/dL (6.3-8.2)
[2022-05-27 21:23] LABS: VBG PH 7.42 (7.31-7.41)
--- NOTE | 2022-05-27 22:07 | ED ---
General Adult HPI - General Chief complaint: Nausea/Vomiting/Diarrhea Stated complaint: Nausea,Diabetic Time Seen by Provider: 05/27/22 18:57 Source: patient Mode of arrival: ambulatory Limitations: no limitations - History of Present Illness Initial comments: This is a 46-year-old female with a past medical history including type 1 diabetes presented to the emergency department for nausea and vomiting over the last 1 week. The patient stated that this began on after which she received her influenza and COVID-19 booster on Wednesday. The patient had continued nausea over the last 1 week and stated that her blood sugars have been mildly elevated. The patient stated that her insulin pump was also malfunctioning and had not had a retails over the last week but she was able to give herself insulin. The patient stated that because of the prolonged period of time of the nausea she was concerned she came to the emergency department for evaluation. The patient denied any recent sick contacts and denied any other acute pain. The patient denied fevers and chills. - Related Data Home Medications Medication Instructions Recorded Confirmed Phentermine HCl [Adipex-P] 37.5 mg PO DAILY 01/30/20 05/27/22 traMADol HCL 50 mg PO TID PRN 01/30/20 05/27/22 ARIPiprazole [Abilify] 10 mg PO DAILY 11/21/20 05/27/22 LORazepam [Ativan] 0.5 mg PO AC-BID PRN 02/12/21 05/27/22 Vilazodone HCl [Viibryd] 40 mg PO HS 02/23/21 05/27/22 Albuterol Inhaler [Ventolin Hfa 1 - 2 puff INHALATION RT-QID PRN 04/17/21 05/27/22 Inhaler] Metoclopramide [Reglan] 10 mg PO BID PRN 11/13/21 05/27/22 Ondansetron Odt [Zofran Odt] 8 mg PO Q8HR PRN 11/13/21 05/27/22 INSULIN LISPRO (For Pump) [humaLOG 0.01 units SQ-PUMP CONTINUOUS 05/27/22 05/27/22 (For Pump)] Losartan-Hctz 50-12.5 mg [Hyzaar 1 tab PO DAILY 05/27/22 05/27/22 50-12.5] Potassium Chloride ER [K-Dur 10] 10 meq PO DAILY 05/27/22 05/27/22 ondansetron HCL [Zofran] 8 mg PO Q8HR PRN 05/27/22 05/27/22 Allergies Allergy/AdvReac Type Severity Reaction Status Date / Time latex Allergy Rash/Hives Verified 05/27/22 21:51 carisoprodol [From Soma] AdvReac "Trouble Verified 05/27/22 21:51 remembering things" Review of Systems ROS Statement: Those systems with pertinent positive or pertinent negative responses have been documented in the HPI. ROS Other: All systems not noted in ROS Statement are negative. Past Medical History Past Medical History: Asthma, Diabetes Mellitus, Hypertension Additional Past Medical History / Comment(s): states had a seizure at age 5, was in coma, ?meningitis, was on seizure meds until age 12, none since then. DDD,. pancreatitis History of Any Multi-Drug Resistant Organisms: None Reported Past Surgical History: Breast Surgery, Cholecystectomy, Uterine Ablation Additional Past Surgical History / Comment(s): Left facial/ sinus surgery, colo noscopy 2014, Lt breast bx-neg, EGD, has had epidurals in past Past Anesthesia/Blood Transfusion Reactions: Motion Sickness, Postoperative Nausea & Vomiting (PONV) Additional Past Anesthesia/Blood Transfusion Reaction / Comment(s): motion sickness when on air planes Past Psychological History: Anxiety, Depression Smoking Status: Current every day smoker Past Alcohol Use History: Rare Past Drug Use History: None Reported - Past Family History Father Family Medical History: Cancer, Seizure Disorder Additional Family Medical History / Comment(s): Colon cancer. 2 paternal aunts and paternal grandmother had breast cancer. Mother Family Medical History: Asthma, Hypertension, Liver Disease Additional Family Medical History / Comment(s): EtOH abuse. Maternal grandmother had leukemia. General Exam Limitations: no limitations General appearance: alert, in no apparent distress Head exam: Present: atraumatic, normocephalic Eye exam: Present: normal appearance, PERRL, EOMI Pupils: Present: normal accommodation ENT exam: Present: normal exam, normal oropharynx, mucous membranes moist Neck exam: Present: normal inspection, full ROM Respiratory exam: Present: normal lung sounds bilaterally Cardiovascular Exam: Present: regular rate, normal rhythm, normal heart sounds GI/Abdominal exam: Present: soft, normal bowel sounds Extremities exam: Present: normal inspection, full ROM Back exam: Present: normal inspection, full ROM Neurological exam: Present: alert, oriented X3, CN II-XII intact Psychiatric exam: Present: normal affect, normal mood Skin exam: Present: warm, dry Course Vital Signs 05/27/22 05/27/22 05/27/22 18:07 19:41 21:02 Temperature 96.6 F L 97.7 F 98.4 F Pulse Rate 83 72 72 Respiratory 18 16 16 Rate Blood Pressure 163/103 133/74 146/87 O2 Sat by Pulse 100 99 100 Oximetry 05/27/22 22:11 Temperature 97.2 F L Pulse Rate 82 Respiratory 16 Rate Blood Pressure 140/92 O2 Sat by Pulse 99 Oximetry Medical Decision Making - Medical Decision Making The patient was seen and evaluated in the department. Physical exam, the patient was resting without any acute distress. Due to the nature the patient's type 1 diabetes, laboratory workup was obtained to rule out DKA. All laboratory workup was within normal limits with a blood sugar of 244. The patient was given 1 L no saline fluid as well as 4 mg of Zofran and on reevaluation she was able to sleep comfortably without any further nausea. The patient did state that she had Zofran and Reglan at home so she did not need any further medications. I instructed the patient to continue to monitor blood sugar closely as she did not have an active insulin pump. The patient was relieved to know that her laboratory workup was within normal limits the patient had no other symptoms currently in the emergency department was stable for discharge. The patient was advised to follow-up with her primary care physician for further workup and evaluation [facility] had [facility] ecurrence of her symptoms. The patient was agreeable to this and all of her questions were answered. The patient was discharged home in stable condition. - Lab Data Result diagrams: 05/27/22 20:40 05/27/22 20:40 Lab Results 05/27/22 05/27/22 05/27/22 Range/Units 20:35 20:40 20:40 WBC 10.1 (3.8-10.6) k/uL RBC 4.78 (3.80-5.40) m/uL Hgb 15.2 (11.4-16.0) gm/dL Hct 42.6 (34.0-46.0) % MCV 89.0 (80.0-100.0) fL MCH 31.8 (25.0-35.0) pg MCHC 35.7 (31.0-37.0) g/dL RDW 11.9 (11.5-15.5) % Plt Count 376 (150-450) k/uL MPV 8.0 Neutrophils % 55 % Lymphocytes % 35 % Monocytes % 6 % Eosinophils % 2 % Basophils % 1 % Neutrophils # 5.6 (1.3-7.7) k/uL Lymphocytes # 3.5 (1.0-4.8) k/uL Monocytes # 0.6 (0-1.0) k/uL Eosinophils # 0.2 (0-0.7) k/uL Basophils # 0.1 (0-0.2) k/uL VBG pH (7.31-7.41) VBG pCO2 (37-51) mmHg VBG HCO3 (24-28) mmol/L Sodium (137-145) mmol/L Potassium (3.5-5.1) mmol/L Chloride (98-107) mmol/L Carbon Dioxide (22-30) mmol/L Anion Gap mmol/L BUN (7-17) mg/dL Creatinine (0.52-1.04) mg/dL Est GFR (CKD-EPI)AfAm (>60 ml/min/1.73 sqM) Est GFR (CKD-EPI)NonAf (>60 ml/min/1.73 sqM) Glucose (74-99) mg/dL POC Glucose (mg/dL) 291 H (70-110) mg/dL POC Glu Trauma Manager ID Cobb, [place] Calcium (8.4-10.2) mg/dL Total Bilirubin (0.2-1.3) mg/dL AST (14-36) U/L ALT (4-34) U/L Alkaline Phosphatase (38-126) U/L Total Protein (6.3-8.2) g/dL Albumin (3.5-5.0) g/dL Urine Color Light Yellow Urine Appearance Clear (Clear) Urine pH 6.5 (5.0-8.0) Ur Specific [place] 1.030 (1.001-1.035) Urine Protein Negative (Negative) Urine Glucose (UA) 4+ H (Negative) Urine Ketones 1+ H (Negative) Urine Blood Negative (Negative) Urine Nitrite Negative (Negative) Urine Bilirubin Negative (Negative) Urine Urobilinogen <2.0 (<2.0) mg/dL Ur Leukocyte Esterase Negative (Negative) 05/27/22 05/27/22 Range/Units 20:40 21:16 WBC (3.8-10.6) k/uL RBC (3.80-5.40) m/uL Hgb (11.4-16.0) gm/dL Hct (34.0-46.0) % MCV (80.0-100.0) fL MCH (25.0-35.0) pg MCHC (31.0-37.0) g/dL RDW (11.5-15.5) % Plt Count (150-450) k/uL MPV Neutrophils % % Lymphocytes % % Monocytes % % Eosinophils % % Basophils % % Neutrophils # (1.3-7.7) k/uL Lymphocytes # (1.0-4.8) k/uL Monocytes # (0-1.0) k/uL Eosinophils # (0-0.7) k/uL Basophils # (0-0.2) k/uL VBG pH 7.42 H (7.31-7.41) VBG pCO2 38 (37-51) mmHg VBG HCO3 24 (24-28) mmol/L Sodium 133 L (137-145) mmol/L Potassium 4.1 (3.5-5.1) mmol/L Chloride 99 (98-107) mmol/L Carbon Dioxide 26 (22-30) mmol/L Anion Gap 8 mmol/L BUN 16 (7-17) mg/dL Creatinine 0.62 (0.52-1.04) mg/dL Est GFR (CKD-EPI)AfAm >90 (>60 ml/min/1.73 sqM) Est GFR (CKD-EPI)NonAf >90 (>60 ml/min/1.73 sqM) Glucose 294 H (74-99) mg/dL POC Glucose (mg/dL) (70-110) mg/dL POC Glu Trauma Manager ID Calcium 9.4 (8.4-10.2) mg/dL Total Bilirubin 0.3 (0.2-1.3) mg/dL AST 19 (14-36) U/L ALT 25 (4-34) U/L Alkaline Phosphatase 93 (38-126) U/L Total Protein 7.3 (6.3-8.2) g/dL Albumin 4.7 (3.5-5.0) g/dL Urine Color Urine Appearance (Clear) Urine pH (5.0-8.0) Ur Specific [place] (1.001-1.035) Urine Protein (Negative) Urine Glucose (UA) (Negative) Urine Ketones (Negative) Urine Blood (Negative) Urine Nitrite (Negative) Urine Bilirubin (Negative) Urine Urobilinogen (<2.0) mg/dL Ur Leukocyte Esterase (Negative) Disposition Clinical Impression: Dehydration, Nausea & vomiting, Hyperglycemia Disposition: HOME SELF-CARE Condition: Stable Instructions (If sedation given, give patient instructions): Acute Nausea and Vomiting (ED) Is patient prescribed a controlled substance at d/c from ED?: No Referrals: Pillo Tam MD [Primary Care Provider] - 1-2 days Time of Disposition: 22:00
[2022-05-27 22:12] VITALS: BP 140/92; PULSE 82; TEMP 97.2
== END 2022-05-27 22:12 | disposition home or self-care (01) ==
LOC: EC 18:06
DX: R73.9 Hyperglycemia, unspecified (principal); J45.909 Unspecified asthma, uncomplicated; I10 Essential (primary) hypertension; F32.A Depression, unspecified; F41.9 Anxiety disorder, unspecified; F17.200 Nicotine dependence, unspecified, uncomplicated; R11.2 Nausea with vomiting, unspecified; Z79.51 Long term (current) use of inhaled steroids; Z79.899 Other long term (current) drug therapy; Z79.811 Long term (current) use of aromatase inhibitors; Z91.040 Latex allergy status; Z79.1 Long term (current) use of non-steroidal anti-inflammatories (NSAID)
CPT/HCPCS: 36415; 80053; 82803; 85025; 81003; 99284; 96374; 96375; 96361; J2405; J1885

== ENCOUNTER 2022-07-24 17:26 | Emergency (ER) | payer BC ==
[2022-07-24] MEDS ORDERED: SODIUM CHLORIDE 0.9% 500 ML 500 ML IV STA (17:56)
[2022-07-24] MEDS ORDERED: ASPIRIN 81 MG PO STA (17:56)
--- NOTE | 2022-07-24 19:05 | ED ---
General Adult HPI - General Chief complaint: Arrhythmia/Palpitations Stated complaint: Tachycardia Time Seen by Provider: 07/24/22 17:45 Source: patient, RN notes reviewed, old records reviewed Mode of arrival: ambulatory Limitations: no limitations - History of Present Illness Initial comments: Patient is a 46-year-old female with past medical history remarkable for diabetes, asthma, hypertension who presents emergency Department complaining of heart palpitations for the last 2 days. States they come and go with a chest discomfort that she currently does not have. Has not expenses before. No history of cardiac disease in herself. CHF does run in the family. No history of cardiac stents. Denies any lower external swelling or pain. Denies any history of blood clots. Denies any recent long distance travel. Denies any current complaints at this time. Denies nausea, vomiting, abdominal discomfort. Is uncertain what is going on. Was concerned there may be related to possible DKA she has had this in the past but does agree that her current symptoms other than the palpitations do not fit. States her heart rate seems to be fast at h ome intermittently into the 120s and 130s but then resolves. Wants to be evaluated at this time. Has no other acute complaints at this time. Denies any fevers, chills. Endorses a nonproductive cough. - Related Data Home Medications Medication Instructions Recorded Confirmed Phentermine HCl [Adipex-P] 37.5 mg PO DAILY 01/30/20 05/27/22 traMADol HCL 50 mg PO TID PRN 01/30/20 05/27/22 ARIPiprazole [Abilify] 10 mg PO DAILY 11/21/20 05/27/22 LORazepam [Ativan] 0.5 mg PO AC-BID PRN 02/12/21 05/27/22 Vilazodone HCl [Viibryd] 40 mg PO HS 02/23/21 05/27/22 Albuterol Inhaler [Ventolin Hfa 1 - 2 puff INHALATION RT-QID PRN 04/17/21 05/27/22 Inhaler] Metoclopramide [Reglan] 10 mg PO BID PRN 11/13/21 05/27/22 Ondansetron Odt [Zofran Odt] 8 mg PO Q8HR PRN 11/13/21 05/27/22 INSULIN LISPRO (For Pump) [humaLOG 0.01 units SQ-PUMP CONTINUOUS 05/27/22 05/27/22 (For Pump)] Losartan-Hctz 50-12.5 mg [Hyzaar 1 tab PO DAILY 05/27/22 05/27/22 50-12.5] Potassium Chloride ER [K-Dur 10] 10 meq PO DAILY 05/27/22 05/27/22 ondansetron HCL [Zofran] 8 mg PO Q8HR PRN 05/27/22 05/27/22 Allergies Allergy/AdvReac Type Severity Reaction Status Date / Time latex Allergy Rash/Hives Verified 07/24/22 17:35 carisoprodol [From Soma] AdvReac "Trouble Verified 07/24/22 17:35 remembering things" Review of Systems ROS Statement: Those systems with pertinent positive or pertinent negative responses have been documented in the HPI. Review of Systems: CONST: Denies fever EYES: Denies blurry vision ENT: Denies nasal congestion C/V: Denies Chest pain RESP: Denies shortness of breath GI: Denies abdominal pain : Denies dysuria SKIN: Denies rash. MSK: Denies joint pain. NEURO: Denies headache ROS Other: All systems not noted in ROS Statement are negative. Past Medical History Past Medical History: Asthma, Diabetes Mellitus, Hypertension Additional Past Medical History / Comment(s): states had a seizure at age 5, was in coma, ?meningitis, was on seizure meds until age 12, none since then. DDD,. pancreatitis History of Any Multi-Drug Resistant Organisms: None Reported Past Surgical History: Breast Surgery, Cholecystectomy, Uterine Ablation Additional Past Surgical History / Comment(s): Left facial/ sinus surgery, colonoscopy 2014, Lt breast bx-neg, EGD, has had epidurals in past Past Anesthesia/Blood Transfusion Reactions: Motion Sickness, Postoperative Nausea & Vomiting (PONV) Additional Past Anesthesia/Blood Transfusion Reaction / Comment(s): motion sickness when on air planes Past Psychological History: Anxiety, Depression Smoking Status: Current every day smoker Past Alcohol Use History: Rare Past Drug Use History: None Reported - Past Family History Father Family Medical History: Cancer, Seizure Disorder Additional Family Medical History / Comment(s): Colon cancer. 2 paternal aunts and paternal grandmother had breast cancer. Mother Family Medical History: Asthma, Hypertension, Liver Disease Additional Family Medical History / Comment(s): EtOH abuse. Maternal grandmother had leukemia. General Exam - General Exam Comments Initial Comments: General: Appears in no acute distress. HEAD: Normal with no signs of head trauma. EYES: PERRLA, EOMI, conjunctiva normal, no discharge. ENT: Hearing grossly intact, normal oropharynx. RESPIRATORY: Clear breath sounds bilaterally. No wheezes, rales, or rhonchi. C/V: Regular rate and rhythm. S1 and S2 auscultated, no edema, peripheral pulses 2+ and intact throughout ABD: Abd is soft, nontender, nondistended EXT: Normal range of motion, no obvious deformity SKIN: No rashes or lesions observed on exposed skin. NEURO: Alert and oriented 4. Limitations: no limitations Course Vital Signs 07/24/22 07/24/22 07/24/22 17:33 18:43 19:36 Temperature 98.4 F Pulse Rate 97 92 89 Pulse Rate [ Pulse Oximetery ] Respiratory 20 18 17 Rate Blood Pressure 143/100 115/96 133/81 O2 Sat by Pulse 96 96 97 Oximetry 07/24/22 07/24/22 07/24/22 20:30 20:53 21:17 Temperature Pulse Rate 80 70 Pulse Rate [ 120 H Pulse Oximetery ] Respiratory 18 18 Rate Blood Pressure 145/95 142/88 O2 Sat by Pulse 97 96 Oximetry 07/24/22 22:04 Temperature 97.8 F Pulse Rate Pulse Rate [ Pulse Oximetery ] Respiratory Rate Blood Pressure O2 Sat by Pulse Oximetry Medical Decision Making - Medical Decision Making Was pt. sent in by a medical professional or institution (, PA, [employer], urgent care, hospital, or [place] health care facility...) When possible be specific @ -No Did you speak to anyone other than the patient for history (EMS, parent, family, police, friend...)? What history was obtained from this source @ -No Did you review nursing and triage notes (agree or disagree)? Why? @ -I reviewed and agree with nursing and triage notes Were old charts reviewed (outside hosp., previous admission, EMS record, old EKG, old radiological studies, urgent care reports/EKG's, [place] health care facility records)? Report findings @ -Yes. Old EKG, charts reviewed. Differential Diagnosis (chest pain, altered mental status, abdominal pain women, abdominal pain men, vaginal bleeding, weakness, fever, dyspnea, syncope, headache, dizziness, GI bleed, back pain, seizure, CVA, palpatations, mental health)? @ -Differential Dyspnea: Coronary syndrome, arrhythmia, tamponade, asthma, COPD, pulmonary embolism, pneumonia, pneumothorax, pulmonary effusion, anaphylaxis, diabetic ketoacidosis, flailed chest, pulmonary contusion, diaphragmatic rupture, anemia, neur omuscular, this is not meant to be an all-inclusive list. EKG interpreted by me (3pts min.). @ -As above X-rays interpreted by me (1pt min.). @ -Chest X-ray revealed no acute cardiopulmonary process, infiltrate CT interpreted by me (1pt min.). @ -None done U/S interpreted by me (1pt. min.). @ -None done What testing was considered but not performed or refused? (CT, X-rays, U/S, labs)? Why? @ -None What meds were considered but not given or refused? Why? @ -None Did you discuss the management of the patient with other professionals (professionals i.e. , PA, [employer], lab, RT, psych nurse, social science research assistant, engraver hand hard metals, teacher, sewage reticulation drafting officer, pillowcase sewer)? Give summary @ -No Was smoking cessation discussed for >3mins.? @ -No Was critical care preformed (if so, how long)? @ -No Were there social determinants of health that impacted care today? How? (Homelessness, low income, unemployed, alcoholism, drug addiction, transportation, low edu. Level, literacy, decrease access to med. care, retirement, rehab)? @ -No Was there de-escalation of care discussed even if they declined (Discuss DNR or withdrawal of care, Hospice)? DNR status @ -No What co-morbidities impacted this encounter? (DM, HTN, Smoking, COPD, CAD, Cancer, CVA, ARF, Chemo, Hep., AIDS, mental health diagnosis, sleep apnea, morbid obesity)? @ -Insulin-dependent diabetes Was patient admitted / discharged? Hospital course, mention meds given and route, prescriptions, significant lab abnormalities, going to OR and other pertinent info. @ - Based on the patient's presentation and physical exam, patient appears to be having palpitations and intermittent chest discomfort which she currently does not have. Has been ongoing for the last 2 days. Is overly concerned that may be related to possible DKA or cardiac etiology at this time. She is low risk for PE as well however we will obtain screening examination for cardiac labs, EKG, chest x-ray. She was in agreement this plan. She'll be given 324 millions of aspirin as well as a 500 mL fluid bolus. We will evaluate her for DKA as well which she was in agreement with, despite her clinically not presenting DKA.. Vital signs within acceptable limits. EKG showed no signs of acute ischemia. Chest x-ray reveals no acute cardio pulmonary process. Laboratory studies are remarkable for an undetectable d- dimer. Patient is hyperglycemic deformity and 32. Troponin is undetectable. Urinalysis is remarkable for 2+ ketones and 4+ glucose. Acetone negative. Flu, RSV, Covid negative. There is no anion gap metabolic acidosis. On reevaluation, I did discuss her workup with her. She is acutely hyperglycemic. Remainder the workup is unremarkable. Patient does not use her insulin pump at home and she states significantly. Has been using subcutaneous insulin at home for control. I do want to provide her with an additional fluid bolus as well as subcutaneous insulin in the department to lower her sugar. She was in agreement this plan. She has an estimated she is not in DKA, and feels improved at this time. Patient did eat which did not help with her blood sugar despite receiving 10 units of insulin as well as 1 L fluid bolus. I discussed at length with the patient and she does not wish to stay. She states she feels more comfortable administering her own insulin at home. We discussed she does not have current DKA. She is reliable and we did discuss strict return precautions at this time. She was in agreement with the plan. I did recommend follow-up with her PCP next week. She was in agreement with this plan. She is discharged home at this time after joint decision making with the patient for discharge. Risks of discharge without obtaining better glycemic control were discussed and she expressed understanding. I instructed the patient to follow up with their PCP in the next 1-3 days. I explained that the patient should return to the emergency department if they experience any worsening symptoms. Strict return precautions were discussed with the patient. The patient expressed understanding of these instructions. I answered all questions that the patient had. The patient was discharged home in good condition with their prescriptions and follow up information. Undiagnosed new problem with uncertain prognosis? @ -No Drug Therapy requiring intensive monitoring for toxicity (Heparin, Nitro, Insulin, Cardizem)? @ -No Were any procedures done? @ -No Diagnosis/symptom? @ -Heart palpitations Acute, or Chronic, or Acute on Chronic? @ -Acute Uncomplicated (without systemic symptoms) or Complicated (systemic symptoms)? @ -Uncomplicated Side effects of treatment? @ -No Exacerbation, Progression, or Severe Exacerbation? @ -No Poses a threat to life or bodily function? How? (Chest pain, [place], [place], pneumonia, PE, COPD, DKA, ARF, appy, cholecystitis, CVA, Diverticulitis, Homicidal, Suicidal, threat to staff... and all critical care pts) @ -No Diagnosis/symptom? @ -Hyperglycemia in the setting of insulin-dependent diabetes Acute, or Chronic, or Acute on Chronic? @ -Acute Uncomplicated (without systemic symptoms) or Complicated (systemic symptoms)? @ -Uncomplicated Side effects of treatment? @ -none Exacerbation, Progression, or Severe Exacerbation] @ -Exacerbation Poses a threat to life or bodily function? @ -Yes, untreated can possibly progressed to DKA resulting in significant morbidity and mortality. - Lab Data Result diagrams: 07/24/22 18:35 07/24/22 18:35 Lab Results 07/24/22 07/24/22 07/24/22 Range/Units 18:35 18:35 18:35 WBC 7.3 (3.8-10.6) k/uL RBC 4.51 (3.80-5.40) m/uL Hgb 14.2 (11.4-16.0) gm/dL Hct 41.3 (34.0-46.0) % MCV 91.7 (80.0-100.0) fL MCH 31.4 (25.0-35.0) pg MCHC 34.3 (31.0-37.0) g/dL RDW 12.2 (11.5-15.5) % Plt Count 346 (150-450) k/uL MPV 7.9 Neutrophils % 60 % Lymphocytes % 30 % Monocytes % 6 % Eosinophils % 1 % Basophils % 1 % Neutrophils # 4.4 (1.3-7.7) k/uL Lymphocytes # 2.2 (1.0-4.8) k/uL Monocytes # 0.4 (0-1.0) k/uL Eosinophils # 0.1 (0-0.7) k/uL Basophils # 0.1 (0-0.2) k/uL PT 9.5 (9.0-12.0) sec INR 0.9 (<1.2) APTT 22.1 (22.0-30.0) sec D-Dimer <0.17 (<0.60) mg/L FEU Sodium 134 L (137-145) mmol/L Potassium 3.9 (3.5-5.1) mmol/L Chloride 97 L (98-107) mmol/L Carbon Dioxide 27 (22-30) mmol/L Anion Gap 10 mmol/L BUN 12 (7-17) mg/dL Creatinine 0.57 (0.52-1.04) mg/dL Est GFR (CKD-EPI)AfAm >90 (>60 ml/min/1.73 sqM) Est GFR (CKD-EPI)NonAf >90 (>60 ml/min/1.73 sqM) Glucose 432 H (74-99) mg/dL POC Glucose (mg/dL) (70-110) mg/dL POC Glu Word Processing Machine Operator ID Calcium 9.2 (8.4-10.2) mg/dL Magnesium 1.7 (1.6-2.3) mg/dL Total Bilirubin 0.5 (0.2-1.3) mg/dL AST 47 H (14-36) U/L ALT 186 H (4-34) U/L Alkaline Phosphatase 98 (38-126) U/L Troponin I (0.000-0.034) ng/mL Total Protein 6.9 (6.3-8.2) g/dL Albumin 4.5 (3.5-5.0) g/dL Amylase 51 (30-110) U/L Lipase 117 (23-300) U/L Urine Color Urine Appearance (Clear) Urine pH (5.0-8.0) Ur Specific [place] (1.001-1.035) Urine Protein (Negative) Urine Glucose (UA) (Negative) Urine Ketones (Negative) Urine Blood (Negative) Urine Nitrite (Negative) Urine Bilirubin (Negative) Urine Urobilinogen (<2.0) mg/dL Ur Leukocyte Esterase (Negative) Urine RBC (0-5) /hpf Urine WBC (0-5) /hpf Ur Squamous Epith Cells (0-4) /hpf Urine Mucus (None) /hpf Acetone, Qual Negative (Negative) Influenza Type A (PCR) (Not Detectd) Influenza Type B (PCR) (Not Detectd) RSV (PCR) (Not Detectd) SARS-CoV-2 (PCR) (Not Detectd) 07/24/22 07/24/22 07/24/22 Range/Units 18:35 18:35 19:33 WBC (3.8-10.6) k/uL RBC (3.80-5.40) m/uL Hgb (11.4-16.0) gm/dL Hct (34.0-46.0) % MCV (80.0-100.0) fL MCH (25.0-35.0) pg MCHC (31.0-37.0) g/dL RDW (11.5-15.5) % Plt Count (150-450) k/uL MPV Neutrophils % % Lymphocytes % % Monocytes % % Eosinophils % % Basophils % % Neutrophils # (1.3-7.7) k/uL Lymphocytes # (1.0-4.8) k/uL Monocytes # (0-1.0) k/uL Eosinophils # (0-0.7) k/uL Basophils # (0-0.2) k/uL PT (9.0-12.0) sec INR (<1.2) APTT (22.0-30.0) sec D-Dimer (<0.60) mg/L FEU Sodium (137-145) mmol/L Potassium (3.5-5.1) mmol/L Chloride (98-107) mmol/L Carbon Dioxide (22-30) mmol/L Anion Gap mmol/L BUN (7-17) mg/dL Creatinine (0.52-1.04) mg/dL Est GFR (CKD-EPI)AfAm (>60 ml/min/1.73 sqM) Est GFR (CKD-EPI)NonAf (>60 ml/min/1.73 sqM) Glucose (74-99) mg/dL POC Glucose (mg/dL) (70-110) mg/dL POC Glu Word Processing Machine Operator ID Calcium (8.4-10.2) mg/dL Magnesium (1.6-2.3) mg/dL Total Bilirubin (0.2-1.3) mg/dL AST (14-36) U/L ALT (4-34) U/L Alkaline Phosphatase (38-126) U/L Troponin I <0.012 (0.000-0.034) ng/mL Total Protein (6.3-8.2) g/dL Albumin (3.5-5.0) g/dL Amylase (30-110) U/L Lipase (23-300) U/L Urine Color Light Yellow Urine Appearance Clear (Clear) Urine pH 5.0 (5.0-8.0) Ur Specific [place] 1.036 H (1.001-1.035) Urine Protein Negative (Negative) Urine Glucose (UA) 4+ H (Negative) Urine Ketones 2+ H (Negative) Urine Blood Negative (Negative) Urine Nitrite Negative (Negative) Urine Bilirubin Negative (Negative) Urine Urobilinogen <2.0 (<2.0) mg/dL Ur Leukocyte Esterase Trace H (Negative) Urine RBC <1 (0-5) /hpf Urine WBC 6 H (0-5) /hpf Ur Squamous Epith Cells 2 (0-4) /hpf Urine Mucus Rare H (None) /hpf Acetone, Qual (Negative) Influenza Type A (PCR) Not Detected (Not Detectd) Influenza Type B (PCR) Not Detected (Not Detectd) RSV (PCR) Not Detected (Not Detectd) SARS-CoV-2 (PCR) Not Detected (Not Detectd) 07/24/22 Range/Units 21:47 WBC (3.8-10.6) k/uL RBC (3.80-5.40) m/uL Hgb (11.4-16.0) gm/dL Hct (34.0-46.0) % MCV (80.0-100.0) fL MCH (25.0-35.0) pg MCHC (31.0-37.0) g/dL RDW (11.5-15.5) % Plt Count (150-450) k/uL MPV Neutrophils % % Lymphocytes % % Monocytes % % Eosinophils % % Basophils % % Neutrophils # (1.3-7.7) k/uL Lymphocytes # (1.0-4.8) k/uL Monocytes # (0-1.0) k/uL Eosinophils # (0-0.7) k/uL Basophils # (0-0.2) k/uL PT (9.0-12.0) sec INR (<1.2) APTT (22.0-30.0) sec D-Dimer (<0.60) mg/L FEU Sodium (137-145) mmol/L Potassium (3.5-5.1) mmol/L Chloride (98-107) mmol/L Carbon Dioxide (22-30) mmol/L Anion Gap mmol/L BUN (7-17) mg/dL Creatinine (0.52-1.04) mg/dL Est GFR (CKD-EPI)AfAm (>60 ml/min/1.73 sqM) Est GFR (CKD-EPI)NonAf (>60 ml/min/1.73 sqM) Glucose (74-99) mg/dL POC Glucose (mg/dL) 441 H (70-110) mg/dL POC Glu Word Processing Machine Operator ID Herminia Todd Calcium (8.4-10.2) mg/dL Magnesium (1.6-2.3) mg/dL Total Bilirubin (0.2-1.3) mg/dL AST (14-36) U/L ALT (4-34) U/L Alkaline Phosphatase (38-126) U/L Troponin I (0.000-0.034) ng/mL Total Protein (6.3-8.2) g/dL Albumin (3.5-5.0) g/dL Amylase (30-110) U/L Lipase (23-300) U/L Urine Color Urine Appearance (Clear) Urine pH (5.0-8.0) Ur Specific [place] (1.001-1.035) Urine Protein (Negative) Urine Glucose (UA) (Negative) Urine Ketones (Negative) Urine Blood (Negative) Urine Nitrite (Negative) Urine Bilirubin (Negative) Urine Urobilinogen (<2.0) mg/dL Ur Leukocyte Esterase (Negative) Urine RBC (0-5) /hpf Urine WBC (0-5) /hpf Ur Squamous Epith Cells (0-4) /hpf Urine Mucus (None) /hpf Acetone, Qual (Negative) Influenza Type A (PCR) (Not Detectd) Influenza Type B (PCR) (Not Detectd) RSV (PCR) (Not Detectd) SARS-CoV-2 (PCR) (Not Detectd) - EKG Data -: EKG Interpreted by Me EKG Comments: 12-lead Electrocardiogram Interpretation Note EKG was reviewed and interpreted by myself. 12-lead ECG performed at 1748 is interpreted by me as revealing normal sinus rhythm at a rate of 87 beats per minute. [place] is normal. RI interval is 140 ms, QRS duration is 84 ms, QTc is 422 ms.. There were no ST or T wave abnormalities to suggest myocardial isch emia or injury. R wave progression across the precordium was satisfactory. By my interpretation this EKG is non-diagnostic for acute ischemia. When compared with EKG from January 2022, no significant change. Disposition Clinical Impression: Hyperglycemia, Heart palpitations Disposition: HOME SELF-CARE Condition: Good Instructions (If sedation given, give patient instructions): Heart Palpitations (ED) Is patient prescribed a controlled substance at d/c from ED?: No Referrals: Pillo Tam MD [Primary Care Provider] - 1-2 days Time of Disposition: 21:50
--- NOTE | 2022-07-24 19:06 | XR ---
EXAMINATION TYPE: XR chest 2V DATE OF EXAM: 07/24/2022 COMPARISON: 02/23/2021 HISTORY: Abdominal pain TECHNIQUE: 2 views FINDINGS: Heart and mediastinum are normal. Lungs are clear. Diaphragm is normal. Bony thorax appears normal. IMPRESSION: Normal chest. No change.
[2022-07-24 19:46] LABS: Basophils # (A) 0.1 k/uL (0-0.2); Basophils % (A) 1 %; Eosinophils # (A) 0.1 k/uL (0-0.7); Eosinophils % (A) 1 %; HCT 41.3 % (34.0-46.0); HGB 14.2 gm/dL (11.4-16.0); Lymphocytes # (A) 2.2 k/uL (1.0-4.8); Lymphocytes % (A) 30 %; MCH 31.4 pg (25.0-35.0); MCHC 34.3 g/dL (31.0-37.0); MCV 91.7 fL (80.0-100.0); Mean Platelet Volume 7.9; Monocytes # (A) 0.4 k/uL (0-1.0); Monocytes % (A) 6 %; Neutrophils # (A) 4.4 k/uL (1.3-7.7); Neutrophils % (A) 60 %; Platelet Count 346 k/uL (150-450); RBC 4.51 m/uL (3.80-5.40); RDW 12.2 % (11.5-15.5); WBC 7.3 k/uL (3.8-10.6)
[2022-07-24 20:02] LABS: INR 0.9 (<1.2); Partial Thromboplastin Time 22.1 sec (22.0-30.0); Prothrombin Time 9.5 sec (9.0-12.0)
[2022-07-24 20:06] LABS: ALT 186 U/L (4-34); AST 47 U/L (14-36); African American GFR (CKD) >90 (>60 ml/min/1.73 sqM); Albumin 4.5 g/dL (3.5-5.0); Alkaline Phosphatase 98 U/L (38-126); Amylase 51 U/L (30-110); Anion Gap 10 mmol/L; Blood Urea Nitrogen 12 mg/dL (7-17); Calcium 9.2 mg/dL (8.4-10.2); Carbon Dioxide 27 mmol/L (22-30); Chloride 97 mmol/L (98-107); Glucose 432 mg/dL (74-99); Lipase 117 U/L (23-300); Magnesium 1.7 mg/dL (1.6-2.3); Non-African American GFR(CKD) >90 (>60 ml/min/1.73 sqM); Potassium 3.9 mmol/L (3.5-5.1); Sodium 134 mmol/L (137-145); Total Bilirubin 0.5 mg/dL (0.2-1.3); Total Protein 6.9 g/dL (6.3-8.2)
[2022-07-24 20:18] LABS: Appearance,Urine Clear (Clear); Bilirubin,Urine Negative (Negative); Blood,Urine Negative (Negative); Color,Urine Light Yellow; Glucose,Urine (UA) 4+ (Negative); Leukocyte Esterase,Urine Trace (Negative); Mucus,Urine Rare /hpf; Nitrite,Urine Negative (Negative); Protein,Urine Negative (Negative); RBC,Urine <1 /hpf (0-5); Specific Gravity,Urine 1.036 (1.001-1.035); Squamous Epithelial Cell,Urine 2 /hpf (0-4); Urobilinogen,Urine <2.0 mg/dL (<2.0); WBC,Urine 6 /hpf (0-5)
[2022-07-24 20:22] LABS: Ketones,Urine 2+ (Negative)
[2022-07-24] MEDS ORDERED: SODIUM CHLORIDE 0.9% 1,000 ML IV STA (20:23)
[2022-07-24] MEDS ORDERED: INSULIN ASPART (NovoLOG) 100 UNIT/ML VIAL SQ STA (20:47)
[2022-07-24 20:54] VITALS: RESP 18
[2022-07-24 21:17] VITALS: BP 142/88
[2022-07-24 21:45] VITALS: PULSE 120
[2022-07-24 21:51] LABS: Glucose,Whole Blood 441 mg/dL (70-110)
[2022-07-24 22:05] VITALS: TEMP 97.8
== END 2022-07-24 22:08 | disposition home or self-care (01) ==
LOC: EC 17:26
DX: R00.2 Palpitations (principal); E11.65 Type 2 diabetes mellitus with hyperglycemia; I10 Essential (primary) hypertension; J45.909 Unspecified asthma, uncomplicated; F32.A Depression, unspecified; F41.9 Anxiety disorder, unspecified; F17.200 Nicotine dependence, unspecified, uncomplicated; Z79.4 Long term (current) use of insulin; Z79.899 Other long term (current) drug therapy; Z91.040 Latex allergy status; Z20.822 Contact with and (suspected) exposure to COVID-19
CPT/HCPCS: 36415; 71046; 80053; 81001; 82009; 82150; 83690; 83735; 84484; 85025; 85379; 85610; 85730; 87636; 93005; 96360; 96361; 99285

== ENCOUNTER 2022-09-26 10:41 | Emergency (ER) | payer BC ==
[2022-09-26 10:46] VITALS: TEMP 98.7
[2022-09-26] MEDS ORDERED: SODIUM CHLORIDE 0.9% 1,000 ML IV STA (11:09)
[2022-09-26] MEDS ORDERED: KETOROLAC 15 MG/ML 1 ML VIAL IVP STA (11:17)
[2022-09-26] MEDS ORDERED: PROCHLORPERAZINE INJ 10 MG/2 ML VIAL IVP STA (11:17)
[2022-09-26] MEDS ORDERED: SODIUM CHLORIDE 0.9% 2,000 ML IV STA (11:18)
[2022-09-26 11:21] LABS: Glucose,Whole Blood 335 mg/dL (70-110)
--- NOTE | 2022-09-26 11:22 | ED ---
General Adult HPI - General Chief complaint: Recheck/Abnormal Lab/Rx Stated complaint: Poss DKA,Covid+ Time Seen by Provider: 09/26/22 11:08 Source: patient Mode of arrival: ambulatory Limitations: no limitations - History of Present Illness Initial comments: Patient is a 47-year-old female who presents to the emergency department with a chief complaint of nausea. Patient had a positive COVID-19 test at home 9 days ago. She went to urgent care yesterday for nausea and was sent to the emergency department for possible DKA. Patient takes insulin and metformin. Patient went home before getting a room in the ED. She presents today with concern for dehydration. Patient is very nauseous but she has not vomited. She took Zofran and reglan at home. She has body aches. She reports decreased oral intake. She denies chest pain, shortness of breath, abdominal pain, diarrhea, burning with urination. No fever, chills, cough. - Related Data Home Medications Medication Instructions Recorded Confirmed Phentermine HCl [Adipex-P] 37.5 mg PO DAILY 01/30/20 05/27/22 traMADol HCL 50 mg PO TID PRN 01/30/20 05/27/22 ARIPiprazole [Abilify] 10 mg PO DAILY 11/21/20 05/27/22 LORazepam [Ativan] 0.5 mg PO AC-BID PRN 02/12/21 05/27/22 Vilazodone HCl [Viibryd] 40 mg PO HS 02/23/21 05/27/22 Albuterol Inhaler [Ventolin Hfa 1 - 2 puff INHALATION RT-QID PRN 04/17/21 05/27/22 Inhaler] Metoclopramide [Reglan] 10 mg PO BID PRN 11/13/21 05/27/22 Ondansetron Odt [Zofran Odt] 8 mg PO Q8HR PRN 11/13/21 05/27/22 INSULIN LISPRO (For Pump) [humaLOG 0.01 units SQ-PUMP CONTINUOUS 05/27/22 05/27/22 (For Pump)] Losartan-Hctz 50-12.5 mg [Hyzaar 1 tab PO DAILY 05/27/22 05/27/22 50-12.5] Potassium Chloride ER [K-Dur 10] 10 meq PO DAILY 05/27/22 05/27/22 ondansetron HCL [Zofran] 8 mg PO Q8HR PRN 05/27/22 05/27/22 Allergies Allergy/AdvReac Type Severity Reaction Status Date / Time latex Allergy Rash/Hives Verified 09/26/22 10:46 carisoprodol [From Soma] AdvReac "Trouble Verified 09/26/22 10:46 remembering things" Review of Systems ROS Statement: Those systems with pertinent positive or pertinent negative responses have been documented in the HPI. ROS Other: All systems not noted in ROS Statement are negative. Past Medical History Past Medical History: Asthma, Diabetes Mellitus, Hypertension Additional Past Medical History / Comment(s): states had a seizure at age 5, was in coma, ?meningitis, was on seizure meds until age 12, none since then. DDD,. pancreatitis, COVID 09/18/22 History of Any Multi-Drug Resistant Organisms: None Reported Past Surgical History: Breast Surgery, Cholecystectomy, Uterine Ablation Additional Past Surgical History / Comment(s): Left facial/ sinus surgery, colonoscopy 2014, Lt breast bx-neg, EGD, has had epidurals in past Past Anesthesia/Blood Transfusion Reactions: Motion Sickness, Postoperative Nausea & Vomiting (PONV) Additional Past Anesthesia/Blood Transfusion Reaction / Comment(s): motion sickness when on air planes Past Psychological History: Anxiety, Depression Smoking Status: Current every day smoker Past Alcohol Use History: Rare Past Drug Use History: None Reported - Past Family History Father Family Medical History: Cancer, Seizure Disorder Additional Family Medical History / Comment(s): Colon cancer. 2 paternal aunts and paternal grandmother had breast cancer. Mother Family Medical History: Asthma, Hypertension, Liver Disease Additional Family Medical History / Comment(s): EtOH abuse. Maternal grandmother had leukemia. General Exam Limitations: no limitations General appearance: alert, in no apparent distress Head exam: Present: atraumatic, normocephalic, normal inspection Eye exam: Present: normal appearance, PERRL, EOMI. Absent: scleral icterus, conjunctival injection, periorbital swelling Respiratory exam: Present: normal lung sounds bilaterally. Absent: respiratory distress, wheezes, rales, rhonchi, stridor Cardiovascular Exam: Present: normal rhythm, tachycardia, normal heart sounds. Absent: regular rate, systolic murmur, diastolic murmur, rubs, gallop, clicks GI/Abdominal exam: Present: soft, normal bowel sounds. Absent: distended, tenderness, guarding, rebound, rigid Extremities exam: Present: normal inspection, full ROM, normal capillary refill. Absent: calf tenderness Neurological exam: Present: alert, oriented X3, CN II-XII intact Psychiatric exam: Present: normal affect, normal mood Skin exam: Present: warm, dry, intact, normal color. Absent: rash Course Vital Signs 09/26/22 10:44 Temperature 98.7 F Pulse Rate 110 H Respiratory 20 Rate Blood Pressure 126/88 O2 Sat by Pulse 99 Oximetry Medical Decision Making - Medical Decision Making Was pt. sent in by a medical professional or institution (, [facility], FLANGING OPERATOR, urgent care, hospital, or group home...) When possible be specific @ -No Did you speak to anyone other than the patient for history (EMS, parent, family, police, friend...)? What history was obtained from this source @ -No Did you review nursing and triage notes (agree or disagree)? Why? @ -I reviewed and agree with nursing and triage notes Were old charts reviewed (outside hosp., previous admission, EMS record, old EKG, old radiological studies, urgent care reports/EKG's, group home records)? Report findings @ -No old charts were reviewed Differential Diagnosis (chest pain, altered mental status, abdominal pain women, abdominal pain men, vaginal bleeding, weakness, fever, dyspnea, syncope, headache, dizziness, GI bleed, back pain, seizure, CVA, palpatations, mental health)? @ -Hyperglycemia, DKA, covid 19 EKG interpreted by me (3pts min.). @ -As above X-rays interpreted by me (1pt min.). @ -None done CT interpreted by me (1pt min.). @ -None done U/S interpreted by me (1pt. min.). @ -None done What testing was considered but not performed or refused? (CT, X-rays, U/S, labs)? Why? @ -None What meds were considered but not given or refused? Why? @ -None Did you discuss the management of the patient with other professionals (professionals i.e. [facility] Gould, FLANGING OPERATOR, lab, RT, psych nurse, social media analyst, coupon and bond collection clerk, teacher, chief human resources officer, case coordinator)? Give summary @ -No Was smoking cessation discussed for >3mins.? @ -No Was critical care preformed (if so, how long)? @ -No Were there social determinants of health that impacted care today? How? (Homelessness, low income, unemployed, alcoholism, drug addiction, transportation, low edu. Level, literacy, decrease access to med. care, assisted, rehab)? @ -No Was there de-escalation of care discussed even if they declined (Discuss DNR or withdrawal of care, Hospice)? DNR status @ -No What co-morbidities impacted this encounter? (DM, HTN, Smoking, COPD, CAD, Cancer, CVA, ARF, Chemo, Hep., AIDS, mental health diagnosis, sleep apnea, morbid obesity)? @ -None Was patient admitted / discharged? Hospital course, mention meds given and route, prescriptions, significant lab abnormalities, going to OR and other pertinent info. @ -Patient presenting for evaluation of possible DKA. Patient appears dehydrated. She is tachycardic at 110, likely related to dehydration. She has no chest pain or shortness of breath. Patient is hyperglycemic and in ketosis she is not acidotic. She is not in DKA. She was given large fluid bolus with improvement of blood sugar. Tachycardia resolved after fluid bolus. Discussed case in detail with patient she'll be discharged with instruction to follow up with primary care provider and continue checking blood sugar at home. Undiagnosed new problem with uncertain prognosis? @ -No Drug Therapy requiring intensive monitoring for toxicity (Heparin, Nitro, Insulin, Cardizem)? @ -No Were any procedures done? @ -No Diagnosis/symptom? @ -hyperglycemia, dehydration Acute, or Chronic, or Acute on Chronic? @ -acute Uncomplicated (without systemic symptoms) or Complicated (systemic symptoms)? @ -uncomplicated Side effects of treatment? @ -No Exacerbation, Progression, or Severe Exacerbation? @ -No Poses a threat to life or bodily function? How? (Chest pain, [place], [place], pneumonia, PE, COPD, DKA, ARF, appy, cholecystitis, CVA, Diverticulitis, Homicidal, Suicidal, threat to staff... and all critical care pts) @ -No Dr. Matthew is my attending - Lab Data Result diagrams: 09/26/22 11:21 09/26/22 11:21 Lab Results 09/26/22 09/26/22 09/26/22 Range/Units 11:20 11:21 11:21 WBC 6.1 (3.8-10.6) k/uL RBC 4.97 (3.80-5.40) m/uL Hgb 15.8 (11.4-16.0) gm/dL Hct 44.4 (34.0-46.0) % MCV 89.5 (80.0-100.0) fL MCH 31.9 (25.0-35.0) pg MCHC 35.6 (31.0-37.0) g/dL RDW 12.4 (11.5-15.5) % Plt Count 331 (150-450) k/uL MPV 7.9 Neutrophils % 61 % Lymphocytes % 28 % Monocytes % 6 % Eosinophils % 2 % Basophils % 1 % Neutrophils # 3.7 (1.3-7.7) k/uL Lymphocytes # 1.7 (1.0-4.8) k/uL Monocytes # 0.4 (0-1.0) k/uL Eosinophils # 0.1 (0-0.7) k/uL Basophils # 0.0 (0-0.2) k/uL VBG pH (7.31-7.41) VBG pCO2 (37-51) mmHg VBG HCO3 (24-28) mmol/L Sodium 135 L (137-145) mmol/L Potassium 3.7 (3.5-5.1) mmol/L Chloride 100 (98-107) mmol/L Carbon Dioxide 25 (22-30) mmol/L Anion Gap 10 mmol/L BUN 14 (7-17) mg/dL Creatinine 0.54 (0.52-1.04) mg/dL Est GFR (CKD-EPI)AfAm >90 (>60 ml/min/1.73 sqM) Est GFR (CKD-EPI)NonAf >90 (>60 ml/min/1.73 sqM) Glucose 321 H (74-99) mg/dL POC Glucose (mg/dL) 335 H (70-110) mg/dL POC Glu [employer] ID December, Calcium 8.9 (8.4-10.2) mg/dL Total Bilirubin 0.6 (0.2-1.3) mg/dL AST 21 (14-36) U/L ALT 32 (4-34) U/L Alkaline Phosphatase 121 (38-126) U/L Total Protein 6.9 (6.3-8.2) g/dL Albumin 4.3 (3.5-5.0) g/dL Lipase 142 (23-300) U/L Urine Color Urine Appearance (Clear) Urine pH (5.0-8.0) Ur Specific Alpine (1.001-1.035) Urine Protein (Negative) Urine Glucose (UA) (Negative) Urine Ketones (Negative) Urine Blood (Negative) Urine Nitrite (Negative) Urine Bilirubin (Negative) Urine Urobilinogen (<2.0) mg/dL Ur Leukocyte Esterase (Negative) Urine RBC (0-5) /hpf Urine WBC (0-5) /hpf Ur Squamous Epith Cells (0-4) /hpf Urine Mucus (None) /hpf Acetone, Qual Positive (Negative) 09/26/22 09/26/22 09/26/22 Range/Units 11:21 11:21 12:40 WBC (3.8-10.6) k/uL RBC (3.80-5.40) m/uL Hgb (11.4-16.0) gm/dL Hct (34.0-46.0) % MCV (80.0-100.0) fL MCH (25.0-35.0) pg MCHC (31.0-37.0) g/dL RDW (11.5-15.5) % Plt Count (150-450) k/uL MPV Neutrophils % % Lymphocytes % % Monocytes % % Eosinophils % % Basophils % % Neutrophils # (1.3-7.7) k/uL Lymphocytes # (1.0-4.8) k/uL Monocytes # (0-1.0) k/uL Eosinophils # (0-0.7) k/uL Basophils # (0-0.2) k/uL VBG pH 7.37 (7.31-7.41) VBG pCO2 45 (37-51) mmHg VBG HCO3 25 (24-28) mmol/L Sodium (137-145) mmol/L Potassium (3.5-5.1) mmol/L Chloride (98-107) mmol/L Carbon Dioxide (22-30) mmol/L Anion Gap mmol/L BUN (7-17) mg/dL Creatinine (0.52-1.04) mg/dL Est GFR (CKD-EPI)AfAm (>60 ml/min/1.73 sqM) Est GFR (CKD-EPI)NonAf (>60 ml/min/1.73 sqM) Glucose (74-99) mg/dL POC Glucose (mg/dL) 250 H (70-110) mg/dL POC Glu [employer] ID Bhavani Astudillo Calcium (8.4-10.2) mg/dL Total Bilirubin (0.2-1.3) mg/dL AST (14-36) U/L ALT (4-34) U/L Alkaline Phosphatase (38-126) U/L Total Protein (6.3-8.2) g/dL Albumin (3.5-5.0) g/dL Lipase (23-300) U/L Urine Color Light Yellow Urine Appearance Cloudy H (Clear) Urine pH 5.5 (5.0-8.0) Ur Specific Alpine 1.040 H (1.001-1.035) Urine Protein Negative (Negative) Urine Glucose (UA) 4+ H (Negative) Urine Ketones 2+ H (Negative) Urine Blood Negative (Negative) Urine Nitrite Negative (Negative) Urine Bilirubin Negative (Negative) Urine Urobilinogen <2.0 (<2.0) mg/dL Ur Leukocyte Esterase Small H (Negative) Urine RBC 4 (0-5) /hpf Urine WBC 14 H (0-5) /hpf Ur Squamous Epith Cells 16 H (0-4) /hpf Urine Mucus Rare H (None) /hpf Acetone, Qual (Negative) Disposition Clinical Impression: Dehydration, Hyperglycemia Disposition: HOME SELF-CARE Condition: Good Instructions (If sedation given, give patient instructions): Dehydration (ED), Diabetic Hyperglycemia (ED) Additional Instructions: Continue checking blood sugar at home. Increase oral intake as tolerated. Follow-up with primary care provider in one to 2 days. Return to the emergency department if you experience new, concerning, or worsening symptoms. Is patient prescribed a controlled substance at d/c from ED?: No Referrals: Pillo Tam MD [Primary Care Provider] - 1-2 days
[2022-09-26 11:47] LABS: VBG PH 7.37 (7.31-7.41)
[2022-09-26 11:56] LABS: ALT 32 U/L (4-34); AST 21 U/L (14-36); African American GFR (CKD) >90 (>60 ml/min/1.73 sqM); Albumin 4.3 g/dL (3.5-5.0); Alkaline Phosphatase 121 U/L (38-126); Anion Gap 10 mmol/L; Blood Urea Nitrogen 14 mg/dL (7-17); Calcium 8.9 mg/dL (8.4-10.2); Carbon Dioxide 25 mmol/L (22-30); Chloride 100 mmol/L (98-107); Glucose 321 mg/dL (74-99); Lipase 142 U/L (23-300); Non-African American GFR(CKD) >90 (>60 ml/min/1.73 sqM); Potassium 3.7 mmol/L (3.5-5.1); Sodium 135 mmol/L (137-145); Total Bilirubin 0.6 mg/dL (0.2-1.3); Total Protein 6.9 g/dL (6.3-8.2)
[2022-09-26 12:10] LABS: Basophils % (A) 1 %; Eosinophils # (A) 0.1 k/uL (0-0.7); Eosinophils % (A) 2 %; HCT 44.4 % (34.0-46.0); HGB 15.8 gm/dL (11.4-16.0); Lymphocytes # (A) 1.7 k/uL (1.0-4.8); Lymphocytes % (A) 28 %; MCH 31.9 pg (25.0-35.0); MCHC 35.6 g/dL (31.0-37.0); MCV 89.5 fL (80.0-100.0); Mean Platelet Volume 7.9; Monocytes # (A) 0.4 k/uL (0-1.0); Monocytes % (A) 6 %; Neutrophils # (A) 3.7 k/uL (1.3-7.7); Neutrophils % (A) 61 %; Platelet Count 331 k/uL (150-450); RBC 4.97 m/uL (3.80-5.40); RDW 12.4 % (11.5-15.5); WBC 6.1 k/uL (3.8-10.6)
[2022-09-26 12:21] LABS: Appearance,Urine Cloudy (Clear); Bilirubin,Urine Negative (Negative); Blood,Urine Negative (Negative); Color,Urine Light Yellow; Glucose,Urine (UA) 4+ (Negative); Leukocyte Esterase,Urine Small (Negative); Mucus,Urine Rare /hpf; Nitrite,Urine Negative (Negative); PH, Urine 5.5 (5.0-8.0); Protein,Urine Negative (Negative); RBC,Urine 4 /hpf (0-5); Squamous Epithelial Cell,Urine 16 /hpf (0-4); Urobilinogen,Urine <2.0 mg/dL (<2.0); WBC,Urine 14 /hpf (0-5)
[2022-09-26 12:27] LABS: Ketones,Urine 2+ (Negative)
[2022-09-26 12:42] LABS: Glucose,Whole Blood 250 mg/dL (70-110)
[2022-09-26 13:37] VITALS: BP 111/72; PULSE 67; RESP 18
== END 2022-09-26 13:37 | disposition home or self-care (01) ==
LOC: EC 10:41
DX: E11.65 Type 2 diabetes mellitus with hyperglycemia (principal); E86.0 Dehydration; J45.909 Unspecified asthma, uncomplicated; I10 Essential (primary) hypertension; F41.9 Anxiety disorder, unspecified; F32.A Depression, unspecified; F17.200 Nicotine dependence, unspecified, uncomplicated; Z79.4 Long term (current) use of insulin; Z79.899 Other long term (current) drug therapy; Z91.040 Latex allergy status; Z88.6 Allergy status to analgesic agent
CPT/HCPCS: 36415; 80053; 82803; 82009; 83690; 85025; 81001; 87086; 99283; 96374; 96375; 96361 ×2; J0780; J1885

== ENCOUNTER → 2023-08-02 | Outpatient (CLI) | payer BC ==
[2023-08-03 12:16] LABS: Almond IgE <0.10 kU/L (<0.10); Almond IgE Class CLASS 0; Brazil Nut IgE <0.10 kU/L (<0.10); Brazil Nut IgE Class CLASS 0; Cashew IgE <0.10 kU/L (<0.10); Cashew IgE Class CLASS 0; Hazelnut IgE <0.10 kU/L (<0.10); Hazelnut IgE Class CLASS 0; Macadamia Nut IgE <0.10 kU/L (<0.10); Macadamia Nut IgE Class CLASS 0; Pecan IgE <0.10 kU/L (<0.10); Pecan IgE Class CLASS 0; Pine Nut, Pignoles IgE <0.10 kU/L (<0.10); Pine Nut, Pignoles IgE Class CLASS 0; Pistachio IgE Class CLASS 0; Sweet Chestnut IgE <0.10 kU/L (<0.10); Sweet Chestnut IgE Class CLASS 0; Walnut (Food) IgE Class CLASS 0; Walnut IgE (Food) <0.10 kU/L (<0.10)
== END | disposition home or self-care (01) ==
LOC: LABWHC1 07:56
PROVIDERS: ATTEND Internal Medicine
DX: L50.9 Urticaria, unspecified (principal)
CPT/HCPCS: 36415; 86003

== ENCOUNTER → 2023-08-04 | Outpatient (CLI) | payer BC ==
--- NOTE | 2023-08-04 13:37 | MM ---
Reason for Exam: Follow-up at short interval from prior study. Last mammogram was performed 2 year(s) and 7 month(s) ago. Patient History: Menarche at age 13. First Full-Term at age 24. Perimenopausal. Hormonal Contraceptives for 2 years from age 18 until age 20. 04/26/2014, Benign Core Biopsy on the left side. 04/26/2014, Benign Core Biopsy on the left side. Paternal grandmother had breast cancer, age 70. Paternal aunt had breast cancer, age 52. Maternal aunt had breast cancer, age 52. Risk Values: Mami 5 year model risk: 1.8%. NCI Lifetime model risk: 13.1%. Prior Study Comparison: 05/25/2018 Bilateral Screening Mammogram, [facility]. 08/08/2019 Bilateral Screening Mammogram, [facility]. 10/11/2019 Left Diagnostic Ultrasound, [facility]. 03/13/2020 Left Diagnostic Ultrasound, [facility]. 12/13/2020 Bilateral Diagnostic Mammogram, [facility]. 12/13/2020 Left Diagnostic Ultrasound, [facility]. Tissue Density: The breast tissue is heterogeneously dense. This may lower the sensitivity of mammography. Findings: Analyzed By CAD. 2 microclips left breast from prior biopsies. Unchanged asymmetric density and chronic nodularity superior right MLO view. Additional areas of bilateral asymmetric density also remains unchanged. No significant change from prior exams. Overall Assessment: Benign, BI-RAD 2 Management: Screening Mammogram of both breasts in 1 year. . Results were given to the patient verbally at the time of exam. Patient should continue monthly self-breast exams. A clinical breast exam by your physician is recommended on an annual basis. This exam should not preclude additional follow-up of suspicious palpable abnormalities. Note on Mami scores and lifetime risk: 1. A Mami score greater than 3% is considered moderate risk. If this is the case, consider specialist referral to assess eligibility for a risk reducing agent. 2. If overall lifetime risk for the development of breast cancer is 20% or higher, the patient may qualify for future screening with alternating mammogram and breast MRI. Electronically signed and approved by: Rachel Agrawal M.D. Radiologist
== END | disposition home or self-care (01) ==
LOC: RADMAMWWP 13:16
PROVIDERS: ATTEND Internal Medicine
DX: R92.333 Mammographic heterogeneous density, bilateral breasts (principal); Z92.0 Personal history of contraception; Z80.3 Family history of malignant neoplasm of breast
CPT/HCPCS: 77062; 77066

== ENCOUNTER → 2023-08-13 | Outpatient (CLI) | payer BC | END | disposition home or self-care (01) | LOC: LABWHC1 10:04 | PROVIDERS: ATTEND Physician Assistant | DX: Z91.010 Allergy to peanuts (principal) | CPT/HCPCS: 36415; 86003 ==

== ENCOUNTER → 2023-09-09 | Outpatient (CLI) | payer BC ==
--- NOTE | 2023-09-10 08:23 | XR ---
EXAMINATION TYPE: XR chest 2V DATE OF EXAM: 09/09/2023 COMPARISON: 07/24/2022 HISTORY: 48-year-old female J40 BRONCHITIS, NOT SPECIFIED ACUTE OR CHRONIC TECHNIQUE: Frontal and lateral views FINDINGS: The cardiomediastinal silhouette, aorta, and pulmonary vasculature are within normal limits. Lungs an d pleural spaces are clear. IMPRESSION: No acute cardiopulmonary process.
== END | disposition home or self-care (01) ==
LOC: RADXRMAIN 16:41
PROVIDERS: ATTEND Internal Medicine
DX: J40 Bronchitis, not specified as acute or chronic (principal)
CPT/HCPCS: 71046

== ENCOUNTER → 2023-12-29 | Outpatient (CLI) | payer BC ==
--- NOTE | 2023-12-29 20:55 | US ---
EXAMINATION TYPE: US arterial LE multi level DATE OF EXAM: 12/29/2023 12:20 PM CLINICAL INDICATION: Female, 48 years old with history of I73.9 PAD; PAD History of: Smoker: Yes Hypertension: Yes Diabetic: Yes Hyperlipidemia: No TIA/CVA: No Previous Vascular Surgery: No CAD: No PA: No Vascular Ulcers: No Claudication: No Gangrene: No Doppler Waveforms: Right: Multiphasic Left: Multiphasic Right Brachial Pressure: 116 Left Brachial Pressure: 122 Ankle-Brachial Indices: Right: 1.11 Left: 1.12 (Vessel hardening > 1.4; Normal 0.9 - 1.4, Moderate 0.7 - 0.9, Severe 0.5-0.7) Toe Brachial Indices: Right: 0.85 Left: 0.98 IMPRESSION: Normal ankle brachial indices bilaterally.
== END | disposition home or self-care (01) ==
LOC: RADUSWWP 11:55
PROVIDERS: ATTEND Internal Medicine
DX: I73.9 Peripheral vascular disease, unspecified (principal)
CPT/HCPCS: 93923

== ENCOUNTER → 2023-12-29 | Outpatient (CLI) | payer BC ==
--- NOTE | 2024-01-02 00:22 | CT ---
EXAMINATION TYPE: CT chest wo con DATE OF EXAM: 12/29/2023 COMPARISON: None HISTORY: Chronic cough, hx asthma, current smoker. CT DLP: 226.90 mGycm, Automated exposure control for dose reduction was used. CONTRAST: Performed injected with 0 mL of Isovue 300. TECHNIQUE: Axial images were obtained at 5 mm thick sections. Reconstructed images are reviewed on [employer] computer in the coronal plane. FINDINGS: Portion of the thyroid visualized is normal. There is a punctate nodularity in the periphery of the right upper lobe. Series 4 image 14 No enlarged mediastinal or hilar adenopathy is evident. The ascending aorta diameter at the level o f the main pulmonary artery is 3.3 cm. The main pulmonary artery diameter at the bifurcation is 2.[address] sections are obtained through the upper abdomen. Abdomen is essentially unremarkable. IMPRESSION: 1. Tiny nodule right lung. Follow-up low dose CT can be performed in one year.
== END | disposition home or self-care (01) ==
LOC: RADCTMAIN 11:35
PROVIDERS: ATTEND Internal Medicine
DX: R05.3 Chronic cough (principal); R91.1 Solitary pulmonary nodule; J45.909 Unspecified asthma, uncomplicated; F17.200 Nicotine dependence, unspecified, uncomplicated
CPT/HCPCS: 71250

== ENCOUNTER 2024-04-05 15:15 | Emergency (ER) | payer BC ==
[2024-04-05 15:46] VITALS: RESP 20
--- NOTE | 2024-04-05 16:31 | ED ---
Back Pain HPI - General Source: patient, RN notes reviewed Mode of arrival: ambulatory Limitations: no limitations - History of Present Illness MD Complaint: back pain <Farheen Damico - Last Filed: 04/05/24 16:30> - General Source: patient, RN notes reviewed <Sola Silvestre - Last Filed: 04/05/24 22:17> - General Chief Complaint: Back Pain/Injury Stated Complaint: back pain Time Seen by Provider: 04/05/24 16:20 - History of Present Illness Initial Comments: Quick Note: This is a 48-year-old female who presents to the emergency department for back pain. Reports left lower back pain starting yesterday. Denies any injuries. Reports a history of pain related to degenerative disc disease, but denies any pain like this in the past. Pain does not radiate down her leg. Denies any loss of bowel/bladder control or saddle anesthesia. (Farheen Damico) 48-year-old female with history of diabetes presenting to the ER chief complaint of low back pain x 1 day. States last night she began to feel pain in her lower back, worse on the left side. Denies any trauma or injuries. Pain does not radiate. She does have a history of degenerative disc disease, however reports this pain feels different. Denies loss of bowel or bladder control. Denies fevers, chills, vomiting, urinary symptoms, hematuria, chest pain, shortness of breath. States she did undergo colonoscopy this morning, however reports symptoms began before bowel prep last night. States she takes insulin and pills for her type 2 diabetes. (Sola Silvestre) - Related Data Home Medications Medication Instructions Recorded Confirmed traMADol HCL 50 mg PO TID 01/30/20 04/05/24 Albuterol Inhaler [Ventolin Hfa 1 puff INHALATION RT-Q4H PRN 04/17/21 04/05/24 Inhaler] Metoclopramide [Reglan] 10 mg PO ACHS 11/13/21 04/05/24 Losartan-Hctz 50-12.5 mg [Hyzaar 1 tab PO DAILY 05/27/22 04/05/24 50-12.5] Empagliflozin [Jardiance] 25 mg PO DAILY 09/26/22 04/05/24 INSULIN LISPRO (HumaLOG) [humaLOG] See Protocol SQ AC-TID PRN 09/26/22 04/05/24 metFORMIN HCL ER [Glucophage XR] 1,000 mg PO HS 09/26/22 04/05/24 ALPRAZolam [Xanax] 0.5 mg PO BID PRN 04/05/24 04/05/24 Beclomethasone Dipropionate [Qvar 2 puff PO RT-BID 04/05/24 04/05/24 80mcg Redihaler] Insulin Glargine,Hum.rec.anlog 24 units SQ HS 04/05/24 04/05/24 [[place] Solostar] Metoprolol Succinate (ER) [Toprol 25 mg PO DAILY 04/05/24 04/05/24 Xl] Olopatadine HCl [Pataday] 1 drop BOTH EYES DAILY PRN 04/05/24 04/05/24 Omeprazole [PriLOSEC] 20 mg PO DAILY 04/05/24 04/05/24 Pioglitazone [Actos] 15 mg PO DAILY 04/05/24 04/05/24 Pioglitazone [Actos] 30 mg PO DAILY 04/05/24 04/05/24 Venlafaxine HCl [Effexor XR] 150 mg PO DAILY 04/05/24 04/05/24 Allergies Allergy/AdvReac Type Severity Reaction Status Date / Time latex Allergy Rash/Hives Verified 04/05/24 15:46 carisoprodol [From Soma] AdvReac "Trouble Verified 04/05/24 15:46 remembering things" Review of Systems ROS Other: All systems not noted in ROS Statement are negative. <Farheen Damico - Last Filed: 04/05/24 16:30> ROS Other: All systems not noted in ROS Statement are negative. <Sola Silvestre - Last Filed: 04/05/24 22:17> ROS Statement: Those systems with pertinent positive or pertinent negative responses have been documented in the HPI. Past Medical History Past Medical History: Asthma, Diabetes Mellitus, Hypertension Additional Past Medical History / Comment(s): states had a seizure at age 5, was in coma, ?meningitis, was on seizure meds until age 12, none since then. DDD,. pancreatitis, COVID 09/18/22 History of Any Multi-Drug Resistant Organisms: None Reported Past Surgical History: Breast Surgery, Cholecystectomy, Uterine Ablation Additional Past Surgical History / Comment(s): Left facial/ sinus surgery, colonoscopy 2015, Lt breast bx-neg, EGD, has had epidurals in past Past Anesthesia/Blood Transfusion Reactions: Motion Sickness, Postoperative Nausea & Vomiting (PONV) Additional Past Anesthesia/Blood Transfusion Reaction / Comment(s): motion sickness when on air planes Past Psychological History: Anxiety, Depression Smoking Status: Current every day smoker Past Alcohol Use History: Rare Past Drug Use History: None Reported - Past Family History Father Family Medical History: Cancer, Seizure Disorder Additional Family Medical History / Comment(s): Colon cancer. 2 paternal aunts and paternal grandmother had breast cancer. Mother Family Medical History: Asthma, Hypertension, Liver Disease Additional Family Medical History / Comment(s): EtOH abuse. Maternal grandmothe r had leukemia. <Farheen Daimco - Last Filed: 04/05/24 16:30> General Exam Limitations: no limitations <Farheen Damico - Last Filed: 04/05/24 16:30> General appearance: alert, in no apparent distress Head exam: Present: atraumatic, normocephalic, normal inspection Respiratory exam: Present: normal lung sounds bilaterally. Absent: respiratory distress, wheezes, rales, rhonchi, stridor Cardiovascular Exam: Present: regular rate, normal rhythm, normal heart sounds. Absent: systolic murmur, diastolic murmur, rubs, gallop, clicks GI/Abdominal exam: Present: soft, normal bowel sounds. Absent: distended, tenderness, guarding, rebound, rigid Back exam: Present: normal inspection, full ROM. Absent: tenderness, CVA tenderness (R), CVA tenderness (L), paraspinal tenderness, rash noted Neurological exam: Present: alert, oriented X3 Psychiatric exam: Present: normal affect, normal mood Skin exam: Present: warm, dry, intact, normal color. Absent: rash <Sola Silvestre - Last Filed: 04/05/24 22:17> - General Exam Comments Initial Comments: Visual Physical Exam Vital signs reviewed General: Well-appearing, nontoxic, no acute distress. Head: Normocephalic, atraumatic Eyes: PERRLA, EOMI ENT: Airway patent Chest: Nonlabored breathing Skin: No visual rash, normal skin tone Neuro: Alert and oriented 3 Musculoskeletal: No gross abnormalities (Farheen Damico) Course Vital Signs 04/05/24 04/05/24 15:44 20:40 Temperature 98.3 F 98.1 F Pulse Rate 99 90 Respiratory 20 20 Rate Blood Pressure 123/75 121/72 O2 Sat by Pulse 98 98 Oximetry Medical Decision Making <Farheen Damico - Last Filed: 04/05/24 16:30> <Sola Silvestre - Last Filed: 04/05/24 22:17> - Medical Decision Making I performed the QuickNote portion of this chart. Signed Farheen Damico PA-C. (Farheen Damico) Was pt. sent in by a medical professional or institution ([facility], COMPENSATION DIRECTOR, urgent care, hospital, or penitentiary...) When possible be specific @ -No Did you speak to anyone other than the patient for history (EMS, parent, family, police, friend...)? What history was obtained from this source @ -No Did you review nursing and triage notes (agree or disagree)? Why? @ -I reviewed and agree with nursing and triage notes Were old charts reviewed (outside hosp., previous admission, EMS record, old EKG, old radiological studies, urgent care reports/EKG's, penitentiary records)? Report findings @ -No old charts were reviewed Differential Diagnosis (chest pain, altered mental status, abdominal pain women, abdominal pain men, vaginal bleeding, weakness, fever, dyspnea, syncope, headache, dizziness, GI bleed, back pain, seizure, CVA, palpatations, mental health, musculoskeletal)? @ -Differential Back Pain: Strain, zoster, cauda equina syndrome, epidural abscess, vertebral osteomyelitis, discitis, fracture, subluxation, disc herniation, DJD, spinal stenosis, dissection, AAA, pancreatitis, peptic ulcer disease, pyelonephritis, kidney stone, this is not meant to be an all-inclusive list. EKG interpreted by me (3pts min.). @ -None X-rays interpreted by me (1pt min.). @ -X-ray lumbar spine reveals no acute fracture, mild multilevel disc disease, worse at L4-L5 adjoining endplates with joint space loss and osteophyte formation CT interpreted by me (1pt min.). @ -None done U/S interpreted by me (1pt. min.). @ -None done What testing was considered but not performed or refused? (CT, X-rays, U/S, labs)? Why? @ -Lab work considered however deferred due to no red flag symptoms or sign of bacterial infection What meds were considered but not given or refused? Why? @ -None Did you discuss the management of the patient with other professionals (professionals i.e. Dr., PA, COMPENSATION DIRECTOR, lab, RT, psych nurse, medical social consultant, load blocker, teacher, asset protection officer, correctional case records supervisor)? Give summary @ -No Was smoking cessation discussed for >3mins.? @ -No Was critical care preformed (if so, how long)? @ -No Were there social determinants of health that impacted care today? How? (Homelessness, low income, unemployed, alcoholism, drug addiction, transportation, low edu. Level, literacy, decrease access to med. care, long-term, rehab)? @ -No Was there de-escalation of care discussed even if they declined (Discuss DNR or withdrawal of care, Hospice)? DNR status @ -No What co-morbidities impacted this encounter? (DM, HTN, Smoking, COPD, CAD, Cancer, CVA, ARF, Chemo, Hep., AIDS, mental health diagnosis, sleep apnea, morbid obesity)? @ -None Was patient admitted / discharged? Hospital course, mention meds given and route, prescriptions, significant lab abnormalities, going to OR and other pertinent info. @ -Discharged. This is a 48-year-old female presenting with low back pain x 1 day. No red flag symptoms. Neurovascularly intact. Abdomen is soft and nontender. X-ray reveals no acute fracture, there is mild multilevel disc disease worse at L4-L5. Urinalysis remarkable for 4+ glucose and 2+ ketones. Gclci-ag-lpgp glucose was then taken which was 166. Discussed findings with patient. At this time, I suspect patient's symptoms are musculoskeletal in nature. Supportive care discussed as well as return precautions and patient conveys understanding and agrees to plan. Case was discussed with my ED attending Dr. Chamorro. Patient discharged in stable condition. Undiagnosed new problem with uncertain prognosis? @ -No Drug Therapy requiring intensive monitoring for toxicity (Heparin, Nitro, Insulin, Cardizem)? @ -No Were any procedures done? @ -No Diagnosis/symptom? @ -Low back strain Acute, or Chronic, or Acute on Chronic? @ -Acute Uncomplicated (without systemic symptoms) or Complicated (systemic symptoms)? @ -Uncomplicated Side effects of treatment? @ -No Exacerbation, Progression, or Severe Exacerbation? @ -No Poses a threat to life or bodily function? How? (Chest pain, [place], [place], pneumonia, PE, COPD, DKA, ARF, appy, cholecystitis, CVA, Diverticulitis, Homicidal, Suicidal, threat to staff... and all critical care pts) @ -Unlikely (Sola Silvestre) - Lab Data Lab Results 04/05/24 04/05/24 Range/Units 16:26 20:09 POC Glucose (mg/dL) 166 H (70-110) mg/dL POC Glu Reclamation Supervisor ID Ana Lozada Urine Color Colorless Urine Appearance Cloudy H (Clear) Urine pH 5.5 (5.0-8.0) Ur Specific [place] 1.046 H (1.001-1.035) Urine Protein Negative (Negative) Urine Glucose (UA) 4+ H (Negative) Urine Ketones 2+ H (Negative) Urine Blood Negative (Negative) Urine Nitrite Negative (Negative) Urine Bilirubin Negative (Negative) Urine Urobilinogen <2.0 (<2.0) mg/dL Ur Leukocyte Esterase Negative (Negative) Urine RBC 1 (0-5) /hpf Urine WBC 3 (0-5) /hpf Ur Squamous Epith Cells 15 H (0-4) /hpf Urine Mucus Rare H (None) /hpf Disposition <Farheen Damico - Last Filed: 04/05/24 16:30> Is patient prescribed a controlled substance at d/c from ED?: No Time of Disposition: 20:23 <Sola Silvestre - Last Filed: 04/05/24 22:17> Clinical Impression: Low back strain Disposition: HOME SELF-CARE Condition: Stable Instructions (If sedation given, give patient instructions): Acute Low Back Pain (ED) Additional Instructions: Hydrate aggressively. Take ibuprofen or Tylenol as needed for pain. Please return to the Emergency Department if symptoms worsen or any other concerns. Referrals: Pillo Tam MD [Primary Care Provider] - 1-2 days
--- NOTE | 2024-04-05 16:51 | XR ---
EXAMINATION TYPE: XR lumbar spine 2 or 3V DATE OF EXAM: 04/05/2024 4:26 PM CLINICAL INDICATION: Female, 48 years old with history of Back pain; [facility] COMPARISON: None TECHNIQUE: XR lumbar spine 2 or 3V - Frontal, lateral and coned in L5-S1 lateral views of the spine. FINDINGS: No evidence of any acute osseous pathology. No evidence of loss of vertebral body height i s seen. There is normal alignment of the lumbar vertebral bodies. Scattered disc space narrowing. Mul tilevel marginal osteophyte formation throughout the visualized spine. There is facet joint arthropat hy throughout the spine. Scattered at least mild neural foraminal stenosis. Right upper quadrant chol ecystectomy clips. IMPRESSION: 1. No acute fracture. 2. Mild multilevel disc degeneration. Findings worse at L4-L5 adjoining endplates with joint space lo ss and osteophyte formation. [facility], , 04/05/2024 4:49 PM
[2024-04-05 18:01] LABS: Appearance,Urine Cloudy (Clear); Bilirubin,Urine Negative (Negative); Blood,Urine Negative (Negative); Color,Urine Colorless; Glucose,Urine (UA) 4+ (Negative); Leukocyte Esterase,Urine Negative (Negative); Mucus,Urine Rare /hpf; Nitrite,Urine Negative (Negative); PH, Urine 5.5 (5.0-8.0); Protein,Urine Negative (Negative); RBC,Urine 1 /hpf (0-5); Squamous Epithelial Cell,Urine 15 /hpf (0-4); Urobilinogen,Urine <2.0 mg/dL (<2.0); WBC,Urine 3 /hpf (0-5)
[2024-04-05] MEDS: KETOROLAC 15 MG/ML 1 ML VIAL IM STA (18:04)
[2024-04-05] MEDS: HYDROmorphone 1 MG/ML 1 ML SYRINGE IM STA (18:04)
[2024-04-05 18:16] LABS: Specific Gravity,Urine 1.046 (1.001-1.035)
[2024-04-05 18:17] LABS: Ketones,Urine 2+ (Negative)
[2024-04-05 20:10] LABS: Glucose,Whole Blood 166 mg/dL (70-110)
[2024-04-05 20:42] VITALS: BP 121/72; PULSE 90; TEMP 98.1
== END 2024-04-05 20:42 | disposition home or self-care (01) ==
LOC: EC 15:15
CPT/HCPCS: 36415; 72100; 81001; 96372; 99283

== ENCOUNTER 2024-06-05 22:07 | Emergency (ER) | payer BC ==
--- NOTE | 2024-06-05 22:48 | ED ---
General Adult HPI - General Chief complaint: Arrhythmia/Palpitations Stated complaint: High Heart Rate Time Seen by Provider: 06/05/24 22:17 Source: patient Mode of arrival: ambulatory Limitations: no limitations - History of Present Illness Initial comments: Patient is a pleasant 48-year-old female presenting today for palpitations. Patient states this morning she woke up feeling like her heart was racing. Throughout the day today she has felt like her chest was pounding but denies any chest pain otherwise. Worsens with ambulation. States she has had a dry cough today but denies cough productive sputum or hemoptysis. She denies shortness of breath, lower extremity swelling, recent surgery, travels or hospitalizations, no history of cancer, is a current smoker, is not on estrogen replacement therapy, no history of prior PE/DVT. Denies recent fevers, chills, nausea, vomiting, diarrhea, black or bloody stools, abdominal pain, rashes, recent weight loss or gain she did not expect. No changes in vision, numbness, weakness, urinary frequency or dysuria. Denies illicit drug use or alcohol use. She has been under an increased amount of stress recently as her mother has had sudden memory loss over the last few months. She denies any recent stressful events that occurred today that seem to cause her symptoms. Denies any dizziness. Does endorse mild lightheadedness. Takes 25 mg metoprolol every morning prescribed by her primary care provider due to history of tachycardia. She considered taking extra dose prior to coming in today however decided to hold off and come into the emergency department to get checked out. - Related Data Home Medications Medication Instructions Recorded Confirmed traMADol HCL 50 mg PO TID 01/30/20 04/05/24 Albuterol Inhaler [Ventolin Hfa 1 puff INHALATION RT-Q4H PRN 04/17/21 04/05/24 Inhaler] Metoclopramide [Reglan] 10 mg PO ACHS 11/13/21 04/05/24 Losartan-Hctz 50-12.5 mg [Hyzaar 1 tab PO DAILY 05/27/22 04/05/24 50-12.5] Empagliflozin [Jardiance] 25 mg PO DAILY 09/26/22 04/05/24 INSULIN LISPRO (HumaLOG) [humaLOG] See Protocol SQ AC-TID PRN 09/26/22 04/05/24 metFORMIN HCL ER [Glucophage XR] 1,000 mg PO HS 09/26/22 04/05/24 ALPRAZolam [Xanax] 0.5 mg PO BID PRN 04/05/24 04/05/24 Beclomethasone Dipropionate [Qvar 2 puff PO RT-BID 04/05/24 04/05/24 80mcg Redihaler] Insulin Glargine,Hum.rec.anlog 24 units SQ HS 04/05/24 04/05/24 [Toumichael Solostar] Metoprolol Succinate (ER) [Toprol 25 mg PO DAILY 04/05/24 04/05/24 Xl] Olopatadine HCl [Pataday] 1 drop BOTH EYES DAILY PRN 04/05/24 04/05/24 Omeprazole [PriLOSEC] 20 mg PO DAILY 04/05/24 04/05/24 Pioglitazone [Actos] 15 mg PO DAILY 04/05/24 04/05/24 Pioglitazone [Actos] 30 mg PO DAILY 04/05/24 04/05/24 Venlafaxine HCl [Effexor XR] 150 mg PO DAILY 04/05/24 04/05/24 Allergies Allergy/AdvReac Type Severity Reaction Status Date / Time latex Allergy Rash/Hives Verified 06/05/24 22:15 carisoprodol [From Soma] AdvReac "Trouble Verified 06/05/24 22:15 remembering things" steroids Allergy Rash/Hives Uncoded 06/05/24 22:15 Review of Systems ROS Statement: Those systems with pertinent positive or pertinent negative responses have been documented in the HPI. ROS Other: All systems not noted in ROS Statement are negative. Past Medical History Past Medical History: Asthma, Diabetes Mellitus, Hypertension Additional Past Medical History / Comment(s): states had a seizure at age 5, was in coma, ?meningitis, was on seizure meds until age 12, none since then. DDD,. pancreatitis, COVID 09/18/22 History of Any Multi-Drug Resistant Organisms: None Reported Past Surgical History: Breast Surgery, Cholecystectomy, Uterine Ablation Additional Past Surgical History / Comment(s): Left facial/ sinus surgery, colonoscopy 2014, Lt breast bx-neg, EGD, has had epidurals in past Past Anesthesia/Blood Transfusion Reactions: Motion Sickness, Postoperative Nausea & Vomiting (PONV) Additional Past Anesthesia/Blood Transfusion Reaction / Comment(s): motion sickness when on air planes Past Psychological History: Anxiety, Depression Smoking Status: Current every day smoker Past Alcohol Use History: Rare Past Drug Use History: None Reported - Past Family History Father Family Medical History: Cancer, Seizure Disorder Additional Family Medical History / Comment(s): Colon cancer. 2 paternal aunts and paternal grandmother had breast cancer. Mother Family Medical History: Asthma, Hypertension, Liver Disease Additional Family Medical History / Comment(s): EtOH abuse. Maternal grandmother had leukemia. General Exam - General Exam Comments Initial Comments: PE: CONSTITUTIONAL: No apparent distress, well appearing SKIN: Warm, dry, no jaundice, hives or petechiae EYES: Pupils are equally round, extraocular movements intact without nystagmus, clear conjunctiva, non-icteric sclera HENT: Normocephalic, atraumatic, moist mucus membranes, oropharynx clear without exudates NECK: , Full range of motion, normal appearance, no lymphadenopathy or thy romegaly PULMONARY: Clear to auscultation without wheezes, rhonchi, or rales, normal excursion, no accessory muscle use and no stridor CARDIOVASCULAR: Regular rate, rhythm, normal S1 and S2. No appreciated murmurs, rubs or gallops. Strong radial pulses with intact distal perfusion. No lower extremity edema GASTROINTESTINAL: Soft, active bowel sounds throughout, non-tender, non- distended, no palpable masses, no rebound or guarding. No hepatosplenomegaly GENITOURINARY: MUSCULOSKELETAL: Extremities have no gross deformity, no edema, redness, or swelling. No calf swelling NEUROLOGIC:_a/o x 3, GCS 15, normal mentation and speech. Moves all extremities x 4 without motor or sensory deficit PSYCHIATRIC:_normal mood and affect, thought process is clear and linear Limitations: no limitations Course Vital Signs 06/05/24 06/05/24 06/05/24 22:12 22:40 23:00 Temperature 98.4 F Pulse Rate 120 H 99 94 Respiratory 18 13 12 Rate Blood Pressure 135/82 129/98 108/78 O2 Sat by Pulse 97 95 95 Oximetry 06/05/24 06/06/24 06/06/24 23:30 00:00 01:00 Temperature Pulse Rate 90 92 84 Respiratory 20 20 16 Rate Blood Pressure 109/72 107/77 114/73 O2 Sat by Pulse 94 L 93 L 94 L Oximetry 06/06/24 01:51 Temperature 98.1 F Pulse Rate 94 Respiratory 19 Rate Blood Pressure 109/88 O2 Sat by Pulse 95 Oximetry EKG Findings - EKG Comments: EKG Findings:: Sinus rhythm, rate 99 bpm, KS interval 142 ms, QRS duration 104 ms, QT/QTc 357/413 ms, normal axis, no ST elevations or depressions, no arrhythmia, no Brugada pattern or delta waves Medical Decision Making - Medical Decision Making Was pt. sent in by a medical professional or institution (, PA, CUFF PRESSER, urgent care, hospital, or [facility]...) When possible be specific @ -No Did you speak to anyone other than the patient for history (EMS, parent, family, police, friend...)? What history was obtained from this source @ -No Did you review nursing and triage notes (agree or disagree)? Why? @ -I reviewed and agree with nursing and triage notes Were old charts reviewed (outside hosp., previous admission, EMS record, old EKG, old radiological studies, urgent care reports/EKG's, [facility] records)? Report findings @Medical records reviewed, patient was here previously for similar complaint, 07/24/2022, D-dimer at that time was less than 0.17 she was hyperglycemic during that visit, ultimately recieved IV fluids and insulin and was discharged home. Differential Diagnosis (chest pain, altered mental status, abdominal pain women, abdominal pain men, vaginal bleeding, weakness, fever, dyspnea, syncope, headache, dizziness, GI bleed, back pain, seizure, CVA, palpatations, mental health, musculoskeletal)? @Differential Palpitations Ventricular arrhythmias, atrial arrhythmias, myocardial infarction, anemia, thyrotoxicosis, electrolyte imbalance, hypokalemia, pulmonary embolism, pulmonary disease, drugs, alcohol, anxiety, stress, dehydration.... This is not meant to be an all-inclusive list. EKG interpreted by me (3pts min.). @ -As above X-rays interpreted by me (1pt min.). @As noted below, no cardiomegaly, consolidations, pleural effusions or pneumothorax CT interpreted by me (1pt min.). @ -None done U/S interpreted by me (1pt. min.). @ -None done What testing was considered but not performed or refused? (CT, X-rays, U/S, labs)? Why? @ -None What meds were considered but not given or refused? Why? @ -Considered metoprolol however pt's symptoms resolved with fluid bolus Did you discuss the management of the patient with other professionals (professionals i.e. , PA, CUFF PRESSER, lab, RT, psych nurse, social services specialist, sales merchandising specialist, teacher, information assurance officer, foster care case manager)? Give summary @ -No Was smoking cessation discussed for >3mins.? @ -No Was critical care preformed (if so, how long)? @ -No Were there social determinants of health that impacted care today? How? (Homele ssness, low income, unemployed, alcoholism, drug addiction, transportation, low edu. Level, literacy, decrease access to med. care, [place] [facility], rehab)? @ -No Was there de-escalation of care discussed even if they declined (Discuss DNR or withdrawal of care, Hospice)? @ -No What co-morbidities impacted this encounter? (DM, HTN, Smoking, COPD, CAD, Cancer, CVA, ARF, Chemo, Hep., AIDS, mental health diagnosis, sleep apnea, morbid obesity)? @ -Tachycardia on metoprolol, anxiety, depression Was patient admitted / discharged? Hospital course, mention meds given and route, prescriptions, significant lab abnormalities, going to OR and other pertinent info. @ -Discharge This is a pleasant 48-year-old female presenting today for palpitations, heart rate 120 on arrival, on my assessment heart rate in the high 90s, blood pressure stable. Aside from palpitations, dry cough patient denies other significant symptoms. Differential diagnoses above, plan for comprehensive labs including troponin, chest x-ray, EKG, D-dimer, TSH, CBC, CMP, magnesium, VBG, acetone level, UA, 7 testing. Will administer IV fluids. Should patient's workup be reassuring and she continues to have significant symptoms after IV fluid administration will consider administration of additional dose of patient's home metoprolol. Patient agreeable with plan of care. Chest x-ray shows no cardiomegaly, consolidations, pleural effusions or pneumothorax. Read by radiologist as no acute process. Labs and imaging reviewed. K 3.4, Glucose 299, acetone negative, otherwise, grossly within normal limits. Abnormal values not concerning for acute pathology related to presenting complaint. On reassessment patient endorses improvement of symptoms. Heart rate is in the 80s. Has not yet given a urine sample and is received 1 L IV fluids. Will administer additional liter IV fluids as well as 10 units insulin for hyperglycemia. Patient agreeable plan of care. Additionally the patient notes that she did have crumble cookies earlier in the day today noting that she feels like this is likely the cause of her hyperglycemia. On reassessment patient remains asymptomatic and is comfortable discharge home. In my medical judgment there is currently no evidence of an immediate life- threatening or surgical condition. Discharge is therefore indicated at this time. Discharge treatment instructions, follow up instructions, and appropriate emergency department return precautions were discussed with the patient and/or medical decision maker. Patient and/or medical decision maker expressed understanding of and agreed with the treatment plan, follow up instructions, and emergency department return precaution. All patient's and/or medical decision maker's questions were answered. The patient was advised that a small risk still exists that a serious condition could develop and was therefore instructed to return to the ED for any changes in symptoms, persistent symptoms, inability to obtain proper follow-up or for any further concerns. Patient received verbal and written instructions for this condition. Undiagnosed new problem with uncertain prognosis? @ -No Drug Therapy requiring intensive monitoring for toxicity (Heparin, Nitro, Insulin, Cardizem)? @ -No Were any procedures done? @ -No Diagnosis/symptom? @Palpitations, hyperglycemia Acute, or Chronic, or Acute on Chronic? @Acute Uncomplicated (without systemic symptoms) or Complicated (systemic symptoms)? @ Complicated Side effects of treatment? @ -No Exacerbation, Progression, or Severe Exacerbation? @ -No Poses a threat to life or bodily function? How? (Chest pain, USA, IA, pneumonia, PE, COPD, DKA, ARF, appy, cholecystitis, CVA, Diverticulitis, Homicidal, Suicidal, threat to staff... and all critical care pts) @ -No - Lab Data Result diagrams: 06/05/24 22:40 06/05/24 22:40 Lab Results 06/05/24 06/05/24 06/05/24 Range/Units 22:40 22:40 22:40 WBC 9.2 (3.8-10.6) k/uL RBC 5.03 (3.80-5.40) m/uL Hgb 15.9 (11.4-16.0) gm/dL Hct 46.9 H (34.0-46.0) % MCV 93.1 (80.0-100.0) fL MCH 31.6 (25.0-35.0) pg MCHC 34.0 (31.0-37.0) g/dL RDW 12.9 (11.5-15.5) % Plt Count 333 (150-450) k/uL MPV 7.9 Neutrophils % 57 % Lymphocytes % 35 % Monocytes % 4 % Eosinophils % 3 % Basophils % 1 % Neutrophils # 5.2 (1.3-7.7) k/uL Lymphocytes # 3.2 (1.0-4.8) k/uL Monocytes # 0.4 (0-1.0) k/uL Eosinophils # 0.2 (0-0.7) k/uL Basophils # 0.1 (0-0.2) k/uL PT 9.4 L (10.0-12.5) sec INR 0.8 (<1.2) APTT 22.5 (22.0-30.0) sec D-Dimer <0.17 (<0.60) mg/L FEU Sodium 136 L (137-145) mmol/L Potassium 3.4 L (3.5-5.1) mmol/L Chloride 101 (98-107) mmol/L Carbon Dioxide 26 (22-30) mmol/L Anion Gap 9 mmol/L BUN 16 (7-17) mg/dL Creatinine 0.68 (0.52-1.04) mg/dL Est GFR (CKD-EPI)AfAm >90 (>60 ml/min/1.73 sqM) Est GFR (CKD-EPI)NonAf >90 (>60 ml/min/1.73 sqM) Glucose 299 H (74-99) mg/dL POC Glucose (mg/dL) (70-110) mg/dL POC Glu Operator Lights ID Calcium 9.6 (8.4-10.2) mg/dL Magnesium 1.7 (1.6-2.3) mg/dL Total Bilirubin 0.5 (0.2-1.3) mg/dL AST 25 (14-36) U/L ALT 21 (4-34) U/L Alkaline Phosphatase 75 (38-126) U/L Troponin I (0.000-0.034) ng/mL Total Protein 7.6 (6.3-8.2) g/dL Albumin 4.9 (3.5-5.0) g/dL TSH 2.340 (0.465-4.680) mIU/L Urine Color Urine Appearance (Clear) Urine pH (5.0-8.0) Ur Specific [place] (1.001-1.035) Urine Protein (Negative) Urine Glucose (UA) (Negative) Urine Ketones (Negative) Urine Blood (Negative) Urine Nitrite (Negative) Urine Bilirubin (Negative) Urine Urobilinogen (<2.0) mg/dL Ur Leukocyte Esterase (Negative) Urine HCG, Qual (Not Detectd) Acetone, Qual Negative (Negative) Influenza Type A (PCR) (Not Detectd) Influenza Type B (PCR) (Not Detectd) RSV (PCR) (Not Detectd) SARS-CoV-2 (PCR) (Not Detectd) 06/05/24 06/05/24 06/06/24 Range/Units 22:40 23:07 00:24 WBC (3.8-10.6) k/uL RBC (3.80-5.40) m/uL Hgb (11.4-16.0) gm/dL Hct (34.0-46.0) % MCV (80.0-100.0) fL MCH (25.0-35.0) pg MCHC (31.0-37.0) g/dL RDW (11.5-15.5) % Plt Count (150-450) k/uL MPV Neutrophils % % Lymphocytes % % Monocytes % % Eosinophils % % Basophils % % Neutrophils # (1.3-7.7) k/uL Lymphocytes # (1.0-4.8) k/uL Monocytes # (0-1.0) k/uL Eosinophils # (0-0.7) k/uL Basophils # (0-0.2) k/uL PT (10.0-12.5) sec INR (<1.2) APTT (22.0-30.0) sec D-Dimer (<0.60) mg/L FEU Sodium (137-145) mmol/L Potassium (3.5-5.1) mmol/L Chloride (98-107) mmol/L Carbon Dioxide (22-30) mmol/L Anion Gap mmol/L BUN (7-17) mg/dL Creatinine (0.52-1.04) mg/dL Est GFR (CKD-EPI)AfAm (>60 ml/min/1.73 sqM) Est GFR (CKD-EPI)NonAf (>60 ml/min/1.73 sqM) Glucose (74-99) mg/dL POC Glucose (mg/dL) 293 H (70-110) mg/dL POC Glu Operator Lights ID Eran Hadley Calcium (8.4-10.2) mg/dL Magnesium (1.6-2.3) mg/dL Total Bilirubin (0.2-1.3) mg/dL AST (14-36) U/L ALT (4-34) U/L Alkaline Phosphatase (38-126) U/L Troponin I <0.012 (0.000-0.034) ng/mL Total Protein (6.3-8.2) g/dL Albumin (3.5-5.0) g/dL TSH (0.465-4.680) mIU/L Urine Color Urine Appearance (Clear) Urine pH (5.0-8.0) Ur Specific [place] (1.001-1.035) Urine Protein (Negative) Urine Glucose (UA) (Negative) Urine Ketones (Negative) Urine Blood (Negative) Urine Nitrite (Negative) Urine Bilirubin (Negative) Urine Urobilinogen (<2.0) mg/dL Ur Leukocyte Esterase (Negative) Urine HCG, Qual (Not Detectd) Acetone, Qual (Negative) Influenza Type A (PCR) Not Detected (Not Detectd) Influenza Type B (PCR) Not Detected (Not Detectd) RSV (PCR) Not Detected (Not Detectd) SARS-CoV-2 (PCR) Not Detected (Not Detectd) 06/06/24 06/06/24 06/06/24 Range/Units 00:58 01:03 01:03 WBC (3.8-10.6) k/uL RBC (3.80-5.40) m/uL Hgb (11.4-16.0) gm/dL Hct (34.0-46.0) % MCV (80.0-100.0) fL MCH (25.0-35.0) pg MCHC (31.0-37.0) g/dL RDW (11.5-15.5) % Plt Count (150-450) k/uL MPV Neutrophils % % Lymphocytes % % Monocytes % % Eosinophils % % Basophils % % Neutrophils # (1.3-7.7) k/uL Lymphocytes # (1.0-4.8) k/uL Monocytes # (0-1.0) k/uL Eosinophils # (0-0.7) k/uL Basophils # (0-0.2) k/uL PT (10.0-12.5) sec INR (<1.2) APTT (22.0-30.0) sec D-Dimer (<0.60) mg/L FEU Sodium (137-145) mmol/L Potassium (3.5-5.1) mmol/L Chloride (98-107) mmol/L Carbon Dioxide (22-30) mmol/L Anion Gap mmol/L BUN (7-17) mg/dL Creatinine (0.52-1.04) mg/dL Est GFR (CKD-EPI)AfAm (>60 ml/min/1.73 sqM) Est GFR (CKD-EPI)NonAf (>60 ml/min/1.73 sqM) Glucose (74-99) mg/dL POC Glucose (mg/dL) 171 H (70-110) mg/dL POC Glu Operator Lights ID Buzzard Leonie Calcium (8.4-10.2) mg/dL Magnesium (1.6-2.3) mg/dL Total Bilirubin (0.2-1.3) mg/dL AST (14-36) U/L ALT (4-34) U/L Alkaline Phosphatase (38-126) U/L Troponin I (0.000-0.034) ng/mL Total Protein (6.3-8.2) g/dL Albumin (3.5-5.0) g/dL TSH (0.465-4.680) mIU/L Urine Color Colorless Urine Appearance Clear (Clear) Urine pH 5.0 (5.0-8.0) Ur Specific [place] 1.039 H (1.001-1.035) Urine Protein Negative (Negative) Urine Glucose (UA) 4+ H (Negative) Urine Ketones Negative (Negative) Urine Blood Negative (Negative) Urine Nitrite Negative (Negative) Urine Bilirubin Negative (Negative) Urine Urobilinogen <2.0 (<2.0) mg/dL Ur Leukocyte Esterase Negative (Negative) Urine HCG, Qual Not Detected (Not Detectd) Acetone, Qual (Negative) Influenza Type A (PCR) (Not Detectd) Influenza Type B (PCR) (Not Detectd) RSV (PCR) (Not Detectd) SARS-CoV-2 (PCR) (Not Detectd) Disposition Clinical Impression: Palpitations Disposition: HOME SELF-CARE Condition: Good Instructions (If sedation given, give patient instructions): Heart Palpitations (ED) Additional Instructions: Every disease is a spectrum and a small chance still exists that a serious condition could develop, for this reason, please monitor yourself closely for new, changing or worsening symptoms, symptoms that persist beyond 48 hours, lightheadedness or dizziness, difficulty in breathing, chest pain, swelling in your legs, coughing up blood, episodes of passing out fever, inability to sarah ate/keep down fluids or your medications, inability to follow up with outpatient providers as instructed and should you experience these symptoms or should you have any further concerns for your wellbeing please return to the ED or call 911 immediately. Please drink plenty of fluids and get plenty of rest. PLEASE call your primary care physician as soon as possible to arrange / discuss plan for followup appointment. Appointment in the next 1-3 days is strongly encouraged if possible. PLEASE let us know here before you leave if there is anything further we can do to be of any assistance. Take care and feel Better! Is patient prescribed a controlled substance at d/c from ED?: No Referrals: Pillo Tam MD [Primary Care Provider] - 1-2 days
[2024-06-05 23:04] LABS: Basophils # (A) 0.1 k/uL (0-0.2); Basophils % (A) 1 %; Eosinophils # (A) 0.2 k/uL (0-0.7); Eosinophils % (A) 3 %; HCT 46.9 % (34.0-46.0); HGB 15.9 gm/dL (11.4-16.0); Lymphocytes # (A) 3.2 k/uL (1.0-4.8); Lymphocytes % (A) 35 %; MCH 31.6 pg (25.0-35.0); MCV 93.1 fL (80.0-100.0); Mean Platelet Volume 7.9; Monocytes # (A) 0.4 k/uL (0-1.0); Monocytes % (A) 4 %; Neutrophils # (A) 5.2 k/uL (1.3-7.7); Neutrophils % (A) 57 %; Platelet Count 333 k/uL (150-450); RBC 5.03 m/uL (3.80-5.40); RDW 12.9 % (11.5-15.5); WBC 9.2 k/uL (3.8-10.6)
--- NOTE | 2024-06-05 23:11 | XR ---
EXAMINATION TYPE: XR chest 2V DATE OF EXAM: 06/05/2024 CLINICAL HISTORY: Tachycardia. TECHNIQUE: Frontal and lateral views of the chest are obtained. COMPARISON: CT chest December 29, 2023 FINDINGS: There is no focal air space opacity, pleural effusion, or pneumothorax seen. The cardiac silhouette size is within normal limits. The osseous structures are intact. Overlying EKG leads are seen. Cholecystectomy clips are redemonstrated. IMPRESSION: No acute process. [facility], , 06/05/2024 11:08 PM
[2024-06-05 23:13] LABS: INR 0.8 (<1.2); Partial Thromboplastin Time 22.5 sec (22.0-30.0); Prothrombin Time 9.4 sec (10.0-12.5)
[2024-06-05 23:27] LABS: ALT 21 U/L (4-34); AST 25 U/L (14-36); African American GFR (CKD) >90 (>60 ml/min/1.73 sqM); Albumin 4.9 g/dL (3.5-5.0); Alkaline Phosphatase 75 U/L (38-126); Anion Gap 9 mmol/L; Blood Urea Nitrogen 16 mg/dL (7-17); Calcium 9.6 mg/dL (8.4-10.2); Carbon Dioxide 26 mmol/L (22-30); Chloride 101 mmol/L (98-107); Glucose 299 mg/dL (74-99); Magnesium 1.7 mg/dL (1.6-2.3); Non-African American GFR(CKD) >90 (>60 ml/min/1.73 sqM); Potassium 3.4 mmol/L (3.5-5.1); Sodium 136 mmol/L (137-145); Total Bilirubin 0.5 mg/dL (0.2-1.3); Total Protein 7.6 g/dL (6.3-8.2)
[2024-06-05] MEDS: POTASSIUM BICARBONATE/CIT AC 20 MEQ TABLET.EFF PO ONE (23:50)
[2024-06-05] MEDS: SODIUM CHLORIDE 0.9% 1,000 ML IV ONE (23:50)
[2024-06-06] MEDS: INSULIN REGULAR 100 UNIT/ML VIAL (IV) IV ONE (00:22)
[2024-06-06 00:25] LABS: Glucose,Whole Blood 293 mg/dL (70-110)
[2024-06-06] MEDS: SODIUM CHLORIDE 0.9% 1,000 ML IV STA (00:26)
[2024-06-06 01:00] LABS: Glucose,Whole Blood 171 mg/dL (70-110)
[2024-06-06 01:16] LABS: Appearance,Urine Clear (Clear); Bilirubin,Urine Negative (Negative); Blood,Urine Negative (Negative); Color,Urine Colorless; Glucose,Urine (UA) 4+ (Negative); Ketones,Urine Negative (Negative); Leukocyte Esterase,Urine Negative (Negative); Nitrite,Urine Negative (Negative); Protein,Urine Negative (Negative); Specific Gravity,Urine 1.039 (1.001-1.035); Urobilinogen,Urine <2.0 mg/dL (<2.0)
[2024-06-06 01:52] VITALS: BP 109/88; PULSE 94; RESP 19; TEMP 98.1
== END 2024-06-06 01:52 | disposition home or self-care (01) ==
LOC: EC 22:07
DX: R00.2 Palpitations (principal); F41.9 Anxiety disorder, unspecified; F32.A Depression, unspecified; F17.200 Nicotine dependence, unspecified, uncomplicated; Z91.040 Latex allergy status; Z88.8 Allergy status to other drugs, medicaments and biological substances
CPT/HCPCS: 36415; 71046; 80053; 81003; 81025; 82009; 83735; 84443; 84484; 85025; 85379; 85610; 85730; 87636; 93005; 96360; 96361; 99285

== ENCOUNTER → 2024-06-27 | Outpatient (CLI) | payer BC ==
--- NOTE | 2024-06-27 15:59 | XR ---
EXAMINATION TYPE: XR shoulder complete RT DATE OF EXAM: 06/27/2024 3:37 PM COMPARISON: None CLINICAL INDICATION: Female, 48 years old with history of M25.511; PHH, pain TECHNIQUE: XR shoulder complete RT; examined in AP, internally rotated and scapular Y projections. FINDINGS: No evidence of acute osseous pathology, joint dislocation, or soft tissue swelling. The remaining po rtions of the visualized chest are unremarkable. Degeneration changes of the acromion, distal clavic le with osteophyte formation. There is osteophyte formation of the glenoid and humeral head. There is joint space narrowing of glenohumeral joint. IMPRESSION: 1. No acute osseous pathology. 2. Mild shoulder osteoarthrosis. [facility], Workstation: [facility], 06/27/2024 3:56 PM
== END | disposition home or self-care (01) ==
LOC: RADXRMAIN 15:22
PROVIDERS: ATTEND Internal Medicine
DX: M19.011 Primary osteoarthritis, right shoulder (principal)

== ENCOUNTER → 2024-07-11 | Outpatient (CLI) | payer BC ==
--- NOTE | 2024-08-16 05:13 | EM ---
EVENT MONITOR STUDY PERFORMED: 30-day event monitor. INDICATION: Palpitations. INTERPRETATION: Underlying rhythm is sinus with an average heart rate of 83 beats per minute. Heart rate varies from 56 beats per minute to 160 beats per minute. Rare PVCs are noted. There are no episodes of sustained ventricular or supraventricular tachyarrhythmias. There are no episodes of more than 2-second pauses. CONCLUSIONS: This 30-day event monitor reveals sinus rhythm without significant tachy or bradyarrhythmias. Rare PVCs are noted. MMODL / IJN: [id number] /
== END | disposition home or self-care (01) ==
LOC: RADECHMAIN 07:54
PROVIDERS: ATTEND Internal Medicine
DX: I49.3 Ventricular premature depolarization (principal); R00.2 Palpitations
CPT/HCPCS: 93270

== ENCOUNTER → 2024-08-10 | Outpatient (CLI) | payer BC ==
[2024-08-10 18:53] LABS: Urine Creatinine 58.3 mg/dL (28.0-217.0)
[2024-08-10 19:22] LABS: ALT 25 U/L (8-44); AST 22 U/L (13-35); Albumin 4.7 g/dL (3.8-4.9); Albumin/Globulin Ratio 1.81 Ratio (1.60-3.17); Alkaline Phosphatase 83 U/L (41-126); BUN/Creat Ratio 19.86 Ratio (12.00-20.00); Blood Urea Nitrogen 13.9 mg/dL (9.0-27.0); Calcium 9.8 mg/dL (8.7-10.3); Carbon Dioxide 22.9 mmol/L (21.6-31.8); Chloride 98 mmol/L (96-109); Chol/HDL Ratio 2.25 Ratio; Globulin 2.6 g/dL (1.6-3.3); Glucose 231 mg/dL (70-110); LDL Cholesterol,Calculated 76.6 mg/dL (0.0-131.0); Potassium 4.6 mmol/L (3.5-5.5); Sodium 136 mmol/L (135-145); Total Bilirubin 0.4 mg/dL (0.3-1.2); Total Protein 7.3 g/dL (6.2-8.2)
== END | disposition home or self-care (01) ==
LOC: LABWHC1 13:59
PROVIDERS: ATTEND Internal Medicine Endocrinology, Diabetes & Metabolism
DX: E11.65 Type 2 diabetes mellitus with hyperglycemia (principal)
CPT/HCPCS: 36415; 80053; 80061; 82043; 82570; 83036; 84443

== ENCOUNTER → 2024-08-14 | Outpatient (CLI) | payer BC ==
--- NOTE | 2024-08-14 17:14 | CA ---
Transthoracic Echo Report Name: Rubi Lindsay Age: 49 Gender: F : 1975 Exam Date: 08/14/2024 14:48 Exam Location: [place] Echo Ht (in): 62 Wt (lb): 150 Ordering Physician: Pillo Tam MD Attending/Referring Phys: Particle Board Supervisor Berna Lewis RDCS Procedure CPT: Indications: R00.2 palpiations Cardiac Hx: Technical Quality: Good Contrast 1: Total Dose (mL): Contrast 2: Total Dose (mL): MEASUREMENTS (Male / Female) Normal Values 2D ECHO LV Diastolic Diameter PLAX 4.3 cm 4.2 - 5.9 / 3.9 - 5.3 cm LV Systolic Diameter PLAX 2.9 cm IVS Diastolic Thickness 0.9 cm 0.6 - 1.0 / 0.6 - 0.9 cm LVPW Diastolic Thickness 1.0 cm 0.6 - 1.0 / 0.6 - 0.9 cm LV Relative Wall Thickness 0.5 LVOT Diameter 2.1 cm LV Diastolic Volume MOD BP 85.5 cm??? 67 - 155 / 56 - 104 cm??? LV Systolic Volume MOD BP 35.5 cm??? 22 - 58 / 19 - 49 cm??? LV Ejection Fraction MOD BP 58.5 % >= 55 % LV Cardiac Index MOD BP 2177.2 cm???/min???m??? LV Diastolic Volume MOD 4C 86.0 cm??? LV Systolic Volume MOD 4C 35.5 cm??? LV Ejection Fraction MOD 4C 58.7 % LV Cardiac Index MOD 4C 2200.0 cm???/min???m??? LV Diastolic Length 4C 8.0 cm LV Systolic Length 4C 6.6 cm LV Diastolic Volume MOD 2C 85.1 cm??? LV Systolic Volume MOD 2C 34.9 cm??? LV Ejection Fraction MOD 2C 59.0 % LV Cardiac Index MOD 2C 2186.8 cm???/min???m??? LV Diastolic Length 2C 8.0 cm LV Systolic Length 2C 6.7 cm LA Volume 32.0 cm??? 18 - 58 / 22 - 52 cm??? LA Volume Index 18.4 cm???/m??? 16 - 28 cm???/m??? Ascending Aorta Diameter 2.9 cm DOPPLER AV Peak Velocity 119.6 cm/s AV Peak Gradient 5.7 mmHg AV Mean Velocity 84.9 cm/s AV Mean Gradient 3.2 mmHg AV Velocity Time Integral 23.5 cm LVOT Peak Velocity 93.2 cm/s LVOT Peak Gradient 3.5 mmHg LVOT Velocity Time Integral 18.0 cm LVOT Stroke Volume 60.3 cm??? LVOT Stroke Volume Index 35.7 ml/m??? LVOT Cardiac Index 2629.4 cm???/min???m??? AV Area Cont Eq vti 2.6 cm??? AV Area Cont Eq pk 2.6 cm??? MV Area PHT 3.2 cm??? Mitral E Point Velocity 61.3 cm/s Mitral A Point Velocity 71.0 cm/s Mitral E to A Ratio 0.9 MV Deceleration Time 233.4 ms PV Peak Velocity 75.8 cm/s PV Peak Gradient 2.3 mmHg FINDINGS Left Ventricle Left ventricular ejection fraction is estimated at 55-60 %. Mildly increased posterior wall thickness. Left ventricular cavity size normal. No obvious regional wall motion abnormalities. Right Ventricle Normal right ventricular size and function. Unable to estimate the right ventricular systolic pressure. Right Atrium Normal right atrial size. Left Atrium Normal left atrial size. Mitral Valve Structurally normal mitral valve. No evidence for mitral valve prolapse. No mitral stenosis. Trace mitral regurgitation. Aortic Valve Trileaflet aortic valve. No aortic valve stenosis or regurgitation. Tricuspid Valve Structurally normal tricuspid valve. No tricuspid stenosis. Trace tricuspid regurgitation. Pulmonic Valve Structurally normal pulmonic valve. No pulmonic stenosis. No pulmonic regurgitation. Pericardium No pericardial effusion. Aorta Normal size aortic root and proximal ascending aorta. CONCLUSIONS Normal LV systolic function Previewed by: Dr. Blake Nugent MD (Electronically Signed) Final Date: 14 August 2024 17:13
== END | disposition home or self-care (01) ==
LOC: RADECHMAIN 14:40
PROVIDERS: ATTEND Internal Medicine
DX: R00.2 Palpitations (principal)
CPT/HCPCS: 93306

== ENCOUNTER 2024-09-21 13:32 | Emergency (ER) | payer BC ==
[2024-09-21 13:42] VITALS: TEMP 98.4
[2024-09-21 13:44] LABS: Glucose,Whole Blood 346 mg/dL (70-110)
--- NOTE | 2024-09-21 14:16 | ED ---
General Adult HPI - General Source: patient, RN notes reviewed, old records reviewed Mode of arrival: ambulatory Limitations: no limitations <Calderon Mcnamara - Last Filed: 09/21/24 15:04> <Antonella Yuan - Last Filed: 09/25/24 21:32> - General Chief complaint: Nausea/Vomiting/Diarrhea Stated complaint: vomiting Time Seen by Provider: 09/21/24 13:50 - History of Present Illness Initial comments: Is a 49-year-old female who presents emergency department for high blood sugars, nausea with dry heaving. Has had poor oral intake over the last few days. Has been having mild productive cough over the last few days as well. Denies any significant abdominal pain. Denies constipation or diarrhea. Denies any chest pain. Denies any fevers. Is on insulin at home. States blood sugars typically between 150 and 250. Currently presents with elevated blood sugars greater than 300. Presents for further evaluation at this time. Has been in DKA before and has a history of gastroparesis in addition to hypertension. (Calderon Mcnamara) - Related Data Home Medications Medication Instructions Recorded Confirmed traMADol HCL 50 mg PO TID 01/30/20 04/05/24 Albuterol Inhaler [Ventolin Hfa 1 puff INHALATION RT-Q4H PRN 04/17/21 04/05/24 Inhaler] Metoclopramide [Reglan] 10 mg PO ACHS 11/13/21 04/05/24 Losartan-Hctz 50-12.5 mg [Hyzaar 1 tab PO DAILY 05/27/22 04/05/24 50-12.5] Empagliflozin [Jardiance] 25 mg PO DAILY 09/26/22 04/05/24 INSULIN LISPRO (HumaLOG) [humaLOG] See Protocol SQ AC-TID PRN 09/26/22 04/05/24 metFORMIN HCL ER [Glucophage XR] 1,000 mg PO HS 09/26/22 04/05/24 ALPRAZolam [Xanax] 0.5 mg PO BID PRN 04/05/24 04/05/24 Beclomethasone Dipropionate [Qvar 2 puff PO RT-BID 04/05/24 04/05/24 80mcg Redihaler] Insulin Glargine,Hum.rec.anlog 24 units SQ HS 04/05/24 04/05/24 [Carolina Mcdaniel] Metoprolol Succinate (ER) [Toprol 25 mg PO DAILY 04/05/24 04/05/24 Xl] Olopatadine HCl [Pataday] 1 drop BOTH EYES DAILY PRN 04/05/24 04/05/24 Omeprazole [PriLOSEC] 20 mg PO DAILY 04/05/24 04/05/24 Pioglitazone [Actos] 15 mg PO DAILY 04/05/24 04/05/24 Pioglitazone [Actos] 30 mg PO DAILY 04/05/24 04/05/24 Venlafaxine HCl [Effexor XR] 150 mg PO DAILY 04/05/24 04/05/24 Previous Rx's Medication Instructions Recorded Prochlorperazine [Compazine] 10 mg PO Q8H #20 tab 09/21/24 Clotrimazole/Betameth Cream 1 applic TOPICAL BID #45 gm 09/22/24 [Lotrisone] Lidocaine Viscous 2% [Xylocaine 5 ml MUCOUS MEM BID PRN #25 ml 09/22/24 Viscous] Allergies Allergy/AdvReac Type Severity Reaction Status Date / Time latex Allergy Rash/Hives Verified 09/22/24 19:11 carisoprodol [From Soma] AdvReac "Trouble Verified 09/22/24 19:11 remembering things" steroids Allergy Rash/Hives Uncoded 09/22/24 19:11 Review of Systems ROS Other: All systems not noted in ROS Statement are negative. <Calderon Mcnamara - Last Filed: 09/21/24 15:04> ROS Other: All systems not noted in ROS Statement are negative. <Antonella Yuan - Last Filed: 09/25/24 21:32> ROS Statement: Those systems with pertinent positive or pertinent negative responses have been documented in the HPI. Review of Systems: CONST: Denies fever EYES: Denies blurry vision ENT: Denies nasal congestion C/V: Denies Chest pain RESP: Denies shortness of breath GI: Endorses nausea : Denies dysuria SKIN: Denies rash. MSK: Denies joint pain. NEURO: Denies headache (Calderon Mcnamara) Past Medical History Past Medical History: Asthma, Diabetes Mellitus, Hypertension Additional Past Medical History / Comment(s): states had a seizure at age 5, was in coma, ?meningitis, was on seizure meds until age 12, none since then. DDD,. pancreatitis, COVID 09/18/22 History of Any Multi-Drug Resistant Organisms: None Reported Past Surgical History: Breast Surgery, Cholecystectomy, Uterine Ablation Additional Past Surgical History / Comment(s): Left facial/ sinus surgery, colonoscopy 2014, Lt breast bx-neg, EGD, has had epidurals in past Past Anesthesia/Blood Transfusion Reactions: Motion Sickness, Postoperative Nausea & Vomiting (PONV) Additional Past Anesthesia/Blood Transfusion Reaction / Comment(s): motion s ickness when on air planes Past Psychological History: Anxiety, Depression Smoking Status: Current every day smoker Past Alcohol Use History: Rare Past Drug Use History: None Reported - Past Family History Father Family Medical History: Cancer, Seizure Disorder Additional Family Medical History / Comment(s): Colon cancer. 2 paternal aunts and paternal grandmother had breast cancer. Mother Family Medical History: Asthma, Hypertension, Liver Disease Additional Family Medical History / Comment(s): EtOH abuse. Maternal grandmother had leukemia. <Calderon Mcnamara - Last Filed: 09/21/24 15:04> General Exam Limitations: no limitations <Calderon Mcnamara - Last Filed: 09/21/24 15:04> - General Exam Comments Initial Comments: General: Appears in no acute distress. HEAD: Normal with no signs of head trauma. EYES: PERRLA, EOMI, conjunctiva normal, no discharge. ENT: Hearing grossly intact, normal oropharynx. Dry mucous membranes RESPIRATORY: Clear breath sounds bilaterally. No wheezes, rales, or rhonchi. C/V: Tachycardic with regular rhythm. S1 and S2 auscultated, no edema, peripheral pulses 2+ and intact throughout ABD: Abd is soft, nontender, nondistended EXT: Normal range of motion, no obvious deformity SKIN: No rashes or lesions observed on exposed skin. NEURO: Alert and oriented x 4. (Calderon Mcnamara) Course Vital Signs 09/21/24 09/21/24 09/21/24 13:39 14:59 16:44 Temperature 98.4 F Pulse Rate 133 H 100 77 Respiratory 18 20 16 Rate Blood Pressure 179/116 135/65 143/85 O2 Sat by Pulse 99 98 96 Oximetry Medical Decision Making - Lab Data Result diagrams: 09/21/24 14:11 09/21/24 14:11 - EKG Data -: EKG Interpreted by Me <Calderon Mcnamara - Last Filed: 09/21/24 15:04> - Lab Data Result diagrams: 09/21/24 14:11 09/21/24 14:11 <Antonella Yuan - Last Filed: 09/25/24 21:32> - Medical Decision Making Was pt. sent in by a medical professional or institution (, PA, GLOBE TESTER, urgent care, hospital, or care home...) When possible be specific @ -No Did you speak to anyone other than the patient for history (EMS, parent, family, police, friend...)? What history was obtained from this source @ -No Did you review nursing and triage notes (agree or disagree)? Why? @ -I reviewed and agree with nursing and triage notes Were old charts reviewed (outside hosp., previous admission, EMS record, old EKG, old radiological studies, urgent care reports/EKG's, care home records)? Report findings @ -Old charts reviewed showing patient is on insulin. Compared today's EKG with prior EKGs which revealed no obvious acute change. Prior EKGs reviewed from May 2024. Differential Diagnosis (chest pain, altered mental status, abdominal pain women, abdominal pain men, vaginal bleeding, weakness, fever, dyspnea, syncope, headache, dizziness, GI bleed, back pain, seizure, CVA, palpatations, mental health, musculoskeletal)? @ -DKA, electrolyte abnormality, influenza, viral syndrome. This list is not all inclusive. EKG interpreted by me (3pts min.). @ -As above X-rays interpreted by me (1pt min.). @ -Chest x-ray revealed no obvious acute cardiopulmonary process. CT interpreted by me (1pt min.). @ -None done U/S interpreted by me (1pt. min.). @ -None done What testing was considered but not performed or refused? (CT, X-rays, U/S, labs)? Why? @ -None What meds were considered but not given or refused? Why? @ -None Did you discuss the management of the patient with other professionals (professionals i.e. , PA, GLOBE TESTER, lab, RT, psych nurse, hospital social worker, harvest field ticketer, teacher, targeting acquisition officer, test case developer)? Give summary @ -No Was smoking cessation discussed for >3mins.? @ -No Was critical care preformed (if so, how long)? @ -No Were there social determinants of health that impacted care today? How? (Homelessness, low income, unemployed, alcoholism, drug addiction, transportation, low edu. Level, literacy, decrease access to med. care, retirement, rehab)? @ -No Was there de-escalation of care discussed even if they declined (Discuss DNR or withdrawal of care, Hospice)? DNR status @ -No What co-morbidities impacted this encounter? (DM, HTN, Smoking, COPD, CAD, Cancer, CVA, ARF, Chemo, Hep., AIDS, mental health diagnosis, sleep apnea, mor bid obesity)? @ -None Was patient admitted / discharged? Hospital course, mention meds given and ro moapa, prescriptions, significant lab abnormalities, going to OR and other pertinent info. @ -Patient presents emergency department for evaluation of nausea, high blood sugars. Concern for DKA. I evaluated the patient in ATP. Workup was started. Patient's Accu-Chek is 346. We will obtain abdominal labs, chest x-ray, viral swabs. She will be given IV fluids when she was placed in room as well as a dose of IV Reglan. She was in agreement this plan. EKG showed no signs of acute ischemia.Patient's laboratory studies returned remarkable for hyperglycemia with a blood sugar of 346. Patient does not have a significantly elevated anion gap. Acetone negative. Viral swabs negative. Urine is still pending. Patient was just roomed and is receiving medications and fluids. Chest x-ray reveals no obvious acute cardiopulmonary process. At this time is the end my shift. Patient signed out to Dr. Yuan pending results of workup. Undiagnosed new problem with uncertain prognosis? @ -No Drug Therapy requiring intensive monitoring for toxicity (Heparin, Nitro, Insulin, Cardizem)? @ -No Were any procedures done? @ -No (Calderon Mcnamara) Was patient admitted / discharged? Hospital course, mention meds given and route, prescriptions, significant lab abnormalities, going to OR and other pertinent info. @ -Upon arrival patient seen and evaluated in hallway 22. I did review the laboratory studies. Patient does not have criteria for DKA. I did evaluate the patient she does have improvement in her vomiting. She feels comfortable going home at this time. She does mention some longstanding right shoulder pain for which she is in physical therapy for. States the pain is mildly worse because of all the vomiting. I did provide her with Toradol shot. Patient will be discharged home with a prescription for Compazine. She is to take this in place of the Reglan when the Reglan is not working. She is to follow-up with the GI doctor regarding her gastroparesis. I did recommend better control of her sugars to help with this. Return for any new or worsening symptoms. Patient agreeable plan was discharged in stable condition Undiagnosed new problem with uncertain prognosis? @ -No Drug Therapy requiring intensive monitoring for toxicity (Heparin, Nitro, Insulin, Cardizem)? @ -No Were any procedures done? @ -No Diagnosis/symptom? @ -Acute nausea vomiting, chronic gastroparesis likely secondary to #3, history of diabetes mellitus, acute hyperglycemia secondary to #3 Acute, or Chronic, or Acute on Chronic? @ -Acute on chronic Uncomplicated (without systemic symptoms) or Complicated (systemic symptoms)? @ -Complicated Side effects of treatment? @ -No Exacerbation, Progression, or Severe Exacerbation? @ -Yes Poses a threat to life or bodily function? How? (Chest pain, [place], [place], pneumonia, PE, COPD, DKA, ARF, appy, cholecystitis, CVA, Diverticulitis, Homicidal, Suicidal, threat to staff... and all critical care pts) @ -No (Antonella Yuan) - Lab Data Lab Results 09/21/24 09/21/24 09/21/24 Range/Units 13:43 14:11 14:11 WBC 8.3 (3.8-10.6) k/uL RBC 5.18 (3.80-5.40) m/uL Hgb 16.0 (11.4-16.0) gm/dL Hct 49.3 H (34.0-46.0) % MCV 95.2 (80.0-100.0) fL MCH 30.8 (25.0-35.0) pg MCHC 32.4 (31.0-37.0) g/dL RDW 12.3 (11.5-15.5) % Plt Count 326 (150-450) k/uL MPV 7.3 Neutrophils % 67 % Lymphocytes % 23 % Monocytes % 6 % Eosinophils % 2 % Basophils % 1 % Neutrophils # 5.6 (1.3-7.7) k/uL Lymphocytes # 1.9 (1.0-4.8) k/uL Monocytes # 0.5 (0-1.0) k/uL Eosinophils # 0.1 (0-0.7) k/uL Basophils # 0.1 (0-0.2) k/uL VBG pH (7.31-7.41) VBG pCO2 (37-51) mmHg VBG HCO3 (24-28) mmol/L Sodium 132 L (137-145) mmol/L Potassium 4.9 (3.5-5.1) mmol/L Chloride 93 L (98-107) mmol/L Carbon Dioxide 25 (22-30) mmol/L Anion Gap 14 mmol/L BUN 18 H (7-17) mg/dL Creatinine 0.61 (0.52-1.04) mg/dL Est GFR (CKD-EPI)AfAm >90 (>60 ml/min/1.73 sqM) Est GFR (CKD-EPI)NonAf >90 (>60 ml/min/1.73 sqM) Glucose 346 H (74-99) mg/dL POC Glucose (mg/dL) 346 H (70-110) mg/dL POC Glu Sampler And Test Preparer ID Farhana Brewer Plasma Lactic Acid Romeo (0.7-2.0) mmol/L Calcium 10.9 H (8.4-10.2) mg/dL Total Bilirubin 0.7 (0.2-1.3) mg/dL AST 25 (14-36) U/L ALT 32 (4-34) U/L Alkaline Phosphatase 88 (38-126) U/L Total Protein 7.9 (6.3-8.2) g/dL Albumin 5.0 (3.5-5.0) g/dL Amylase 59 (30-110) U/L Lipase 198 (23-300) U/L Urine Color Urine Appearance (Clear) Urine pH (5.0-8.0) Ur Specific [place] (1.001-1.035) Urine Protein (Negative) Urine Glucose (UA) (Negative) Urine Ketones (Negative) Urine Blood (Negative) Urine Nitrite (Negative) Urine Bilirubin (Negative) Urine Urobilinogen (<2.0) mg/dL Ur Leukocyte Esterase (Negative) Acetone, Qual Negative (Negative) Influenza Type A (PCR) (Not Detectd) Influenza Type B (PCR) (Not Detectd) RSV (PCR) (Not Detectd) SARS-CoV-2 (PCR) (Not Detectd) 09/21/24 09/21/24 09/21/24 Range/Units 14:11 14:11 14:11 WBC (3.8-10.6) k/uL RBC (3.80-5.40) m/uL Hgb (11.4-16.0) gm/dL Hct (34.0-46.0) % MCV (80.0-100.0) fL MCH (25.0-35.0) pg MCHC (31.0-37.0) g/dL RDW (11.5-15.5) % Plt Count (150-450) k/uL MPV Neutrophils % % Lymphocytes % % Monocytes % % Eosinophils % % Basophils % % Neutrophils # (1.3-7.7) k/uL Lymphocytes # (1.0-4.8) k/uL Monocytes # (0-1.0) k/uL Eosinophils # (0-0.7) k/uL Basophils # (0-0.2) k/uL VBG pH (7.31-7.41) VBG pCO2 (37-51) mmHg VBG HCO3 (24-28) mmol/L Sodium (137-145) mmol/L Potassium (3.5-5.1) mmol/L Chloride (98-107) mmol/L Carbon Dioxide (22-30) mmol/L Anion Gap mmol/L BUN (7-17) mg/dL Creatinine (0.52-1.04) mg/dL Est GFR (CKD-EPI)AfAm (>60 ml/min/1.73 sqM) Est GFR (CKD-EPI)NonAf (>60 ml/min/1.73 sqM) Glucose (74-99) mg/dL POC Glucose (mg/dL) (70-110) mg/dL POC Glu Sampler And Test Preparer ID Plasma Lactic Acid Romeo 1.7 (0.7-2.0) mmol/L Calcium (8.4-10.2) mg/dL Total Bilirubin (0.2-1.3) mg/dL AST (14-36) U/L ALT (4-34) U/L Alkaline Phosphatase (38-126) U/L Total Protein (6.3-8.2) g/dL Albumin (3.5-5.0) g/dL Amylase (30-110) U/L Lipase (23-300) U/L Urine Color Light Yellow Urine Appearance Clear (Clear) Urine pH 5.5 (5.0-8.0) Ur Specific [place] 1.045 H (1.001-1.035) Urine Protein Negative (Negative) Urine Glucose (UA) 4+ H (Negative) Urine Ketones 3+ H (Negative) Urine Blood Negative (Negative) Urine Nitrite Negative (Negative) Urine Bilirubin Negative (Negative) Urine Urobilinogen <2.0 (<2.0) mg/dL Ur Leukocyte Esterase Negative (Negative) Acetone, Qual (Negative) Influenza Type A (PCR) Not Detected (Not Detectd) Influenza Type B (PCR) Not Detected (Not Detectd) RSV (PCR) Not Detected (Not Detectd) SARS-CoV-2 (PCR) Not Detected (Not Detectd) 09/21/24 09/21/24 Range/Units 14:11 16:36 WBC (3.8-10.6) k/uL RBC (3.80-5.40) m/uL Hgb (11.4-16.0) gm/dL Hct (34.0-46.0) % MCV (80.0-100.0) fL MCH (25.0-35.0) pg MCHC (31.0-37.0) g/dL RDW (11.5-15.5) % Plt Count (150-450) k/uL MPV Neutrophils % % Lymphocytes % % Monocytes % % Eosinophils % % Basophils % % Neutrophils # (1.3-7.7) k/uL Lymphocytes # (1.0-4.8) k/uL Monocytes # (0-1.0) k/uL Eosinophils # (0-0.7) k/uL Basophils # (0-0.2) k/uL VBG pH 7.41 (7.31-7.41) VBG pCO2 40 (37-51) mmHg VBG HCO3 26 (24-28) mmol/L Sodium (137-145) mmol/L Potassium (3.5-5.1) mmol/L Chloride (98-107) mmol/L Carbon Dioxide (22-30) mmol/L Anion Gap mmol/L BUN (7-17) mg/dL Creatinine (0.52-1.04) mg/dL Est GFR (CKD-EPI)AfAm (>60 ml/min/1.73 sqM) Est GFR (CKD-EPI)NonAf (>60 ml/min/1.73 sqM) Glucose (74-99) mg/dL POC Glucose (mg/dL) 220 H (70-110) mg/dL POC Glu Sampler And Test Preparer ID [place] Karri Plasma Lactic Acid Romeo (0.7-2.0) mmol/L Calcium (8.4-10.2) mg/dL Total Bilirubin (0.2-1.3) mg/dL AST (14-36) U/L ALT (4-34) U/L Alkaline Phosphatase (38-126) U/L Total Protein (6.3-8.2) g/dL Albumin (3.5-5.0) g/dL Amylase (30-110) U/L Lipase (23-300) U/L Urine Color Urine Appearance (Clear) Urine pH (5.0-8.0) Ur Specific [place] (1.001-1.035) Urine Protein (Negative) Urine Glucose (UA) (Negative) Urine Ketones (Negative) Urine Blood (Negative) Urine Nitrite (Negative) Urine Bilirubin (Negative) Urine Urobilinogen (<2.0) mg/dL Ur Leukocyte Esterase (Negative) Acetone, Qual (Negative) Influenza Type A (PCR) (Not Detectd) Influenza Type B (PCR) (Not Detectd) RSV (PCR) (Not Detectd) SARS-CoV-2 (PCR) (Not Detectd) - EKG Data EKG Comments: 12-lead Electrocardiogram Interpretation Note EKG was reviewed and interpreted by myself. 12-lead ECG performed at 1406 is interpreted by me as revealing sinus tachycardia at a rate of 107 beats per minute. Tarkio is normal. CA interval is 143 ms, QRS duration is 93 ms, QTc is 3 to 99 ms.. There were no ST or T wave abnormalities to suggest myocardial ischemia or injury. R wave progression across the precordium was satisfactory. By my interpretation this EKG is non-diagnostic for acute ischemia. (Calderon Mcnamara) Disposition <Calderon Mcnamara - Last Filed: 09/21/24 15:04> Is patient prescribed a controlled substance at d/c from ED?: No Time of Disposition: 16:23 <Antonella Yuan - Last Filed: 09/25/24 21:32> Clinical Impression: Gastroparesis due to DM, Hyperglycemia, Nausea & vomiting Disposition: HOME SELF-CARE Condition: Stable Instructions (If sedation given, give patient instructions): Diabetic Jorge roparesis (DC), Acute Nausea and Vomiting (ED) Additional Instructions: Please take the Compazine in place of the Reglan. Follow-up with the GI doctor as you may need a gastric emptying study. Follow-up with your primary care doctor as well and return for any new or worsening symptoms Prescriptions: Prochlorperazine [Compazine] 10 mg PO Q8H #20 tab Referrals: Pillo Tam MD [Primary Care Provider] - 1-2 days
[2024-09-21 14:17] LABS: Basophils # (A) 0.1 k/uL (0-0.2); Basophils % (A) 1 %; Eosinophils # (A) 0.1 k/uL (0-0.7); Eosinophils % (A) 2 %; HCT 49.3 % (34.0-46.0); Lymphocytes # (A) 1.9 k/uL (1.0-4.8); Lymphocytes % (A) 23 %; MCH 30.8 pg (25.0-35.0); MCHC 32.4 g/dL (31.0-37.0); MCV 95.2 fL (80.0-100.0); Mean Platelet Volume 7.3; Monocytes # (A) 0.5 k/uL (0-1.0); Monocytes % (A) 6 %; Neutrophils # (A) 5.6 k/uL (1.3-7.7); Neutrophils % (A) 67 %; Platelet Count 326 k/uL (150-450); RBC 5.18 m/uL (3.80-5.40); RDW 12.3 % (11.5-15.5); WBC 8.3 k/uL (3.8-10.6)
--- NOTE | 2024-09-21 14:26 | XR ---
EXAMINATION TYPE: XR chest 2V DATE OF EXAM: 09/21/2024 CLINICAL INDICATION: Female, 49 years old with history of abdominal pain, TECHNIQUE: Frontal and lateral views of the chest are obtained. COMPARISON: Chest x-ray on June 05, 2024 FINDINGS: There is no focal air space opacity, pleural effusion, or pneumothorax seen. The cardiac silhouette size is stable and within normal limits. The osseous structures are intact. IMPRESSION: No acute process. [facility], , 09/21/2024 2:23 PM
[2024-09-21 14:39] LABS: ALT 32 U/L (4-34); AST 25 U/L (14-36); African American GFR (CKD) >90 (>60 ml/min/1.73 sqM); Alkaline Phosphatase 88 U/L (38-126); Amylase 59 U/L (30-110); Anion Gap 14 mmol/L; Blood Urea Nitrogen 18 mg/dL (7-17); Calcium 10.9 mg/dL (8.4-10.2); Carbon Dioxide 25 mmol/L (22-30); Chloride 93 mmol/L (98-107); Glucose 346 mg/dL (74-99); Lipase 198 U/L (23-300); Non-African American GFR(CKD) >90 (>60 ml/min/1.73 sqM); Potassium 4.9 mmol/L (3.5-5.1); Sodium 132 mmol/L (137-145); Total Bilirubin 0.7 mg/dL (0.2-1.3); Total Protein 7.9 g/dL (6.3-8.2)
[2024-09-21 14:47] LABS: VBG PH 7.41 (7.31-7.41)
[2024-09-21] MEDS: SODIUM CHLORIDE 0.9% 1,000 ML IV ONE (14:51)
[2024-09-21] MEDS: METOCLOPRAMIDE 5 MG/ML 2 ML VIAL IVP STA (14:51)
[2024-09-21 14:53] LABS: Appearance,Urine Clear (Clear); Bilirubin,Urine Negative (Negative); Blood,Urine Negative (Negative); Color,Urine Light Yellow; Glucose,Urine (UA) 4+ (Negative); Leukocyte Esterase,Urine Negative (Negative); Nitrite,Urine Negative (Negative); PH, Urine 5.5 (5.0-8.0); Protein,Urine Negative (Negative); Specific Gravity,Urine 1.045 (1.001-1.035); Urobilinogen,Urine <2.0 mg/dL (<2.0)
[2024-09-21 14:54] LABS: Influenza A Not Detected (Not Detectd); Influenza B Not Detected (Not Detectd); RSV Not Detected (Not Detectd)
[2024-09-21 15:29] LABS: Ketones,Urine 3+ (Negative)
[2024-09-21] MEDS: INSULIN REGULAR 100 UNIT/ML VIAL (IM/SQ) SQ ONE (16:01)
[2024-09-21 16:37] LABS: Glucose,Whole Blood 220 mg/dL (70-110)
[2024-09-21] MEDS: KETOROLAC 15 MG/ML 1 ML VIAL IVP STA (16:44)
[2024-09-21 16:46] VITALS: BP 143/85; PULSE 77; RESP 16
== END 2024-09-21 16:46 | disposition home or self-care (01) ==
LOC: EC 13:32
DX: E11.43 Type 2 diabetes mellitus with diabetic autonomic (poly)neuropathy (principal); E11.65 Type 2 diabetes mellitus with hyperglycemia; R11.2 Nausea with vomiting, unspecified; R00.0 Tachycardia, unspecified; F17.200 Nicotine dependence, unspecified, uncomplicated; Z91.040 Latex allergy status; Z88.8 Allergy status to other drugs, medicaments and biological substances
CPT/HCPCS: 36415; 93005; 80053; 82150; 82803; 82009; 83605; 83690; 85025; 81003; 87636; 71046; 99284; 96374; 96375; 96361; J2765; J1885

== ENCOUNTER 2024-09-22 18:51 | Emergency (ER) | payer BC ==
[2024-09-22 19:11] VITALS: BP 150/96; PULSE 109; RESP 18; TEMP 98.5
--- NOTE | 2024-09-22 20:59 | ED ---
ENT HPI - General Chief complaint: Dental/Oral Stated complaint: mouth burning, genital discomfort Time Seen by Provider: 09/22/24 19:50 Source: patient Mode of arrival: ambulatory Limitations: no limitations - History of Present Illness Initial comments: 49-year-old female presenting with chief complaint of burning in the mouth and groin rash. Patient reports that she has had a worsening red and burning pain across her tongue for few days. States that initially to start his pain and now her tongue is red and inflamed. She tried taking antihistamine which did not help much. She is also having redness along the bilateral groin. This is painful to the touch. No itching. No discharge or bleeding. No sloughing of the skin. She denies any new soaps, lotions, or other topical products. No new foods or medications. No difficulty breathing. No vomiting or diarrhea. - Related Data Home Medications Medication Instructions Recorded Confirmed traMADol HCL 50 mg PO TID 01/30/20 04/05/24 Albuterol Inhaler [Ventolin Hfa 1 puff INHALATION RT-Q4H PRN 04/17/21 04/05/24 Inhaler] Metoclopramide [Reglan] 10 mg PO ACHS 11/13/21 04/05/24 Losartan-Hctz 50-12.5 mg [Hyzaar 1 tab PO DAILY 05/27/22 04/05/24 50-12.5] Empagliflozin [Jardiance] 25 mg PO DAILY 09/26/22 04/05/24 INSULIN LISPRO (HumaLOG) [humaLOG] See Protocol SQ AC-TID PRN 09/26/22 04/05/24 metFORMIN HCL ER [Glucophage XR] 1,000 mg PO HS 09/26/22 04/05/24 ALPRAZolam [Xanax] 0.5 mg PO BID PRN 04/05/24 04/05/24 Beclomethasone Dipropionate [Qvar 2 puff PO RT-BID 04/05/24 04/05/24 80mcg Redihaler] Insulin Glargine,Hum.rec.anlog 24 units SQ HS 04/05/24 04/05/24 [Carolina Mcdaniel] Metoprolol Succinate (ER) [Toprol 25 mg PO DAILY 04/05/24 04/05/24 Xl] Olopatadine HCl [Pataday] 1 drop BOTH EYES DAILY PRN 04/05/24 04/05/24 Omeprazole [PriLOSEC] 20 mg PO DAILY 04/05/24 04/05/24 Pioglitazone [Actos] 15 mg PO DAILY 04/05/24 04/05/24 Pioglitazone [Actos] 30 mg PO DAILY 04/05/24 04/05/24 Venlafaxine HCl [Effexor XR] 150 mg PO DAILY 04/05/24 04/05/24 Previous Rx's Medication Instructions Recorded Prochlorperazine [Compazine] 10 mg PO Q8H #20 tab 09/21/24 Clotrimazole/Betameth Cream 1 applic TOPICAL BID #45 gm 09/22/24 [Lotrisone] Lidocaine Viscous 2% [Xylocaine 5 ml MUCOUS MEM BID PRN #25 ml 09/22/24 Viscous] Allergies Allergy/AdvReac Type Severity Reaction Status Date / Time latex Allergy Rash/Hives Verified 09/22/24 19:11 carisoprodol [From Soma] AdvReac "Trouble Verified 09/22/24 19:11 remembering things" steroids Allergy Rash/Hives Uncoded 09/22/24 19:11 Review of Systems ROS Statement: Those systems with pertinent positive or pertinent negative responses have been documented in the HPI. ROS Other: All systems not noted in ROS Statement are negative. Past Medical History Past Medical History: Asthma, Diabetes Mellitus, Hypertension Additional Past Medical History / Comment(s): states had a seizure at age 5, was in coma, ?meningitis, was on seizure meds until age 12, none since then. DDD,. pancreatitis, COVID 09/18/22 History of Any Multi-Drug Resistant Organisms: None Reported Past Surgical History: Breast Surgery, Cholecystectomy, Uterine Ablation Additional Past Surgical History / Comment(s): Left facial/ sinus surgery, colonoscopy 2014, Lt breast bx-neg, EGD, has had epidurals in past Past Anesthesia/Blood Transfusion Reactions: Motion Sickness, Postoperative Nausea & Vomiting (PONV) Additional Past Anesthesia/Blood Transfusion Reaction / Comment(s): motion sickness when on air planes Past Psychological History: Anxiety, Depression Smoking Status: Current every day smoker Past Alcohol Use History: Rare Past Drug Use History: None Reported - Past Family History Father Family Medical History: Cancer, Seizure Disorder Additional Family Medical History / Comment(s): Colon cancer. 2 paternal aunts and paternal grandmother had breast cancer. Mother Family Medical History: Asthma, Hypertension, Liver Disease Additional Family Medical History / Comment(s): EtOH abuse. Maternal grandmother had leukemia. General Exam Limitations: no limitations General appearance: alert, in no apparent distress Head exam: Present: atraumatic, normocephalic, normal inspection Eye exam: Present: normal appearance, EOMI ENT exam: Present: other (Erythematous and irritated oral mucosa) Neck exam: Present: normal inspection. Absent: meningismus Respiratory exam: Absent: respiratory distress Neurological exam: Present: alert, oriented X3 Psychiatric exam: Present: normal affect, normal mood Skin exam: Present: rash (Erythematous rash to the bilateral groin) Course Vital Signs 09/22/24 19:09 Temperature 98.5 F Pulse Rate 109 H Respiratory 18 Rate Blood Pressure 150/96 O2 Sat by Pulse 98 Oximetry Medical Decision Making - Medical Decision Making Was pt. sent in by a medical professional or institution (, PA, MARINE ELECTRONICS REPAIRER, urgent care, hospital, or retirement...) When possible be specific @ -No Did you speak to anyone other than the patient for history (EMS, parent, family, police, friend...)? What history was obtained from this source @ -No Did you review nursing and triage notes (agree or disagree)? Why? @ -I reviewed and agree with nursing and triage notes Were old charts reviewed (outside hosp., previous admission, EMS record, old EKG, old radiological studies, urgent care reports/EKG's, retirement records)? Report findings @ -No old charts were reviewed Differential Diagnosis (chest pain, altered mental status, abdominal pain women, abdominal pain men, vaginal bleeding, weakness, fever, dyspnea, syncope, headache, dizziness, GI bleed, back pain, seizure, CVA, palpatations, mental health, musculoskeletal)? @ -Differential includes allergic reaction, cellulitis, aphthous ulcer, stomatitis, not an all-inclusive list EKG interpreted by me (3pts min.). @ -As above X-rays interpreted by me (1pt min.). @ -None done CT interpreted by me (1pt min.). @ -None done U/S interpreted by me (1pt. min.). @ -None done What testing was considered but not performed or refused? (CT, X-rays, U/S, labs)? Why? @ -None What meds were considered but not given or refused? Why? @ -None Did you discuss the management of the patient with other professionals (professionals i.e. , PA, MARINE ELECTRONICS REPAIRER, lab, RT, psych nurse, social work instructor, membership sales advisor, teacher, media liaison officer, watch case polisher)? Give summary @ -No Was smoking cessation discussed for >3mins.? @ -No Was critical care preformed (if so, how long)? @ -No Were there social determinants of health that impacted care today? How? (Home lessness, low income, unemployed, alcoholism, drug addiction, transportation, low edu. Level, literacy, decrease access to med. care, alf, rehab)? @ -No Was there de-escalation of care discussed even if they declined (Discuss DNR or withdrawal of care, Hospice)? DNR status @ -No What co-morbidities impacted this encounter? (DM, HTN, Smoking, COPD, CAD, Cancer, CVA, ARF, Chemo, Hep., AIDS, mental health diagnosis, sleep apnea, morbid obesity)? @ -None Was patient admitted / discharged? Hospital course, mention meds given and route, prescriptions, significant lab abnormalities, going to OR and other pertinent info. @ -49-year-old female presenting with chief complaint of rash to the groin and painful sensation in the mouth. She has evidence of gingivostomatitis on exam. She has erythema that is tender to the touch to the groin. No evidence of any ulcerations or vesicles. Plan is to treat with viscous lidocaine for the oral lesions and clotrimazole/betamethasone cream for the rash. On reassessment the patient has left the room and eloped from the ER. Undiagnosed new problem with uncertain prognosis? @ -No Drug Therapy requiring intensive monitoring for toxicity (Heparin, Nitro, Insulin, Cardizem)? @ -No Were any procedures done? @ -No Diagnosis/symptom? @ -Gingivostomatitis, rash Acute, or Chronic, or Acute on Chronic? @ -Acute Uncomplicated (without systemic symptoms) or Complicated (systemic symptoms)? @ -Uncomplicated Side effects of treatment? @ -No Exacerbation, Progression, or Severe Exacerbation? @ -No Poses a threat to life or bodily function? How? (Chest pain, USA, [place], pneumonia, PE, COPD, DKA, ARF, appy, cholecystitis, CVA, Diverticulitis, Homicidal, Suicidal, threat to staff... and all critical care pts) @ -Low likelihood Disposition Clinical Impression: Rash, Stomatitis Disposition: HOME SELF-CARE Condition: Good Instructions (If sedation given, give patient instructions): Acute Rash (ED), Gingivostomatitis (ED) Additional Instructions: Follow-up with PCP. Report back to ER with any new or worsening symptoms. Take medication as prescribed. Apply cream twice daily to the rash Prescriptions: Clotrimazole/Betameth Cream [Lotrisone] 1 applic TOPICAL BID #45 gm Lidocaine Viscous 2% [Xylocaine Viscous] 5 ml MUCOUS MEM BID PRN #25 ml PRN Reason: Pain Is patient prescribed a controlled substance at d/c from ED?: No Referrals: Pillo Tam MD [Primary Care Provider] - 1-2 days Time of Disposition: 20:59
[2024-09-22] MEDS: LIDOCAINE VISCOUS 2% 15 ML CUP MUCOUS MEM ONE (21:03)
[2024-09-22] MEDS: methylPREDNISolone SOD SUCCI 125 MG/2 ML VIAL IM ONE (21:03)
[2024-09-22] MEDS: FAMOTIDINE 20 MG TAB PO STA (21:03)
[2024-09-22] MEDS: CLOTRIMAZOLE/BETAMETH 1-0.05% CREAM 45 GM TUBE TOPICAL SCH (21:04)
== END 2024-09-22 21:04 | disposition home or self-care (01) ==
LOC: EC 18:51
DX: K12.1 Other forms of stomatitis (principal); F17.200 Nicotine dependence, unspecified, uncomplicated; Z91.040 Latex allergy status; Z88.8 Allergy status to other drugs, medicaments and biological substances; Z88.6 Allergy status to analgesic agent
CPT/HCPCS: 99282

== ENCOUNTER 2024-10-11 10:05 | Emergency (ER) | payer BC ==
--- NOTE | 2024-10-11 10:33 | ED ---
URI HPI - General Chief Complaint: Upper Respiratory Infection Stated Complaint: cough Time Seen by Provider: 10/11/24 10:29 Source: patient, RN notes reviewed Mode of arrival: ambulatory Limitations: no limitations - History of Present Illness Initial Comments: 49-year-old female with a past medical history significant of hypertension, asthma and diabetes mellitus type 2 who presented to the ER for evaluation of cough. Patient reports for the past 10 days she has felt unwell with a cough, congestion, runny nose. She does report a sore throat this has since subsided. She has taken [id number] cough syrup and tried albuterol inhaler at home without relief of symptoms. Patient was seen by PCP on Wednesday and prescribed a Z-Nadeem and Tessalon Perles. She states her symptoms have persisted and her cough is keeping her up at night. She does report her has similar symptoms. She denies any known fevers, chills, nausea, vomiting, abdominal pain, chest pain, shortness of breath, constipation/diarrhea or urinary complaints. - Related Data Home Medications Medication Instructions Recorded Confirmed traMADol HCL 50 mg PO TID 01/30/20 04/05/24 Albuterol Inhaler [Ventolin Hfa 1 puff INHALATION RT-Q4H PRN 04/17/21 04/05/24 Inhaler] Metoclopramide [Reglan] 10 mg PO ACHS 11/13/21 04/05/24 Losartan-Hctz 50-12.5 mg [Hyzaar 1 tab PO DAILY 05/27/22 04/05/24 50-12.5] Empagliflozin [Jardiance] 25 mg PO DAILY 09/26/22 04/05/24 INSULIN LISPRO (HumaLOG) [humaLOG] See Protocol SQ AC-TID PRN 09/26/22 04/05/24 metFORMIN HCL ER [Glucophage XR] 1,000 mg PO HS 09/26/22 04/05/24 ALPRAZolam [Xanax] 0.5 mg PO BID PRN 04/05/24 04/05/24 Beclomethasone Dipropionate [Qvar 2 puff PO RT-BID 04/05/24 04/05/24 80mcg Redihaler] Insulin Glargine,Hum.rec.anlog 24 units SQ HS 04/05/24 04/05/24 [Carolina Mcdaniel] Metoprolol Succinate (ER) [Toprol 25 mg PO DAILY 04/05/24 04/05/24 Xl] Olopatadine HCl [Pataday] 1 drop BOTH EYES DAILY PRN 04/05/24 04/05/24 Omeprazole [PriLOSEC] 20 mg PO DAILY 04/05/24 04/05/24 Pioglitazone [Actos] 15 mg PO DAILY 04/05/24 04/05/24 Pioglitazone [Actos] 30 mg PO DAILY 04/05/24 04/05/24 Venlafaxine HCl [Effexor XR] 150 mg PO DAILY 04/05/24 04/05/24 Previous Rx's Medication Instructions Recorded Prochlorperazine [Compazine] 10 mg PO Q8H #20 tab 09/21/24 Clotrimazole/Betameth Cream 1 applic TOPICAL BID #45 gm 09/22/24 [Lotrisone] Lidocaine Viscous 2% [Xylocaine 5 ml MUCOUS MEM BID PRN #25 ml 09/22/24 Viscous] Allergies Allergy/AdvReac Type Severity Reaction Status Date / Time latex Allergy Rash/Hives Verified 10/11/24 10:16 carisoprodol [From Soma] AdvReac "Trouble Verified 10/11/24 10:16 remembering things" steroids Allergy Rash/Hives Uncoded 10/11/24 10:16 Review of Systems ROS Statement: Those systems with pertinent positive or pertinent negative responses have been documented in the HPI. ROS Other: All systems not noted in ROS Statement are negative. Past Medical History Past Medical History: Asthma, Diabetes Mellitus, Hypertension Additional Past Medical History / Comment(s): states had a seizure at age 5, was in coma, ?meningitis, was on seizure meds until age 12, none since then. DDD,. pancreatitis, COVID 09/18/22 History of Any Multi-Drug Resistant Organisms: None Reported Past Surgical History: Breast Surgery, Cholecystectomy, Uterine Ablation Additional Past Surgical History / Comment(s): Left facial/ sinus surgery, colonoscopy 2014, Lt breast bx-neg, EGD, has had epidurals in past Past Anesthesia/Blood Transfusion Reactions: Motion Sickness, Postoperative Manpreet sea & Vomiting (PONV) Additional Past Anesthesia/Blood Transfusion Reaction / Comment(s): motion sickness when on air planes Past Psychological History: Anxiety, Depression Smoking Status: Current every day smoker Past Alcohol Use History: Rare Past Drug Use History: None Reported - Past Family History Father Family Medical History: Cancer, Seizure Disorder Additional Family Medical History / Comment(s): Colon cancer. 2 paternal aunts and paternal grandmother had breast cancer. Mother Family Medical History: Asthma, Hypertension, Liver Disease Additional Family Medical History / Comment(s): EtOH abuse. Maternal grandmother had leukemia. General Exam Limitations: no limitations General appearance: alert, in no apparent distress ENT exam: Present: mucous membranes moist, TM's normal bilaterally, other (Mild erythema to oropharynx no tonsillar exudates) Neck exam: Present: normal inspection. Absent: tenderness, meningismus, lymphadenopathy Respiratory exam: Present: normal lung sounds bilaterally. Absent: respiratory distress, wheezes, rales, rhonchi, stridor Cardiovascular Exam: Present: regular rate, normal rhythm, normal heart sounds. Absent: systolic murmur, diastolic murmur, rubs, gallop, clicks GI/Abdominal exam: Present: soft, normal bowel sounds. Absent: distended, tenderness, guarding, rebound, rigid Neurological exam: Present: alert, oriented X3, CN II-XII intact Skin exam: Present: warm, dry, intact, normal color. Absent: rash Course Vital Signs 10/11/24 10/11/24 10/11/24 10:12 11:10 12:46 Temperature 98 F Pulse Rate 92 76 80 Respiratory 18 Rate Blood Pressure 154/101 131/83 O2 Sat by Pulse 99 98 Oximetry 10/11/24 10/11/24 12:55 13:05 Temperature 98.0 F Pulse Rate 80 81 Respiratory 20 Rate Blood Pressure 126/85 O2 Sat by Pulse 99 Oximetry Medical Decision Making - Medical Decision Making Was pt. sent in by a medical professional or institution (, PA, HAND LASTER, urgent care, hospital, or detention...) When possible be specific @ -No Did you speak to anyone other than the patient for history (EMS, parent, family, police, friend...)? What history was obtained from this source @ -No Did you review nursing and triage notes (agree or disagree)? Why? @ -I reviewed and agree with nursing and triage notes Were old charts reviewed (outside hosp., previous admission, EMS record, old EKG, old radiological studies, urgent care reports/EKG's, detention records)? Report findings @ -No old charts were reviewed Differential Diagnosis (chest pain, altered mental status, abdominal pain women, abdominal pain men, vaginal bleeding, weakness, fever, dyspnea, syncope, headache, dizziness, GI bleed, back pain, seizure, CVA, palpatations, mental health, musculoskeletal)? @ -COVID, RSV, influenza, viral sinusitis, pneumonia, strep pharyngitis, this list is not meant to be all-inclusive] EKG interpreted by me (3pts min.). @ -[None done X-rays interpreted by me (1pt min.). @ -CXR interpreted by me negative for focal consolidations, pneumothorax or pleural effusions. Mild central peribronchial cuffing. CT interpreted by me (1pt min.). @ -None done U/S interpreted by me (1pt. min.). @ -None done What testing was considered but not performed or refused? (CT, X-rays, U/S, labs)? Why? @ -None What meds were considered but not given or refused? Why? @ -None Did you discuss the management of the patient with other professionals (professionals i.e. , PA, HAND LASTER, lab, RT, psych nurse, neonatal social worker, clay modeler, teacher, second officer, child support case officer)? Give summary @ -No Was smoking cessation discussed for >3mins.? @ -I discussed smoking cessation for greater than 3 minutes. The risk of smoking were discussed with the patient including but not limited to risks of cancer, stroke, coronary artery disease and COPD. Also discussed with patient were multiple methods of quitting smoking. Lastly we discussed the financial cost of smoking. Was critical care preformed (if so, how long)? @ -No Were there social determinants of health that impacted care today? How? (Homelessness, low income, unemployed, alcoholism, drug addiction, transportation, low edu. Level, literacy, decrease access to med. care, intermediate, rehab)? @ -No Was there de-escalation of care discussed even if they declined (Discuss DNR or withdrawal of care, Hospice)? DNR status @ -No What co-morbidities impacted this encounter? (DM, HTN, Smoking, COPD, CAD, Cancer, CVA, ARF, Chemo, Hep., AIDS, mental health diagnosis, sleep apnea, morbid obesity)? @ -None Was patient admitted / discharged? Hospital course, mention meds given and route, prescriptions, significant lab abnormalities, going to OR and other pertinent info. @ -Discharge. 49-year-old female presenting to the ER for evaluation of cough. Upon my evaluation, vitals within acceptable limits. There is wheezing noted to lower lung brar for which patient received DuoNeb breathing treatment, with improvement. Viral swabs obtained negative. Chest x-ray negative for focal consolidations or other acute cardiopulmonary process. Patient also received Tylenol in the emergency department. Upon reevaluation, patient resting comfortably on stretcher no signs of acute distress. Advised patient to continue taking albuterol inhaler and Tessalon Perles as prescribed. I discussed smoking cessation with patient as this may also be contributing to symptoms. Patient is stable for discharge at this time with out patient follow- up to PCP. Strict return parameters discussed. Patient verbally expressed understanding and agreement with care plan. Case discussed with ED attending, Dr. Yuan. Undiagnosed new problem with uncertain prognosis? @ -No Drug Therapy requiring intensive monitoring for toxicity (Heparin, Nitro, Insulin, Cardizem)? @ -No Were any procedures done? @ -No Diagnosis/symptom? @ -Viral illness/acute viral sinusitis Acute, or Chronic, or Acute on Chronic? @ -Acute Uncomplicated (without systemic symptoms) or Complicated (systemic symptoms)? @ -Uncomplicated Side effects of treatment? @ -No Exacerbation, Progression, or Severe Exacerbation? @ -No Poses a threat to life or bodily function? How? (Chest pain, USA, [place], pneumonia, PE, COPD, DKA, ARF, appy, cholecystitis, CVA, Diverticulitis, Homicidal, Suicidal, threat to staff... and all critical care pts) @ -No - Lab Data Lab Results 10/11/24 Range/Units 10:13 Influenza Type A (PCR) Not Detected (Not Detectd) Influenza Type B (PCR) Not Detected (Not Detectd) RSV (PCR) Not Detected (Not Detectd) SARS-CoV-2 (PCR) Not Detected (Not Detectd) - Radiology Data Radiology results: report reviewed, image reviewed Disposition Clinical Impression: Viral infection, Acute viral sinusitis Disposition: HOME SELF-CARE Condition: Stable Additional Instructions: Follow-up with PCP. Continue to use albuteral inhaler as prescribed at home. Return to the ER for any new or worsening symptoms. Is patient prescribed a controlled substance at d/c from ED?: No Referrals: Pillo Tam MD [Primary Care Provider] - 1-2 days Time of Disposition: 12:22
[2024-10-11] MEDS: ACETAMINOPHEN TAB 325 MG TAB PO STA (10:39)
--- NOTE | 2024-10-11 11:03 | XR ---
EXAMINATION TYPE: XR chest 2V DATE OF EXAM: 10/11/2024 10:51 AM COMPARISON: 09/21/2024 CLINICAL INDICATION: Female, 49 years old with history of cough x 10 days, , TECHNIQUE: PA and lateral views FINDINGS: The cardiomediastinal silhouette, aorta, and pulmonary vasculature are within normal limits. Mild marshal tral peribronchial cuffing. Otherwise, lungs and pleural spaces are clear. IMPRESSION: Mild central peribronchial cuffing could reflect bronchitis or asthma. Otherwise, no acute cardiopulm onary process. [facility], Workstation: [facility], 10/11/2024 11:01 AM
[2024-10-11 12:14] LABS: Influenza A Not Detected (Not Detectd); Influenza B Not Detected (Not Detectd); RSV Not Detected (Not Detectd)
[2024-10-11] MEDS: IPRATROPIUM-ALBUTEROL 3 ML NEB INHALATION STA (12:46)
[2024-10-11 13:06] VITALS: BP 126/85; PULSE 81; RESP 20; TEMP 98
== END 2024-10-11 13:10 | disposition home or self-care (01) ==
LOC: EC 10:05
DX: J01.90 Acute sinusitis, unspecified (principal); B97.89 Other viral agents as the cause of diseases classified elsewhere; F17.200 Nicotine dependence, unspecified, uncomplicated; Z91.040 Latex allergy status; Z88.6 Allergy status to analgesic agent; Z88.8 Allergy status to other drugs, medicaments and biological substances
CPT/HCPCS: 71046; 87636; 94640; 99284

== ENCOUNTER → 2025-01-26 | Outpatient (CLI) | payer BC ==
[2025-01-26 19:57] LABS: ALT 66 U/L (8-44); AST 33 U/L (13-35); Albumin 4.6 g/dL (3.8-4.9); Albumin/Globulin Ratio 2.00 Ratio (1.60-3.17); Alkaline Phosphatase 131 U/L (41-126); Anion Gap 14.10 mmol/L (4.00-12.00); BUN/Creat Ratio 21.43 Ratio (12.00-20.00); Blood Urea Nitrogen 15.0 mg/dL (9.0-27.0); Calcium 9.5 mg/dL (8.7-10.3); Carbon Dioxide 25.9 mmol/L (21.6-31.8); Chloride 103 mmol/L (96-109); Globulin 2.3 g/dL (1.6-3.3); Glucose 176 mg/dL (70-110); Potassium 4.2 mmol/L (3.5-5.5); Sodium 143 mmol/L (135-145); Total Protein 6.9 g/dL (6.2-8.2)
== END | disposition home or self-care (01) ==
LOC: LABWHC1 14:07
PROVIDERS: ATTEND Internal Medicine Endocrinology, Diabetes & Metabolism
DX: E11.65 Type 2 diabetes mellitus with hyperglycemia (principal)
CPT/HCPCS: 36415; 80053; 83519; 84681

== ENCOUNTER → 2025-02-09 | Outpatient (CLI) | payer BC ==
--- NOTE | 2025-02-09 18:14 | MM ---
Reason for Exam: Screening (asymptomatic). Last mammogram was performed 1 year(s) and 7 month(s) ago. Patient History: Menarche at age 13. First Full-Term at age 24. Perimenopausal. Hormonal Contraceptives for 2 years from age 18 until age 20. 04/26/2014, Benign Core Biopsy on the left side. 04/26/2014, Benign Core Biopsy on the left side. Paternal grandmother had breast cancer, age 70. Paternal aunt had breast cancer, age 52. Maternal aunt had breast cancer, age 52. Risk Values: Mami 5 year model risk: 1.6%. NCI Lifetime model risk: 12.5%. Prior Study Comparison: 08/08/2019 Bilateral Screening Mammogram, [facility]. 12/13/2020 Bilateral Diagnostic Mammogram, [facility]. 08/04/2023 Bilateral MG 3D diag mammo w/cad SAM, [facility]. Tissue Density: The breasts are heterogeneously dense, which may obscure small masses. Findings: Analyzed By CAD. 2 microclips anterior left breast from prior biopsies. Bilateral areas of asymmetric density on the MLO views are unchanged. There is no suspicious group of microcalcifications or new suspicious mass in either breast. Overall Assessment: Benign, BI-RAD 2 Management: Screening Mammogram of both breasts in 1 year. Patient should continue monthly self-breast exams. A clinical breast exam by your physician is recommended on an annual basis. This exam should not preclude additional follow-up of suspicious palpable abnormalities. Note on Mami scores and lifetime risk: 1. A Mami score greater than 3% is considered moderate risk. If this is the case, consider specialist referral to assess eligibility for a risk reducing agent. 2. If overall lifetime risk for the development of breast cancer is 20% or higher, the patient may qualify for future screening with alternating mammogram and breast MRI. [facility], , 02/09/2025 6:11 PM. Electronically signed and approved by: Rachel Agrawal M.D. Radiologist
== END | disposition home or self-care (01) ==
LOC: RADMAMWWP 11:26
PROVIDERS: ATTEND Internal Medicine
DX: Z12.31 Encounter for screening mammogram for malignant neoplasm of breast (principal); R92.333 Mammographic heterogeneous density, bilateral breasts; Z92.0 Personal history of contraception; Z80.3 Family history of malignant neoplasm of breast
CPT/HCPCS: 77063; 77067